=== PATIENT | male | born 1955 | race Caucasian/White ===

== ENCOUNTER 2025-04-02 18:22 | Emergency (ER) | payer BC, MEDICARE, SELFPAY ==
[2025-04-02] VITALS (7 sets, daily range): BP systolic 141–171; BP diastolic 61–94; PULSE 65–74; RESP 16–18; TEMP 36.6–37.9; O2SAT 93–99; BMI 58.1
--- NOTE | 2025-04-02 19:52 | ED.VIS.LOWEX ---
HPI History of Present Illness Chief Complaint: Lower Extremity Injury Informant: patient Narrative Narrative: 69-year-old diabetic male presenting to the emergency room for "another opinion on my foot". Patient has been seeing a purchasing buyer in [place] for the past 5 weeks. He states he had a callus it was deroofed and had packing placed on the bottom of his left foot. He states that for about a week he has felt feverish. He notes swelling of the foot with increased warmth and redness. States that he has been on an unknown antibiotic. He went to [place]'s emergency department over the weekend and was referred back to his purchasing buyer. States he took his last antibiotic this morning. He states that prior to taking that antibiotic he was on doxycycline for a chest infection. He tells me that over the weekend he was told that he was dehydrated and that his kidney function was higher than expected. He is concerned because he has bilateral knee replacements. PFSH [facility] Home Medications Medication Instructions Recorded Last Taken Type albuterol sulfate 90 mcg/actuation 2 puff inhalation Q6H PRN PRN 04/02/25 04/02/25 History aerosol inhaler wheezing allopurinol 100 mg tablet 100 mg PO TID 04/02/25 04/02/25 History ascorbic acid (vitamin C) 500 mg 500 mg PO DAILY 04/02/25 04/02/25 History capsule aspirin 81 mg tablet,delayed 81 mg PO DAILY 04/02/25 04/02/25 History release cephalexin 500 mg capsule 500 mg PO Q6 #40 CAPSULES 04/02/25 Unknown Rx clindamycin HCl 300 mg capsule 300 mg PO Q6H #40 CAPSULES 04/02/25 Unknown Rx (Cleocin HCl) evolocumab 140 mg/mL subcutaneous 140 mg subcut .COMPLEX 04/02/25 03/25/25 History pen injector (Repatha SureObedick) fexofenadine 180 mg tablet 180 mg PO DAILY 04/02/25 04/02/25 History (Faustina Allergy) fluticasone propionate 50 2 spray intranasal DAILY 04/02/25 04/02/25 History mcg/actuation nasal spray,suspension (24 Hour Allergy Relief) glyburide 5 mg tablet 10 mg PO BID 04/02/25 04/02/25 History hydrochlorothiazide 25 mg tablet 25 mg PO DAILY 04/02/25 03/30/25 History hydroxyzine HCl 25 mg tablet 25 mg PO QHS 04/02/25 04/02/25 History losartan 100 mg tablet 100 mg PO DAILY 04/02/25 04/02/25 History meclizine 25 mg tablet (Dramamine 25 mg PO DAILY 04/02/25 04/02/25 History (meclizine)) metformin 1,000 mg tablet 1,000 mg PO BID 04/02/25 04/02/25 History metoprolol tartrate 25 mg tablet 25 mg PO DAILY 04/02/25 04/02/25 History ondansetron 4 mg disintegrating 4 mg PO Q8H PRN PRN nausea 04/02/25 04/01/25 History tablet pioglitazone 30 mg tablet 30 mg PO DAILY 04/02/25 04/02/25 History potassium chloride 10 mEq 10 meq PO DAILY 04/02/25 04/02/25 History tablet,extended release propranolol 60 mg tablet 60 mg PO TID 04/02/25 04/02/25 History sulfamethoxazole 800 1 tab PO BID 04/02/25 04/02/25 History mg-trimethoprim 160 mg tablet testosterone 30 mg/actuation (1.5 1 pump topical DAILY 04/02/25 04/02/25 History mL) transderm solution metered pump vitamin B complex (Vitamins B 1 cap PO DAILY 04/02/25 04/02/25 History Complex capsule) Allergy/AdvReac Type Severity Reaction Status Date / Time Iodinated Contrast Media Allergy Severe Anaphylaxis Verified 04/02/25 18:26 (contrast dye - iodinated) codeine AdvReac Mild anxiety Verified 04/02/25 18:26 Opioids - Morphine Analogues AdvReac Mild anxiety Verified 04/02/25 18:26 Penicillins AdvReac Mild aches Verified 04/02/25 18:26 Social History Smoking Status: Never smoker ROS ROS ED Constitutional Constitutional ED: Reports fever(s) and subjective; Denies chills or weight loss Eyes Eyes: Denies change in vision or diplopia ENT ENT ED: Denies ear pain, rhinorrhea or sore throat Cardiovascular Cardiovascular: Denies chest pain, orthopnea, palpitations or racing heartbeat Respiratory/Chest Respiratory/Chest: Denies cough, dyspnea or orthopnea Gastrointestinal Gastrointestinal: Denies abdominal pain, diarrhea, nausea or vomiting Genitourinary Genitourinary ED: Denies dysuria, hematuria or urinary frequency Musculoskeletal Musculoskeletal: Denies arthralgias or myalgias Integumentary Reports rash and other Details: See HPI left foot wound ; Denies abscess Neurologic Neurologic: Denies headache(s) or weakness Psychiatric Psychiatric: Denies anxiety, depression, suicidal ideation or suicidal thoughts Endocrine Endocrinology: Denies polydipsia, polyphagia or polyuria Allergic/Immunologic Allergic/Immunologic ED: Denies mouth swelling, tongue swelling or urticaria EXAM Physical Exam Const Vital Signs: 04/02/25 18:23 04/02/25 18:24 04/02/25 20:02 Temperature 98 F 98 F 100.2 F H Temperature Source Oral Oral Oral Pulse Rate 71 74 67 Respiratory Rate 16 18 18 Blood Pressure 165/91 H 165/91 H 171/94 H Blood Pressure Mean 115 115 119 Pulse Ox 99 96 95 Oxygen Delivery Method Room Air Room Air Room Air 04/02/25 21:00 04/02/25 22:00 04/02/25 23:00 Temperature 100.2 F H 100.1 F H 100.1 F H Temperature Source Oral Oral Oral Pulse Rate 66 65 66 Respiratory Rate 18 18 16 Blood Pressure 164/82 H 145/70 H 141/61 H Blood Pressure Mean 109 95 87 Pulse Ox 96 93 94 Oxygen Delivery Method Room Air Room Air Room Air 04/02/25 23:17 Temperature 100 F H Temperature Source Pulse Rate 67 Respiratory Rate 18 Blood Pressure 155/62 H Blood Pressure Mean 93 Pulse Ox 98 Oxygen Delivery Method Positive well nourished and obese General Appearance ED: NAD Nutritional Appearance: obese HEENT Reports normocephalic, head/scalp atraumatic and moist mucous membranes Eyes PERRL and EOMs intact bilaterally Neck no lymphadenopathy, supple and no JVD Resp normal respiratory effort and clear to auscultation bilaterally Cardio regular rate, regular rhythm and no murmurs GI normal to inspection, nondistended, normoactive bowel sounds and non-tender Palpation: soft Back/Spine no CVA tenderness and normal ROM Extremity Extremity Narrative: Patient has bilateral venous stasis changes of the skin. The left foot appears more edematous and erythematous than the right. There is a hole on the plantar surface near the little toe MTP joint. This has packing in it. I do not appreciate foul smell or drainage from the site. The knees are without erythema or significant swelling. No significant effusion is noted. General Extremety ED: Yes edema General Extremity: edema bilateral lower extremity Details: moderate Neuro oriented x3 and CN's II-XII intact bilaterally Sensorium / Orientation: alert Motor Exam: strength 5/5 throughout Psych mental status grossly normal Mood & Affect: Negative for depressed or tearful Skin no rashes or lesions noted and no wounds MDM MDM MDM Narrative Medical decision making narrative: Differential diagnosis includes but not limited to sepsis cellulitis diabetic foot ulcer osteomyelitis electrolyte abnormalities acute kidney injury Patient's white count is down to 33.7 neutrophils. Sodium 129 potassium 5.2 CO2 23 anion gap 10 BUN 36 creatinine 1.8 normal lactic acid at 1.3. Sed rate slightly elevated at 22. CRP is elevated at 163. Urinalysis with no overt infection. I independent her potation of the plain films a small foci of gas with no obvious osteomyelitis. The foci of gas is most likely related to his packing.. Blood cultures were not obtained as the patient finished antibiotics of what appears to be Bactrim per his paperwork that we are able to get from his vehicle from security. Temperature hailey to 100.2 and down to 100. I sat down with the patient and we went over the above results. We talked about hospitalization versus outpatient follow-up and using Keflex and clindamycin. Patient states he is going to call his purchasing buyer tomorrow to see if his appointment can be moved up from Wednesday. I think this is a reasonable approach. Patient understands return instructions to this ED or to the hospital of his choosing for repeat examination. Lab Data Labs: Laboratory Results - last 24 hr 04/02/25 04/02/25 18:56 20:06 WBC 9.0 RBC 4.85 Hgb 14.3 Hct 43.8 MCV 90.3 MCH 29.5 MCHC 32.6 RDW Std Deviation 47.7 H RDW Coeff of Sridhar 14.4 Plt Count 270 MPV 10.1 Immature Gran % (Auto) 0.300 Neut % (Auto) 73.7 H Lymph % (Auto) 15.3 L [place] % (Auto) 9.6 Eos % (Auto) 0.7 Baso % (Auto) 0.4 Absolute Neuts (auto) 6.6 Absolute Lymphs (auto) 1.37 Nucleated RBC % 0 ESR 22 H Sodium 129 L Potassium 5.2 H Chloride 96 L Carbon Dioxide 23.0 Anion Gap 10 BUN 36 H Creatinine 1.80 H Estim Creat Clear Calc 70.07 Est GFR (MDRD) Non-Af 41 L BUN/Creatinine Ratio 19.9 Glucose 333 H Lactic Acid 1.3 Calcium 8.9 Total Bilirubin 0.63 AST 32 ALT 23 Alkaline Phosphatase 83 C-React Prot Ext Range 163.00 H Total Protein 7.1 Albumin 3.5 Globulin 3.6 Albumin/Globulin Ratio 1.0 Urine Color Yellow Urine Clarity Clear Urine pH 5.0 Ur Specific [place]y 1.020 Urine Protein 100 H Urine Glucose (UA) 250 H Urine Ketones Negative Urine Occult Blood 50 H Urine Nitrite Negative Urine Bilirubin Negative Urine Urobilinogen 1 H Ur Leukocyte Esterase Negative Urine RBC 5-10 SEEN Urine WBC 0-5 SEEN Ur Squamous Epith Cells 5-10 SEEN Urine Bacteria 2+ Hyaline Casts 0-5 SEEN Fine Granular Casts 0-5 SEEN Coarse Granular Casts 0-5 SEEN Urine Mucus 0 SEEN Radiography Diagnostic Testing: Clinical Impression(s) from Imaging Studies Foot X-Ray 04/02/25 20:15 IMPRESSION: Generalized soft tissue swelling/edema about the forefoot, with small amount of soft tissue gas laterally adjacent to the 5th MTP joint, related to ulceration or gas-forming soft tissue infection. No radiographic evidence for osteomyelitis. If clinical concern persists recommend MRI. Reading Location: [facility] Discharge Plan Triage Chief Complaint: Lower Extremity Injury ED Provider: Pro Wagner Dx/Rx/DC Orders Clinical Impression: Cellulitis in diabetic foot Instructions: Cellulitis Prescriptions: New clindamycin HCl [Cleocin HCl] 300 mg capsule 300 mg PO Q6H Qty: 40 0RF cephalexin 500 mg capsule 500 mg PO Q6 Qty: 40 0RF No Action albuterol sulfate 90 mcg/actuation HFA aerosol inhaler 2 puff inhalation Q6H PRN PRN (Reason: wheezing) Repatha SureClick 140 mg/mL pen injector 140 mg subcut .COMPLEX Rx Instructions: 140 mg subcutaneously Q14D; glyburide 5 mg tablet 10 mg PO BID potassium chloride 10 mEq tablet extended release 10 meq PO DAILY propranolol 60 mg tablet 60 mg PO TID sulfamethoxazole-trimethoprim 800-160 mg tablet 1 tab PO BID metformin 1,000 mg tablet 1,000 mg PO BID hydrochlorothiazide 25 mg tablet 25 mg PO DAILY pioglitazone 30 mg tablet 30 mg PO DAILY ondansetron 4 mg tablet,disintegrating 4 mg PO Q8H PRN PRN (Reason: nausea) losartan 100 mg tablet 100 mg PO DAILY testosterone 30 mg/actuation (1.5 mL) solution in metered pump w/miguel angel 1 pump topical DAILY Patient Comments: [NO ORIGINAL SIG] allopurinol 100 mg tablet 100 mg PO TID ascorbic acid (vitamin C) 500 mg capsule 500 mg PO DAILY aspirin 81 mg tablet,delayed release (DR/EC) 81 mg PO DAILY vitamin B complex [Vitamins B Complex] Capsule 1 cap PO DAILY fexofenadine [Faustina Allergy] 180 mg tablet 180 mg PO DAILY fluticasone propionate [24 Hour Allergy Relief] 50 mcg/actuation spray,suspension 2 spray intranasal DAILY Rx Instructions: administer into each nostril hydroxyzine HCl 25 mg tablet 25 mg PO QHS meclizine [Dramamine (meclizine)] 25 mg tablet 25 mg PO DAILY metoprolol tartrate 25 mg tablet 25 mg PO DAILY Primary Care Provider: Kieran Franklin Referrals: Kieran Franklin MD [Primary Care Provider, Family Practice] Activity Restrictions/Additional Instructions: Please call your purchasing buyer office tomorrow to see if they can move your appointment up for repeat examination. Print Language: Mohawk Disposition Disposition: Home, Self Care Discharge Date/Time: 04/02/25 23:51
--- OUTSIDE RECORDS SUMMARY | 2025-04-02 20:05 | XMS RPT_ITS | CCD ---
Author Organization [facility] Care Team Providers Care Network Operations Manager Name Role Phone DOCTOR, OUT OF TOWN Unavailable Unavailable JUANITO MEJIA Unavailable Unavailable DELBERT FRANKLIN Unavailable Unavailable Reginald Wall Unavailable Unavailable Reginald Wall Unavailable Unavailable Rene Lopez Unavailable Unavailable Physician, PCP Unknown Unavailable Unavailab le Rigoberto, Delbert aPlumbo Primary Care Provider SALINAS NEWMAN Attending Unavail able SALINAS NEWMAN Referring Unavail able STENCEL, DELBERT PALUMBO Primary Care Unavailab le LEESON, SALINAS ALMEIDA Admitting Unavail able COURTNEY SNOWDEN Attending Unavailable LEESALINAS BUENROSTRO Referring Unavail able STENCELDELBERT Primary Care Unavailab le LEEPORTER, SALINAS ALMEIDA Admitting Unavail able MAISHA DELGADO Attending Unavailable LEEPORTER, SALINAS ALMEIDA Referring Unavail able STENCEL, DELBERT PALUMBO Primary Care Unavailab le LEESON, SALINAS ALMEIDA Admitting Unavail able MAISHA DELGADO Attending Unavailable SALINAS NEWMAN Referring Unavail able STENCEL, DELBERT PALUMBO Primary Care Unavailab robin LEESALINAS BUENROSTRO Admitting Unavail able IVANNA GREENBERG Attending Unavailable LEESALINAS BUENROSTRO Referring Unavail able STENCELDELBERT [facility] Unavailab le LEESONSALINAS Admitting Unavail able IVANNA GREENBERG Attending Unavailable SALINAS NEWMAN Referring Unavail able STENCELDELBERT [facility] Unavailab le LEESALINAS BUENROSTRO Admitting Unavail able IVANNA GREENBERG Attending Unavailable LEESALINAS BUENROSTRO Referring Unavail able STENCEL, DELBERT PALUMBO Primary [facility] [place] Unavailab le LEESONSALINAS Admitting Unavail able IVANAN GREENBERG Attending Unavailable SALINAS NEWMAN Referring Unavail able STENCEL, DELBERT PALUMBO [facility] Unavailab le LEESONSALINAS Admitting Unavail able IVANNA GREENBERG Attending Unavailable LEESON, SALINAS ALMEIDA Referring Unavail able STENCEL, DELBERT PALUMBO Primary Care Unavailab le LEESON, SALINAS ALMEIDA Admitting Unavail able GREENBERG, IVANNA Attending Unavailable LEESON, SALINAS ALMEIDA Referring Unavail able STENCEL, DELBERT PALUMBO Primary Care Unavailab le LEESON, SALINAS ALMEIDA Admitting Unavail able DELGADOMAISHA HOGUE Attending Unavailable LEESON, SALINAS ALMEIDA Referring Unavail able STENCEL, DELBERT PALUMBO Primary Care Unavailab le LEESON, SALINAS ALMEIDA Admitting Unavail able GREENBERG, IVANNA Attending Unavailable LEESON, SALINAS ALMEIDA Referring Unavail able STENCEL, DELBERT PALUMBO Primary Care Unavailab le LEESON, SALINAS ALMEIDA Admitting Unavail able DELGADO, MAISHA Attending Unavailable LEESON, SALINAS ALMEIDA Referring Unavail able STENCEL, DELBERT PALUMBO Primary Care Unavailab le LEESON, SALINAS ALMEIDA Admitting Unavail able GREENBERG, IVANNA Attending Unavailable LEESON, SALINAS ALMEIDA Referring Unavail able STENCEL, DELBERT PALUMBO Primary Care Unavailab OSCAR Pearson Attending Unavailable OSCAR PORTILLO Referring Unavailable STENCEL, DELBERT PALUMBO Primary Care Unavailab OSCAR Pearson Attending Unavailable OSCAR PORTILLO Referring Unavailable STENEB, DELBERT PALUMBO Primary Care Unavailab le Delbert Franklin Unavailable Unavailable Muniz II, Karolina Unavailable Unavailable Adalberto Wall Unavailable Unavailable Muniz II, Karolina Unavailable Unavailable Cj Warner Unavailable Unavailable Adalberto Wall Unavailable Unavailable Rigoberto, Delbert Palumbo Primary Care Provider Delbert Franklin Unavailable [phone] Unavailable Unavailable Delbert Franklin Unavailable Lisbet Zuniga Unavailable Unavailabl e Karolina Muniz Unavailable Adalberto Wall Unavailable Delbert Franklin MD Primary Care Provider DELBERT FRANKLIN Primary Care Unavailab DELBERT Mcintosh Attending Unavailable STENDELBERT PARSON Primary Care Unavailab le CONNKARON Attending Unavail able CONN, KARON SERVIN Admitting Unavail able CONN, KARON SERVIN Referring Unavail able STENEB, DELBERT PALUMBO Primary Care Unavailab Ms. ADALBERTO Blood Attending Unav ailable Steneb, Delbert Palumbo Primary Care Unavailab le Basilio, Dr. oRdrick Lisa Attending Unavailable WOOD, Ms. ADALBERTO BRENDA Referring Unav ailable Stencel, Delbert Palumbo Primary Care Unavailab le Stencel, Delbert Palumbo Primary Care Unavailab le SipMarion gastelum Attending Unavailable SipMarion gastelum Referring Unavailable Stencel Delbert GÓMEZ Primary Care Provider [phone] Wood AIR TRAFFIC COORDINATOR-PIEROGI MAKER, Adalberto L Unavailable Rigoberto, Dr. Delbert Palumbo Primary Care Unava ilable Muniz II, Dr. Karolina Childers Attending Unavai lable Muniz II, Dr. Karolina Childers Referring Unavai lable Muniz II, Dr. Karolina Childers Referring Unavai lable Stencel, Dr. Delbert Palumbo Primary Care Unava ilable Muniz II, Dr. Karolina Childers Attending Unavai lable Muniz II, Dr. Karolina Childers Referring Unavai lable Stencel, Dr. Delbert Palumbo Primary Care Unava ilable Muniz II, Dr. Karolina Childers Attending Unavai lable Stencel, Dr. Delbert Palumbo Primary Care Unava ilable Wood, MsJosee Alvarezraine Attending Unav ailable Wood, MsJosee Adablerto Brenda Referring Unav ailable Unavailable Unavailable Unavailable Unavailable Mae AIR TRAFFIC COORDINATOR-PIEROGI MAKER, Adalberto Bonner Primary Care Provider Delbert Franklin MD Primary Care Provider Wood AIR TRAFFIC COORDINATOR-PIEROGI MAKER, Adalberto L Unavailable Wood AIR TRAFFIC COORDINATOR-PIEROGI MAKER, [facility] Primary Care Provider Wood AIR TRAFFIC COORDINATOR-PIEROGI MAKER, Adalberto L Unavailable Wood AIR TRAFFIC COORDINATOR-PIEROGI MAKER, [facility] Primary Care Provider Wood AIR TRAFFIC COORDINATOR-PIEROGI MAKER, Adalberto L Unavailable Rosendo Longo MD Unavailable ROSENDO LONGO Attending Unava ilable WOODADALBERTO Primary Care Unavailable WOODADALBERTO Attending Unavailable WOOD, ADALBERTO L Referring Unavailable WOODADALBERTO Primary Care Unavailable MUNIZ, KAROLINA Anguiano Attending Unavailable WOODADALBERTO Primary Care Unavailable ROSENDO LONGO Attending Unava ilable WOOD, ADALBERTO L Primary Care Unavailable ADALBERTO WALL Attending Unavailable ADALBERTO WALL Referring Unavailable ADALBERTO WALL Primary Care Unavailable Wood AIR TRAFFIC COORDINATOR-PIEROGI MAKER, Adalberto Bonner Unavailable Mae AIR TRAFFIC COORDINATOR-DOUGLAS, Adalberto Bonner Primary Care Provider Emily Kingston MD, Rosendo Adkins Unavailable ADALBERTO WALL Primary Care Unavailable KARAN ALMANZA Attending Unavailable RAKEL DICKEY Attending Unavailable RAKEL DICKEY Referring Unavailable MAE ADALBERTO Ha Primary Care Unavailable RODRICK BASILIO Attending Unavailable RODRICK BASILIO Referring Unavailable ADALBERTO WALL Primary Care Unavailable STENCEL, DELBERT PALUMBO Primary [facility] [place] Unavailab le NELL, TERRANCE HOLGUIN Referring Unavailable NELL, TERRANCE HOLGUIN Admitting Unavailable NELL, TERRANCE HOLGUIN Attending Unavailable STENCEL, DELBERT PALUMBO Primary [facility] [place] Unavailab le NELL, TERRANCE HOLGUIN Admitting Unavailable NELL, TERRANCE VENTURARY Referring Unavailable STENCEL, DELBERT PALUMBO Primary [facility] [place] Unavailab le NELL, TERRANCE HOLGUIN Attending Unavailable STENCEL, DELBERT PALUMBO [facility] Unavailab le ALMANZA, HERNANDEZ SCHROEDER Attending Unavailab le STENCEL, DELBERT PALUMBO [facility] Unavailab le STENCEL, DELBERT PALUMBO Primary [facility] [place] Unavailab le ALMANZA, HERNANDEZ SCHROEDER Attending Unavailab le ALMANZA, HERNANDEZ SCHROEDER Attending Unavailab le STENCEL, DELBERT PALUMBO [facility] Unavailab le ALMANZA, HERNANDEZ SCHROEDER Attending Unavailab le STENCEL, DELBERT PALUMBO [facility] Unavailab le NELL, TERRANCE HOLGUIN Attending Unavailable STENCEL, DELBERT PALUMBO Primary [facility] [place] Unavailab le Allergies Allergy Classification Reported Allergen(s) Allergy Type Date of Onset Reaction(s) Facility Acetaminophen / HYDROcodone (3 sources) Acetaminophen / HYDROcodone; Translations: [Vicodin TABS] Drug Allergy 08-02-19 19 Unknown, GI Upset [facility] Work Phone: Acetaminophen / oxyCODONE (5 sources) Acetaminophen / oxyCODONE; Translations: [acetaminophen-oxyc odone] Drug Allergy 07-21-19 23 Anxiety [facility] Work Phone: acetaminophen / propoxyphene (2 sources) acetaminophen / propoxyphene; Translations: [Darvocet-N 100 TABS] Drug Allergy Nausea [facility] Work Phone: Angiotensin Converting Enzyme (ZULLY) Inhibitors (5 sources) Lisinopril; Translations: [lisinopril] Drug Allergy 08-02-19 19 Dizziness, Other [facility] Work Phone: Aspartame (3 sources) Aspartame; Translations: [Aspartame and Phenylalanine] Drug Allergy 07-21-19 23 Unknown [facility] Codeine / guaiFENesin (2 sources) Codeine / guaiFENesin; Translations: [Robitussin-AC] Drug Allergy [facility] Work Phone: Corticosteroids (3 sources) predniSONE; Translations: [predniSONE] Drug Allergy 07-21-19 23 Unknown [facility] Work Phone: Dextromethorphan (1 source) Dextromethorphan Drug Allergy 07-21-19 23 Unknown [facility] Work Phone: empagliflozin (1 source) empagliflozin Drug Allergy 07-21-19 23 Diarrhea [facility] Work Phone: guaiFENesin (3 sources) guaiFENesin; Translations: [guaifenesin] Drug Allergy 07-21-19 23 Unknown [facility] Work Phone: HMG-CoA Reductase Inhibitors (statins) (3 sources) Simvastatin; Translations: [simvastatin] Drug Allergy 07-21-19 23 Anxiety [facility] Work Phone: Penicillins (antibiotic) (3 sources) Penicillins; Translations: [Penicillins] Drug Allergy 04-10-20 02 Unknown, Anaphylaxis [facility] Work Phone: Quinolones (antibiotic) (1 source) levoFLOXacin Drug Allergy 07-21-19 23 Unknown [facility] Work Phone: Spironolactone (1 source) Spironolactone Drug Allergy 07-21-19 23 Unknown [facility] Work Phone: (20 sources) Acetaminophen / HYDROcodone; Translations: [HYDROCODONE-ACETAM INOPHEN] Drug Allergy 08-02-19 GI Intolerance, Unknown, GI Upset [facility] (20 sources) Aspartame; Translations: [ASPARTAME] Drug Allergy 08-02-19 GI Intolerance, Unknown [facility] (20 sources) Codeine / guaiFENesin; Translations: [CODEINE-GUAIFENESI N] Drug Allergy 08-02-19 Anxiety [facility] (20 sources) Lisinopril; Translations: [LISINOPRIL] Drug Allergy 08-02-19 Dizziness, Other [facility] Comment on above: cough (20 sources) Penicillins; Translations: [PENICILLINS] Propensity to adverse reactions to drug 04-10-20 02 Anaphylaxis, Unknown [facility] (20 sources) Silk adhesive tape; Translations: [SILK TAPE] Propensity to adverse reactions to substance 09-23-19 03 [facility] (20 sources) Simvastatin; Translations: [SIMVASTATIN] Drug Allergy 08-02-19 Anxiety [facility] (20 sources) Other; Translations: [OTHER] Propensity to adverse reactions 04-10-20 02 [facility] (20 sources) Propoxyphene N-Acetaminophen; Translations: [PROPOXYPHENE N-ACETAMINOPHEN] Propensity to adverse reactions to drug 08-02-19 GI Intolerance, Nausea Only [facility] (20 sources) Acetaminophen / oxyCODONE; Translations: [acetaminophen-oxyc odone] [facility] ([facility] sources) Acetaminophen / oxyCODONE; Translations: [Percocet TABS] Drug Allergy 07-21-19 Anxiety [facility] Work Phone: (2 sources) Acetaminophen / Propoxyphene Drug Allergy Nausea [facility] [employer] Work Phone: (20 sources) Codeine / guaiFENesin; Translations: [Robitussin-AC] Drug Allergy [facility] [employer] Work Phone: (20 sources) guaiFENesin; Translations: [guaifenesin] Drug Allergy 07-21-19 [facility] Work Phone: (20 sources) predniSONE; Translations: [predniSONE] Drug Allergy 07-21-19 Unknown [facility] Work Phone: (20 sources) Acetaminophen / Propoxyphene; Translations: [Darvocet-N 100 TABS] Drug Allergy Nausea [facility] Work Phone: (20 sources) Nutrasweet Aspartame POWD; Translations: [Nutrasweet Aspartame POWD] Allergy to drug (finding) -[facility] Work Phone: (1 source) Penicillin Drug Allergy Other [facility] Comment on above: pain in joints (20 sources) empagliflozin; Translations: [Jardiance TABS] Drug Allergy 07-21-19 Diarrhea -[facility] Work Phone: (20 sources) Losartan; Translations: [Losartan Potassium TABS] Drug Allergy 07-21-19 Nausea Only -[facility] Work Phone: (20 sources) Spironolactone; Translations: [Aldactone] Drug Allergy 07-21-19 Unknown -[facility] Work Phone: (20 sources) levoFLOXacin; Translations: [levoFLOXacin TABS] Drug Allergy 07-21-19 23 Unknown [email or web address] Work Phone: (11 sources) Acetaminophen / HYDROcodone; Translations: [Vicodin TABS] Drug Allergy [facility] Work Phone: (20 sources) Dextromethorphan; Translations: [ROBITUSSIN COUGH CALMERS] Drug Allergy 07-21-19 Unknown [facility] Work Phone: (2 sources) Acetaminophen / oxyCODONE; Translations: [OXYCODONE-ACETAMIN OPHEN] Drug Allergy 07-21-19 [facility] 3 Repository (3 sources) empagliflozin; Translations: [EMPAGLIFLOZIN] Drug Allergy 07-21-19 [facility] 3 Repository (3 sources) levoFLOXacin; Translations: [LEVOFLOXACIN] Drug Allergy 07-21-19 [facility] 3 Repository (3 sources) Spironolactone; Translations: [SPIRONOLACTONE] Drug Allergy 07-21-19 23 [facility] 3 Repository (6 sources) Codeine; Translations: [CODEINE] Drug Allergy 07-24-19 25 Anxiety [facility] Medications Current Medications Medication Drug Class(es) Dates Sig (Normalized) Sig (Original) [id number] 200 actuat albuterol 0.09 mg/actuat metered dose inhaler (20 sources) beta2-Adrenergic Agonist Start: 09-11-2024 take 2 puff(s) by inhalation every four hours albuterol 90 mcg/actuation inhaler Inhale 2 puffs every 4 hours if needed. 09/11/2024 Active Start: 06-23-2023 take 2 puff(s) by in halation four times daily as needed albuterol 90 mcg/actuation inhaler Indications: SOB (shortness of breath) on exertion INHALE 2 PUFFS FOUR TIMES DAILY NEEDED SHORTNESS OF BREATH WITH ACTIVITY 18 g 11 06/23/2023 Active Start: 04-09-2018 End: 03-06-2026 albuterol (VENTOLIN HFA) 90 mcg/actuation inhaler 1-2 inhalations every 4-6 hours as needed for wheezing. Dispense spacer as needed. 04/09/2018 Active Start: 04-09-2018 End: 04-09-2019 albuterol (VENTOLIN HFA) 90 mcg/actuation inhaler 1-2 inhalations every 4-6 hours as needed for wheezing. Dispense spacer as needed. 0 04/09/2018 Active Start: 04-09-2018 End: 04-09-2019 albuterol (VENTOLIN HFA) 90 mcg/actuation inhaler 1-2 inhalations every 4-6 hours as needed for wheezing. Dispense spacer as needed. 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 270 tablet 3 04/26/2024 04/26/2025 Active Start: 06-01-2017 End: 2024 take 1 tablet by mouth twice daily allopurinol (ZYLOPRIM) 100 MG tablet TAKE ONE TABLET BY MOUTH TWICE A DAY 06/01/2017 Active aspirin 81 mg delayed release oral tablet (20 sources) Platelet Aggregation Inhibitor, Nonsteroidal Anti-inflammatory Drug Start: 11-02-2014 take 1 tablet by mouth once daily aspirin 81 MG EC tablet Take 1 (one) tablet (81 mg total) by mouth daily . 11/02/2014 Active Aspirin 81 MG TA BS TAKE 1 TABLET DAILY. Quantity: 0 Refills: 0 Ordered: 04-Apr-2019 DO Active Beets preparation (5 sources) RED BEET ORAL Ta ke by mouth . Active benzonatate 100 mg oral capsule (5 sources) Non-narcotic Antitussive Start: 2021 End: 2024 benzonatate (Tessalon Perles) 100 MG capsule Indications: Cough Take one or two capsules every 8 hours as needed for cough. Do not chew. . 60 capsule 1 08/15/2021 06/16/2024 Discontinued calcium ascorbate 500 mg oral tablet (9 sources) Start: 2015 take 1 tablet by mouth once daily ascorbic acid, vitamin C, (ascorbic acid with hailey hips) 500 MG tablet 500 mg = 1 tab(s), Oral, Daily 0 11/11/2015 Active 1 ml evolocumab 140 mg/ml auto-injector (20 sources) PCSK9 Inhibitor Start: 2023 End: 2024 inject 1 mL by subcutaneous injection once Repatha SureClick 140 mg/mL Pen Inject 1 mL (140 mg total) under the skin every 14 (fourteen) days . 08/04/2023 Active ezetimibe 10 mg oral tablet (6 sources) Dietary Cholesterol Absorption Inhibitor Start: 2023 End: 2024 take 1 tablet by mouth once daily ezetimibe (Zetia) 10 mg tablet Indications: Dyslipidemia , Atherosclerosis Take 1 tablet (10 mg) by mouth once daily. 30 tablet 11 07/06/2023 10/25/2023 Discontinued (Side effects) fexofenadine hydrochloride 60 mg oral tablet (6 sources) Histamine-1 Receptor Antagonist take 1 tablet by mouth twice daily fexofenadine (BRAYDEN) 60 MG tablet Take 1 (one) tablet (60 mg total) by mouth 2 (two) times a day . Active fluticasone propionate 0.05 mg/actuat metered dose nasal spray (11 sources) Corticosteroid Start: 2021 take 2 spray(s) nasal route once daily fluticasone propionate (FLONASE) 50 mcg/actuation nasal spray Indications: Nasal congestion Instill 2 (two) sprays into each nostril daily . 16 g 08/15/2021 Active glyBURIDE 5 mg oral tablet (20 sources) Sulfonylurea Start: 2016 End: 2024 take 2 tablets by mouth twice daily at mealtime glyBURIDE (DIABETA) 5 MG tablet Take 2 (two) tablets (10 mg total) by mouth 2 (two) times a day with meals . 03/11/2017 Active Start: 03-11-2017 take 1 tablet by steff th twice daily glyBURIDE (DIABETA) 5 MG tablet 5 mg = 1 tab(s), Oral, BID, # 180 tab(s), Refills(s) 3, Pharmacy: [facility]/pharmacy #[id number] 03/11/2017 Active take 10 mg by mouth twice daily glyBURIDE ; 10 milligram(s) 2 pills orally 2 times a day Quantity: 0 Refills: 0 Ordered: 13-Mar-2019 HeavenlySharyn carlson Generic Substitution Allowed hydroCHLOROthiazide 25 mg oral tablet (20 sources) Thiazide Diuretic Start: 04-05-2019 End: 01-30-2025 take 1 tablet by mouth once daily hydroCHLOROthiazide (HYDRODIURIL) 25 MG tablet Take 1 (one) tablet (25 mg total) by mouth daily . 3 04/05/2019 Active hydrOXYzine hydrochloride 25 mg oral tablet (20 sources) Antihistamine Start: 10-25-2023 End: 10-24-2024 take 1 tablet by mouth once daily hydrOXYzine HCL (Atarax) 25 mg tablet Indications: Anxiety Take 1 tablet (25 mg) by mouth once daily. 30 tablet 11 10/25/2023 Active take 1 tablet by steff th four times daily hydrOXYzine hydrochloride 25 mg oral tab let ; 1 tab(s) orally 4 times a day Quantity: 0 Refills: 0 Ordered: 13-Mar-2019 Sharyn Smith Generic Substitution Allowed levoFLOXacin 750 mg oral tablet (1 source) Quinolone Antimicrobial Start: 08-15-2021 End: 08-20-2021 take 1 tablet by mouth once daily levoFLOXacin (LEVAQUIN) 750 MG tablet Indications: Pneumonia due to infectious organism, unspecified laterality, unspecified part of lung Take 1 (one) tablet (750 mg total) by mouth daily for 5 days . 5 tablet 0 08/15/2021 08/20/2021 Active losartan potassium 100 mg oral tablet (20 sources) Angiotensin 2 Receptor Roya Start: 04-18-2020 End: 01-30-2025 losartan (COZAAR) 100 MG tablet 04/29/2021 Active Start: 04-08-2020 take 1 tablet by steff th once daily Losartan Potassium 25 MG Oral Tablet TAKE 1 TABLET DAILY. Quantity: 90 Refills: 3 Mae CHOUDHURYDOUGLASAdalberto Start : 08-Apr-2020 Active Start: 03-11-2017 End: 04-14-2019 take 1 tablet by mouth once daily losartan (COZAAR) 50 MG tablet 50 mg = 1 tab(s), Oral, Daily, # 90 tab(s), Refills(s) 3, Pharmacy: [facility]/pharmacy #[id number] 03/11/2017 04/14/2019 Discontinued (Discontinued by another clinician) meclizine hydrochloride 25 mg oral tablet (20 sources) Antiemetic Start: 02-26-2022 End: 04-25-2024 take 1 tablet by mouth three times daily as needed meclizine (ANTIVERT) 25 mg tablet Take 1 (one) tablet (25 mg total) by mouth Three times daily as needed . 02/26/2022 Active Start: 08-28-2016 End: 04-14-2019 take 1 tablet by mouth three times daily as needed for dizziness meclizine (ANTIVERT) 25 mg tablet 25 mg = 1 tab(s), Oral, TID, PRN for dizziness, # 90 tab(s), Refills(s) 11, Pharmacy: [facility]/pharmacy #[id number] 08/31/2016 Active metFORMIN hydrochloride 1000 mg oral tablet (20 sources) Biguanide Start: 03-11-2017 End: 01-30-2025 metFORMIN (GLUCOPHAGE) 1000 MG tablet Tablet Oral 03/21/2017 Active metoprolol tartrate 25 mg oral tablet (20 sources) beta-Adrenergic Roya Start: 03-14-2019 take 1 tablet by mouth once daily metoprolol tartrate (LOPRESSOR) 25 MG tablet Take 1 (one) tablet (25 mg total) by mouth daily . 11 03/14/2019 Active Start: 03-14-2019 take 1 tablet by steff th twice daily metoprolol tartrate (LOPRESSOR) 25 MG tablet Take 25 mg by mouth 2 (two) times a day . 11 03/14/2019 Active metoprolol tartr ate 50 mg oral tablet ; orally once a day Quantity: 0 Refills: 0 Ordered: 13-Mar-2019 Sharyn Smith Generic Substitution Allowed Multivitamin preparation (1 source) take 1 tablet by mouth once daily Multiple Vitamins oral tablet ; 1 tab(s) orally once a day Quantity: 0 Refills: 0 Ordered: 13-Mar-2019 Sharyn Smith Generic Substitution Allowed NON FORMULARY (12 sources) take 1 dose by mouth twice daily NON FORMULARY Take 1 each by mouth 2 times a day. Ivana-pro for neuropathy Active pediatric cdbmrmfn-ncic-bkm Chew (20 sources) Start: 07-21-2017 pediatric piutlyyh-rhdc-yqx Chew 1 tab(s), Oral, Daily, 30 tab(s), Refill(s) 0 07/21/2017 Active Start: 07-21-2017 pediatric mult bwcz-lfyg-ixj Chew 1 tab(s), Oral, Daily, 30 tab(s), Refill(s) 0 0 07/21/2017 Active pioglitazone 30 mg oral tablet (20 sources) Peroxisome Proliferator Receptor alpha Agonist, Peroxisome Proliferator Receptor gamma Agonist, Thiazolidinedione Start: 04-24-2021 End: 11-14-2024 take 1 tablet by mouth once daily pioglitazone (Actos) 30 mg tablet Indications: Type 2 diabetes mellitus without complication, without long-term current use of insulin (Multi) Take 1 tablet by mouth once daily 90 tablet 12/19/2024 Active Start: 03-14-2019 take 1 tablet by steff th once daily pioglitazone (ACTOS) 15 MG tablet Take 1 (one) tablet (15 mg total) by mouth daily . 11 03/14/2019 Active potassium chloride 10 meq extended release oral tablet (20 sources) Start: 03-11-2017 End: 02-13-2025 take 1 tablet by mouth once daily potassium chloride 10 MEQ CR tablet Take 1 (one) tablet (10 mEq total) by mouth daily . 03/11/2017 Active take 1 tablet by mouth twice rosa ly potassium chloride 10 mEq oral tablet, extended release ; 1 tab(s) orally 2 times a day Quantity: 0 Refills: 0 Ordered: 13-Mar-2019 Heavenlygiovanaaldo Sharyn Generic Substitution Allowed predniSONE 20 mg oral tablet (1 source) Start: 06-05-2021 End: 06-08-2021 take 2 tablets by mouth once daily predniSONE (DELTASONE) 20 MG tablet Indications: Uvulitis Take 2 (two) tablets (40 mg total) by mouth daily for 3 days . 6 tablet 0 06/05/2021 06/08/2021 Active propranolol hydrochloride 20 mg oral tablet (20 sources) beta-Adrenergi c Roya Start: 08-24-2024 End: 08-24-2025 take 1 tablet by mouth once daily at bedtime propranolol (Inderal) 20 mg tablet Indications: Tremor Take 1 tablet (20 mg) by mouth once daily at bedtime. 90 tablet 3 08/24/2024 08/24/2025 Active Start: 06-28-2024 End: 06-28-2025 take 1 tablet by mouth twice daily propranolol (Inderal) 20 mg tablet Indications: Tremor Take 1 tablet (20 mg) by mouth 2 times a day. 180 tablet 3 06/28/2024 06/28/2025 Active Start: 04-29-2021 propranoloL (I NDERAL) 60 MG tablet 04/29/2021 Active Start: 10-07-2020 End: 06-28-2024 take 1 tablet by mouth once daily propranolol (Inderal) 60 mg tablet Indications: Other specified forms of tremor Take 1 tablet (60 mg) by mouth once daily. 90 tablet 3 01/31/2024 06/28/2024 Discontinued (Dose adjustment) sulfamethoxazole 800 mg / trimethoprim 160 mg oral tablet (2 sources) Dihydrofolate Reductase Inhibitor Antibacterial, Sulfonamide Antimicrobial Start: 03-22-2025 End: 04-01-2025 take 1 tablet by mouth twice daily sulfamethoxazole-trimethoprim (BACTRIM DS,SEPTRA DS) 800-160 mg per tablet Take 1 (one) tablet by mouth 2 (two) times a day for 10 days . 20 tablet 03/22/2025 04/01/2025 Active 60 actuat testosterone 30 mg/actuat topical solution (20 sources) Androgen Start: 03-05-2025 End: 06-03-2025 testosterone (Axiron) 30 mg/actuation (1.5 mL) topical solution Indications: Hypogonadism in male Place 3 Pump on the skin once daily in the morning. 180 mL 03/05/2025 06/03/2025 Active Start: 09-20-2024 End: 12-19-2024 testosterone (Axiron) 30 mg/ actuation (1.5 mL) topical solution Indications: Hypogonadism in male Place 3 Pump on the skin once daily in the morning. 180 mL 1 09/20/2024 12/19/2024 Active Start: 09-18-2024 testosterone ( Axiron) 30 mg/actuation (1.5 mL) topical solution Indications: Hypogonadism in male Place 3 Pump on the skin once daily in the morning. 180 mL 5 09/18/2024 Active Start: 12-30-2023 End: 09-18-2024 testosterone (Axiron) 30 mg/ actuation (1.5 mL) topical solution Indications: Hypogonadism in male APPLY 3 PUMPS ON THE SKIN ONCE DAILY. 180 mL 06/12/2024 09/18/2024 Discontinued (Reorder) Start: 06-21-2023 End: 12-03-2023 testosterone (Axiron) 30 mg/ actuation (1.5 mL) topical solution Indications: Hypogonadism in male Place 3 Pump on the skin once daily. 225 mL 1 11/03/2023 12/03/2023 Active Start: 04-14-2023 End: 05-14-2023 testosterone (Axiron) 30 mg/ actuation (1.5 mL) topical solution Indications: Hypogonadism in male Place 3 Pump on the skin once daily. 2 each 5 04/14/2023 05/14/2023 Active Start: 04-20-2016 testosterone 3 0 mg/actuation (1.5 mL) SlPm Pt states this is a 3 pump not 2. . 04/20/2016 Active Start: 04-20-2016 Testosterone 3 0 MG/ACT Transdermal Solution APPLY 3 PUMP ACTUATION (30MG) TO EACH AXILLA (TOTAL DOSE = 60MG) ONE TIME DAILY. APPLY AT THE SAME TIME EACH DAY TO CLEAN , DRY AREA. Quantity: 3 Refills: 1 Ordered: 15-Aug-2019 Karolina Muniz II, MD Start : 15-Aug-2019 Active testosterone 2% transdermal ointment Quantity: 0 Refills: 0 Ordered: 13-Mar-2019 Yairquetacelena Sharyn Generic Substitution Allowed triamcinolone acetonide 1 mg/ml topical cream (1 source) Corticosteroid Start: 11-23-2022 End: 11-30-2022 triamcinolone (Kenalog) 0.1 % cream Indications: Poison anna Apply topically 2 times a day for 7 days. Apply to affected area 1-2 times daily as needed. Avoid face and groin. 30 g 1 11/23/2022 11/30/2022 Active trospium chloride 20 mg oral tablet (20 sources) Cholinergic Muscarinic Antagonist Start: 08-09-2024 take 1 tablet by mouth twice daily trospium (Sanctura) 20 mg tablet Indications: Nocturia Take 1 tablet by mouth twice daily 60 tablet 08/09/2024 Active Start: 06-07-2024 End: 07-11-2024 take 1 tablet by mouth twice daily trospium (Sanctura) 20 mg tablet Indications: Nocturia Take 1 tablet by mouth twice daily 60 tablet 06/07/2024 07/11/2024 Discontinued Start: 06-10-2020 End: 05-12-2024 take 1 tablet by mouth twice daily trospium (Sanctura) 20 mg tablet Indications: Nocturia Take 1 tablet (20 mg) by mouth 2 times a day. 60 tablet 11 04/14/2023 05/12/2024 Discontinued Vitamin B Complex (6 sources) take 1 tablet by mouth once daily b complex vitamins tablet Take 1 (one) tablet by mouth daily . Active VITAMIN B COMPLEX ORAL (3 sources) take 1 tablet by mouth once daily VITAMIN B COMPLEX ORAL Take 1 tablet by mouth once daily. Active vitamin b12 1 mg/ml injectable solution (4 sources) Vitamin B12 Start: 10-25-2023 cyanocobalamin (Vitamin B-12) injection 1,000 mcg End: 06-16-2024 cyanocobalamin (B-12) 1,000 mcg/mL injection Inject 1 mL (1,000 mcg total) into the shoulder, thigh, or buttocks every 30 (thirty) days . 06/16/2024 Discontinued Completed/Discontinued Medications Medication Drug Class(es) Dates Sig (Normalized) Sig (Original) ascorbic acid 500 mg oral tablet (20 sources) Vitamin C Start: 11-11-2015 End: 06-16-2024 take 1 tablet by mouth once daily ascorbic acid (Vitamin C) 500 mg tablet 500 mg = 1 tab(s), Oral, Daily 11/11/2015 04/05/2024 Discontinued (Med List Cleanup) Vitamin C 100 mg oral tablet Quantity: 0 Refills: 0 Ordered: 13-Mar-2019 Sharyn Smith Generic Substitution Allowed Vitamin C TABS T STEPHEN 1 TABLET DAILY. Refills: 0 DO Active Vitamin C TABS T STEPHEN 1 TABLET DAILY. Refills: 0 Active azithromycin 250 mg oral tablet (14 sources) Macrolide Antimicrobial Start: 09-18-2021 End: 02-26-2022 Azithromycin 250 MG Oral Tablet TAKE 2 TABLETS ON DAY 1 THEN TAKE 1 TABLET A DAY FOR 4 DAYS. Quantity: 1 Refills: 0 Or[facility]: 18-Sep-2021 [place] [facility] Start : 18-Sep-2021 End : 26-Feb-2022 Complete Start: 08-18-2021 Azithromycin 2 50 MG Oral Tablet TAKE 2 TABLETS ON DAY 1 THEN TAKE 1 TABLET A DAY FOR 4 DAYS. Quantity: 1 Refills: 0 Ordered: 18-Aug-2021 [place] [facility] Start : 18-Aug-2021 Active calcium carbonate 1250 mg oral capsule (17 sources) Start: 11-11-2015 End: 04-14-2019 take 1 capsule by mouth once daily calcium carbonate 1250 MG capsule 1,250 mg = 1 cap(s), Oral, Daily 0 11/11/2015 04/14/2019 Discontinued (Patient's Request) calcium chloride 0.0014 meq/ml / potassium chloride 0.004 meq/ml / sodium chloride 0.103 meq/ml / sodium lactate 0.028 meq/ml injectable solution (2 sources) Start: 04-10-2024 End: 04-11-2024 take 50 mL intravenously every hour 50 mL/hr, intravenous, Continuous, Starting on 04/10/24 at 1330, For 1 day, Preprocedure cholecalciferol 1000 unt oral capsule (17 sources) Vitamin D Start: 11-11-2015 End: 04-14-2019 take 1 tablet by mouth once daily cholecalciferol, vitamin D3, (VITAMIN D3) 1,000 unit capsule 1,000 International_Un it = 1 tab(s), Oral, Daily 0 11/11/2015 04/14/2019 Discontinued (Patient's Request) dapagliflozin 5 mg oral tablet (10 sources) Sodium-Glucose Cotransporter 2 Inhibitor Start: 09-25-2021 End: 02-26-2022 take 1 tablet by mouth once daily Farxiga 5 MG Oral Tablet Take 1 tablet daily Quantity: 30 Refills: 3 Ordered: 25-Sep-2021 Adalberto Pandey Start : 25-Sep-2021 End : 26-Feb-2022 Complete doxycycline monohydrate 100 mg oral tablet (2 sources) Tetracycline-class Drug Start: 03-06-2025 End: 03-13-2025 take 1 tablet by mouth twice daily doxycycline monohydrate (ADOXA) 100 MG tablet Take 1 (one) tablet (100 mg total) by mouth 2 (two) times a day . 03/06/2025 03/13/2025 empagliflozin 10 mg oral tablet (5 sources) Sodium-Glucose Cotransporter 2 Inhibitor Start: 01-16-2021 End: 04-24-2021 take 1 tablet by mouth once daily Jardiance 10 MG Oral Tablet TAKE 1 TABLET BY MOUTH ONCE DAILY Quantity: 30 Refills: 6 Ordered: 16-Jan-2021 Adalberto Pandey Start : 16-Jan-2021 End : 24-Apr-2021 Complete 2 ml famotidine 10 mg/ml injection (2 sources) Histamine-2 Receptor Antagonist Start: 04-10-2024 End: 04-10-2024 20 mg, intravenous, Administer over 2 Minutes, Once, On 04/10/24 at 1130, For 1 dose, Preprocedure 30 actuat fluticasone furoate 0.1 mg/actuat / vilanterol 0.025 mg/actuat dry powder inhaler (12 sources) Corticosteroid, beta2-Adrenergic Agonist Start: 09-18-2021 End: 02-26-2022 Breo Ellipta 100-25 MCG/INH AEPB ONE INHALATION DAILY. AFTER INHALATION RINSE MOUTH WITH WATER & SPIT.USE SAME TIME EACH DAY, NO MORE THAN 1 TIME IN 24 HOURS Quantity: 1 Refills: 0 Ordered: 18-Sep-2021 [place] Adalberto MANUEL Start : 18-Sep-2021 End : 26-Feb-2022 Complete furosemide 20 mg oral tablet (4 sources) Loop Diuretic Start: 04-24-2021 take 1 tablet by mouth once daily as needed Furosemide 20 MG Oral Tablet TAKE 1 TABLET Daily PRN ankle swelling Quantity: 30 Refills: 1 Ordered: 24-Apr-2021 Adalberto Pandey Start : 24-Apr-2021 Active Gemtesa 75 MG Oral Tablet (7 sources) Start: 11-13-2022 take 1 tablet by mouth once daily Gemtesa 75 MG Oral Tablet Take 1 tablet daily Quantity: 30 Refills: 11 Ordered: 27-Jan-2023 Karolina Muniz II, MD Start : 13-Nov-2022 Active Start: 11-13-2022 take 1 tablet by steff th once daily Gemtesa 75 MG Oral Tablet Take 1 tablet daily Quantity: 30 Refills: 11 Ordered: 28-Dec-2022 Karolina Muniz II, MD Start : 13-Nov-2022 Active Start: 11-13-2022 take 1 tablet by steff th once daily Gemtesa 75 MG Oral Tablet Take 1 tablet daily Quantity: 30 Refills: 11 Ordered: 16-Dec-2022 Karolina Muniz II, MD Start : 13-Nov-2022 Active Start: 11-13-2022 take 1 tablet by steff th once daily Gemtesa 75 MG Oral Tablet Take 1 tablet daily Quantity: 30 Refills: 0 Ordered: 13-Nov-2022 Karolina Muniz II, MD Start : 13-Nov-2022 Active loratadine 10 mg oral tablet (11 sources) End: 03-24-2025 take 1 tablet by mouth once daily loratadine (CLARITIN) 10 mg tablet Take 1 (one) tablet (10 mg total) by mouth daily . 03/24/2025 Discontinued (Patient's Request) 5 ml midazolam 1 mg/ml injection (2 sources) Benzodiazepine Start: 04-10-2024 End: 04-10-2024 2 mg, intravenous, Once, On 04/10/24 at 1130, For 1 dose, Preprocedure Multi Vitamin Oral Tablet (2 sources) take 1 tablet by mouth once daily Multi Vitamin Oral Tablet TAKE 1 TABLET DAILY. Refills: 0 DO Active take 1 tablet by mouth once raysa y Multi Vitamin Oral Tablet TAKE 1 TABLET DAILY. Refills: 0 Active 2 ml ondansetron 2 mg/ml injection (2 sources) Serotonin-3 Receptor Antagonist Start: 04-10-2024 End: 04-10-2024 4 mg, intravenous, Once, On Wed04/10/24 at 1130, For 1 dose, Preprocedure, When administering via IV Push, administer over 3-5 minutes. Paxlovid (300/100) 20 x 150 MG & 10 x 100MG Oral Tablet Therapy Pack (7 sources) Start: 07-03-2022 Paxlovid (300/100) 20 x 150 MG & 10 x 100MG Oral Tablet Therapy Pack TAKE 3 10 x 100MG Twice daily Quantity: 10 Refills: 0 Ordered: 03-Jul-2022 Delbert Franklin MD Start : 03-Jul-2022 Active instruct patient to hold Cialis while on Paxlovid Paxlovid 20 x 150 MG & 10 x 100MG Oral Tablet Therapy Pack (1 source) Start: 11-10-2021 Paxlovid 20 x 150 MG & 10 x 100MG Oral Tablet Therapy Pack TAKE 3 10 x 100MG Twice daily Quantity: 30 Refills: 0 Ordered: 10-Nov-2021 Adalberto Pandey Start : 10-Nov-2021 Active no sildenafil while taking Paxlovid Paxlovid 20 x 150 MG & 10 x 100MG TBPK (2 sources) Start: 11-10-2021 Paxlovid 20 x 150 MG & 10 x 100MG TBPK TAKE 3 10 x 100MG Twice daily Quantity: 30 Refills: 0 Ordered: 10-Nov-2021 Adalberto Pandey Start : 10-Nov-2021 Active no sildenafil while taking Paxlovid perflutren lipid microspheres (Definity) injection 2 mL of dilution (1 source) Start: 09-27-2023 End: 09-27-2023 2 mL of dilution, intravenous, Once in imaging, Starting on Wed09/27/23 at 1214, For 1 dose, Contrast - for use by imaging provider only. Prior to administration, Definity product must be activated. First, bring vial to room temperature. Then, shake vial for 45 seconds. Do not use if the 45 second activation cycle has not been completed. Following activation, the product will appear as a milky white suspension and may be used immediately. If not used within 5 minutes of activation, re-suspend by inverting and shaking the vial for 10 seconds. Discard unused product. Administration: Dilute 1.3 mL of activated DEFINITY with 8.7 mL of normal saline in a 10 mL syringe. Inject 0.5 mL of diluted DEFINITY when notified the images/film are unclear to enhance view of Left Ventricular borders. Repeat 0.5 mL of DEFINITY until clear images are obtained, not to exceed 10 mLs. Once images are obtained or limit of medication is reached, flush line with 10 mL of Normal Saline. regadenoson (LEXISCAN) 0.4 mg/5 mL injection - ADS Override Pull (1 source) Start: 05-08-2019 End: 05-08-2019 regadenoson (LEXISCAN) 0.4 mg/5 mL injection - ADS Override Pull sertraline 50 mg oral tablet (17 sources) Serotonin Reuptake Inhibitor Start: 07-21-2017 End: 04-14-2019 take 1 tablet by mouth once daily sertraline (ZOLOFT) 50 MG tablet 50 mg = 1 tab(s), Oral, Daily, take half tab a day for 6 days, then 1 a day thereafter, # 30 tab(s), Refills(s) 11, Pharmacy: [facility]/pharmacy #[id number] 07/21/2017 04/14/2019 Discontinued (Patient's Request) sildenafil 100 mg oral tablet (20 sources) Phosphodiesterase 5 Inhibitor Start: 11-03-2023 End: 04-25-2024 sildenafil (Viagra) 100 mg tablet Indications: Male erectile disorder Take 1 tablet (100 mg) by mouth if needed for erectile dysfunction. 30 tablet 6 11/03/2023 04/25/2024 Discontinued (Therapy completed) Start: 04-14-2023 End: 04-25-2024 take 5 tablets by mouth once daily as needed, then take 5 tablets by mouth once daily as needed sildenafil (Revatio) 20 mg tablet Indications: Male erectile disorder Take 5 tablets (100 mg) by mouth once daily. TAKE 5 TABLETS DAILY PRN 30 tablet 11 04/14/2023 04/25/2024 Discontinued (Therapy completed) Start: 12-28-2022 take 1 tablet by steff th once daily as needed Sildenafil Citrate 100 MG Oral Tablet Take 1 tab PO daily PRN for erectile dysfuction Quantity: 30 Refills: 3 Ordered: 27-Jan-2023 Karolina Muniz II, MD Start : 28-Dec-2022 Active take 1 tablet by steff th once daily sildenafil 50 mg oral tablet ; 1 tab(s) orally once a day Quantity: 0 Refills: 0 Ordered: 13-Mar-2019 Sharyn Smith Generic Substitution Allowed technetium (Tc-99m) tetrofos min (Tc-MYOVIEW) injection 8-25 millicurie (1 source) Start: 05-08-2019 End: 05-08-2019 technetium (Tc-99m) tetrofos min (Tc-MYOVIEW) injection 8-25 millicurie Vitamin C TABS (7 sources) Vitamin C TABS T STEPHEN 1 TABLET DAILY. Quantity: 0 Refills: 0 Ordered: 04-Apr-2019 DO Active Problems Active Problems Problem Classification Problem Date Documented Date Episodic/Chronic Acute bronchitis (3 sources) Acute bronchitis; Translations: [Acute bronchitis, unspecified] Onset: 03-06-2025 03-06-2025 Episodic Anxiety disorders (20 sources) Anxiety; Translations: [Anxiety state, unspecified] Onset: 10-25-2023 10-25-2023 Chronic Calculus of urinary tract (20 sources) History of calculus of kidney; Translations: [Personal history of urinary calculi] Episodic Chronic ulcer of skin (8 sources) Non-pressure chronic ulcer of other part of left foot with fat layer exposed; Translations: [Ulcer of other part of foot] Onset: 03-19-2025 03-18-2025 Chronic Coronary atherosclerosis and other heart disease (5 sources) Coronary atherosclerosis; Translations: [Atherosclerotic heart disease of [place] coronary artery without angina pectoris] Onset: 10-13-2024 09-27-2023 Chronic Diabetes mellitus with complications (20 sources) Type 2 diabetes mellitus with hyperglycemia; Translations: [Diabetes mellitus] Onset: 04-27-2017 07-07-2023 Chronic Diabetes mellitus with complications (1 source) Type 2 diabetes mellitus with diabetic autonomic (poly)neuropathy; Translations: [E11.43 - Type 2 diabetes mellitus with diabetic autonomic (poly)neuropathy] Onset: 04-27-2017 Diabetes mellitus without complication (20 sources) Diabetes mellitus; Translations: [Type 2 diabetes mellitus without complication] Onset: 04-14-2019 04-14-2019 Chronic Diseases of mouth; excluding dental (1 source) Uvulitis; Translations: [Cellulitis and abscess of mouth] Episodic Disorders of lipid metabolism (20 sources) Dyslipidemia; Translations: [Other and unspecified hyperlipidemia] Onset: 07-20-2022 11-23-2022 Chronic Essential hypertension (20 sources) Hypertensive disorder; Translations: [Unspecified essential hypertension] Onset: 04-14-2019 04-14-2019 Chronic Gout and other crystal arthropathies (20 sources) Gout; Translations: [Gout, unspecified] Onset: 07-20-2022 07-20-2022 Chronic Hyperplasia of prostate (20 sources) Benign prostatic hyperplasia; Translations: [Hypertrophy (benign) of prostate with urinary obstruction and other lower urinary tract symptoms (LUTS)] Onset: 07-20-2022 07-20-2022 Chronic Immunizations and screening for infectious disease (20 sources) Patient encounter status; Translations: [Other specified vaccination] Episodic Infective arthritis and osteomyelitis (except that caused by tuberculosis or sexually transmitted disease) (7 sources) Osteomyelitis of left foot; Translations: [Other osteomyelitis, ankle and foot] Onset: 03-19-2025 03-24-2025 Chronic Open wounds of extremities (2 sources) Unspecified open wound of unspecified toe(s) without damage to nail, initial encounter; Translations: [Unspecified open wound of unspecified toe(s) without damage to nail, initial encounter] Onset: 03-12-2025 Episodic Osteoarthritis (20 sources) Osteoarthritis; Translations: [Osteoarthrosis, unspecified whether generalized or localized, site unspecified] Onset: 07-20-2022 07-20-2022 Chronic Other circulatory disease (1 source) Elevated blood pressure; Translations: [Elevated blood-pressure reading, without diagnosis of hypertension] Episodic Other connective tissue disease (16 sources) Pain in finger of left hand; Translations: [Pain in finger of left hand] Onset: 2018 2018 Other endocrine disorders (20 sources) Male hypogonadism; Translations: [Other testicular hypofunction] Onset: 07-20-2022 07-20-2022 Chronic Other endocrine disorders (2 sources) Testicular hypofunction; Translations: [Testicular hypofunction] Onset: 07-20-2022 Chronic Other hereditary and degenerative nervous system conditions (20 sources) Coarse tremor; Translations: [Abnormal involuntary movements] Onset: 07-20-2022 07-20-2022 Chronic Other hereditary and degenerative nervous system conditions (12 sources) Essential tremor; Translations: [Essential tremor] Onset: 10-25-2023 10-25-2023 Chronic Other lower respiratory disease (3 sources) Dyspnea; Translations: [Shortness of breath] 03-17-2021 Episodic Comment on above: SOB Other male genital disorders (3 sources) Impotence; Translations: [Male erectile disorder] Chronic Other male genital disorders (20 sources) Male erectile dysfunction, unspecified; Translations: [Male erectile disorder] Onset: 07-20-2022 07-20-2022 Chronic Other nervous system disorders (2 sources) Neuropathy; Translations: [Polyneuropathy, unspecified] 06-28-2024 Chronic Other nervous system disorders (2 sources) Polyneuropathy, unspecified; Translations: [Polyneuropathy, unspecified] Onset: 06-28-2024 Chronic Other nervous system disorders (14 sources) Tremor; Translations: [Abnormal involuntary movements] 08-09-2023 Episodic Other nutritional; endocrine; and metabolic disorders (17 sources) Morbid obesity; Translations: [Morbid (severe) obesity due to excess calories] 04-14-2019 Chronic Other nutritional; endocrine; and metabolic disorders (20 sources) Obesity; Translations: [Obesity, unspecified] Onset: 07-20-2022 07-20-2022 Chronic Other nutritional; endocrine; and metabolic disorders (20 sources) Body mass index 40+ - severely obese; Translations: [Body Mass Index 50.0-59.9, adult] Chronic Other nutritional; endocrine; and metabolic disorders (20 sources) Severe obesity; Translations: [Morbid obesity] Onset: 07-20-2022 06-23-2023 Chronic Other upper respiratory disease (1 source) Nasal congestion; Translations: [Nasal congestion] Episodic Peripheral and visceral atherosclerosis (4 sources) Arteriosclerotic vascular disease; Translations: [Unspecified atherosclerosis] 07-06-2023 Chronic Residual codes; unclassified (20 sources) Obstructive sleep apnea syndrome; Translations: [Obstructive sleep apnea (adult)(pediatric)] Onset: 04-14-2019 04-14-2019 Chronic Residual codes; unclassified (1 source) Pain; Translations: [Pain] Episodic Residual codes; unclassified (2 sources) Pain, unspecified; Translations: [Pain, unspecified] Onset: 2018 Skin and subcutaneous tissue infections (3 sources) Cellulitis of foot excluding toe; Translations: [Cellulitis of left lower limb] Onset: 03-06-2025 03-06-2025 Episodic Unclassified (1 source) Unknown / UNK(Unknown) Onset: 02-11-2018 Unclassified (1 source) LABS (GAVE PT ORDERS) 12-09-2020 Comment on above: LABS (GAVE PT ORDERS ) Unclassified (1 source) 3 [facility] F/U BPH, TREMORS,DM, REV LAB 01-16-2021 Comment on above: 3 [facility] F/U BPH, TREMO RS,DM, REV LAB Unclassified (1 source) Short of breath on exertion 03-17-2021 Unclassified (2 sources) Foot Problem Onset: 03-12-2025 Past or Other Problems Problem Classification Problem Date Documented Da te Episodic/Chronic Abdominal hernia (20 sources) Inguinal hernia; Translations: [Inguinal hernia, without mention of obstruction or gangrene, unilateral or unspecified (not specified as recurrent)] Onset: 07-20-2022 07-20-2022 Episodic Abdominal pain (20 sources) Right lower quadrant pain; Translations: [Abdominal pain, right lower quadrant] Onset: 10-14-2021 Resolved: 10-25-2023 07-20-2022 Episodic Allergic reactions (19 sources) Contact dermatitis due to poison anna; Translations: [Allergic contact dermatitis due to plants, except food] Onset: 11-23-2022 Resolved: 10-25-2023 11-23-2022 Episodic Conditions associated with dizziness or vertigo (20 sources) Dizziness; Translations: [Dizziness and giddiness] Onset: 07-20-2022 Resolved: 07-20-2022 07-20-2022 Episodic Esophageal disorders (1 source) Esophageal disorders Onset: 02-11-2018 Genitourinary symptoms and ill-defined conditions (20 sources) Nocturia; Translations: [Nocturia] Onset: 07-20-2022 07-20-2022 Episodic Nonspecific chest pain (20 sources) Chest pain on exertion; Translations: [Chest pain, unspecified] Onset: 04-14-2019 04-14-2019 Episodic Nutritional deficiencies (20 sources) Cobalamin deficiency; Translations: [Deficiency of other specified B group vitamins] Onset: 11-23-2022 11-23-2022 Episodic Other connective tissue disease (1 source) Pain in right foot; Translations: [M79.671 - Pain in right foot] Onset: 04-27-2017 Episodic Other connective tissue disease (20 sources) Pain in left finger(s); Translations: [Pain in finger of left hand] Onset: 2018 2018 Episodic Other lower respiratory disease (20 sources) Dyspnea on exertion; Translations: [Shortness of breath] Onset: 07-20-2022 03-17-2021 Episodic Other lower respiratory disease (20 sources) Cough; Translations: [Cough] Onset: 07-20-2022 Resolved: 07-20-2022 Episodic Other lower respiratory disease (3 sources) Shortness of breath; Translations: [Shortness of breath] Onset: 09-22-2021 Episodic Other nervous system disorders (20 sources) Numbness of foot ; Translations: [Disturbance of skin sensation] Onset: 07-20-2022 07-20-2022 Episodic Other nervous system disorders (5 sources) Tremor, unspecified; Translations: [Tremor, unspecified] Onset: 06-24-2022 Episodic Pneumonia (except that caused by tuberculosis or sexually transmitted disease) (20 sources) Infective pneumonia; Translations: [Pneumonia, unspecified organism] Onset: 09-22-2021 Resolved: 10-25-2023 Episodic Residual codes; unclassified (17 sources) Family history of cancer of colon; Translations: [Family history of malignant neoplasm of digestive organs] Onset: 10-25-2023 10-25-2023 Episodic Residual codes; unclassified (4 sources) Family history of malignant neoplasm of digestive organs; Translations: [Family history of malignant neoplasm of digestive organs] Onset: 10-25-2023 Episodic Unclassified (4 sources) Patient encounter status; Translations: [Encounter for immunization] Unclassified (18 sources) Onset: 11-23-2022 Resolved: 10-25-2024 11-23-2022 Unclassified (2 sources) Skin ulcer of left foot with fat layer exposed (HCC) 03-24-2025 Viral infection (20 sources) Disease caused by 2019-nCoV; Translations: [Other specified viral infection] Onset: 07-20-2022 Resolved: 07-20-2022 07-20-2022 Episodic NEGATED: Highlighted row has not occurred!Residual codes; unclassified (7 sources) Disease Episodic Results Test Name Value Interpretation Reference Range Facility CULTURE, AEROBIC BACTERIAon 03-22-2025 CULTURE, AEROBIC BACTERIA SEE NOTE Abnormal [facility] Comment on above: Result Comment: CULTURE, AEROBIC BACTERIA Micro Number: [id number] Test Status: Final Specimen Source: Foot, left Specimen Quality: Adequate Result: Light growth of Proteus mirabilis COMMENT: Skin ketan also present. P.mirabilis INT ANGIE AMOX/CLAVULANATE S <=2 AMP/SULBACTAM S <=2 CEFAZOLIN I 4 CEFEPIME S <=0.12 CEFTAZIDIME S <=0.5 CEFTRIAXONE S <=0.25 CIPROFLOXACIN S <=0.06 GENTAMICIN S <=1 LEVOFLOXACIN S <=0.12 MEROPENEM S <=0.25 PIP/TAZOBACTAM S <=4 TRIMETHOPRIM/SULFA S <=20 S = Susceptible I = Intermediate R = Resistant NS = Not susceptible SDD = Susceptible Dose Dependent * = Not Tested NR = Not Reported NN = See Therapy Comments Performed By: #### 4 [id number] #### [facility] [address], [address] [place] [id number] Detail Sergeant: Michael Quijano MD Laboratory - Microbiology an d Antimicrobial susceptibilityon 03-22-2025 Bacteria identified Aer cx Nom (Unsp spec) SEE NOTE Abnormal [facility] Comment on above: CULTURE, AEROBIC BACTERIA Micro Number: [id number] Test Status: Final Specimen Source: Foot, left Specimen Quality: Adequate Result: Light growth of Proteus mirabilis COMMENT: Skin ketan also present. P.mirabilis INT ANGIE AMOX/CLAVULANATE S <=2 AMP/SULBACTAM S <=2 CEFAZOLIN I 4 CEFEPIME S <=0.12 CEFTAZIDIME S <=0.5 CEFTRIAXONE S <=0.25 CIPROFLOXACIN S <=0.06 GENTAMICIN S <=1 LEVOFLOXACIN S <=0.12 MEROPENEM S <=0.25 PIP/TAZOBACTAM S <=4 TRIMETHOPRIM/SULFA S <=20 S = Susceptible I = Intermediate R = Resistant NS = Not susceptible SDD = Susceptible Dose Dependent * = Not Tested NR = Not Reported NN = See Therapy Comments No Panel Informationon 03-22 Interpretation and review of laboratory results Abnormal [facility] No Panel Informationon 03-19 Natasha applied dressing [facility] No Panel InformationOrdered By: Marilyn Mcwilliams on 03-19-2025 [facility] WOUND AEROBIC CULTUREon WOUND AEROBIC CULTURE EXT JOHNNIE - CULTU RE, AEROBIC BACTERIA SEE NOTE CULTURE, AEROBIC BACTERIA Micro Number: [id number] Test Status: Final Specimen Source: Foot, left Specimen Quality: Adequate Result: Light growth of Proteus mirabilis COMMENT: Skin ketan also present. P.mirabilis INT ANGIE AMOX/CLAVULANATE S <=2 AMP/SULBACTAM S <=2 CEFAZOLIN I 4 CEFEPIME S <=0.12 CEFTAZIDIME S <=0.5 CEFTRIAXONE S <=0.25 CIPROFLOXACIN S <=0.06 GENTAMICIN S <=1 LEVOFLOXACIN S <=0.12 MEROPENEM S <=0.25 PIP/TAZOBACTAM S <=4 TRIMETHOPRIM/SULFA S <=20 S = Susceptible I = Intermediate R = Resistant NS = Not susceptible SDD = Susceptible Dose Dependent * = Not Tested NR = Not Reported NN = See Therapy Comments Abnormal [facility] Ambulatory XR FOOT RIGHT 3+ VIEWS (BENIGNO DARD)on 03-19-2025 XR FOOT RIGHT 3+ VIEWS (STANDARD) No acute fractures or dislocations noted. Loss of the calcaneal inclusion angle Degenerative arthritic changes noted across the tarsometatarsal joints and subtalar joint. 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 Dictated by: TERRANCE CAMEJO on Sat Mar 24, 2025 6:02:11 PM EST Transcribed by: TERRANCE CAMEJO on Sat Mar 24, 2025 6:02:11 PM EST Finalized by: TERRANCE CAMEJO on Sat Mar 24, 2025 6:02:11 PM EST Normal [facility] Comment on above: Order Comment: Injur y/Trauma or Illness?:Illness/Other How long have you had these symptoms (acute/chronic)?:Chronic Reason for exam?:pain History of cancer?:u Surgeries, chemotherapy, or radiation?:no Type of Exam?:Initial Additional signs and symptoms?:no XR FOOT LEFT 3+ VIEWS (STAND JANELL)on 03-12-2025 XR FOOT LEFT 3+ VIEWS (STANDARD) No acute fractures dislocations noted. Joint spaces are within normal notes with exception of joint space narrowing to the subtalar joint, ankle joint and talonavicular joint. Plantar calcaneal enthesophyte noted. Dictated by: TERRANCE CAMEJO on [place] Mar 18, 2025 9:30:36 PM EST Transcribed by: TERRANCE CAMEOJ on [place] Mar 18, 2025 9:30:36 PM EST Finalized by: TERRANCE CAMEJO on [place] Mar 18, 2025 9:30:36 PM EST Normal [facility] Comment on above: Order Comment: Injur y/Trauma or Illness?:Illness/Other How long have you had these symptoms (acute/chronic)?:Chronic Reason for exam?:open wound History of cancer?:u Surgeries, chemotherapy, or radiation?:no Type of Exam?:Initial Additional signs and symptoms?:no ECG 12 lead (Clinic Performe d)on 10-13-2024 [facility] Work Phone: EKG shows normal sin us rhythm with RBBB and no signs of acute ischemic changes. [facility] Work Phone: HbA1c (Bld) [Mass fraction]o n 10-13-2024 Interpretation and review of laboratory results Abnormal [facility] POC Hemoglobin A1Con 025 HbA1c (Bld) [Mass fraction] 8.8 % Abnormal 4.0 - 6.0 % [facility] COLONOSCOPYon 04-10-2024 Colonoscopy Table formatting fro m the original result was not included. Impression Localized diverticulosis of moderate severity in the descending colon and sigmoid colon Findings Multiple small and medium localized diverticula of moderate severity with no inflammation containing no content in the descending colon and sigmoid colon; no bleeding was observed Recommendation Follow up with PCP Repeat colonoscopy in 3 years, due: 04/10/2027 Indication Family history of colon cancer Staff Staff Role No Staff Documented Medications See Anesthesia Record. Preprocedure A history and physical has been performed, and patient medication allergies have been reviewed. The patient's tolerance of previous anesthesia has been reviewed. The risks and benefits of the procedure and the sedation options and risks were discussed with the patient and patient's partner. All questions were answered and informed consent obtained. Details of the Procedure The patient underwent monitored anesthesia care, which was administered by an anesthesia professional. The patient's blood pressure, ECG, ETCO2, heart rate, level of consciousness, oxygen and respirations were monitored throughout the procedure. A digital rectal exam was performed. The scope was introduced through the anus and advanced to the cecum. Retroflexion was performed in the rectum. The quality of bowel preparation was evaluated using the [place] Bowel Preparation Scale with scores of: right colon = 2, transverse colon = 2, left colon = 2. The total BBPS score was 6. Bowel prep was adequate. The patient experienced no blood loss. The procedure was not difficult. The patient tolerated the procedure well. There were no apparent adverse events. Events Procedure Events Event Event Time ENDO SCOPE IN TIME 04/10/2024 1:22 PM ENDO CECUM REACHED 04/10/2024 1:29 PM ENDO SCOPE OUT TIME 04/10/2024 1:34 PM Specimens No specimens collected Procedure Location [facility] [place] [address] [place] [id number] Referring Provider Rakel Dickey DO Procedure Provider Rakel Dickey DO [facility] Colonoscopy studyon 04-10-20 24 Table formatting fro m the original result was not included. Impression Localized diverticulosis of moderate severity in the descending colon and sigmoid colon Findings Multiple small and medium localized diverticula of moderate severity with no inflammation containing no content in the descending colon and sigmoid colon; no bleeding was observed Recommendation Follow up with PCP Repeat colonoscopy in 3 years, due: 04/10/2027 Indication Family history of colon cancer Staff Staff Role No Staff Documented Medications See Anesthesia Record. Preprocedure A history and physical has been performed, and patient medication allergies have been reviewed. The patient's tolerance of previous anesthesia has been reviewed. The risks and benefits of the procedure and the sedation options and risks were discussed with the patient and patient's partner. All questions were answered and informed consent obtained. Details of the Procedure The patient underwent monitored anesthesia care, which was administered by an anesthesia professional. The patient's blood pressure, ECG, ETCO2, heart rate, level of consciousness, oxygen and respirations were monitored throughout the procedure. A digital rectal exam was performed. The scope was introduced through the anus and advanced to the cecum. Retroflexion was performed in the rectum. The quality of bowel preparation was evaluated using the [place] Bowel Preparation Scale with scores of: right colon = 2, transverse colon = 2, left colon = 2. The total BBPS score was 6. Bowel prep was adequate. The patient experienced no blood loss. The procedure was not difficult. The patient tolerated the procedure well. There were no apparent adverse events. Events Procedure Events Event Event Time ENDO SCOPE IN TIME 04/10/2024 1:22 PM ENDO CECUM REACHED 04/10/2024 1:29 PM ENDO SCOPE OUT TIME 04/10/2024 1:34 PM Specimens No specimens collected Procedure Location [facility] [place] [address] [place] [phone] Referring Provider Rakel Dickey DO Procedure Provider Rakel Dickey DO [facility] Work Phone: [facility] Work Phone: Radiology Study observation (narrative) [facility] Work Phone: Glucose Test strip manual (B ld) [Mass/Vol]on 04-10-2024 Glucose [Mass/Vol] 187 mg/dL High 74 - 99 mg/dL [facility] Interpretation and review of laboratory results Abnormal [facility] Glucose [Mass/Vol] 187 mg/dL High 74-99 [facility] Comment on above: Performed By: #### 2 [id number] #### HOWELL GILLIAN ([id number]) [facility] ([facility]) [address] [place] [address] CT for calcium scoring WO co ntrast and CTA W contrast IV Heart and coronary arterieson 09-27-2023 1. Coronary artery c alcium score of 199.53*. *Coronary artery calcium scoring may be helpful in predicting the risk for future coronary heart disease events. According to the [place] [employer] Clinical Expert Consensus Task Force, such testing provides important prognostic information in patients with more than one coronary heart disease risk factor. The coronary artery calcium score correlates with the annual risk of a non-fatal myocardial infarction or coronary heart disease . Coronary artery score Annual Risk 0-99 0.4% 100-399 1.3% >400 2.4% These three "breakpoints" correspond to lower, intermediate and high risk states for future coronary events. Such information should be used, along with appropriate clinical judgment, to make decisions regarding the intensity of risk factor management strategies to treat blood lipids and to modify other non-lipid coronary risk factors. Reference: Rhinecliff P et al. Circulation. 2007; 115:402-426 MACRO: None Signed by: Abdulaziz Syed 09/27/2023 2:01 PM Dictation workstation: [id number] Interpreted By: Abdulaziz Mcgrath, STUDY: CT CARDIAC SCORING WO IV CONTRAST; 09/27/2023 12:12 pm INDICATION: Signs/Symptoms:atherosclero sis. COMPARISON: None. ACCESSION NUMBER(S): [id number] ORDERING CLINICIAN: ROSENDO KINGSTON TECHNIQUE: Using prospective ECG gating, CT scan of the coronary arteries was performed without intravenous contrast. Coronary calcium scoring was performed according to the method of Agatston. FINDINGS: The score and distribution of calcium in the coronary arteries is as follows: LM 39.34 LAD 13.53 LCx 146.66 RCA 0 Total 199.53 The visualized mid/lower ascending thoracic aorta measures 3.7 cm in diameter. The heart is normal in size. No pericardial effusion is present. No gross evidence of mediastinal or hilar lymphadenopathy or masses is identified. The visualized segments of the lungs are normally expanded. The visualized subdiaphragmatic structures appear intact. MMODAL Abdulaziz Syed MD - 09/27/2023 Interpreted By: Abdulaziz Syed, STUDY: CT CARDIAC SCORING WO IV CONTRAST; 09/27/2023 12:12 pm INDICATION: Signs/Symptoms:atherosclero sis. COMPARISON: None. ACCESSION NUMBER(S): [id number] ORDERING CLINICIAN: ROSENDO MODI VASHTI TECHNIQUE: Using prospective ECG gating, CT scan of the coronary arteries was performed without intravenous contrast. Coronary calcium scoring was performed according to the method of Agatston. FINDINGS: The score and distribution of calcium in the coronary arteries is as follows: LM 39.34 LAD 13.53 LCx 146.66 RCA 0 Total 199.53 The visualized mid/lower ascending thoracic aorta measures 3.7 cm in diameter. The heart is normal in size. No pericardial effusion is present. No gross evidence of mediastinal or hilar lymphadenopathy or masses is identified. The visualized segments of the lungs are normally expanded. The visualized subdiaphragmatic structures appear intact. IMPRESSION: 1. Coronary artery calcium score of 199.53*. *Coronary artery calcium scoring may be helpful in predicting the risk for future coronary heart disease events. According to the [place] Clinical Expert Consensus Task Force, such testing provides important prognostic information in patients with more than one coronary heart disease risk factor. The coronary artery calcium score correlates with the annual risk of a non-fatal myocardial infarction or coronary heart disease . Coronary artery score Annual Risk 0-99 0.4% 100-399 1.3% >400 2.4% These three "breakpoints" correspond to lower, intermediate and high risk states for future coronary events. Such information should be used, along with appropriate clinical judgment, to make decisions regarding the intensity of risk factor management strategies to treat blood lipids and to modify other non-lipid coronary risk factors. Reference: Rhinecliff P et al. Circulation. 2007; 115:402-426 MACRO: None Signed by: Abdulaziz Syed 09/27/2023 2:01 PM Dictation workstation: [id number] [facility] Work Phone: Radiology Study observation (narrative) [facility] Work Phone: CT for calcium scoring WO co ntrast and CTA W contrast IV Heart and coronary arteriesOrdered By: Abdulaziz Syed on 09-27-2023 [facility] Work Phone: US Heart TransthoracicOrdere d By: Bairon Camp on 09-27-2023 Aortic Valve Area by Continuity of Peak Velocity 1.94 cm2 [facility] Work Phone: Aortic Valve Area by Continuity of VTI 1.89 cm2 [facility] Work Phone: [phone] AV mn grad 7.0 mmHg [facility] Work Phone: [phone] AV pk grad 14.6 mmHg [facility] Work Phone: [phone] AV pk bernadine 1.91 m/s [facility] Work Phone: [phone] LA vol index A/L 18.5 ml/m2 [facility] Work Phone: [phone] LV A4C EF 64.9 [facility] Work Phone: [phone] LV Biplane EF 65 % [facility] Work Phone: [phone] LVIDd 5.08 cm [facility] Work Phone: [phone] LVOT diam 2.00 cm [facility] Work Phone: [phone] MV E/A ratio 0.94 [facility] Work Phone: [phone] RV free wall pk S' 10.10 cm/s [facility] Work Phone: [phone] Tricuspid annular plane systolic excursion 2.2 cm [facility] Work Phone: [phone] [facility] Work Phone: [phone] [place] [address] [phone], TRANSTHORACIC ECHOCARDIOGRAM REPORT Patient Name: MARY Benz KETAN Cruz Physician: [id number] Bairon Camp MD Study Date: 09/27/2023 Ordering Provider: [id number] ROSENDO KINGSTON MRN/PID: [id number] Fellow: Nurse: Katherine Wu RN Date of /Age: 3 1955 / 68 years Biopsychologist: Pro Whyte RDCS Gender: M Additional Staff: Height: 182.88 cm Admit Date: Weight: 186.88 kg Admission Status: Outpatient BSA / BMI: 2.90 m2 / 55.88 Department Location: [facility] Echo Lab kg/m2 Blood Pressure: 223 /118 mmHg Study Type: TRANSTHORACIC ECHO (TTE) COMPLETE Diagnosis/ICD: Atherosclerotic heart disease of [place] coronary artery without angina pectoris-I25.10 CPT Codes: Echo Complete w Full Doppler-02612 Patient History: Pertinent History: Second BP was 204/82. patient does not feel symptomatic. Study Detail: The following Echo studies were performed: 2D, Doppler, M-Mode and color flow. Definity used as a contrast agent for endocardial border definition. Total contrast used for this procedure was 2.00cc mL via IV push. PHYSICIAN INTERPRETATION: Left Ventricle: Left ventricular systolic function is normal, with an estimated ejection fraction of 60%. There are no regional wall motion abnormalities. The left ventricular cavity size is normal. Left ventricular diastolic filling was indeterminate. Left Atrium: The left atrium was not well visualized. Right Ventricle: The right ventricle was not well visualized. Unable to determine right ventricular systolic function. Right Atrium: The right atrium was not well visualized. Aortic Valve: The aortic valve was not well visualized. There is no evidence of aortic valve regurgitation. The peak instantaneous gradient of the aortic valve is 14.6 mmHg. The mean gradient of the aortic valve is 7.0 mmHg. Mitral Valve: The mitral valve is normal in structure. There is no evidence of mitral valve regurgitation. Tricuspid Valve: The tricuspid valve is structurally normal. No evidence of tricuspid regurgitation. Pulmonic Valve: The pulmonic valve is not well visualized. There is no indication of pulmonic valve regurgitation. Pericardium: There is no pericardial effusion noted. Aorta: The aortic root is normal. Systemic Veins: The inferior vena cava appears dilated. CONCLUSIONS: 1. Left ventricular systolic function is normal with a 60% estimated ejection fraction. 2. Poorly visualized anatomical structures due to suboptimal image quality. QUANTITATIVE DATA SUMMARY: 2D MEASUREMENTS: Normal Ranges: Ao Root d: 3.60 cm (2.0-3.7cm) LAs: 3.90 cm (2.7-4.0cm) IVSd: 1.48 cm (0.6-1.1cm) LVPWd: 1.52 cm (0.6-1.1cm) LVIDd: 5.08 cm (3.9-5.9cm) LVIDs: 3.83 cm LV Mass Index: 114.1 g/m2 LV % FS 24.6 % LA VOLUME: Normal Ranges: LA Vol A4C: 57.1 ml (22+/-6mL/m2) LA Vol A2C: 47.3 ml LA Vol BP: 53.7 ml LA Vol Index A4C: 19.7ml/m2 LA Vol Index A2C: 16.3 ml/m2 LA Vol Index BP: 18.5 ml/m2 LA Area A4C: 19.4 cm2 LA Area A2C: 17.1 cm2 LA Major [place] A4C: 5.6 cm LA Major [place] A2C: 5.2 cm LA Volume Index: 18.8 ml/m2 LA Vol A4C: 54.4 ml LA Vol A2C: 45.6 ml LV SYSTOLIC FUNCTION BY 2D PLANIMETRY (MOD): Normal Ranges: EF-A4C View: 64.9 % (>=55%) EF-A2C View: 65.6 % EF-Biplane: 64.7 % LV DIASTOLIC FUNCTION: Normal Ranges: MV Peak E: 0.96 m/s (0.7-1.2 m/s) MV Peak A: 1.03 m/s (0.42-0.7 m/s) E/A Ratio: 0.94 (1.0-2.2) MV lateral e' 0.08 m/s MV medial e' 0.08 m/s MITRAL VALVE: Normal Ranges: MV DT: 254 msec (150-240msec) AORTIC VALVE: Normal Ranges: AoV Vmax: 1.91 m/s (<=1.7m/s) AoV Peak P.6 mmHg (<20mmHg) AoV Mean P.0 mmHg (1.7-11.5mmHg) LVOT Max Bernadine: 1.18 m/s (<=1.1m/s) AoV VTI: 44.80 cm (18-25cm) LVOT VTI: 26.90 cm LVOT Diameter: 2.00 cm (1.8-2.4cm) AoV Area, VTI: 1.89 cm2 (2.5-5.5cm2) AoV Area,Vmax: 1.94 cm2 (2.5-4.5cm2) AoV Dimensionless Index: 0.60 RIGHT VENTRICLE: RV Basal 4.36 cm RV Mid 3.87 cm RV Major 9.2 cm TAPSE: 22.0 mm RV s' 0.10 m/s [id number] (more content not included)... Bairon Cruz MD - 09/27/2023 [place] [address] [phone], TRANSTHORACIC ECHOCARDIOGRAM REPORT Patient Name: MARY LEBLANC Reading Physician: [id number] Bairon Camp MD Study Date: 09/27/2023 Ordering Provider: [id number] ROSENDOCALI URBINAAN MRN/PID: [id number] Fellow: Nurse: Katherine Wu RN Date of /Age: 3 1955 / 68 years Biopsychologist: Pro Whyte RDCS Gender: M Additional Staff: Height: 182.88 cm Admit Date: Weight: 186.88 kg Admission Status: Outpatient BSA / BMI: 2.90 m2 / 55.88 Department Location: [facility] Echo Lab kg/m2 Blood Pressure: 223 /118 mmHg Study Type: TRANSTHORACIC ECHO (TTE) COMPLETE Diagnosis/ICD: Atherosclerotic heart disease of [place] coronary artery without angina pectoris-I25.10 CPT Codes: Echo Complete w Full Doppler-[id number] Patient History: Pertinent History: Second BP was 204/82. patient does not feel symptomatic. Study Detail: The following Echo studies were performed: 2D, Doppler, M-Mode and color flow. Definity used as a contrast agent for endocardial border definition. Total contrast used for this procedure was 2.00cc mL via IV push. PHYSICIAN INTERPRETATION: Left Ventricle: Left ventricular systolic function is normal, with an estimated ejection fraction of 60%. There are no regional wall motion abnormalities. The left ventricular cavity size is normal. Left ventricular diastolic filling was indeterminate. Left Atrium: The left atrium was not well visualized. Right Ventricle: The right ventricle was not well visualized. Unable to determine right ventricular systolic function. Right Atrium: The right atrium was not well visualized. Aortic Valve: The aortic valve was not well visualized. There is no evidence of aortic valve regurgitation. The peak instantaneous gradient of the aortic valve is 14.6 mmHg. The mean gradient of the aortic valve is 7.0 mmHg. Mitral Valve: The mitral valve is normal in structure. There is no evidence of mitral valve regurgitation. Tricuspid Valve: The tricuspid valve is structurally normal. No evidence of tricuspid regurgitation. Pulmonic Valve: The pulmonic valve is not well visualized. There is no indication of pulmonic valve regurgitation. Pericardium: There is no pericardial effusion noted. Aorta: The aortic root is normal. Systemic Veins: The inferior vena cava appears dilated. CONCLUSIONS: 1. Left ventricular systolic function is normal with a 60% estimated ejection fraction. 2. Poorly visualized anatomical structures due to suboptimal image quality. QUANTITATIVE DATA SUMMARY: 2D MEASUREMENTS: Normal Ranges: Ao Root d: 3.60 cm (2.0-3.7cm) LAs: 3.90 cm (2.7-4.0cm) IVSd: 1.48 cm (0.6-1.1cm) LVPWd: 1.52 cm (0.6-1.1cm) LVIDd: 5.08 cm (3.9-5.9cm) LVIDs: 3.83 cm LV Mass Index: 114.1 g/m2 LV % FS 24.6 % LA VOLUME: Normal Ranges: LA Vol A4C: 57.1 ml (22+/-6mL/m2) LA Vol A2C: 47.3 ml LA Vol BP: 53.7 ml LA Vol Index A4C: 19.7ml/m2 LA Vol Index A2C: 16.3 ml/m2 LA Vol Index BP: 18.5 ml/m2 LA Area A4C: 19.4 cm2 LA Area A2C: 17.1 cm2 LA Major [place] A4C: 5.6 cm LA Major [place] A2C: 5.2 cm LA Volume Index: 18.8 ml/m2 LA Vol A4C: 54.4 ml LA Vol A2C: 45.6 ml LV SYSTOLIC FUNCTION BY 2D PLANIMETRY (MOD): Normal Ranges: EF-A4C View: 64.9 % (>=55%) EF-A2C View: 65.6 % EF-Biplane: 64.7 % LV DIASTOLIC FUNCTION: Normal Ranges: MV Peak E: 0.96 m/s (0.7-1.2 m/s) MV Peak A: 1.03 m/s (0.42-0.7 m/s) E/A Ratio: 0.94 (1.0-2.2) MV lateral e' 0.08 m/s MV medial e' 0.08 m/s MITRAL VALVE: Normal Ranges: MV DT: 254 msec (150-240msec) AORTIC VALVE: Normal Ranges: AoV Vmax: 1.91 m/s (<=1.7m/s) AoV Peak P.6 mmHg (<20mmHg) AoV Mean P.0 mmHg (1.7-11.5mmHg) LVOT Max Bernadine: 1.18 m/s (<=1.1m/s) AoV VTI: 44.80 cm (18-25cm) LVOT VTI: 26.90 cm LVOT Diameter: 2.00 cm (1.8-2.4cm) AoV Area, VTI: 1.89 cm2 (2.5-5.5cm2) AoV Area,Vmax: 1.94 cm2 (2.5-4.5cm2) AoV Dimensionless Index: 0.60 RIGHT VENTRICLE: RV Basal 4.36 cm RV Mid 3.87 cm RV Major 9.2 cm TAPSE: 22.0 mm RV s' 0.10 m/s [id number] Bairon Camp MD Electronically signed on 09/27/2023 at 1:03:36 PM Final [facility] Work Phone: ECG 12 lead (Clinic Performe d)on 07-06-2023 *Please refer to the scanned EKG for the final report* [facility] Work Phone: Office Visit (Neuro-Movement )on 12-24-2022 Follow-up visit Patient Discussion/S youngy Assessment and plan: This is a 67-year-old man with a history of enhanced physiological tremor since childhood. It is stable and his response to occupational therapy measures. He is not interested in pharmacotherapy at this time therefore we will not make any further changes in his management. We will follow him up in person at 6 months. No additional interventions at this time 20-minute spent in care of this patient. Chief Complaint A telephone visit (audio only) between the patient (at the originating site) and the provider (at the distant site) was utilized to provide this telehealth service. tremor History of Present Illness This is a 67-year-old man with a history of childhood onset tremor mostly on both upper extremities but there was some asymmetry at the onset. It was fine high-frequency tremor consistent with enhanced physiological tremor when we saw him last time in the clinic. He said at that time that tremor is there it gets better when he uses heavy utensils or heavy equipments but it is present if he does not use one of those Occupational Therapy measures. He says that it is there which does not bother him significantly and he thinks that he could keep up with using physical therapy or occupational therapy measures. He was not interested in any pharmacotherapy at this time. Therefore we sent him home with occupational therapy and follow-up in 6 months virtually. This visit is for the same. He says that his tremor remains the same since last visit if not somewhat better. He says that his anxiety comes and goes which is his baseline and his tremor correlates with anxiety but it does not significantly affect his quality of life that warrants any kind of pharmacotherapy. Does not have any fall or any new neurological issues. Overall he remained stable and happy. Review of Systems per HPI Active Problems Problems Anxiety (300.00) (F41.9) Benign prostatic hyperplasia with lower urinary tract symptoms (600.01) (N40.1) BMI 50.0-59.9, adult (V85.43) (Z68.43) Class 3 severe obesity due to excess calories with serious comorbidity and body mass index (BMI) of 50.0 to 59.9 in adult (278.01,V85.43) (E66.01,Z68.43) Class 3 severe obesity due to excess calories with serious comorbidity and body mass index (BMI) of 50.0 to 59.9 in adult (278.01,V85.43) (E66.01,Z68.43) Coarse tremors (781.0) (G25.2) Cough in adult (786.2) (R05.9) COVID-19 (079.89) (U07.1) Diabetes (250.00) (E11.9) Dizziness (780.4) (R42) Dyslipidemia (272.4) (E78.5) Encounter for immunization (V03.89) (Z23) Exertional chest pain (786.50) (R07.9) Extreme obesity (278.00) (E66.8) Gout (274.9) (M10.9) History of kidney stones (V13.01) (Z87.442) Hypertension (401.9) (I10) Hypogonadism in male (257.2) (E29.1) Inguinal hernia (550.90) (K40.90) Male erectile disorder (607.84) (N52.9) Morbid obesity with BMI of 50.0-59.9, adult (278.01,V85.43) (E66.01,Z68.43) Nocturia (788.43) (R35.1) Numbness of feet (782.0) (R20.0) Obstructive sleep apnea syndrome (327.23) (G47.33) Osteoarthritis (715.90) (M19.90) Pneumonia (486) (J18.9) Right lower quadrant abdominal pain (789.03) (R10.31) SOB (shortness of breath) on exertion (786.05) (R06.02) Tremor (781.0) (R25.1) Urinary frequency (788.41) (R35.0) Surgical History Problems History of Cholecystectomy History of Colonoscopy History of Knee replacement BILATERAL Family History Mother Family history of Cancer of unknown origin Family history of diabetes mellitus (V18.0) (Z83.3) Family history of hypertension (V17.49) (Z82.49) Father Family history of cerebrovascular accident (CVA) (V17.1) (Z82.3) Family history of dementia (V17.2) (Z81.8) Family history of diabetes mellitus (V18.0) (Z83.3) Family history of hypertension (V17.49) (Z82.49) Family history of hypothyroidism (V18.19) (Z83.49) Family history of throat cancer (V16.0) (Z80.0) Family history of No significant medical problems Family history of Primary malignant neoplasm of colon Sister Family history of cerebrovascular accident (CVA) (V17.1) (Z82.3) Family history of dementia (V17.2) (Z81.8) Family history of diabetes mellitus (V18.0) (Z83.3) Family history of hypertension (V17.49) (Z82.49) Family history of hypothyroidism (V18.19) (Z83.49) Family history of throat cancer (V16.0) (Z80.0) Family history of Primary malignant neoplasm of colon Brother Family history of cerebrovascular accident (CVA) (V17.1) (Z82.3) Family history of dementia (V17.2) (Z81.8) Family history of diabetes mellitus (V18.0) (Z83.3) Family history of hypertension (V17.49) (Z82.49) Family history of throat cancer (V16.0) (Z80.0) Family history of Primary malignant neoplasm of colon Social History Problems Never chewed tobacco (V49.89) (Z78.9) Never smoked tobacco (V49.89) (Z78.9) No advance directives (V49.89) (Z78.9) No alcohol use Allergies Medication acetaminophen-oxycodone Allerg (more content not included)... Normal [facility] Office Visit (Urology)on Follow-up visit Diagnoses/Problems Assessed Benign prostatic hyperplasia with lower urinary tract symptoms (600.01) (N40.1) Nocturia (788.43) (R35.1) Hypogonadism in male (257.2) (E29.1) Orders Hypogonadism in male Renew: Testosterone 30 MG/ACT Transdermal Solution; APPLY 3 PUMPS DAILY DIRECTED Rx By: Karolina Muniz II; Dispense: 0 Days ; #:3 X 90 ML Pump Btl; Refill: 3;For: Hypogonadism in male; VIJAY = N; Sent To: [facility] #[id number]; Last Updated By: Aubree Matthews; 12/16/2022 8:16:39 AM Urinary frequency Renew: Gemtesa 75 MG Oral Tablet; Take 1 tablet daily Rx By: Karolina Muniz II; Dispense: 30 Days ; #:30 Tablet; Refill: 11;For: Urinary frequency; VIJAY = N; Verified Transmission to [facility] #[id number]; Last Updated By: Isidra Arthur; 12/16/2022 8:16:51 AM Patient Discussion/Summary All available PSA values reviewed, Options discussed. Questions answered. Diet changes for prostate health discussed and educational information given. Pros/Cons of prostate health supplements discussed. Treatment options for LUTS reviewed Discussed timed voiding. Discussed fluid and caffeine intake Gemtesa Rx refilled pros/cons of Testosterone replacement reviewed. Replacement options discussed. Questions answered. Available levels reviewed. Axiron 3 pumps QD-Rx sent again Treatment options for ED reviewed. Sildenafil Rx given Lifestyle change to help prevent UTIs discussed. Encouraged fluid intake. F/u 05/08 with PSA Chief Complaint 1 month medication check History of Present IllnessPatient is here for 1 month medication check. He was D/C'd from Trospium and started on Gemtesa. He states this was helpful. . chronic Hx of Hypogonadism. Patient is currently using axiron 3 pumps daily.. Most recent Labs were done on 11/06. T level was 1117, Hct was 46.9, Hgb was 15.8, and PSA was 0.2. Prior Labs were done on 10/05. T level was 613, Hct was 45.6, Hgb was 15.3, and PSA was 0.2. . Hx of kidney stones..No recent sx.. . KUB from 11/01 showed no stones. ED is chronic. Sildenafil PRN. Review of Systems Constitutional: No fever, No chills. Eye: GLASSES Ear/Nose/Mouth/Throat: Negative. Respiratory: No shortness of breath, No cough. Cardiovascular: No chest pain, No peripheral edema. Gastrointestinal: No nausea, Genitourinary: Negative except as documented in history of present illness. Hematology/Lymphatics: Patient denies being on blood thinners.. Endocrine: Negative. Immunologic: Not immunocompromised. Musculoskeletal: Negative Integumentary: Negative. Neurologic: Alert and oriented X4. Psychiatric: Negative. Active Problems Problems Anxiety (300.00) (F41.9) Benign prostatic hyperplasia with lower urinary tract symptoms (600.01) (N40.1) BMI 50.0-59.9, adult (V85.43) (Z68.43) Class 3 severe obesity due to excess calories with serious comorbidity and body mass index (BMI) of 50.0 to 59.9 in adult (278.01,V85.43) (E66.01,Z68.43) Class 3 severe obesity due to excess calories with serious comorbidity and body mass index (BMI) of 50.0 to 59.9 in adult (278.01,V85.43) (E66.01,Z68.43) Coarse tremors (781.0) (G25.2) Cough in adult (786.2) (R05.9) COVID-19 (079.89) (U07.1) Diabetes (250.00) (E11.9) Dizziness (780.4) (R42) Dyslipidemia (272.4) (E78.5) Encounter for immunization (V03.89) (Z23) Exertional chest pain (786.50) (R07.9) Extreme obesity (278.00) (E66.8) Gout (274.9) (M10.9) History of kidney stones (V13.01) (Z87.442) Hypertension (401.9) (I10) Hypogonadism in male (257.2) (E29.1) Inguinal hernia (550.90) (K40.90) Male erectile disorder (607.84) (N52.9) Morbid obesity with BMI of 50.0-59.9, adult (278.01,V85.43) (E66.01,Z68.43) Nocturia (788.43) (R35.1) Numbness of feet (782.0) (R20.0) Obstructive sleep apnea syndrome (327.23) (G47.33) Osteoarthritis (715.90) (M19.90) Pneumonia (486) (J18.9) Right lower quadrant abdominal pain (789.03) (R10.31) SOB (shortness of breath) on exertion (786.05) (R06.02) Tremor (781.0) (R25.1) Urinary frequency (788.41) (R35.0) Surgical History Problems History of Cholecystectomy History of Colonoscopy History of Knee replacement BILATERAL Family History Mother Family history of Cancer of unknown origin Family history of diabetes mellitus (V18.0) (Z83.3) Family history of hypertension (V17.49) (Z82.49) Father Family history of cerebrovascular accident (CVA) (V17.1) (Z82.3) Family history of dementia (V17.2) (Z81.8) Family history of diabetes mellitus (V18.0) (Z83.3) Family history of hypertension (V17.49) (Z82.49) Family history of hypothyroidism (V18.19) (Z83.49) Family history of throat cancer (V16.0) (Z80.0) Family history of No significant medical problems Family history of Primary malignant neoplasm of colon Sister Family history of cerebrovascular accident (CVA) (V17.1) (Z82.3) Family history of dementia (V17.2) (Z81.8) Family history of diabetes mellitus (V18.0) (Z83.3) Family history of hypertension (V17.49) (Z82.49 (more content not included)... Normal [employer] Tobacco Screening.on 023 Fall risk assessment a) No falls within the last year NV-Jsqxrpr-X [employer] Phone: Tobacco use status CPHS b) No TY-Oktflnq-I [employer] Phone: Tobacco Screening. Yes MP-Uro logy-A [employer] Phone: Office Visit (Urology)on Follow-up visit Diagnoses/Problems Assessed Benign prostatic hyperplasia with lower urinary tract symptoms (600.01) (N40.1) Hypogonadism in male (257.2) (E29.1) Nocturia (788.43) (R35.1) History of kidney stones (V13.01) (Z87.442) Never smoked tobacco (V49.89) (Z78.9) Patient Discussion/Summary pros/cons of Testosterone replacement reviewed. Replacement options discussed. Questions answered. Available levels reviewed. AndroGel Rx given All available PSA values reviewed, Options discussed. Questions answered. Diet changes for prostate health discussed and educational information given. Pros/Cons of prostate health supplements discussed. Treatment options for LUTS reviewed Discussed timed voiding. Discussed fluid and caffeine intake D/C [facility] Gemtesa samples given Treatment options for ED reviewed. Sildenafil Rx given F/u 1 month Chief Complaint Yearly w/ labs History of Present IllnessPatient has a chronic Hx of Hypogonadism. Patient is currently using axiron 3 pumps daily.. Most recent Labs were done on 11/06. T level was 1117, Hct was 46.9, Hgb was 15.8, and PSA was 0.2. Prior Labs were done on 10/05. T level was 613, Hct was 45.6, Hgb was 15.3, and PSA was 0.2. . Prior Labs were done on 05/06 Testosterone level 611, PSA 0.2, HANDH 15.4 and 46.4 . BPH sx are chronic and mild.. some frequency and urgency...No dysuria and hematuria. nocturia 1x... Caffeine does worsen LUT's.. Pt on Sanctura for LUTS....Patient also has a hx of kidney stones..No recent sx.. . KUB from 11/01 showed no stones. ED is chronic. Sildenafil PRN. Review of Systems Constitutional: No fever, No chills. Eye: Negative. Ear/Nose/Mouth/Throat: Negative. Respiratory: No shortness of breath, No cough. Cardiovascular: No chest pain, No peripheral edema. Gastrointestinal: No nausea, Genitourinary: Negative except as documented in history of present illness. Hematology/Lymphatics: Patient denies being on blood thinners.. Endocrine: Negative. Immunologic: Not immunocompromised. Musculoskeletal: Negative Integumentary: Negative. Neurologic: Alert and oriented X4. Psychiatric: Negative. Active Problems Problems Anxiety (300.00) (F41.9) Benign prostatic hyperplasia with lower urinary tract symptoms (600.01) (N40.1) BMI 50.0-59.9, adult (V85.43) (Z68.43) Class 3 severe obesity due to excess calories with serious comorbidity and body mass index (BMI) of 50.0 to 59.9 in adult (278.01,V85.43) (E66.01,Z68.43) Class 3 severe obesity due to excess calories with serious comorbidity and body mass index (BMI) of 50.0 to 59.9 in adult (278.01,V85.43) (E66.01,Z68.43) Coarse tremors (781.0) (G25.2) Cough in adult (786.2) (R05.9) COVID-19 (079.89) (U07.1) Diabetes (250.00) (E11.9) Dizziness (780.4) (R42) Dyslipidemia (272.4) (E78.5) Encounter for immunization (V03.89) (Z23) Exertional chest pain (786.50) (R07.9) Extreme obesity (278.00) (E66.8) Gout (274.9) (M10.9) History of kidney stones (V13.01) (Z87.442) Hypertension (401.9) (I10) Hypogonadism in male (257.2) (E29.1) Inguinal hernia (550.90) (K40.90) Male erectile disorder (607.84) (N52.9) Morbid obesity with BMI of 50.0-59.9, adult (278.01,V85.43) (E66.01,Z68.43) Nocturia (788.43) (R35.1) Numbness of feet (782.0) (R20.0) Obstructive sleep apnea syndrome (327.23) (G47.33) Osteoarthritis (715.90) (M19.90) Pneumonia (486) (J18.9) Right lower quadrant abdominal pain (789.03) (R10.31) SOB (shortness of breath) on exertion (786.05) (R06.02) Tremor (781.0) (R25.1) Surgical History Problems History of Cholecystectomy History of Colonoscopy History of Knee replacement BILATERAL Family History Mother Family history of Cancer of unknown origin Family history of diabetes mellitus (V18.0) (Z83.3) Family history of hypertension (V17.49) (Z82.49) Father Family history of cerebrovascular accident (CVA) (V17.1) (Z82.3) Family history of dementia (V17.2) (Z81.8) Family history of diabetes mellitus (V18.0) (Z83.3) Family history of hypertension (V17.49) (Z82.49) Family history of hypothyroidism (V18.19) (Z83.49) Family history of throat cancer (V16.0) (Z80.0) Family history of No significant medical problems Family history of Primary malignant neoplasm of colon Sister Family history of cerebrovascular accident (CVA) (V17.1) (Z82.3) Family history of dementia (V17.2) (Z81.8) Family history of diabetes mellitus (V18.0) (Z83.3) Family history of hypertension (V17.49) (Z82.49) Family history of hypothyroidism (V18.19) (Z83.49) Family history of throat cancer (V16.0) (Z80.0) Family history of Primary malignant neoplasm of colon Brother Family history of cerebrovascular accident (CVA) (V17.1) (Z82.3) Family history of dementia (V17.2) (Z81.8) Family history of diabetes mellitus (V18.0) (Z83.3) Family history of hypertension (V17.49) (Z82.49) Family history of throat cancer (V16.0) (Z80.0) Family history of Primary malignant neoplasm (more content not included)... Normal [employer] Tobacco Screening.on 023 Fall risk assessment a) No falls within the last year BC-Hkknctf-B [employer] Work Phone: Tobacco use status CPHS b) No YM-Gdyskld-N [employer] Work Phone: Tobacco Screening. Yes MP-Uro logy-A [employer] Work Phone: Blood Pressure Cuff Sizeon 0 06-24-2022 Blood Pressure Cuff Size [facility] Work Phone: Office Visit (Neuro-Movement )on 06-24-2022 Follow-up visit Patient Discussion/S ummary Assessment and plan. The patient is a 66-year-old man with a history of childhood onset tremor of his both upper extremities more on the right side which has been getting somewhat progressively worse. He is not able to write as clear as he could before but when he uses heavier pen he can. 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 We discussed several possibilities including pharmacotherapy. Given the intensity of tremor which is very fine and high-frequency and the fact that it is completely dampened when he uses heavier objects we discussed and he opted not to go for any medical therapy at this time. We will refer him for occupational therapy which will then evaluate him and give him heavier utensils. It is very obvious and clear that using heavier object and utensils is making his tremor much better anyhow. We will follow-up in about 6 months virtually and over 1 year in person. His concern was that whether he has Parkinson's disease. And I did mention to him that I do not think that he has Parkinson's disease but it is enhanced physiological tremor which started in his childhood. Chief Complaint Tremor History of Present Illness The patient is a 66-year-old man with a history of tremor since childhood very high-frequency tremor since childhood ever since he remembers anything about him. This had been quite stable and he had been able to keep up with his quality of life without any issues but has noticed over last few years it has been getting progressively worse. 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 Initially he was able to do that with a light weight down but now he has to use a heavier weight of gone and he does not have any tremor. He is concerned about whether he has Parkinson's he states that he is in this clinic. Does not have any depression no anxiety that is active his sleep is okay no REM sleep behavioral disorder no bladder or bowel issues. No visual issues. No lack of dexterity other than tremor which is treated when he uses heavier objects. Review of Systems ROS questionnaire completed and reviewed with the patient pertinent positives include: Constitutional: None Gastrointestinal: None Genitourinary: None Autonomic / Other: None Neurological: tremor Psychiatric: None Skin: None Eyes: None Ears/Nose/Throat: None Endocrine: None Cardiovascular: None Respiratory: None Musculoskeletal: None Hematologic/Lymphatic: None Allergic/Immunologic: None Active Problems Problems Anxiety (300.00) (F41.9) Benign prostatic hyperplasia with lower urinary tract symptoms (600.01) (N40.1) BMI 50.0-59.9, adult (V85.43) (Z68.43) Class 3 severe obesity due to excess calories with serious comorbidity and body mass index (BMI) of 50.0 to 59.9 in adult (278.01,V85.43) (E66.01,Z68.43) Class 3 severe obesity due to excess calories with serious comorbidity and body mass index (BMI) of 50.0 to 59.9 in adult (278.01,V85.43) (E66.01,Z68.43) Coarse tremors (781.0) (G25.2) Cough in adult (786.2) (R05.9) COVID-19 (079.89) (U07.1) Diabetes (250.00) (E11.9) Dizziness (780.4) (R42) Dyslipidemia (272.4) (E78.5) Encounter for immunization (V03.89) (Z23) Exertional chest pain (786.50) (R07.9) Extreme obesity (278.00) (E66.8) Gout (274.9) (M10.9) History of kidney stones (V13.01) (Z87.442) Hypertension (401.9) (I10) Hypogonadism in male (257.2) (E29.1) Inguinal hernia (550.90) (K40.90) Male erectile disorder (607.84) (N52.9) Morbid obesity with BMI of 50.0-59.9, adult (278.01,V85.43) (E66.01,Z68.43) Nocturia (788.43) (R35.1) Numbness of feet (782.0) (R20.0) Obstructive sleep apnea syndrome (327.23) (G47.33) Osteoarthritis (715.90) (M19.90) Pneumonia (486) (J18.9) Right lower quadrant abdominal pain (789.03) (R10.31) SOB (shortness of breath) on exertion (786.05) (R06.02) Tremor (781.0) (R25.1) Surgical History Problems History of Cholecystectomy History of Colonoscopy History of Knee replacement BILATERAL Family History Mother Family history of Cancer of unknown origin Family history of diabetes mellitus (V18.0) (Z83.3) Family history of hypertension (V17.49) (Z82.49) Father Family history of cerebrovascular accident (CVA) (V17.1) (Z82.3) Family history of dementia (V17.2) (Z81.8) Family history of diabetes mellitus (V18.0) (Z83.3) Family history of hypertension (V17.49) (Z82.49) Family history of hypothyroidism (V18.19) (Z83.49) Family history of throat cancer (V16.0) (Z80.0) Family history of No significant medical problems Family history of Primary malignant neoplasm of colon Sister Family history of cerebrovascular accident (CVA) (V17.1) (Z82.3) Family history of dementia (V17.2) (Z81.8) Family history of diabetes mellitus (V18.0) (Z83.3) Family history of hypertension (V17.49) (Z82.49) Family history of hypo (more content not included)... [facility] ([facility] T xt/Forms)on 02-26-2022 Follow-up visit Diagnoses/Problems Assessed Morbid obesity with BMI of 50.0-59.9, adult (278.01,V85.43) (E66.01,Z68.43) Coarse tremors (781.0) (G25.2) Diabetes (250.00) (E11.9) Dyslipidemia (272.4) (E78.5) Gout (274.9) (M10.9) Hypertension (401.9) (I10) Tremor (781.0) (R25.1) Orders Coarse tremors TSH - Thyroid Stimulating Hormone, Serum; Status:Active; Requested for:[id number]; Vitamin B12, Serum; Status:Active; Requested for:26Feb2022; Diabetes Start: Farxiga 5 MG Oral Tablet; Take 1 tablet daily Complete Blood Count; Status:Active; Requested for:26Feb2022; Comprehensive Metabolic Panel; Status:Active; Requested for:26Feb2022; Hemoglobin A1C; Status:Active; Requested for:26Feb2022; Tremor Neurology - Movement Disorders Referral Evaluation and Treatment Evaluate AND Treat Status: Hold For - Scheduling Requested for: 26Feb2022 Provider Impressions Provider Impressions Free Text Note Form: RTC 6 months with labs prior to include CBC, CMP, hemoglobin A1c, B12 Refer to neurology for continued tremors Reviewed weight loss, reduction of sodium intake to less than 2.4G daily and 30' physical activity most days of the week. Discussed DASH eating plan with avoidance of foods high in saturated/trans fats, limit sugar-sweetened beverages/foods, increase vegetable/fruit/whole grain consumption. Choose low-fat dairy products, fish, poultry, beans AND nuts. Time Code: 1. Preparation for patient's visit (reviewing chart, current medical record, outside health provider records, previous history, exam, test, procedure, and medications) 2. [id number] encounter obtaining history from patient/family/caregivers; performing evaluation and exam; ordering tests or procedures; referring and communicating with other health care providers; counseling and education of the patient/family/caregivers; independently interpreting results (tests, labs, procedures, imaging) and communicating and explaining results to the patient/family/caregivers 3. Coordination of care; preparing and printing discharge instructions and any educational material for the patient/family/caregivers. Documenting clinical information into the electronic medical record 4. Reviewing OARRS as needed MDM: 1) complexity: more than 1 stable chronic condition addressed or 1 acute illness addressed. 2) Data: tests interpreted and/or ordered, took independent history or records reviewed. 3) Risk: moderate risk due to nature of medical conditions/comorbidity or medications ordered or surgical or procedural referral Chief Complaint 3 MO FU History of Present Illness Mary comes to office for 3 MO DM/HTN visit. Labs reviewed w/ pt today. DM- most recent Aic 7.7%. Unable to tolerate Farxiga due to increased urination. CK's BS: EOD @ random times. Range: 120-130's in AM, 140-170's postprandial. Skips meals @ times AND feels shaky (BS usually around 130's) BPH/chronic hypogonadism: follows w/ urology. most recent PSA 0.[address] Cutler, pulmonology for chronic SOB. CPAP compliant. CRC screening: Colonoscopy in 2019 + diverticulosis. + fxhx CRC CA. Repeat in 5Y Gout- last flare 1.5Y ago. Uric acid level: normal. c/o weakness AND shaking in legs (w/ activity) since COVID 2Y ago. + tremor RH, initially improved w/ Propranolol. + chronic lower back pain. No falls. No N/T to lower extremities. h/o Parkinson's disease father dx @ age 70's. Legs feel weak all the time. No knee buckling/giving away. R lateral neck pain after sleeping in a bad position the night prior in December. Better after chiropractor AND massage therapy. Review of Systems Constitutional: no fever and no chills. Eyes:. wears glasses. Cardiovascular: lower extremity edema, but no chest pain and no palpitations. Respiratory: no cough, no wheezing and no coughing up sputum. Gastrointestinal: no abdominal pain, no constipation, no diarrhea, no nausea and no vomiting. Genitourinary: decreased urine frequency. Neurological: dizziness and limb weakness, but no headache and no numbness or tingling . R lateral neck pain. Psychiatric: sleep disturbances and feelings of anxiety, but no substance use, no feelings of depression and no suicidal thoughts. Active Problems Problems Benign prostatic hyperplasia with lower urinary tract symptoms (600.01) (N40.1) BMI 50.0-59.9, adult (V85.43) (Z68.43) Class 3 severe obesity due to excess calories with serious comorbidity and body mass index (BMI) of 50.0 to 59.9 in adult (278.01,V85.43) (E66.01,Z68.43) Class 3 severe obesity due to excess calories with serious comorbidity and body mass index (BMI) of 50.0 to 59.9 in adult (278.01,V85.43) (E66.01,Z68.43) Coarse tremors (781.0) (G25.2) Cough in adult (786.2) (R05.9) COVID-19 (079.89) (U07.1) Diabetes (250.00) (E11.9) Dyslipidemia (272.4) (E78.5) Encounter for immunization (V03.89) (Z23) Exertional chest pain (786.50) (R07.9) Extreme obesity (278.00) (E66.8) Gout (274.9) (M10.9) History of kidney stones (V13.01) (more content not included)... Normal [employer] Tobacco Screening.on 022 Fall risk assessment a) No falls within the last year [employer] [facility] Work Phone: Tobacco use status [facility] b) No [employer] [facility] Work Phone: Laboratory - Hematology and Cell countson 02-24-2022 HbA1c (Bld) [Mass fraction] 7.70 % 4.8-5.6% [employer] [facility] Work Phone: Office Visit (Urology)on Follow-up visit Diagnoses/Problems Assessed Benign prostatic hyperplasia with lower urinary tract symptoms (600.01) (N40.1) Hypogonadism in male (257.2) (E29.1) Nocturia (788.43) (R35.1) Patient Discussion/Summary pros/cons of Testosterone replacement reviewed. Replacement options discussed. Questions answered. Available levels reviewed. Axiron Rx given All available PSA values reviewed, Options discussed. Questions answered. Diet changes for prostate health discussed and educational information given. Pros/Cons of prostate health supplements discussed. Treatment options for LUTS reviewed Discussed timed voiding. Discussed fluid and caffeine intake Treatment options for ED reviewed. Lifestyle change to help prevent UTIs discussed. Encouraged fluid intake. f/u 6 months with labs Chief Complaint An interactive audio and video telecommunication system which permits real time communications between the patient (at the originating site) and provider (at the distant site) was utilized to provide this telehealth service. Verbal consent was requested and obtained from MARY LEBLANC on this date, 12/31/2021 10:30 AM , for a telehealth visit. 6 mo f/u History of Present IllnessPatient has a chronic Hx of Hypogonadism. Patient is currently using axiron 3 pumps daily.. Most recent Labs were done on 10/05. T level was 613, Hct was 45.6, Hgb was 15.3, and PSA was 0.2. . Prior Labs were done on 05/06 Testosterone level 611, PSA 0.2, HANDH 15.4 and 46.4 . BPH sx are chronic and mild.. some frequency and urgency...No dysuria and hematuria. nocturia 1x... Caffeine does worsen LUT's.. Pt on [place] for LUTS....Patient also has a hx of kidney stones..No recent sx.. . KUB from 11/01 showed no stones. ED is chronic. Sildenafil PRN. Controlled Medication Signed on 07/23/21 Review of Systems Constitutional: No fever, No chills. Eye: Negative. Ear/Nose/Mouth/Throat: Negative. Respiratory: No shortness of breath, No cough. Cardiovascular: No chest pain, No peripheral edema. Gastrointestinal: No nausea, Genitourinary: Negative except as documented in history of present illness. Hematology/Lymphatics: Patient denies being on blood thinners.. Endocrine: Negative. Immunologic: Not immunocompromised. Musculoskeletal: Negative Integumentary: Negative. Neurologic: Alert and oriented X4. Psychiatric: Negative. Active Problems Problems Benign prostatic hyperplasia with lower urinary tract symptoms (600.01) (N40.1) BMI 50.0-59.9, adult (V85.43) (Z68.43) Class 3 severe obesity due to excess calories with serious comorbidity and body mass index (BMI) of 50.0 to 59.9 in adult (278.01,V85.43) (E66.01,Z68.43) Class 3 severe obesity due to excess calories with serious comorbidity and body mass index (BMI) of 50.0 to 59.9 in adult (278.01,V85.43) (E66.01,Z68.43) Coarse tremors (781.0) (G25.2) Cough in adult (786.2) (R05.9) COVID-19 (079.89) (U07.1) Diabetes (250.00) (E11.9) Dyslipidemia (272.4) (E78.5) Encounter for immunization (V03.89) (Z23) Exertional chest pain (786.50) (R07.9) Extreme obesity (278.00) (E66.8) Gout (274.9) (M10.9) History of kidney stones (V13.01) (Z87.442) Hypertension (401.9) (I10) Hypogonadism in male (257.2) (E29.1) Inguinal hernia (550.90) (K40.90) Male erectile disorder (607.84) (N52.9) Nocturia (788.43) (R35.1) Numbness of feet (782.0) (R20.0) Obstructive sleep apnea syndrome (327.23) (G47.33) Osteoarthritis (715.90) (M19.90) Pneumonia (486) (J18.9) Right lower quadrant abdominal pain (789.03) (R10.31) SOB (shortness of breath) on exertion (786.05) (R06.02) Surgical History Problems History of Cholecystectomy History of Colonoscopy History of Knee replacement BILATERAL Family History Mother Family history of Cancer of unknown origin Family history of diabetes mellitus (V18.0) (Z83.3) Family history of hypertension (V17.49) (Z82.49) Father Family history of cerebrovascular accident (CVA) (V17.1) (Z82.3) Family history of dementia (V17.2) (Z81.8) Family history of diabetes mellitus (V18.0) (Z83.3) Family history of hypertension (V17.49) (Z82.49) Family history of hypothyroidism (V18.19) (Z83.49) Family history of throat cancer (V16.0) (Z80.0) Family history of No significant medical problems Family history of Primary malignant neoplasm of colon Sister Family history of cerebrovascular accident (CVA) (V17.1) (Z82.3) Family history of dementia (V17.2) (Z81.8) Family history of diabetes mellitus (V18.0) (Z83.3) Family history of hypertension (V17.49) (Z82.49) Family history of hypothyroidism (V18.19) (Z83.49) Family history of throat cancer (V16.0) (Z80.0) Family history of Primary malignant neoplasm of colon Brother Family history of cerebrovascular accident (CVA) (V17.1) (Z82.3) Family history of dementia (V17.2) (Z81.8) Family history of diabetes mellitus (V18.0) (Z83.3) Family history of hypertension (V17.49) (Z82.49) Family history of th (more content not included)... Normal [employer] CT Abdomen and Pelvis withou t Contraston 10-14-2021 CT Abdomen and Pelvis WO contrast Normal [facility] Work Phone: Tobacco Screening.on Fall risk assessment a) No falls within the last year [facility] Work Phone: Tobacco use status [facility] b) No [facility] Work Phone: Tobacco Screening.on 022 Fall risk assessment a) No falls within the last year [facility] Work Phone: Tobacco use status [facility] b) No [facility] Work Phone: CHEST 2 VIEW PA AND LATon CHEST 2 VIEW PA AND LAT Patient Name: MARY LEBLANC STUDY: TH CHEST 2 VIEW PA AND LAT; 09/22/2021 7:56 am INDICATION: SOB, cough, had pneumonia early in August. CXR thru [place] [employer] R06.02: SOB (shortness of breath) on exertion. COMPARISON: 03/17/2021 ACCESSION NUMBER(S): [id number] ORDERING CLINICIAN: ADALBERTO WALL FINDINGS: CARDIOMEDIASTINAL SILHOUETTE AND VASCULATURE: Cardiac size: Upper limits of normal considering moderate elevation of the right hemidiaphragm as previously. Aortic shadow: Within normal limits considering technique Mediastinal contours: Within normal limits considering technique Pulmonary vasculature: The central vasculature is unremarkable LUNGS: Lungs are clear. ABDOMEN AND OTHER FINDINGS: No remarkable upper abdominal findings. BONES: No acute osseous changes. IMPRESSION: 1. No active cardiopulmonary disease. There has not been significant interval change from the prior exam. Electronically signed by: AARON DAVE MD Normal [facility] Radiologyon 09-22-2021 XR Chest 2 Views Normal [employer] [facility] Work Phone: Laboratory - Chemistry and C hemistry - challengeon 09-20-2021 Cholesterol [Mass/Vol] 172 mg/dL [employer] [facility] Work Phone: Cholesterol in LDL [Mass/Vol] 105 mg/dL [employer] Work Phone: Laboratory - Hematology and Cell countson 09-20-2021 HbA1c (Bld) [Mass fraction] 8.0 % [employer] [facility] Work Phone: No Panel Informationon 09-20 177 1 [employer] [facility] Work Phone: [phone] [employer] [facility] Work Phone: Tobacco Screening.on 022 Adult depression screening assessment No [facility] Work Phone: Fall risk assessment a) No falls within the last year [facility] Work Phone: Tobacco use status [facility] b) No [facility] Work Phone: XR CHEST AP/PA AND LATon XR CHEST AP/PA AND LAT EXAMINATION: XR CHEST AP/PA AND LAT HISTORY: ORDERING SYSTEM PROVIDED HISTORY: cough for 4 weeks with SOB, TECHNOLOGIST PROVIDED HISTORY: Illness/Other Reason for exam: cough Cancer History: u Surgery, RadiationHistory: no Encounter Type: Initial Additional signs and symptoms: sob ORDERING SYSTEM PROVIDED DIAGNOSIS CODES: R05.9 Cough R06.02 Shortness of breath COMPARISON: 07/27/2010. FINDINGS: Coarsening of the interstitial markings. The lungs are clear of airspace consolidation. There is no appreciable pneumothorax or pleural effusion. The pulmonary vascularity is within normal limits for technique. The cardiomediastinal silhouette is within normal limits. IMPRESSION: Diffuse coarsening of the interstitial markings, which could represent interstitial pneumonia or pulmonary congestion. [employer] Workstation ID: [id number] Dictated by: TOMASA COTA on WedAug 15, 2021 5:36:40 PM EDT Transcribed by: FOZIA PLEITEZ on WedAug 15, 2021 5:50:57 PM EDT Finalized by: TOMASA COTA on WedAug 15, 2021 5:51:38 PM EDT Normal [facility] Comment on above: Order Comment: Injur y/Trauma or Illness?:Illness/Other How long have you had these symptoms (acute/chronic)?:Acute Reason for exam?:cough History of cancer?:u Surgeries, chemotherapy, or radiation?:no Type of Exam?:Initial Additional signs and symptoms?:sob XR Chest AP/PA and LATon Diffuse coarsening of the interstitial markings, which could represent interstitial pneumonia or pulmonary congestion. [employer] Workstation ID: [id number] GE RIS EXAMINATION: XR CHEST AP/PA AND LAT HISTORY: ORDERING SYSTEM PROVIDED HISTORY: cough for 4 weeks with SOB, TECHNOLOGIST PROVIDED HISTORY: Illness/Other Reason for exam: cough Cancer History: u Surgery, RadiationHistory: no Encounter Type: Initial Additional signs and symptoms: sob ORDERING SYSTEM PROVIDED DIAGNOSIS CODES: R05.9 Cough R06.02 Shortness of breath COMPARISON: 07/27/2010. FINDINGS: Coarsening of the interstitial markings. The lungs are clear of airspace consolidation. There is no appreciable pneumothorax or pleural effusion. The pulmonary vascularity is within normal limits for technique. The cardiomediastinal silhouette is within normal limits. GE RIS Silas Cotaic Yuhsuan, M D - 08/15/2021 EXAMINATION: XR CHEST AP/PA AND LAT HISTORY: ORDERING SYSTEM PROVIDED HISTORY: cough for 4 weeks with SOB, TECHNOLOGIST PROVIDED HISTORY: Illness/Other Reason for exam: cough Cancer History: u Surgery, RadiationHistory: no Encounter Type: Initial Additional signs and symptoms: sob ORDERING SYSTEM PROVIDED DIAGNOSIS CODES: R05.9 Cough R06.02 Shortness of breath COMPARISON: 07/27/2010. FINDINGS: Coarsening of the interstitial markings. The lungs are clear of airspace consolidation. There is no appreciable pneumothorax or pleural effusion. The pulmonary vascularity is within normal limits for technique. The cardiomediastinal silhouette is within normal limits. IMPRESSION: Diffuse coarsening of the interstitial markings, which could represent interstitial pneumonia or pulmonary congestion. SELVIN/terese Workstation ID: [id number] [facility] Radiology Study observation (narrative) [facility] XR Chest AP/PA and LATOrdere d By: Tomasa Cota on 08-15-2021 [facility] Work Phone: COVID-19, MOLECULARon 2021 SARS-CoV-2 (COVID-19) Ab IA Ql Not detected Normal Not Detected [facility] Comment on above: Result Comment: This test was performed under the FDA's Emergency Use Authorization (EUA). Testing was performed using the TripConnect ID NOW COVID-19 assay on the TapTrack platform. This test has not been approved for use in asymptomatic patients and its performance in this patient population has not been evaluated. Negative results do not rule out the presence of SARS-CoV-2/COVID-19. Fact sheets for the EUA can be found at the following links: For Healthcare Providers: https://www.fda.gov/media/551215/download For Patients: https://www.fda.gov/media/670244/download COVID-19, Molecularon 2021 SARS-CoV-2 (COVID-19) RdRp gene RANDY+probe Ql (Resp) Not detected Not Detected [facility] Comment on above: This test was perfor med under the FDA's Emergency Use Authorization (EUA). Testing was performed using the Salgado ID NOW COVID-19 assay on the ID NOW platform. This test has not been approved for use in asymptomatic patients and its performance in this patient population has not been evaluated. Negative results do not rule out the presence of SARS-CoV-2/COVID-19. Fact sheets for the EUA can be found at the following links: For Healthcare Providers: https://www.fda.gov/media/760032/download For Patients: https://www.fda.gov/media/707533/download SARS-CoV-2 (COVID-19) RdRp g lucila RANDY+probe Ql (Resp)on 06-05-2021 Interpretation and review of laboratory results [facility] Tobacco Screening.on 021 Fall risk assessment a) No falls within the last year [employer] [facility] Work Phone: Tobacco use status [facility] b) No [employer] [facility] Work Phone: Complete Blood Count + Diffe rentialon 03-17-2021 Basophils/100 WBC (Bld) 0.8 % 0.0 - 2.0 ES-Ofmdxxz-J [facility] Work Phone: Erythrocyte distribution width (RBC) [Ratio] 15.5 % above high threshold See Below PG-Eadbquo-T shBilleo Phone: Comment on above: Reference Range: 11. 5 - 14.5 Hematocrit (Bld) [Volume fraction] 47.9 % See Below [facility] Work Phone: Comment on above: Reference Range: 41. 0 - 52.0 Hemoglobin (Bld) [Mass/Vol] 15.4 g/dL See Below [facility]: Comment on above: Reference Range: 13. 5 - 17.5 Lymphocytes/100 WBC (Bld) 26.4 % See Below AJ-Njsnyzv-A [facility] Work Phone: Comment on above: Reference Range: 13. 0 - 44.0 MCHC (RBC) [Mass/Vol] 32.1 g/dL See Below [facility] [[email or web address]] [facility] [facility] Center[facility] Phone: Comment on above: Reference Range: 32. 0 - 36.0 MCV (RBC) [Entitic vol] 91 fL 80 - 100 JD-Otvurba-Y [facility] Work Phone: [phone] Monocytes/100 WBC (Bld) 6.0 % 2.0 - 10.0 IU-Odfuijp-I [facility] Work Phone: [phone] Neutrophils/100 WBC (Bld) 65.4 % See Below NR-Ewtiynd-A [facility] Work Phone: Comment on above: Reference Range: 40. 0 - 80.0 Platelets (Bld) [#/Vol] 266 10*3/uL 150 - 450 KC-Zygytik-H [facility] Work Phone: [phone] RBC (Bld) [#/Vol] 5.28 {x10E12/L} See Below [employer] [facility] Work Phone: Comment on above: Reference Range: 4.5 0 - 5.90 WBC (Bld) [#/Vol] 8.7 10*3/uL 4.4 - 11.3 -Uro logy-A Exec Work Phone: Complete Blood Count + Differential 0.10 {x10E9/L} See Below MN-Aavqtqo-E [facility] Work Phone: Comment on above: Reference Range: 0.0 0 - 0.10 Reference Range: 0.0 0 - 0.70 Complete Blood Count + Differential 0.50 {x10E9/L} See Below CX-Xfxdsld-E [facility] Work Phone: Comment on above: Reference Range: 0.1 0 - 1.00 Complete Blood Count + Differential 2.30 {x10E9/L} See Below FP-Lkwsljm-J [facility] Phone: Comment on above: Reference Range: 1.2 0 - 4.80 Complete Blood Count + Differential 5.70 {x10E9/L} See Below RW-Ilwrsin-J [facility] Phone: Comment on above: Reference Range: 1.2 0 - 7.70 Percent differential counts (%) should be interpreted in the context of the absolute cell counts (cells/L). Complete Blood Count + Differential 1.4 % 0.0 - 6.0 EH-Iahkhpn-Z [facility] Work Phone: [phone] Complete Blood Count + Differential 0.1 {/100_WBC} [facility] Work Phone: [phone] Coronavirus 2019 RNA by PCR, Symptomaticon 03-17-2021 Date and time of symptom onset [id number] [facility] Work Phone: [phone] Coronavirus 2019 RNA by PCR, Symptomatic Not detected Normal See Below IX-Kjkvgwx-E [facility] Work Phone: [phone] Comment on above: SOURCE: Nasal, Nasop haryngealReference Range: Not Detected.This test has received [facility] Emergency Use Authorization (EUA) and has been verified by [facility]. This test is only authorized for the duration of time that circumstances exist to justify the authorization of the emergency use of in vitro diagnostic tests for the detection of SARS-CoV-2 virus and/or diagnosis of COVID-19 infection under section 564(b)(1) of the Act, 21 U.S.C. 360bbb-3(b)(1), unless the authorization is terminated or revoked sooner. [facility] is certified under CLIA-88 as qualified to perform high complexity testing. Testing is performed in the [facility] laboratory located at [address] [place] [address].SARS-CoV-2/Flu/RSV Multiplex Test: Fact sheet for providers: https://www.fda.gov/media/928024/downloadFact sheet for patients: https://www.fda.gov/media/412527/download Laboratory - Chemistry and C hemistry - challengeon 03-17-2021 Albumin BCP dye [Mass/Vol] 3.9 g/dL 3.4 - 5.0 [facility] Work Phone: ALP [Catalytic activity/Vol] 65 U/L 33 - 136 [facility] Work Phone: [phone] ALT With P-5'-P [Catalytic activity/Vol] 17 U/L 10 - 52 AC-Slspiso-M Exec Work Phone: Comment on above: Patients treated wit h Sulfasalazine may generate falsely decreased results for ALT. Anion gap [Moles/Vol] 12 mmol/L 10 - 20 MP- Urology-A Exec Work Phone: AST With P-5'-P [Catalytic activity/Vol] 19 U/L 9 - 39 ZF-Byqexhm-S Exec Work Phone: [phone] Bilirubin [Mass/Vol] 0.9 mg/dL 0.0 - 1.2 MP-U rology-A Exec Work Phone: [phone] Calcium [Mass/Vol] 9.3 mg/dL 8.6 - 10.3 MP-Uro logy-A Exec Work Phone: [phone] Chloride [Moles/Vol] 99 mmol/L 98 - 107 MP-U rology-A [employer] Work Phone: [phone] CO2 [Moles/Vol] 29 mmol/L 21 - 32 MP-Urolog y-A [employer] Work Phone: Creatinine [Mass/Vol] 1.03 mg/dL See Below - Urology-A [facility] Work Phone: Comment on above: Reference Range: 0.5 0 - 1.30 Glucose [Mass/Vol] 126 mg/dL above high threshold 74 - 99 JM-Mlkxrba-F Exec Work Phone: [phone] Potassium [Moles/Vol] 4.3 mmol/L 3.5 - 5.3 MP- Urology-A [facility] Work Phone: Protein [Mass/Vol] 7.0 g/dL 6.4 - 8.2 MP-Uro logy-A Exec Work Phone: [phone] Sodium [Moles/Vol] 136 mmol/L 136 - 145 MP-Uro logy-A Exec Work Phone: [phone] Urea nitrogen [Mass/Vol] 22 mg/dL 6 - 23 KK-Bnogwaw-Y Exec Work Phone: No Panel Informationon 03-17 35 pg/mL 0 - 99 AU-Jhoticl-G Exec Work Phone: Comment on above: . <100 pg/mL - Heart failure kxisntuo259-139 pg/mL - Intermediate probability of acute heart. failure exacerbation. Correlate with clinical. context and patient history. >=300 pg/mL - Heart Failure likely. Correlate with clinical. context and patient history.BNP testing is performed using different testing methodology at [facility] than at other [facility]. Direct result comparisons should only be made within the same method. >60 >60 FM-Thacyjp-S Exec Work Phone: Comment on above: CALCULATIONS OF MARGARITA MATED GFR ARE PERFORMED USING THE MDRD STUDY EQUATION FOR THE IDMS-TRACEABLE CREATININE METHODS. CLIN CHEM 2007;53:766-72 [email or web address]/ [email or web address]?Ret rieveTestByDateTime?Patient RW=[id number]&Date= 1&Time=14%3a15%3a45%3a00&Te stType=ECG&Site=14&OutputTy pe=PDF&Ext=PDF UT-Vnzhsha-M Exec Work Phone: "Please see physicia n note for formal interpretation confirmed by Scribe" ZO-Bkoqybb-V Exec Work Phone: Normal XK-Qbhkbuu-J Exec Work Phone: [phone] KY-Kamhgvq-C Exec Work Phone: [phone] RV-Vcuzlkw-A Exec Work Phone: [phone] VJ-Mvaahar-R Exec Work Phone: [phone] VA-Tanfige-E Exec Work Phone: [phone] MR-Eeewief-W Exec Work Phone: [phone] QV-Zwffyeo-D Exec Work Phone: [phone] DI-Cmjnvxt-V Exec Work Phone: [phone] YU-Ztwoloc-T Exec Work Phone: [phone] YX-Gnfmtvm-J Exec Work Phone: [phone] KQ-Qssxokl-P Exec Work Phone: [phone] KX-Lwevwum-D Exec Work Phone: [phone] HT-Txpdume-Z Exec Work Phone: [phone] LD-Vfenewz-A Exec Work Phone: [phone] RD-Yctharg-X Exec Work Phone: Radiologyon 03-17-2021 XR Chest Single view Normal MP-U rology-A Exec Work Phone: [phone] Troponin I, Serumon 03-17-20 21 Troponin I.cardiac [Mass/Vol] ng/mL See Below NU-Erfspti-X Exec Work Phone: [phone] Comment on above: Reference Range: 0.0 0 - 0.03LESS THAN 0.04 NG/ML: NEGATIVEREPEAT TESTING IN THREE TO SIX HOURSIF CLINICALLY INDICATED.0.04 - 0.5 NG/ML: CONSISTENT WITH POSSIBLECARDIAC DAMAGE AND POSSIBLE INCREASEDCLINICAL RISK.SERIAL MEASUREMENTS MAY HELP ASSESS EXTENT OFMYOCARDIAL DAMAGE.>0.5 NG/ML: CONSISTENT WITH CARDIAC DAMAGE,INCREASED CLINICAL RISK AND MYOCARDIALINFARCTION. SERIAL MEASUREMENTS MAY HELPASSESS EXTENT OF MYOCARDIAL DAMAGE..Note: Troponin I testing is performed using different testing methodology at [facility] than at other [facility]. Direct result comparisons should only be made within the same method. Urinalysison 03-17-2021 Color (U) Straw See Below PP-Obljdlv-P Exec Work Phone: Comment on above: Reference Range: STR AW,YELLOW Glucose Ql (U) Negative NEGATIVE MP-Urology -A Exec Work Phone: Ketones Ql (U) Negative NEGATIVE MP-Urology -A Exec Work Phone: Leukocyte esterase Test strip Ql (U) Negative NEGATIVE XR-Oexgyhu-M Exec Work Phone: [phone] pH (U) 5.0 [pH] 5.0 - 8.0 [employer] Phone: Protein (U) [Mass/Vol] Negative NEGATIVE [facility] Work Phone: RBC (U) [#/Vol] Negative NEGATIVE [employer] Phone: Specific gravity (U) [Rel density] 1.009 1 See Below [employer] Phone: Comment on above: Reference Range: 1.0 05 - 1.035 Urinalysis Negative NEGATIVE [employer] Phone: Urinalysis <2.0 0.0 - 1.9 [employer] Phone: Urinalysis CLEAR CLEAR [employer] Phone: Patient Recorded Blood Press ureon 01-16-2021 Fall risk assessment a) No falls within the last year [employer] [facility] Work Phone: Tobacco use status [facility] b) No [employer] [facility] Work Phone: Tobacco Screening.on 021 Fall risk assessment b) One or more fall s in the last year [employer] Phone: Tobacco use status [facility] b) No [employer] Phone: Otheron 05-08-2019 Nuclear Report Patient: KETAN Benz Med Rec#: [id number] (Age): 1955(63y) Height: Study Date: 05/08/2019 Weight: Room#: BSA: Type: Outpatient Loc: Sex: M Indications: -Chest pain, unspecified 786.50 - Checklists: -Patient verbally identified self -Consent signed and placed in chart -Procedure verified and explained to patient -Medication Reconciliation completed. -Discharge instructions given Nuclear Cardiology Conclusion: Overall intermediate-risk study based on SCAI criteria (1-3% predicted annual cardiac mortality). Normal stress regadenoson myocardial perfusion study. Normal LV size. Global left ventricular systolic function was normal, with an EF of 64%. Stress ECG Conclusion: Non-diagnostic pharmacologic Regadenoson Stress Test , with non-diagnostic ECG. HR Response to stress: normal BP response to stress: normal The patient experienced no chest pain. The test was terminated due to completion of vasodilator infusion. Baseline ECG: Normal sinus rhythm. RBBB. Non-specific ST-T wave changes. Non-specific T wave changes. Pharmacologic Protocol: - Regadenoson 0.4mg IV Bolus was given over 10-20 seconds. - Tolerated Medication Infusion. Stress ECG : ECG was non-diagnostic, secondary to abnormal baseline ECG. Recovery ECG: No significant ST changes. No chest pain. Rare PVC. Normal blood pressure response. Hemodynamics REST STRESS RECOVERY SBP 195 mmHg 203 mmHg 182 mmHg DBP 109 mmHg 100 mmHg 109 mmHg HR 66 bpm 82 bpm 71 bpm %MPHR 51 % Imaging Protocol: This was a gated SPECT myocardial perfusion imaging study. A stress only imaging protocol was followed using Tc-99m tetrofosmin (Myoview) injected intravenously. For the stress portion of the study, 15.9 mCi was administered at 05/08/2019 10:35:00. Stress imaging was performed at 11:45:00. Perfusion Interpretation: Stress nuclear myocardial perfusion imaging was normal. No rest imaging was performed. The stress nuclear myocardial perfusion imaging was normal. No resting imaging was performed. Wall Motion Interpretation: The patient's calculated post stress LVEF was 64%. Gated imaging under post-stress conditions demonstrated normal wall motion. Nuclear Doctor Interpreted Study and Electronically signed at 05/08/2019 16:05:26 by: Mago Melo MD, [facility], Rad In Roman artlab Xper Echopacs - 05/08/2019 4:18 PM EST Nuclear Report Patient: KETAN [facility] Rec#: [id number] (Age): 1955(63y) Height: Study Date: 05/08/2019 Weight: Room#: BSA: Type: Outpatient Loc: Sex: M Indications: -Chest pain, unspecified 786.50 - Checklists: -Patient verbally identified self -Consent signed and placed in chart -Procedure verified and explained to patient -Medication Reconciliation completed. -Discharge instructions given Nuclear Cardiology Conclusion: Overall intermediate-risk study based on SCAI criteria (1-3% predicted annual cardiac mortality). Normal stress regadenoson myocardial perfusion study. Normal LV size. Global left ventricular systolic function was normal, with an EF of 64%. Stress ECG Conclusion: Non-diagnostic pharmacologic Regadenoson Stress Test , with non-diagnostic ECG. HR Response to stress: normal BP response to stress: normal The patient experienced no chest pain. The test was terminated due to completion of vasodilator infusion. Baseline ECG: Normal sinus rhythm. RBBB. Non-specific ST-T wave changes. Non-specific T wave changes. Pharmacologic Protocol: - Regadenoson 0.4mg IV Bolus was given over 10-20 seconds. - Tolerated Medication Infusion. Stress ECG : ECG was non-diagnostic, secondary to abnormal baseline ECG. Recovery ECG: No significant ST changes. No chest pain. Rare PVC. Normal blood pressure response. Hemodynamics REST STRESS RECOVERY SBP 195 mmHg 203 mmHg 182 mmHg DBP 109 mmHg 100 mmHg 109 mmHg HR 66 bpm 82 bpm 71 bpm %MPHR 51 % Imaging Protocol: This was a gated SPECT myocardial perfusion imaging study. A stress only imaging protocol was followed using Tc-99m tetrofosmin (Myoview) injected intravenously. For the stress portion of the study, 15.9 mCi was administered at 05/08/2019 10:35:00. Stress imaging was performed at 11:45:00. Perfusion Interpretation: Stress nuclear myocardial perfusion imaging was normal. No rest imaging was performed. The stress nuclear myocardial perfusion imaging was normal. No resting imaging was performed. Wall Motion Interpretation: The patient's calculated post stress LVEF was 64%. Gated imaging under post-stress conditions demonstrated normal wall motion. Nuclear Doctor Interpreted Study and Electronically signed at 05/08/2019 16:05:26 by: Mago Melo MD, RVPI [facility] ECG 12-LEADon 04-14-2019 Atrial Rate [facility] P [place] [facility] P-R Interval [facility] Q-T Interval [facility] Q-T Interval (corrected) [facility] QRS Duration [facility] QTC Calculation (Bezet) [facility] R [place] [facility] T [place] [facility] Ventricular Rate [facility] Metabolic Panelon 03-14-2019 Glucose [Mass/Vol] 185 mg/dL above high threshold 74 - 99 [facility] Gastroent[facility] logy-Sierra 120 Work Phone: Otheron 03-14-2019 Name MARY LEBLANC Pathologist: YENIFER BLANCOate of Procedure: 03/14/2019Date Received: 03/14/2019Date Reported 03/16/2019Submitting Physician: RAKEL DICKEY, DOLocation: APMISC Other External # [id number] FINAL DIAGNOSISA. RANDOM COLON BIOPSY: --FOCAL ACUTE COLITIS.--SEE NOTE.Note: The differential diagnosis includes infection, drug/medication inducedinjury, artifact of bowel preparation and inflammatory bowel disease amongothers.Interpretation performed at:[facility] [address] [place], [place] [address]Jwxpa: Electronically Signed Out By BARRY MINER MD/Amarilis the signature on this report, the individual or group listed as making theFinal Interpretation/Diagnosis certifies that they have reviewed this case. Clinical History:diarrheaSpecimens Submitted As:A: RANDOM COLON BIOPSY Other Case Numbers [id number] Description:Received in formalin, labeled with the patient's name, hospital number, and"colon, random bx", are multiple fragments of franklin, soft tissue aggregating to2.9 x 0.3 x 0.1 cm. The specimen is submitted in toto in 2 cassettes.JDCjdc/03/15/2019 [facility] [[email or web address]][place] [address] Work Phone: Name MARY LEBLANC Pathologist: SALINAS BELCHER, MDDate of Procedure: 03/14/2019Date Received: 03/14/2019Date Reported 03/16/2019Submitting Physician: MAYUR PALAFOXocation: [facility] Copy To/Referring/Attending:DEO FRANKLIN MD Other External # RAKEL DICKEY, FINAL DIAGNOSIS Electronically Signed Out By SALINAS BELCHER MD/MRG1By the signature on this report, the individual or group listed as making theFinal Interpretation/Diagnosis certifies that they have reviewed this case. Clinical History:Physician Contact Number: [phone] (A): FormalinClinical Diagnosis History DiarrheaA. RANDOM COLON BX: Specimens Submitted As:A: RANDOM COLON BX Gross Description:{Not Entered} [employer] [facility] Work Phone: [email or web address] } [facility] [employer] Work Phone: XR Abdomen 1 Viewon 11-02-19 XR Abdomen 1 View Exam Date/Time: 10/31/2018 10:22 EDT Reason for Exam: Kidney stone Report STUDY: XR Abdomen 1 View; 10/31/2018 10:22 am INDICATION: Kidney stone. COMPARISON: 10/20/2017 ACCESSION NUMBER(S): [id number] ORDERING CLINICIAN: Karolina Muniz FINDINGS: 3 supine AP radiographs of the abdomen were obtained. No definite abnormal calcifications are seen over the kidneys or ureters bilaterally. Small rounded calcifications are seen over the pelvis, most consistent with phleboliths. There is a nonobstructive bowel gas pattern present. Free intraperitoneal air and air-fluid levels cannot be excluded without upright or decubitus images. IMPRESSION: Nonobstructive bowel gas pattern. FINAL REPORT Dictated: 11/01/2018 10:14 am Vamshi Belcher MD Signed (Electronic Signature): 11/01/2018 10:14 am Signed by: Vamshi Belcher MD Technologist: IVANNA [facility] XR HAND LEFT 3+ VIEWS (STAND JANELL)on 2018 XR HAND LEFT 3+ VIEWS (STANDARD) EXAMINATION: XR HAND LEFT 3+ VIEWS (STANDARD) HISTORY: ORDERING SYSTEM PROVIDED HISTORY: Pain, TECHNOLOGIST PROVIDED HISTORY: Reason for exam: pain Injury/Trauma Cancer History: u Surgery, RadiationHistory: no Encounter Type: Initial Mechanism of injury: fall ORDERING SYSTEM PROVIDED DIAGNOSIS CODES: R52 Pain COMPARISON: None. FINDINGS: There is no fracture. 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 There is no other significant arthropathy. There is flexion deformity left baby finger. There is soft tissue swelling but there is no cortical destruction or periosteal reaction. IMPRESSION: No fracture. [employer] Workstation ID: [id number] Dictated by: KIEL HIGGINBOTHAM on WedAug 01, 2018 3:53:11 PM EDT Transcribed by: KARON CASTILLO on WedAug 01, 2018 3:56:29 PM EDT Finalized by: KIEL HIGGINBOTHAM on WedAug 01, 2018 5:53:26 PM EDT [facility] Comment on above: Order Comment: Reaso n for exam?:pain Injury/Trauma or Illness?:Injury/Trauma How long have you had these symptoms (acute/chronic)?:Acute History of cancer?:u Surgeries, chemotherapy, or radiation?:no Type of Exam?:Initial Mechanism of injury?:fall XR Hand Left 3+ Views (Stand janell)on 2018 No fracture. e-Tag/[employer] Workstation ID: [id number] [facility] EXAMINATION: XR HAND LEFT 3+ VIEWS (STANDARD) HISTORY: ORDERING SYSTEM PROVIDED HISTORY: Pain, TECHNOLOGIST PROVIDED HISTORY: Reason for exam: pain Injury/Trauma Cancer History: u Surgery, RadiationHistory: no Encounter Type: Initial Mechanism of injury: fall ORDERING SYSTEM PROVIDED DIAGNOSIS CODES: R52 Pain COMPARISON: None. FINDINGS: There is no fracture. 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 There is no other significant arthropathy. There is flexion deformity left baby finger. There is soft tissue swelling but there is no cortical destruction or periosteal reaction. [facility] Interface, Rad In Fu ji Speechq - 2018 5:55 PM EDT EXAMINATION: XR HAND LEFT 3+ VIEWS (STANDARD) HISTORY: ORDERING SYSTEM PROVIDED HISTORY: Pain, TECHNOLOGIST PROVIDED HISTORY: Reason for exam: pain Injury/Trauma Cancer History: u Surgery, RadiationHistory: no Encounter Type: Initial Mechanism of injury: fall ORDERING SYSTEM PROVIDED DIAGNOSIS CODES: R52 Pain COMPARISON: None. FINDINGS: There is no fracture. 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 There is no other significant arthropathy. There is flexion deformity left baby finger. There is soft tissue swelling but there is no cortical destruction or periosteal reaction. IMPRESSION: No fracture. [employer]JB[employer] Workstation ID: [id number] [facility] Depart Summaryon 02-11-2018 Depart Summary EMERGENCY DEPARTMENT DISCHARGE SUMMARYPATIENT NAME:MARY LEBLANC : 62 Years SEX: Male PHONE:[phone]: 02/11/2018 11:16 AM : 1955 ATTENDING PHYSICIAN:Rene Lopez MD PCP: Physician, PCP Unknown CHIEF COMPLAINT: Fall, left 5th digit pain/deformity Allergies penicillin (Joint pain)Problems Active Vitamin D deficiency Diabetes HTN (hypertension) Gout DISCHARGE DIAGNOSIS: DISCHARGE INSTRUCTIONS: AA-Zippy's work release. ([id number]); Finger or Thumb Dislocation; Finger Sprain ED PHYSICIAN DOCUMENTATION: History of Present Illness I have introduced myself as the PA and informed the patient of the supervising/ collaborating physician who is available upon request. I have discussed the case with the ED physician who participated in the decisions regarding any therapeutic interventions. Physician: Dr. LopezKvljq93-uuko-ahl white male with history of hypertension and diabetes. Patient is left-hand dominant.Patient presents today via private auto from home for evaluation of left fifth digit deformity and pain. Patient states 30 minutes prior to arrival he was walking into a gas station when he tripped over the edge of a carpet that was sticking up, falling forward, striking his head on another person's buttocks and catching his finger on the ground in the process. Patient denies loss of consciousness stating he did not hit his head on the ground. He has no additional pain anywhere aside from the finger which he states is minimally painful. Denies any numbness or tingling into the finger. No pain into surrounding digits, hand, wrist, form, elbow, upper arm or shoulder. No neck or back pain.No fever, chills, nausea or vomiting.Has not taken anything for symptoms prior to arrival today. Medical Decision Making I reviewed the nurse's notes.patient will be given contact information of computer customer support specialist/hand specialist follow-up with for further evaluation/management of symptoms especially if accompanied by difficulty moving the finger patient instructed to return the ER immediately for change or worsening of symptoms especially accompanied by redness, swelling, warmth or drainage, loss of sensation ability to move the finger or any symptoms that appear to be significantly worsening instead of improving.. Left 5th digit X-ray indicatres:FINDINGS: Bone density is normal.There is dorsal dislocation of the base of the middle phalanx of the left 5th finger relative to the head of the proximal phalanx. There is about 5 mm of overriding at the site of dislocation. There are no fractures.IMPRESSION: Dorsal dislocation of the base of the middle phalanx of the left 5th finger relative to the head of the proximal phalanxLeft 5th digit X-ray (post reduction) indicates:FINDINGS: Interval reduction of prior 5th PIP dislocation with no fracture identified.IMPRESSION: Reduction of prior 5th PIP dislocation. No fracture demonstrated.left 5th digit aluminum splint checked by myself with patient neurovascularly intact distally. Procedure LEFT FIFTH DIGIT REDUCTION: distal aspect of left fifth digit hyperextended along the PIP joint and flexed at the PIP joint until reduction felt. Following reduction patient has good range of motion and strength with capillary refill less than 1 second and sensation/motor intact distally. DISPOSITION:Time of Departure From ER 02/11/2018 13:37 Discharge/Transfer From ER Home 01 MEDICATION LISTS: CURRENT MEDICATION LISTallopurinol ascorbic acid (Vitamin C) once a day.aspirin (aspirin 81 mg oral tablet) 1 Tab(s) By Mouth once a day.chlorthalidone (chlorthalidone 25 mg oral tablet) 1 Tab(s) By Mouth once a day.cholecalciferol (Vitamin D3) GlyBURIDE 5 Milligram By Mouth once a day.ibuprofen (ibuprofen 600 mg oral tablet) 1 Tab(s) By Mouth 4 Times/Day as needed as needed for pain for 7 Days. Refills: 0.losartan (losartan 100 mg oral tablet) 1 Tab(s) By Mouth once a day.MetFORMIN 1,000 Milligram By Mouth Twice a day.testosterone (testosterone 1% topical gel) 5 gram Topical every morning. MEDICATIONS GIVEN DURING MEDICAL VISITNone LAB RESULTS: RADIOLOGY:RADIOLOGY RESULT(S) (Please contact Medical Records office for further information): 02/11/2018 11:55 XR Finger LT Fifth Digit EXAMINATION TYPE: XR Finger LT Fifth DigitDATE OF EXAM : 02/11/2018 11:59 AMHISTORY: Dislocation,COMPARISON: NONEFINDINGS: Bone density is normal.There is dorsal dislocation of the base of the middle phalanx of the left 5th finger relative to the head of the proximal phalanx. There is about 5 mm of overriding at the site of dislocation. There are no fractures.IMPRESSION: Dorsal dislocation of the base of the middle phalanx of the left 5th finger relative to the head of the proximal phalanxJose Kaur thanks you for the opportunity to care for your patient. Workstation ID: [id number] 02/11/2018 12:52 XR Finger LT Fifth Digit EXAMINATION TYPE: XR Finger LT Fifth Digit DATE OF EXAM: 02/11/2018 12:58 PMHISTORY: Post reductionCOMPARISON: Radiographs dated 02/11/2018FINDINGS: Interval reduction of prior 5th PIP dislocation with no fracture identified.IMPRESSION: Reduction of prior 5th PIP dislocation. No fracture demonstrated.Jose Kaur thanks you for the opportunity to care for your patient. 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 Please follow up with as needed for further evaluation/managment of symptoms. Provider: Specialty: Address: Date: [facility] [address] [place] [phone] 1 to 2 days Provider: Specialty: Address: Date: Return to Emergency Department Follow-up as needed Comment: Return the ER immediately for change or worsening of symptoms especially accompanied by redness, swelling, warmth or drainage, loss of sensation ability to move the finger or any symptoms that appear to be significantly worsening instead of improving.. Normal [facility] ED [facility] 02-11-2018 ED [place] [address] [facility] Discharge Instructions MARY LEBLANC , Please provide this information to your Primary Care/Specialist Name : KETANMARY Current Date : 02/11/2018 13:37:27DOB : 1955 12:00 PM Primary Care Physician: Physician, PCP Unknown Diagnosis : Follow-Up Instructions:SILVIANO LEBLANCY has been given these follow-up instructions: FOLLOW-UP APPOINTMENTS: Provider: Specialty: Address: Date: Pro Henry MD [facility] [address] [place] [address] [phone] (3) Follow-up as needed Comment: 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 Please follow up with as needed for further evaluation/managment of symptoms. Provider: Specialty: Address: Date: [facility] ([facility]) [address] [place] [phone] 1 to 2 days Provider: Specialty: Address: Date: Return to Emergency Department Follow-up as needed Comment: Return the ER immediately for change or worsening of symptoms especially accompanied by redness, swelling, warmth or drainage, loss of sensation ability to move the finger or any symptoms that appear to be significantly worsening instead of improving.. Laboratory Orders: None Ordered Radiology Orders: Name: Status: XR Finger LT Fifth Digit Completed XR Finger LT Fifth Digit Completed Diagnostic Tests: None Ordered Procedure(s) and Patient Education(s) : AA-Serina's work release. ([id number]); Finger or Thumb Dislocation; Finger Sprain EMERGENCY SERVICES MEDICATION LISTLista de Medicaciones de los Servicios de Emergencia Name MARY LEBLANC MRN [facility]-[id number] PLEASE READ THE FOLLOWING REGARDING YOUR MEDICATIONS Based on the information available during your visit we have given you the medication instructions below. Continue taking medications you took prior to your visit unless you have been told to change. Please share this information with your own doctor. Carry a list of your medications with you in case of an emergency. Update it when medications are stopped, doses are changed, or new medications (including qbwk-ajf-mwaplui products) are added. If you have any questions, check with your doctor. Por la informaci??n disponible ene powell visita, las instrucciones de medicaci??n aparecen debajo. Favor de continuar tomando las medicaciones Ud. mary anne?? antes de powell visita por lo menos que hay cambios. Favor de compartir esta informaci??n con powell medico. Lleva lola lista de medicaciones consigo por shahram de emergenc??a. Actualiza la lista cuando Ud. dahiana de romana las medicaciones, si cambian las dosis, o si hay nuevas medicaciones a??adidas (incluyendo medicaciones vendidas sin prescripci??n). Favor de preguntar a powell medico por cualquier april. THESE ARE THE MEDICATIONS YOU SHOULD BE TAKINGallopurinol ascorbic acid (Vitamin C) once a day.aspirin (aspirin 81 mg oral tablet) 1 Tab(s) By Mouth once a day.chlorthalidone (chlorthalidone 25 mg oral tablet) 1 Tab(s) By Mouth once a day.cholecalciferol (Vitamin D3) GlyBURIDE 5 Milligram By Mouth once a day.ibuprofen (ibuprofen 600 mg oral tablet) 1 Tab(s) By Mouth 4 Times/Day as needed as needed for pain for 7 Days. Refills: 0.losartan (losartan 100 mg oral tablet) 1 Tab(s) By Mouth once a day.MetFORMIN 1,000 Milligram By Mouth Twice a day.testosterone (testosterone 1% topical gel) 5 gram Topical every morning.MEDICATIONS GIVEN DURING MEDICAL VISITNone NON-MEDICATION PRESCRIPTION SCHEDULING PHONE NUMBER: MEDICATION CHANGE DETAILS (Not your Final Home Medication List) During the course of your visit, your home medication list was updated with the most current information. The details of those changes are shown below: NEW MEDICATIONSPrinted Prescriptionsibuprofen (ibuprofen 600 mg oral tablet) 1 Tab(s) By Mouth 4 Times/Day as needed as needed for pain for 7 Days. Refills: 0.Comment UPDA MAISHA MEDICATIONSNoneUNCHANGED MEDICATIONSOther Medicationsallopurinol Comment ascorb ic acid (Vitamin C) once a day.Comment as pirin (aspirin 81 mg oral tablet) 1 Tab(s) By Mouth once a day.Comment ch lorthalidone (chlorthalidone 25 mg oral tablet) 1 Tab(s) By Mouth once a day.Comment ch olecalciferol (Vitamin D3) Comment GlyBUR WAYNE 5 Milligram By Mouth once a day.Comment lo sartan (losartan 100 mg oral tablet) 1 Tab(s) By Mouth once a day.Comment Me tFORMIN 1,000 Milligram By Mouth Twice a day.Comment te stosterone (testosterone 1% topical gel) 5 gram Topical every morning.Comment __STOP TAKING THESE MEDICATIONSNoneDO NOT TAKE UNTIL YOU TALK TO YOUR DOCTORNone [place] [address] Emergency Department Discharge Instructions Name: MARY LEBLANC Current Date: 02/11/2018 13:37:27 : 1955 12:00 PM Primary Physician: Physician, PCP Unknown We would like to thank you for choosing [facility] for your emergency medical needs. We examined and treated you today on an emergency basis only. This was not a substitute for, or an effort to provide, complete medical care. In most cases, you must let your doctor (or the doctor we referred you to) check you again. Tell your doctor about any new or lasting problems. We cannot recognize and treat all injuries or illnesses in one emergency department visit. After you leave, you should follow the directions attached. Instructions for obtaining X-rays:When following up with your doctor, you may need to take copies of your x-rays that were done in the Emergency Department. If you didn't receive these upon your discharge from the emergency department, please call . When the final report becomes available and it is reviewed, the emergency department will attempt to contact you if there are any changes in your instructions. It is important that you leave accurate information with us on how to contact you. IF you cannot be contacted, YOU must contact the follow-up doctor that you were assigned to make sure that the final official x-ray report does not require a change in your treatment. Instructions for obtaining medical records:If you need a copy of your medical records for follow-up, please contact the Health Information Management Department at . Their office hours are 8 AM- 4:30 PM, Wednesday through Wednesday. Please note: Results are not immediately available. Please allow a minimum of 36 hours for documentation and results.If you were prescribed an antibiotic:Antibiotics are life-saving drugs and they need to be used properly. Your team might change your antibiotic because test results show that a different antibiotic would be better to treat your infection. Like all medications, antibiotics have side effects. Some can be serious. This includes the risk of getting an antibiotic-resistant infection later, which may be difficult to treat. Remember to take your antibiotics as prescribed. If you have any questions please talk to your healthcare team.Seatbelts:There is no doubt that seatbelts save lives. Every day, people without seatbelts have more serious injuries. Have everyone buckle up, using age appropriate seatbelts or car seats, to reduce their risk of injury.Smoking:If you do smoke, we encourage you to stop. Smoking affects all aspects of your health and the health of those around you. Call the [place] [employer] at 3-107-BDZT-[place] or the [place] [employer] at 9-907-JAR-5781 for more information.High blood pressure: Your screening blood pressure today was 171 mm Hg / . Hypertension (high blood pressure) is blood pressure over 120/80. People with hypertension should contact their primary care provider within 30 days to follow up. Check your patient portal for additional blood pressure information.Immunizations:I mmunization is a way to protect against deadly infections. Discuss this with your child's children's literature professor, or Public Health Department. Your family practice doctor can determine if you need pneumonia or flu vaccine. The [facility] Department can be reached at .Domestic Violence:If you are a victim of domestic violence (physical, verbal, or emotional), you are not alone. Discuss this with your physician or a friend and call Choices Hotline ( for assistance and support.You are the most important factor in your recovery. Follow the provided instructions carefully. Take your medications as prescribed. Most importantly, see a doctor again as discussed. If you have problems that we have not discussed, call or visit your doctor right away. If you do not have a primary care physician, we have provided one for you to follow up with. When you call for an appointment, please inform them that you were seen in the emergency department and the date of your visit. If you are unable to reach your doctor and are still experiencing problems, return to the emergency department. For assistance finding a primary care physician, call the Physician Referral Line at .Suicide Hotline:Your mental and emotional well-being is important. If you are in a mental health crisis or are having thoughts of suicide, please call the nationwide suicide hotline, anytime day or night, at 1-669-113-DGGU. Pharmacy Information:Below is a list of 24 hour pharmacies that we are aware of. We suggest that you call the specific pharmacy for their hours before traveling to a location. Hours may vary on holidays. [facility] [address] [address] [phone] [address] [phone] [address] [phone] [address] [phone] [address] [phone] [address] [phone] [place] [address] [phone] Take all medications as directed. If you need prescription assistance, contact the following agencies:?? Partnership for Prescription Assistance at or www.pparx.org?? [facility] at or www.Waicaibestrx.org?? www.[employer] Medical[employer].[place] is a site with many valuable coupons Patient Education Materials MARY LEBLANC has been given the following patient education materials: [facility] Facility[facility] [address] [place] [id number]: [phone] Release FormThis notice verifies that your employee MARY LEBLANC was seen in this facility on 02/11/2018 13:37:27.Patient is excused from work on 02/11/18 and 02/12/18. ___ ED Physician/Provider MusculoskeletalFinger DislocationFinger dislocation is the displacement of bones in your finger at the joints. Most commonly, finger dislocation occurs at the proximal interphalangeal joint (the joint closest to your knuckle). Very strong, fibrous tissues (ligaments) and joint capsules connect the three bones of your fingers. CAUSESDislocation is caused by a forceful impact. This impact moves these bones off the joint and often tears your ligaments. SYMPTOMSSymptoms of finger dislocation include:???Deformity of your finger.???Pain, with loss of movement.DIAGNOSISFinger dislocation is diagnosed with a physical exam. Often, X-ray exams are done to see if you have associated injuries, such as bone fractures.TREATMENTFinger dislocations are treated by putting your bones back into position (reduction) either by manually moving the bones back into place or through surgery. Your finger is then kept in a fixed position (immobilized) with the use of a dressing or splint for a brief period.When your ligament has to be surgically repaired, it needs to be kept in a fixed position with a dressing or splint for 1 to 2 weeks. Because joint stiffness is a long-term complication of finger dislocation, hand exercises or physical therapy to increase the range of motion and to regain strength is usually started as soon as the ligament is healed. Exercises and therapy generally last no more than 3 months.HOME CARE INSTRUCTIONSThe following measures can help to reduce pain and speed up the healing process:???Rest your injured joint. Do not move until instructed otherwise by your caregiver. Avoid activities similar to the one that caused your injury.???Apply ice to your injured joint for the first day or 2 after your reduction or as directed by your caregiver. Applying ice helps to reduce inflammation and pain. ???Put ice in a plastic bag.???Place a towel between your skin and the bag.???Leave the ice on for 15-20 minutes at a time, every 2 hours while you are awake.???Elevate your hand above your heart as directed by your caregiver to reduce swelling.???Take cvth-qlk-zburqgl or prescription medicine for pain as your caregiver instructs you. SEEK IMMEDIATE MEDICAL CARE IF:???Your dressing or splint becomes damaged.???Your pain becomes worse rather than better.???You lose feeling in your finger, or it becomes cold and white.MAKE SURE YOU:???Understand these instructions.???Will watch your condition.???Will get help right away if you are not doing well or get worse.This information is not intended to replace advice given to you by your health care provider. Make sure you discuss any questions you have with your health care provider.Document Released: 04/30/2001 Document Revised: 05/24/2015 Document Reviewed: 02/21/2012Charmaine[employer]jarrell Interactive Patient Education ?2016 [employer].Finger SprainA finger sprain is a tear in one of the strong, fibrous tissues that connect the bones (ligaments) in your finger. The severity of the sprain depends on how much of the ligament is torn. The tear can be either partial or complete. CAUSESOften, sprains are a result of a fall or accident. If you extend your hands to catch an object or to protect yourself, the force of the impact causes the fibers of your ligament to stretch too much. This excess tension causes the fibers of your ligament to tear.SYMPTOMSYou may have some loss of motion in your finger. Other symptoms include:???Bruising.???Tend erness.???Swelling.DIAGNOSI SIn order to diagnose finger sprain, your caregiver will physically examine your finger or thumb to determine how torn the ligament is. Your caregiver may also suggest an X-ray exam of your finger to make sure no bones are broken.TREATMENTIf your ligament is only partially torn, treatment usually involves keeping the finger in a fixed position (immobilization) for a short period. To do this, your caregiver will apply a bandage, cast, or splint to keep your finger from moving until it heals. For a partially torn ligament, the healing process usually takes 2 to 3 weeks.If your ligament is completely torn, you may need surgery to reconnect the ligament to the bone. After surgery a cast or splint will be applied and will need to stay on your finger or thumb for 4 to 6 weeks while your ligament heals.HOME CARE INSTRUCTIONS???Keep your injured finger elevated, when possible, to decrease swelling.???To ease pain and swelling, apply ice to your joint twice a day, for 2 to 3 days:???Put ice in a plastic bag.???Place a towel between your skin and the bag.???Leave the ice on for 15 minutes.???Only take pzal-voj-pmletaf or prescription medicine for pain as directed by your caregiver.??? Do not wear rings on your injured finger.??? Do not leave your finger unprotected until pain and stiffness go away (usually 3 to 4 weeks).??? Do not allow your cast or splint to get wet. Cover your cast or splint with a plastic bag when you shower or bathe. Do not swim.???Your caregiver may suggest special exercises for you to do during your recovery to prevent or limit permanent stiffness.SEEK IMMEDIATE MEDICAL CARE IF:???Your cast or splint becomes damaged.???Your pain becomes worse rather than better.MAKE SURE YOU:???Understand these instructions.???Will watch your condition.???Will get help right away if you are not doing well or get worse.This information is not intended to replace advice given to you by your health care provider. Make sure you discuss any questions you have with your health care provider.Document Released: 06/10/2005 Document Revised: 05/24/2015 Document Reviewed: 01/04/2012Dangelo Interactive Patient Education ?2016 [employer]><><><><><><><><><><>< ><><><><><><><><><><><><><> Patient Visit Summary Signature MARY LEBLANC has been given the following list of patient education materials, prescriptions and follow-up instructions: KETAN Alvarez TERRY, have received the above patient education materials/instructions and have verbalized understanding: Date Time Patient Signature Date Time Provider Signature Normal [facility] ED Physician Noteson 018 ED Physician Notes Patient: Jose D LEBLANC Age: 62 years Sex: Male : 1955 Associated Diagnoses: None Author: Tyler Abrams History of Present Illness I have introduced myself as the PA and informed the patient of the supervising/ collaborating physician who is available upon request. I have discussed the case with the ED physician who participated in the decisions regarding any therapeutic interventions. Physician: Dr. [id number] white male with history of hypertension and diabetes. Patient is left-hand dominant.Patient presents today via private auto from home for evaluation of left fifth digit deformity and pain. Patient states 30 minutes prior to arrival he was walking into a gas station when he tripped over the edge of a carpet that was sticking up, falling forward, striking his head on another person's buttocks and catching his finger on the ground in the process. Patient denies loss of consciousness stating he did not hit his head on the ground. He has no additional pain anywhere aside from the finger which he states is minimally painful. Denies any numbness or tingling into the finger. No pain into surrounding digits, hand, wrist, form, elbow, upper arm or shoulder. No neck or back pain.No fever, chills, nausea or vomiting.Has not taken anything for symptoms prior to arrival today. Review of Systems As stated per HPI all additional ROS otherwise negative. Health Status Allergies: Allergic Reactions (Selected)Severity Not DocumentedPenicillin- Joint pain.. Medications: (Selected) . Past Medical/ Family/ Social History Medical history Past Medical History Problem List No active or resolved problems charted Surgical history: No active procedure history items have been selected or recorded.. Family history: No family history items have been selected or recorded.. Physical Examination Vital Signs Vital Signs/Measurements 02/11/2018 11:20 EDT Temperature 98 Degrees F NML Pulse Rate 79 BPM NML Respiratory Rate 16 Br PM NML Pulse Oximetry 97 % NML Systolic BP 171 mm Hg HI Diastolic BP 87 mm Hg NML MAP-CF 115 mm Hg 02/11/2018 11:18 EDT Pain Score 3 Pain Intensity Scale Numeric Rating Scale-Verbal (Adults) Is Pain Level Acceptable? Yes Pain Location Site #1 Finger Pain Location Modifier Site #1 Left Weight 189.1 kg Weight Type Actual Weight Lb 416 lbs Weight Oz 14.31 oz Height 182.88 cm Height Type Pt reported Height Ft 6 ft Height in 0 Inch BSA 2.91 m2 Body Mass Index 56.5 kg/m2 . PHYSICAL EXAM:CONSTITUTIONAL: 62-year-old white male sitting up in chair. Patient alone. He is alert, well-nourished, well appearing, in no apparent distress. EXT: left, fifth digit with deformity noted at the PIP joint. Capillary refill less than 1 second with sensation motor intact limited. No tenderness to palpation over the remainder of the digits, hand, wrist, form, elbow, upper arm or shoulder on the left.TESTING (inc. XR, iv, lab, ECG): Left 5th digit X-ray Medical Decision Making I reviewed the nurse's notes.patient will be given contact information of computer customer support specialist/hand specialist follow-up with for further evaluation/management of symptoms especially if accompanied by difficulty moving the finger patient instructed to return the ER immediately for change or worsening of symptoms especially accompanied by redness, swelling, warmth or drainage, loss of sensation ability to move the finger or any symptoms that appear to be significantly worsening instead of improving.. Left 5th digit X-ray indicatres:FINDINGS: Bone density is normal.There is dorsal dislocation of the base of the middle phalanx of the left 5th finger relative to the head of the proximal phalanx. There is about 5 mm of overriding at the site of dislocation. There are no fractures.IMPRESSION: Dorsal dislocation of the base of the middle phalanx of the left 5th finger relative to the head of the proximal phalanxLeft 5th digit X-ray (post reduction) indicates:FINDINGS: Interval reduction of prior 5th PIP dislocation with no fracture identified.IMPRESSION: Reduction of prior 5th PIP dislocation. No fracture demonstrated.left 5th digit aluminum splint checked by myself with patient neurovascularly intact distally. Procedure LEFT FIFTH DIGIT REDUCTION: distal aspect of left fifth digit hyperextended along the PIP joint and flexed at the PIP joint until reduction felt. Following reduction patient has good range of motion and strength with capillary refill less than 1 second and sensation/motor intact distally. Reexamination/ Reevaluation Impression and Plan DIAGNOSIS:Left fifth digit deformity, reduced Plan Condition: Improved, Stable. Disposition: Discharged: to home. Prescriptions: Med Rec/RX Pharmacy:ibuprofen 600 mg oral tablet (Prescribe): 1 Tab, PO, QID, for 7 Day(s), PRN: as needed for pain, 28 Tab, 0 Refill(s). Patient was given the following educational materials: Finger Sprain, Finger or Thumb Dislocation, [employer] work release. ([id number]). Follow up with: ; [facility]) Within 1 to 2 days; [facility], Orthopaedic Surg Within Follow-up as needed 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 Please follow up with as needed for further evaluation/managment of symptoms.. Basic Information Patient information:: Chief Complaint from Nursing Triage Note : Chief Complaint-Triage 02/11/2018 11:18 EDT Chief Complaint-Triage Fall, left 5th digit pain/deformity . Normal [facility] ED Physician Notes PDF Normal [facility] XR Finger LT Fifth Digiton 0 02-11-2018 XR Finger fifth - left Views EXAMINATION TYPE: XR Finger LT Fifth Digit DATE OF EXAM: 02/11/2018 12:58 PMHISTORY: Post reductionCOMPARISON: Radiographs dated 02/11/2018FINDINGS: Interval reduction of prior 5th PIP dislocation with no fracture identified.IMPRESSION: Reduction of prior 5th PIP dislocation. No fracture demonstrated.[place] thanks you for the opportunity to care for your patient. Workstation ID: [id number] - [id number] FINAL REPORT Dictated By: Johnathan Dominguez MD 02/11/2018 13:07Assigned Physician: Johnathan Dominguez MD PReviewed and Electronically Signed By: Johnathan Dominguez MD 02/11/2018 13:08Transcribed by: RIKY 02/11/2018 13:07Technologist: [facility] Normal [facility] XR Finger fifth - left Views EXAMINATION TYPE: XR Finger LT Fifth DigitDATE OF EXAM : 02/11/2018 11:59 AMHISTORY: Dislocation,COMPARISON: NONEFINDINGS: Bone density is normal.There is dorsal dislocation of the base of the middle phalanx of the left 5th finger relative to the head of the proximal phalanx. There is about 5 mm of overriding at the site of dislocation. There are no fractures.IMPRESSION: Dorsal dislocation of the base of the middle phalanx of the left 5th finger relative to the head of the proximal phalanxJose Kaur thanks you for the opportunity to care for your patient. 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 Gross Description The specimen received in formalin is a fragment measuring 0.8 x 0.6 x 0.5 cm. There is a raised nodule on the skin surface measuring 0.4 x 0.3 x 0.3 cm. Margins are inked black. Serially sectioned. Totally submitted in one cassette. CS;lat (GUILLERMINA/lt) Electronically Signed By Wood Mendoza DO , Pathologist (Case signed 01/03/2018) [facility] Lower Ext/No Jt/w/oon 2016 Lower Ext/No [facility]w/[facility] [address] [place], [place] [address]Gqlwh Ext/No Jt/w/oMR#: [id number] Acct: [id number]: MARY LEBLANC Rep #: [id number]: 1955 M 61 From: Johnathan Brown MDPCP: DELBERT FRANKLIN Status: REG CLIStudy: Lower Ext/No Jt/w/o Date of Exam: 04/23/17Exam# [id number] Ordering Dr: Awa Lemus: MRI RIGHT MIDFOOTREASON FOR EXAM: Male, 61 years old. Charcot foot, painTECHNIQUE: Standardized fat and water weighted pulse sequences wereobtained in all 3 orthogonal planes.COMPARISON: None. FINDINGS:There is fluid about the flexor hallucis longus tendon and Freedom's knot(image 35/42 short axis TII, 11/28 sagittal inversion recovery).There is focal soft tissue fullness at the plantar aspect of the metatarsalheads of the second web space (image 5/42 short axis TI).There is mild edema of the dorsal subcutaneous fat (image 27/42 axial T2).There is muscle atrophy at the forefoot (image 17/42 axial T2).There is a first MTP joint effusion (image 6/28 sagittal inversionrecovery). There are mild degenerative changes at the first MTP joint.There is thickening of the plantar fascia extending approximately 4 cmproximal to the insertion with mild nodularity (image 11/28 sagittalinversion recovery, T1, 42, 38/42 short axis TII). There is a plantarcalcaneal enthesophyte.There is mild spurring at the mid foot (image 13, 14, 18, 12, 13/28sagittal inversion recovery).There is mild bone marrow edema at the plantar lateral aspect of thecalcaneocuboid joint (image 16/28 sagittal inversion recovery).There is mild bone marrow edema at the superior medial aspect of the talarhead (image 10, 11/28 sagittal inversion recovery).There is no fracture.There is no infiltrative marrow process.There is no osteonecrosis.The articular cartilage is essentially intact.Lisfranc's ligament appears normal. The tarsal metatarsal joints are wellaligned and well maintained. ORDER #: [id number] MRI/Lower Ext/No Jt/w/oIMPRESSION:Flexor hallucis longus tenosynovitisSmall Gamez's neuroma, second webspaceMild contusion/stress reaction at the calcaneocuboid joint and talar headChronic plantar fasciitis versus plantar fibromatosisMild spurring of the mid footMild degenerative changes at the first MTP jointNo evidence of neuropathic osteoarthropathyElectronica lly Signed:Johnathan Brown MD at 9:40 ESTTel , Service support , BP: Fredrick Lemus; DELBERT FRANKLIN Physical Therapist Clinic Director:Signed Normal [facility] Vital Signs Date Time Vital Sign Value Performing Clinician Facility 03-26-2025 09:42-0500 Diastolic blood pressure 99 mm[Hg] Terrance Glenbrook DPM Work Phone: [facility] 03-26-2025 09:42-0500 Heart rate 58 /min Terrance Nell DPM Work Phone: [facility] 03-26-2025 09:42-0500 Systolic blood pressure 186 mm[Hg] Terrance Glenbrook DPM Work Phone: [facility] 03-26-2025 09:33-0500 Body temperature 98.4 [degF] Terrance Glenbrook DPM Work Phone: [facility] 03-19-2025 10:11-0500 Diastolic blood pressure 84 mm[Hg] Terrance Glenbrook DPM Work Phone: [facility] 03-19-2025 10:11-0500 Heart rate 66 /min Terrance Nell DPM Work Phone: [facility] 03-19-2025 10:11-0500 Systolic blood pressure 178 mm[Hg] Terrance Nell DPM Work Phone: [facility] 03-19-2025 10:06-0500 Body temperature 98.29 [degF] Terrance Glenbrook DPM Work Phone: [facility] 03-12-2025 16:51-0400 Diastolic blood pressure 83 mm[Hg] Terrance Nell DPM Work Phone: [facility] 03-12-2025 16:51-0400 Heart rate 63 /min Terrance Nell DPM Work Phone: [facility] 03-12-2025 16:51-0400 Systolic blood pressure 191 mm[Hg] Terrance Nell DPM Work Phone: [facility] 03-12-2025 16:11-0400 Body temperature 98.29 [degF] Terrance Glenbrook DPM Work Phone: [facility] 03-06-2025 18:10-0400 Body height 185.4 cm Karan Almanza AIR TRAFFIC COORDINATOR-PIEROGI MAKER Work Phone: [facility] 03-06-2025 18:10-0400 Body mass index (BMI) [Ratio] 54.09 kg/m2 Karan Almanza AIR TRAFFIC COORDINATOR-PIEROGI MAKER Work Phone: [facility] 03-06-2025 18:10-0400 Body temperature 97.3 [degF] Karan Almanza AIR TRAFFIC COORDINATOR-PIEROGI MAKER Work Phone: [facility] 03-06-2025 18:10-0400 Body weight 185.97 kg Karan Almanza AIR TRAFFIC COORDINATOR-PIEROGI MAKER Work Phone: [facility] 03-06-2025 18:10-0400 Diastolic blood pressure 80 mm[Hg] Karan Almanza AIR TRAFFIC COORDINATOR-PIEROGI MAKER Work Phone: [facility] 03-06-2025 18:10-0400 Heart rate 63 /min Karan Almanza AIR TRAFFIC COORDINATOR-PIEROGI MAKER Work Phone: [facility] 03-06-2025 18:10-0400 SaO2% (BldA) [Mass fraction] 97 % Karan Almanza AIR TRAFFIC COORDINATOR-PIEROGI MAKER Work Phone: [facility] 03-06-2025 18:10-0400 Systolic blood pressure 187 mm[Hg] Karan Almanza AIR TRAFFIC COORDINATOR-PIEROGI MAKER Work Phone: [facility] 10-25-2024 08:12-0400 Body height 185.4 cm Adalberto Wall AIR TRAFFIC COORDINATOR-PIEROGI MAKER Work Phone: [facility] 10-25-2024 08:12-0400 Body mass index (BMI) [Ratio] 54.99 kg/m2 Adalberto Wall AIR TRAFFIC COORDINATOR-PIEROGI MAKER Work Phone: [facility] 10-25-2024 08:12-0400 Body weight 189.06 kg Adalberto Wall AIR TRAFFIC COORDINATOR-PIEROGI MAKER Work Phone: [facility] 10-25-2024 08:12-0400 Diastolic blood pressure 80 mm[Hg] Adalberto Wall AIR TRAFFIC COORDINATOR-PIEROGI MAKER Work Phone: [facility] 10-25-2024 08:12-0400 Heart rate 64 /min Adalberto Wall AIR TRAFFIC COORDINATOR-PIEROGI MAKER Work Phone: [facility] 10-25-2024 08:12-0400 SaO2% (BldA) [Mass fraction] 96 % Adalberto Wall AIR TRAFFIC COORDINATOR-PIEROGI MAKER Work Phone: [facility] 10-25-2024 08:12-0400 Systolic blood pressure 128 mm[Hg] Adalberto Wall AIR TRAFFIC COORDINATOR-PIEROGI MAKER Work Phone: [facility] 10-13-2024 09:55-0400 Body height 185.4 cm Rosendo Kingston MD Work Phone: [facility] 10-13-2024 09:55-0400 Body mass index (BMI) [Ratio] 55.04 kg/m2 Rosendo Kingston MD Work Phone: [facility] 10-13-2024 09:55-0400 Body weight 189.24 kg Rosendo Kingston MD Work Phone: [facility] 10-13-2024 09:55-0400 Diastolic blood pressure 88 mm[Hg] Rosendo Kingston MD Work Phone: [facility] 10-13-2024 09:55-0400 Heart rate 56 /min Rosendo Kingston MD Work Phone: [facility] 10-13-2024 09:55-0400 SaO2% (BldA) [Mass fraction] 98 % Rosendo Kingston MD Work Phone: [facility] 10-13-2024 09:55-0400 Systolic blood pressure 150 mm[Hg] Rosendo Kingston MD Work Phone: [facility] 10-13-2024 08:18-0400 Diastolic blood pressure 92 mm[Hg] Hernandez Almanza PIEROGI MAKER Work Phone: [facility] 10-13-2024 08:18-0400 Systolic blood pressure 159 mm[Hg] Hernandez Almanza PIEROGI MAKER Work Phone: [facility] 10-13-2024 08:04-0400 Body mass index (BMI) [Ratio] 55.2 kg/m2 Hernandez Almanza PIEROGI MAKER Work Phone: [facility] 10-13-2024 08:04-0400 Body weight 189.78 kg Hernandezemmanuel Almanza PIEROGI MAKER Work Phone: [facility] 10-13-2024 08:04-0400 Heart rate 75 /min Hernandez Almanza PIEROGI MAKER Work Phone: [facility] 06-28-2024 10:41-0500 Body mass index (BMI) [Ratio] 54.99 kg/m2 Rodrick Basilio MD PhD Work Phone: [facility] 06-28-2024 10:41-0500 Body temperature 97.3 [degF] Rodrick Basilio MD PhD Work Phone: [facility] 06-28-2024 10:41-0500 Body weight 189.06 kg Rodrick Basilio MD PhD Work Phone: [facility] 06-28-2024 10:41-0500 Diastolic blood pressure 84 mm[Hg] Rodrick Basilio MD PhD Work Phone: [facility] 06-28-2024 10:41-0500 Heart rate 60 /min Rodrick Basilio MD PhD Work Phone: [facility] 06-28-2024 10:41-0500 Respiratory rate 16 /min Rodrick Basilio MD PhD Work Phone: [facility] 06-28-2024 10:41-0500 Systolic blood pressure 167 mm[Hg] Rodrick Basilio MD PhD Work Phone: [facility] 06-16-2024 08:10-0500 Diastolic blood pressure 93 mm[Hg] Hernandez Almanza PIEROGI MAKER Work Phone: [facility] [facility] 06-16-2024 08:10-0500 Systolic blood pressure 172 mm[Hg] Hernandez Almanza PIEROGI MAKER Work Phone: [facility] 06-16-2024 07:59-0500 Body mass index (BMI) [Ratio] 54.53 kg/m2 Hernandez Almanza PIEROGI MAKER Work Phone: [facility] 06-16-2024 07:59-0500 Body weight 187.47 kg Hernandez Almanza PIEROGI MAKER Work Phone: [facility] 06-16-2024 07:59-0500 Heart rate 62 /min Hernandez Almanza PIEROGI MAKER Work Phone: [facility] 04-26-2024 08:16-0500 Body height 185.4 cm Adalberto Wood AIR TRAFFIC COORDINATOR-PIEROGI MAKER Work Phone: [facility] 04-26-2024 08:16-0500 Body mass index (BMI) [Ratio] 54.7 kg/m2 Adalberto Wood AIR TRAFFIC COORDINATOR-PIEROGI MAKER Work Phone: [facility] 04-26-2024 08:16-0500 Body weight 188.06 kg Adalberto Wood AIR TRAFFIC COORDINATOR-PIEROGI MAKER Work Phone: [facility] 04-26-2024 08:16-0500 Diastolic blood pressure 90 mm[Hg] Adalberto Wood AIR TRAFFIC COORDINATOR-PIEROGI MAKER Work Phone: [facility] 04-26-2024 08:16-0500 Heart rate 56 /min Adalberto Wood AIR TRAFFIC COORDINATOR-PIEROGI MAKER Work Phone: [facility] 04-26-2024 08:16-0500 SaO2% (BldA) [Mass fraction] 98 % Adalberto Wall AIR TRAFFIC COORDINATOR-PIEROGI MAKER Work Phone: [facility] 04-26-2024 08:16-0500 Systolic blood pressure 140 mm[Hg] Adalberto Wall AIR TRAFFIC COORDINATOR-PIEROGI MAKER Work Phone: [facility] 04-11-2024 10:39-0500 Body height 185.4 cm Rosendo Kingston MD Work Phone: [facility] 04-11-2024 10:39-0500 Body mass index (BMI) [Ratio] 54.94 kg/m2 Rosendo Kingston MD Work Phone: [facility] 04-11-2024 10:39-0500 Body weight 188.88 kg Rosendo Kingston MD Work Phone: [facility] 04-11-2024 10:39-0500 Diastolic blood pressure 88 mm[Hg] Rosendo Kingston MD Work Phone: [facility] 04-11-2024 10:39-0500 Heart rate 62 /min Rosendo Kingston MD Work Phone: [facility] 04-11-2024 10:39-0500 SaO2% (BldA) [Mass fraction] 96 % Rosendo Kingston MD Work Phone: [facility] 04-11-2024 10:39-0500 Systolic blood pressure 164 mm[Hg] Rosendo Kingston MD Work Phone: [facility] 04-10-2024 14:25-0500 Diastolic blood pressure 80 mm[Hg] [address] 04-10-2024 14:25-0500 Heart rate 70 /min [address] 04-10-2024 14:25-0500 Respiratory rate 16 /min [address] 04-10-2024 14:25-0500 SaO2% (BldA) [Mass fraction] 95 % [address] 04-10-2024 14:25-0500 Systolic blood pressure 168 mm[Hg] [address] 04-10-2024 13:40-0500 Body temperature 98.6 [degF] [address] 04-10-2024 11:17-0500 Body height 185.[address] 04-10-2024 11:17-0500 Body mass index (BMI) [Ratio] 54.74 kg/m2 [address] 04-10-2024 11:17-0500 Body weight 188.[address] 12-13-2023 08:22-0400 Diastolic blood pressure 85 mm[Hg] Hernandez Almanza PIEROGI MAKER Work Phone: [facility] 12-13-2023 08:22-0400 Heart rate 59 /min Hernandez Almanza PIEROGI MAKER Work Phone: [facility] 12-13-2023 08:22-0400 Systolic blood pressure 170 mm[Hg] Hernandez Almanza PIEROGI MAKER Work Phone: [facility] 12-13-2023 08:14-0400 Body mass index (BMI) [Ratio] 54.49 kg/m2 Hernandez Almanza PIEROGI MAKER Work Phone: [facility] 12-13-2023 08:14-0400 Body weight 187.34 kg Hernandez Almanza PIEROGI MAKER Work Phone: [facility] 11-03-2023 08:07-0400 Body mass index (BMI) [Ratio] 54.88 kg/m2 Karolina Muniz MD Work Phone: [facility] 11-03-2023 08:07-0400 Body weight 188.7 kg Karolina Muniz MD Work Phone: [facility] 11-03-2023 08:07-0400 Respiratory rate 16 /min Karolina Muniz MD Work Phone: [facility] 10-25-2023 08:47-0400 Body height 185.4 cm Adalberto CHOUDHURYPIEROGI MAKER Work Phone: [facility] 10-25-2023 08:47-0400 Body mass index (BMI) [Ratio] 54.74 kg/m2 Adalberto Wall AIR TRAFFIC COORDINATOR-PIEROGI MAKER Work Phone: [facility] 10-25-2023 08:47-0400 Body weight 188.2 kg Adalberto Wall AIR TRAFFIC COORDINATOR-PIEROGI MAKER Work Phone: [facility] 10-25-2023 08:47-0400 Diastolic blood pressure 78 mm[Hg] Adalberto Wall AIR TRAFFIC COORDINATOR-PIEROGI MAKER Work Phone: [phone] [place] [address] 10-25-2023 08:47-0400 Heart rate 59 /min Adalberto Wall AIR TRAFFIC COORDINATOR-PIEROGI MAKER Work Phone: [facility] 10-25-2023 08:47-0400 SaO2% (BldA) [Mass fraction] 98 % Adalberto Wall AIR TRAFFIC COORDINATOR-PIEROGI MAKER Work Phone: [facility] 10-25-2023 08:47-0400 Systolic blood pressure 140 mm[Hg] Adalberto Wall AIR TRAFFIC COORDINATOR-PIEROGI MAKER Work Phone: [phone] [place] [address] 10-05-2023 09:58-0400 Body height 185.4 cm Rosendo Kingston MD Work Phone: [facility] 10-05-2023 09:58-0400 Body mass index (BMI) [Ratio] 54.34 kg/m2 Rosendo Kingston MD Work Phone: [facility] 10-05-2023 09:58-0400 Body weight 186.84 kg Rosendo Kingston MD Work Phone: [facility] 10-05-2023 09:58-0400 Diastolic blood pressure 72 mm[Hg] Rosendo Kingston MD Work Phone: [facility] 10-05-2023 09:58-0400 Heart rate 54 /min Rosendo Kingston MD Work Phone: [facility] 10-05-2023 09:58-0400 SaO2% (BldA) [Mass fraction] 97 % Rosendo Kingston MD Work Phone: [facility] 10-05-2023 09:58-0400 Systolic blood pressure 140 mm[Hg] Rosendo Kingston MD Work Phone: [facility] 09-27-2023 12:12-0400 Diastolic blood pressure 82 mm[Hg] Elias 1 [facility] 09-27-2023 12:12-0400 Heart rate 63 /min [facility] 1 [facility] 09-27-2023 12:12-0400 Respiratory rate 20 /min Elias 1 [facility] 09-27-2023 12:12-0400 SaO2% (BldA) [Mass fraction] 96 % [facility] 1 [facility] 09-27-2023 12:12-0400 Systolic blood pressure 204 mm[Hg] Elias 1 [facility] 07-30-2023 10:58-0400 Diastolic blood pressure 82 mm[Hg] Hernandez Almanza PIEROGI MAKER Work Phone: [facility] 07-30-2023 10:58-0400 Heart rate 59 /min Hernandez Almanza PIEROGI MAKER Work Phone: [facility] 07-30-2023 10:58-0400 Systolic blood pressure 141 mm[Hg] Hernandez Almanza PIEROGI MAKER Work Phone: [facility] 07-30-2023 10:43-0400 Body mass index (BMI) [Ratio] 53.96 kg/m2 Hernandez Almanza PIEROGI MAKER Work Phone: [facility] 07-30-2023 10:43-0400 Body weight 185.52 kg Hernandez Almanza PIEROGI MAKER Work Phone: [facility] 07-28-2023 12:50-0400 Body height 185.4 cm Rodrick Basilio MD PhD Work Phone: [facility] 07-28-2023 12:50-0400 Body mass index (BMI) [Ratio] 54.37 kg/m2 Rodrick Basilio MD PhD Work Phone: [facility] 07-28-2023 12:50-0400 Body weight 186.88 kg Rodrick Basilio MD PhD Work Phone: [facility] 07-28-2023 12:50-0400 Diastolic blood pressure 78 mm[Hg] Rodrick Basilio MD PhD Work Phone: [facility] 07-28-2023 12:50-0400 Heart rate 57 /min Rodrick Basilio MD PhD Work Phone: [facility] 07-28-2023 12:50-0400 Respiratory rate 20 /min Rodrick Basilio MD PhD Work Phone: [facility] 07-28-2023 12:50-0400 Systolic blood pressure 168 mm[Hg] Rodrick Basilio MD PhD Work Phone: [facility] 07-06-2023 13:39-0500 Body height 185.4 cm Rosendo Kingston MD Work Phone: [facility] 07-06-2023 13:39-0500 Body mass index (BMI) [Ratio] 55.28 kg/m2 Rosendo Kingston MD Work Phone: [facility] 07-06-2023 13:39-0500 Body weight 190.06 kg Rosendo Kingston MD Work Phone: [facility] 07-06-2023 13:39-0500 Diastolic blood pressure 82 mm[Hg] Rosendo Kingston MD Work Phone: [facility] 07-06-2023 13:39-0500 Heart rate 63 /min Rosendo Kingston MD Work Phone: [facility] 07-06-2023 13:39-0500 SaO2% (BldA) [Mass fraction] 96 % Rosendo Kingston MD Work Phone: [facility] 07-06-2023 13:39-0500 Systolic blood pressure 140 mm[Hg] Rosendo Kingston MD Work Phone: [facility] 12-16-2022 08:16-0400 Body mass index (BMI) [Ratio] 56.07 kg/m2 Delbert Da Silva Stencel Work Phone: NW-Ggzymtx-Gbgdhnb Work Phone: 12-16-2022 08:16-0400 Body surface area Derived from formula 2.96 m2 Delbert Da Silva Stencel Work Phone: RE-Iafnnoo-Qafxnut Work Phone: 12-16-2022 08:16-0400 Body weight 192.78 kg Delbert Da Silva Stencel Work Phone: RA-Cjlywbx-Zjenoxg Work Phone: 12-16-2022 08:16-0400 Diastolic blood pressure 83 mm[Hg] Delbert Da Silva Stencel Work Phone: KM-Fturill-Bddofvb Work Phone: 12-16-2022 08:16-0400 Heart rate 57 /min Delbert Da Silva Stencel Work Phone: YP-Xdyzbws-Rtmpfvn Work Phone: 12-16-2022 08:16-0400 Systolic blood pressure 163 mm[Hg] Delbert Da Silva Stencel Work Phone: YL-Pdgbodj-Kpyhoim Work Phone: 11-23-2022 09:14-0400 Body height 185.4 cm Adalberto Wood AIR TRAFFIC COORDINATOR-PIEROGI MAKER Work Phone: [facility] 11-23-2022 09:14-0400 Body mass index (BMI) [Ratio] 54.44 kg/m2 Adalberto Wood AIR TRAFFIC COORDINATOR-PIEROGI MAKER Work Phone: [facility] 11-23-2022 09:14-0400 Body weight 187.15 kg Adalberto Wood AIR TRAFFIC COORDINATOR-PIEROGI MAKER Work Phone: [facility] 11-23-2022 09:14-0400 Diastolic blood pressure 80 mm[Hg] Adalberto Wood AIR TRAFFIC COORDINATOR-PIEROGI MAKER Work Phone: [facility] 11-23-2022 09:14-0400 Heart rate 61 /min Adalberto Wood AIR TRAFFIC COORDINATOR-PIEROGI MAKER Work Phone: [facility] 11-23-2022 09:14-0400 SaO2% (BldA) [Mass fraction] 92 % Adalberto Wall AIR TRAFFIC COORDINATOR-PIEROGI MAKER Work Phone: [facility] 11-23-2022 09:14-0400 Systolic blood pressure 132 mm[Hg] Adalberto Wall APRN-PIEROGI MAKER Work Phone: [facility] 11-13-2022 08:19-0400 Body mass index (BMI) [Ratio] 56.07 kg/m2 Delbert D Stencel Work Phone: DQ-Cgayufv-Rdfigqb Work Phone: 11-13-2022 08:19-0400 Body surface area Derived from formula 2.96 m2 Delbert D Stencel Work Phone: KZ-Vkuwxoc-Qerejsf Work Phone: 11-13-2022 08:19-0400 Body weight 192.78 kg Delbert D Stencel Work Phone: LI-Btbljld-Lpxpmdo Work Phone: 11-13-2022 08:19-0400 Respiratory rate 16 /min Delbert Da Silva Stencel Work Phone: ZG-Lxrmaim-Vbcttny Work Phone: 06-24-2022 12:05-0500 Body height 185.42 cm Delbert D Stencel Work Phone: [facility] Work Phone: 06-24-2022 12:05-0500 Body mass index (BMI) [Ratio] 55.2 kg/m2 Delbert D Stencel Work Phone: [facility] Work Phone: 06-24-2022 12:05-0500 Body surface area Derived from formula 2.94 m2 Delbert D Stencel Work Phone: [facility] Work Phone: 06-24-2022 12:05-0500 Body weight 189.78 kg Delbert D Stencel Work Phone: [facility] Work Phone: 06-24-2022 12:05-0500 Diastolic blood pressure 95 mm[Hg] Delbert Da Silva Stencel Work Phone: [facility] Work Phone: 06-24-2022 12:05-0500 Heart rate 64 /min Delbert Da Silva Stencel Work Phone: [facility] Work Phone: 06-24-2022 12:05-0500 Respiratory rate 16 /min Delbert Da Silva Stencel Work Phone: [facility] Work Phone: 06-24-2022 12:05-0500 SaO2% (BldA) [Mass fraction] 97 % Delbert Da Silva Stencel Work Phone: [facility] Work Phone: 06-24-2022 12:05-0500 Systolic blood pressure 187 mm[Hg] Delbert Da Silva Stencel Work Phone: [facility] Work Phone: 02-26-2022 08:09-0400 Body height 185.42 cm Delbert Baconcel Work Phone: -[employer] [facility] Work Phone: 02-26-2022 08:09-0400 Body mass index (BMI) [Ratio] 54.93 kg/m2 Delbert Da Silva Stencel Work Phone: -[employer] [facility] Work Phone: 02-26-2022 08:09-0400 Body surface area Derived from formula 2.94 m2 Delbert Da Silva Stencel Work Phone: -[employer] [facility] Work Phone: 02-26-2022 08:09-0400 Body weight 188.87 kg Delbert Da Silva Stencel Work Phone: -[employer] [facility] Work Phone: 02-26-2022 08:09-0400 Diastolic blood pressure 86 mm[Hg] Delbert D Stencel Work Phone: [facility] [employer] [facility] Work Phone: 02-26-2022 08:09-0400 Heart rate 63 /min Delbert Da Silva Stencel Work Phone: [facility] Work Phone: 02-26-2022 08:09-0400 SaO2% (BldA) [Mass fraction] 94 % Delbert Da Silva Stencel Work Phone: -[facility] [employer] [facility] Work Phone: 02-26-2022 08:09-0400 Systolic blood pressure 122 mm[Hg] Delbert Da Silva Stencel Work Phone: -[employer] [facility] Work Phone: 09-29-2021 13:34-0400 Body height 185.42 cm Delbert Da Silva Stencel Work Phone: [facility] Work Phone: 09-29-2021 13:34-0400 Body mass index (BMI) [Ratio] 55.41 kg/m2 Delbert Da Silva Stencel Work Phone: [facility] Work Phone: 09-29-2021 13:34-0400 Body surface area Derived from formula 2.95 m2 Delbert Da Silva Stencel Work Phone: [facility] Work Phone: 09-29-2021 13:34-0400 Body weight 190.51 kg Delbert Da Silva Stencel Work Phone: [facility] Work Phone: 09-29-2021 13:34-0400 Diastolic blood pressure 80 mm[Hg] Delbert Da Silva Stencel Work Phone: [facility] Work Phone: 09-29-2021 13:34-0400 Heart rate 70 /min Delbert Da Silva Stencel Work Phone: [facility] Work Phone: 09-29-2021 13:34-0400 Systolic blood pressure 128 mm[Hg] Delbert Franklin Work Phone: [facility] Work Phone: 09-25-2021 08:08-0400 Body height 185.42 cm Delbert Franklin Work Phone: [facility] Work Phone: 09-25-2021 08:08-0400 Body mass index (BMI) [Ratio] 55.15 kg/m2 Delbert Franklin Work Phone: [facility] Work Phone: 09-25-2021 08:08-0400 Body surface area Derived from formula 2.94 m2 Delbert Franklin Work Phone: [facility] Work Phone: 09-25-2021 08:08-0400 Body weight 189.6 kg Delbert Franklin Work Phone: [facility] Work Phone: 09-25-2021 08:08-0400 Diastolic blood pressure 72 mm[Hg] Delbert Franklin Work Phone: [facility] Work Phone: 09-25-2021 08:08-0400 Heart rate 62 /min Delbert Franklin Work Phone: [facility] Work Phone: 09-25-2021 08:08-0400 SaO2% (BldA) [Mass fraction] 95 % Delbert Franklin Work Phone: [facility] Work Phone: 09-25-2021 08:08-0400 Systolic blood pressure 124 mm[Hg] Delbert Baconcel Work Phone: [facility] Work Phone: 09-18-2021 11:30-0400 Body height 185.42 cm Delbert Franklin Work Phone: [facility] Work Phone: 09-18-2021 11:30-0400 Body mass index (BMI) [Ratio] 55.49 kg/m2 Delbert Baconcel Work Phone: [facility] Work Phone: 09-18-2021 11:30-0400 Body surface area Derived from formula 2.95 m2 Delbert Franklin Work Phone: [facility] Work Phone: 09-18-2021 11:30-0400 Body weight 190.77 kg Delbert Franklin Work Phone: [facility] Work Phone: 09-18-2021 11:30-0400 Diastolic blood pressure 70 mm[Hg] Delbert Franklin Work Phone: [facility] Work Phone: 09-18-2021 11:30-0400 Heart rate 53 /min Delbert Franklin Work Phone: [facility] [employer] [facility] Work Phone: 09-18-2021 11:30-0400 SaO2% (BldA) [Mass fraction] 95 % Delbert Franklin Work Phone: [facility] Work Phone: 09-18-2021 11:30-0400 Systolic blood pressure 128 mm[Hg] Delbert Da Silva Stencel Work Phone: [facility] Work Phone: 08-15-2021 17:29-0400 Diastolic blood pressure 83 mm[Hg] Karon Fonseca CNP Work Phone: [facility] Comment on above: bp recheck / kse 08-15-2021 17:29-0400 Systolic blood pressure 150 mm[Hg] Karon Fonseca CNP Work Phone: [facility] Comment on above: bp recheck / kse 08-15-2021 17:02-0400 Body height 185.4 cm Karon Fonseca CNP Work Phone: [facility] 08-15-2021 17:02-0400 Body mass index (BMI) [Ratio] 54.22 kg/m2 Karon Fonseca CNP Work Phone: [facility] 08-15-2021 17:02-0400 Body temperature 97.5 [degF] Karon Fonseca CNP Work Phone: [facility] 08-15-2021 17:02-0400 Body weight 186.43 kg Karon Fonseca CNP Work Phone: [facility] 08-15-2021 17:02-0400 Heart rate 81 /min Karon Fonseca CNP Work Phone: [facility] 08-15-2021 17:02-0400 Respiratory rate 18 /min Karon Fonseca CNP Work Phone: [facility] 08-15-2021 17:02-0400 SaO2% (BldA) [Mass fraction] 97 % Karon Fonseca CNP Work Phone: [facility] 06-05-2021 13:44-0500 Diastolic blood pressure 100 mm[Hg] Delbert Borjas DO Work Phone: [facility] Comment on above: recheck CLG 06-05-2021 13:44-0500 Systolic blood pressure 181 mm[Hg] Delbert Borjas DO Work Phone: [facility] Comment on above: recheck CLG 06-05-2021 13:03-0500 Body height 185.4 cm Delbert Borjas DO Work Phone: [facility] 06-05-2021 13:03-0500 Body mass index (BMI) [Ratio] 52.77 kg/m2 Delbert Borjas DO Work Phone: [facility] 06-05-2021 13:03-0500 Body temperature 98.01 [degF] Delbert Borjas DO Work Phone: [facility] 06-05-2021 13:03-0500 Body weight 181.44 kg Delbert Borjas DO Work Phone: [facility] 06-05-2021 13:03-0500 Heart rate 73 /min Delbert Borjas DO Work Phone: [facility] 06-05-2021 13:03-0500 Respiratory rate 16 /min Delbert Borjas DO Work Phone: [facility] 06-05-2021 13:03-0500 SaO2% (BldA) [Mass fraction] 97 % Delbert Borjas DO Work Phone: [facility] 04-24-2021 08:13-0500 Body height 185.42 cm Delbert Franklin Work Phone: [facility] Work Phone: 04-24-2021 08:13-0500 Body mass index (BMI) [Ratio] 54.03 kg/m2 Delbert Franklin Work Phone: [facility] Work Phone: 04-24-2021 08:13-0500 Body surface area Derived from formula 2.92 m2 Delbert Franklin Work Phone: [facility] Work Phone: 04-24-2021 08:13-0500 Body temperature 96.8 [degF] Delbert Franklin Work Phone: [facility] Work Phone: 04-24-2021 08:13-0500 Body weight 185.75 kg Delbert Franklin Work Phone: [facility] Work Phone: 04-24-2021 08:13-0500 Diastolic blood pressure 74 mm[Hg] Delbert Da Silva Rigoberto Work Phone: [facility] Work Phone: 04-24-2021 08:13-0500 Heart rate 60 /min Delbert Da Silva Stencel Work Phone: [facility] Work Phone: 04-24-2021 08:13-0500 SaO2% (BldA) [Mass fraction] 95 % Delbert D Stencel Work Phone: [facility] Work Phone: 04-24-2021 08:13-0500 Systolic blood pressure 142 mm[Hg] Delbert D Stencel Work Phone: [facility] Work Phone: 03-17-2021 18:00-0400 Diastolic blood pressure 90 mm[Hg] Delbert Stencel Other Phone: [facility] 03-17-2021 18:00-0400 Heart rate 60 /min Delbert Stencel Other Phone: [facility] 03-17-2021 18:00-0400 Respiratory rate 18 /min Delbert Stencel Other Phone: [facility] 03-17-2021 18:00-0400 SaO2% (BldA) [Mass fraction] 96 % Delbert Stencel Other Phone: [facility] 03-17-2021 18:00-0400 Systolic blood pressure 180 mm[Hg] Delbert Stencel Other Phone: [facility] 03-17-2021 16:13-0400 Body height 182.8 cm Delbert Stencel Other Phone: [facility] 03-17-2021 16:13-0400 Body temperature 98.06 [degF] Delbert Stencel Other Phone: [facility] 03-17-2021 16:13-0400 Body weight 181.8 kg Delbert Stencel Other Phone: [facility] 01-16-2021 11:06-0400 Body height 185.42 cm Delbert Franklin Work Phone: [facility] Work Phone: 01-16-2021 11:06-0400 Body mass index (BMI) [Ratio] 53.84 kg/m2 Delbert Franklin Work Phone: [facility] Work Phone: 01-16-2021 11:06-0400 Body surface area Derived from formula 2.91 m2 Delbert Franklin Work Phone: [facility] Work Phone: 01-16-2021 11:06-0400 Body temperature 97.1 [degF] Delbert Franklin Work Phone: [facility] Work Phone: 01-16-2021 11:06-0400 Body weight 185.1 kg Delbert Franklin Work Phone: [facility] Work Phone: 01-16-2021 11:06-0400 Diastolic blood pressure 80 mm[Hg] Delbert Franklin Work Phone: [facility] Work Phone: 01-16-2021 11:06-0400 Heart rate 58 /min Delbert Franklin Work Phone: [facility] Work Phone: 01-16-2021 11:06-0400 SaO2% (BldA) [Mass fraction] 98 % Delbert Franklin Work Phone: [facility] Work Phone: 01-16-2021 11:06-0400 Systolic blood pressure 128 mm[Hg] Delbert Baconcel Work Phone: [facility] Work Phone: 12-09-2020 08:16-0400 Body height 185.42 cm Delbert Da Silva Stencel Work Phone: YE-Llssrjf-Tmgkldm Work Phone: 12-09-2020 08:16-0400 Body mass index (BMI) [Ratio] 53.43 kg/m2 Delbert D Stencel Work Phone: SH-Wulclbm-Mzknsju Work Phone: 12-09-2020 08:16-0400 Body surface area Derived from formula 2.9 m2 Delbert Da Silva Stencel Work Phone: JQ-Uqkkxbw-Sbcbaxn Work Phone: 12-09-2020 08:16-0400 Body weight 183.71 kg Delbert D Stencel Work Phone: UR-Frdjzaj-Equcpzn Work Phone: 12-09-2020 08:16-0400 Diastolic blood pressure 81 mm[Hg] Delbert Da Silva Stencel Work Phone: VC-Lwgerdk-Hjhwhfs Work Phone: 12-09-2020 08:16-0400 Heart rate 58 /min Delbert Da Silva Stencel Work Phone: YX-Avqmxit-Zlhsdgd Work Phone: 12-09-2020 08:16-0400 Systolic blood pressure 163 mm[Hg] Delbert D Stencel Work Phone: BO-Gfvsrkc-Tnztvyn Work Phone: 05-08-2019 10:08-0500 BMI (Body Mass Index) 54.9 kg/m2 Oscar Portillo [facility] 05-08-2019 10:08-0500 Body weight 188.7 kg Oscar Portillo [facility] 05-08-2019 10:08-0500 BP Diastolic 109 mm[Hg] Oscar Portillo [facility] 05-08-2019 10:08-0500 BP Systolic 195 mm[Hg] Oscar Portillo [facility] 05-08-2019 10:08-0500 Height 185.4 [facility] 10:08-0500 Pulse (Heart Rate) 66 /min Oscar Portillo [facility] 04-14-2019 08:08-0500 BMI (Body Mass Index) 54.87 kg/m2 Oscar Portillo [facility] 04-14-2019 08:08-0500 Body weight 188.65 kg Oscar Portillo [facility] 04-14-2019 08:08-0500 BP Diastolic 78 mm[Hg] Oscar Portillo [facility] 04-14-2019 08:08-0500 BP Systolic 135 mm[Hg] Oscar Portillo [facility] 04-14-2019 08:08-0500 Height 185.4 cm Oscar Portillo [facility] 04-14-2019 08:08-0500 Pulse (Heart Rate) 63 /min Oscar Portillo [facility] 04-14-2019 08:08-0500 Pulse Oximetry 95 % Oscar Portillo [facility] 04-06-2019 10:14-0500 BMI (Body Mass Index) 54.03 kg/m2 [facility] [employer] Work Phone: 04-06-2019 10:14-0500 Body weight 185.75 kg [facility] [employer] Work Phone: 04-06-2019 10:14-0500 BP Diastolic 82 mm[Hg] [facility] [employer] Work Phone: Comment on above: Location: [facility]; 04-06-2019 10:14-0500 BP Systolic 144 mm[Hg] [facility] [employer] Work Phone: Comment on above: Location: [facility]; 04-06-2019 10:14-0500 BSA (Body Surface Area) 2.92 m2 [facility] [employer] Work Phone: 04-06-2019 10:14-0500 Height 185.42 cm [facility] [employer] Work Phone: 04-06-2019 10:14-0500 Pulse (Heart Rate) 62 /min [facility] [employer] Work Phone: 04-06-2019 10:14-0500 Pulse Oximetry 96 % [facility] [employer] Work Phone: 2018 08:22-0400 BMI (Body Mass Index) 54.25 kg/m2 Salinas Newman [facility] 2018 08:0400 Height 182.9 cm Salinas Newman [facility] 2018 08:0400 Weight 181.44 kg Salinas Newman [facility] Encounters Encounter Date Encounter Type Care Provider Facility Start: 03-26-2025 End: 03-26-2025 Patient encounter procedure Terrance Wangr DPM Work Phone: [facility] Comment on above: Skin ulcer of left f oot with fat layer exposed (HCC) (Primary Dx); Other osteomyelitis of left foot (HCC); Diabetic peripheral neuropathy (HCC) Start: 03-26-2025 End: 03-26-2025 ambulatory TERRANCE CHELSIE NELL [facility] Ambulatory Start: 03-22-2025 End: 03-22-2025 Orders Only Terrancedemar Wangr DPM Work Phone: [facility] Start: 03-19-2025 End: 03-23-2025 ambulatory DELBERT PALUMBO RIGOBERTO [facility] Ambulatory Start: 03-19-2025 End: 03-19-2025 Office outpatient visit 25 minutes Terrance Sabemmanuel Wangr DPM Work Phone: [facility] Comment on above: Other osteomyelitis of left foot (HCC) (Primary Dx); Skin ulcer of left foot with fat layer exposed (HCC) Start: 03-12-2025 End: 03-16-2025 ambulatory TERRANCE AUDREYRY NELL [facility] Ambulatory Start: 03-12-2025 End: 03-12-2025 Office outpatient new 30 minutes Terrance Sabry Nell DPM Work Phone: [facility] Comment on above: Skin ulcer of left f oot with fat layer exposed (HCC) (Primary Dx); Diabetic peripheral neuropathy (HCC) Start: 03-06-2025 End: 03-06-2025 Office outpatient visit 15 minutes Karan Almanza APRN-PIEROGI MAKER Work Phone: [facility] Comment on above: Acute bronchitis, un specified organism (Primary Dx); Cellulitis of foot without toes, left Start: 03-06-2025 End: 03-06-2025 ambulatory [facility] Start: 10-25-2024 End: 10-25-2024 ambulatory [facility] Ambulatory Start: 10-25-2024 End: 10-25-2024 Office outpatient visit 25 minutes [facility] AIR TRAFFIC COORDINATOR-PIEROGI MAKER Work Phone: [facility] Comment on above: Dyslipidemia (Primar y Dx); Type 2 diabetes mellitus without complication, without long-term current use of insulin; Primary hypertension; Chronic gout without tophus, unspecified cause, unspecified site; Type 2 diabetes mellitus with other specified complication, unspecified whether parts 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 (Multi); Type 2 diabetes mellitus with hyperglycemia, without long-term current use of insulin Start: 10-23-2024 ambulatory [place] JOSEELMO [facility] Ambulatory Start: 10-13-2024 End: 10-13-2024 ambulatory ROSENDOCALI MODI [facility] Ambulatory Start: 10-13-2024 End: 10-13-2024 Office outpatient visit 25 minutes Rosendo Kingston MD Work Phone: [facility] Office Building Comment on above: Atherosclerosis of n ative coronary artery of [place] heart without angina pectoris Type 2 diabetes lela itus without complication, without long-term current use of insulin (HCC) (Primary Dx) Start: 10-13-2024 End: 10-13-2024 ambulatory HERNANDEZEMMANUEL SCHROEDER [facility] Ambulatory Start: 09-18-2024 End: 09-18-2024 Office outpatient visit 25 minutes Karolina Muniz MD Work Phone: [facility] Comment on above: Benign prostatic hyp erplasia with lower urinary tract symptoms, symptom details unspecified; Hypogonadism in male; Nocturia; Male erectile disorder Start: 09-18-2024 End: 09-18-2024 ambulatory KAROLINA MUNIZ [facility] Ambulatory Start: 06-28-2024 End: 06-28-2024 ambulatory RODRICK BASILIO [facility] Start: 06-28-2024 End: 06-28-2024 Office outpatient visit 40 minutes Rodrick Basilio MD PhD Work Phone: [facility] Office Building Comment on above: Tremor (Primary Dx); Neuropathy Start: 06-16-2024 End: 06-16-2024 Office outpatient visit 25 minutes Hernandez Almanza PIEROGI MAKER Work Phone: [facility] [place] Comment on above: Type 2 diabetes lela itus without complication, without long- term current use of insulin (HCC) (Primary Dx); Hypertension, unspecified type Start: 06-16-2024 End: 06-16-2024 [facility] Start: 06-16-2024 ambulatory HERNANDEZ ALMANZA [facility] Ambulatory Start: 04-26-2024 End: 04-26-2024 Office outpatient visit 25 minutes [facility] AIR TRAFFIC COORDINATOR-PIEROGI MAKER Work Phone: [facility] Comment on above: Type 2 diabetes lela itus without complication, without long- term current use of insulin (Multi) (Primary Dx); Primary hypertension; Chronic gout without tophus, unspecified cause, unspecified site; Dyslipidemia; Benign prostatic hyperplasia with lower urinary tract symptoms, symptom details unspecified; Family history of colon cancer Start: 04-26-2024 End: 04-26-2024 ambulatory [facility] Ambulatory Start: 04-11-2024 End: 04-11-2024 Office outpatient visit 25 minutes Rosendo Kingston MD Work Phone: [facility] Office Building Comment on above: Atherosclerosis (Romina mago Dx); Dyslipidemia; Type 2 diabetes mellitus with other specified complication, unspecified whether parts 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 (Multi) Start: 04-11-2024 End: 04-11-2024 ambulatory ROSENDO MODI [facility] Ambulatory Start: 04-10-2024 End: 04-10-2024 Subsequent hospital visit by physician Rakel Dickey DO Work Phone: [facility] [place] Comment on above: Family history of co shawn cancer Start: 04-10-2024 End: 04-10-2024 ambulatory RAKEL DICKEY [facility] Start: 12-13-2023 End: 12-13-2023 Office outpatient visit 25 minutes Hernandez Almanza PIEROGI MAKER Work Phone: [facility] [place] Comment on above: Inadequately control led diabetes mellitus (HCC) (Primary Dx); Type 2 diabetes mellitus without complication, without long-term current use of insulin (HCC); Hypertension, unspecified type Start: 11-03-2023 End: 11-03-2023 Office outpatient visit 25 minutes Karolina Muniz MD Work Phone: [facility] Comment on above: Benign prostatic hyp erplasia with lower urinary tract symptoms, symptom details unspecified; Hypogonadism in male; Nocturia; Male erectile disorder Start: 10-25-2023 End: 10-25-2023 Office outpatient visit 25 minutes Adalberto Wall APRN-PIEROGI MAKER Work Phone: [facility] Comment on above: Primary hypertension (Primary Dx); B12 deficiency; Type 2 diabetes mellitus without complication, without long-term current use of insulin (Multi); Chronic gout without tophus, unspecified cause, unspecified site; Essential tremor; Anxiety; Family history of colon cancer Start: 10-05-2023 End: 10-05-2023 Office outpatient visit 25 minutes Rosendo Kingston MD Work Phone: [facility] Comment on above: Atherosclerosis (Romina mago Dx) Start: 09-27-2023 End: 09-27-2023 Subsequent hospital visit by physician Elias [address] Comment on above: Dyslipidemia Atherosclerosis; Atherosclerotic heart disease of [place] coronary artery without angina pectoris Start: 07-30-2023 End: 07-30-2023 Office outpatient new 45 minutes Hernandez Almanza PIEROGI MAKER Work Phone: [facility] [place] Comment on above: Inadequately control led diabetes mellitus (HCC) Start: 07-28-2023 End: 07-28-2023 Office outpatient visit 25 minutes Rodrick Basilio MD PhD Work Phone: [facility] Office Building Comment on above: Tremor (Primary Dx) Start: 07-07-2023 Transcribe Orders Adalberto Wall PIEROGI MAKER Work Phone: [facility] Comment on above: Inadequately control led diabetes mellitus (HCC) (Primary Dx) Start: 07-06-2023 End: 07-06-2023 Office outpatient new 45 minutes Rosendo Kingston MD Work Phone: [facility] Office Building Comment on above: Atherosclerosis (Romina mago Dx); Dyslipidemia Start: 04-19-2023 End: 04-19-2023 Office outpatient visit 15 minutes Karolina Muniz MD Work Phone: [facility] Comment on above: Benign prostatic hyp erplasia with lower urinary tract symptoms, symptom details unspecified; Hypogonadism in male; Nocturia; Male erectile disorder Start: 01-27-2023 AUDIT Delbert parson Work Phone: DP-[facility]Vypkdyl Work Phone: Start: 12-28-2022 AUDIT Delbert parson Work Phone: QF-Ijvmpqj-Bhxpxgf Work Phone: Start: 12-16-[address] Delbert Wahl Facility:[id number] Start: 12-16-2022 Office outpatient vi sit 25 minutes Delbert Franlkin Work Phone: CB-Rwjmicr-Nrgwjop Work Phone: Start: 11-23-2022 End: 11-23-2022 Office outpatient visit 25 minutes Adalberto CHOUDHURYPIEROGI MAKER Work Phone: [facility] Comment on above: Primary hypertension (Primary Dx); Type 2 diabetes mellitus without complication, without long-term current use of insulin ([facility]/HCC); Dyslipidemia; B12 deficiency; Poison anna; Vitamin B12 deficiency Start: 11-13-2022 Office outpatient vi sit 25 minutes Delbert Franklin Work Phone: KP-Fepskvb-Pqvyewd Work Phone: Start: 11-13-[address] Karolina Muniz II Facility:[id number] Start: 06-24-[address] Rodrick Basilio Facility:[id number] Start: 05-13-2022 AUDIT Delbert Da Silva Sten eb Work Phone: -[facility] Work Phone: Start: 04-27-2022 AUDIT Delbert Avinash Sten eb Work Phone: -[facility] Work Phone: Start: 02-26-2022 Office outpatient vi sit 25 minutes Delbert Da Silva Stencel Work Phone: -[facility] Work Phone: Start: 02-26-[address] Delbert Mota Steneb Facility:[id number] Start: 02-13-2022 AUDIT Delbert Da Silva Sten eb Work Phone: -[facility] Work Phone: Start: 12-31-2021 Office outpatient vi sit 15 minutes Delbert Da Silva Stencel Work Phone: KZ-Nxgfweq-Zwnrahc Work Phone: Start: 12-31-[address] Karolina [address] rd Muniz II Facility:[id number] Start: 11-10-2021 AUDIT Delbert Da Silva Sten eb Work Phone: -[facility] Work Phone: Start: 10-22-2021 AUDIT Delbert Da Silva Sten be Work Phone: -[facility] Work Phone: Start: 10-14-2021 Telephone encounter Delbert Baconcel Work Phone: [facility] Work Phone: Start: 10-14-2021 ambulatory Delbert Franklin F acility:[id number] Start: 09-29-2021 Office outpatient vi sit 15 minutes Delbert Da Silva Stencel Work Phone: [facility] Work Phone: Start: 09-25-2021 EPV, Provider: Adalberto Wall, Status: Pen, Time: 8:00 AM Delbert Baconcel Work Phone: [facility] Work Phone: Start: 09-25-2021 Office outpatient vi sit 25 minutes Delbert Baconcel Work Phone: [facility] Work Phone: Start: 09-23-2021 Chart Update Delbert Bacon eb Work Phone: [facility] Work Phone: Start: 09-22-2021 ambulatory Ms. ADALBERTO BURNHAM [facility]:[id number] Start: 09-18-2021 Office outpatient vi sit 25 minutes Delbert Baconcel Work Phone: [facility] Work Phone: Start: 09-08-2021 AUDIT Delbert Bacon eb Work Phone: [facility] Work Phone: Start: 08-18-2021 AUDIT Delbert Bacon eb Work Phone: [facility] Work Phone: Start: 08-15-2021 End: 08-19-2021 [facility] Start: 08-15-2021 End: 08-15-2021 Office outpatient visit 25 minutes Karon Fonseca [facility] Work Phone: [facility] Comment on above: Pneumonia due to inf ectious organism, unspecified laterality, unspecified part of lung (Primary Dx); Cough; Shortness of breath; Elevated blood pressure reading; Nasal congestion Start: 07-01-2021 Office outpatient vi sit 25 minutes Delbert Avinash Arleencel Work Phone: JZ-Aynysoj-Sdbnoyv Work Phone: Start: 06-05-2021 End: 06-05-2021 ambulatory DELBERT PALUMBO ARLEENEB [facility] Start: 06-05-2021 End: 06-05-2021 Office outpatient visit 15 minutes Delbert Borjas DO Work Phone: [facility] Comment on above: Uvulitis (Primary Dx ); Suspected COVID-19 virus infection; Exposure to SARS-associated coronavirus Start: 04-24-2021 AUDIT Delbert D Sten eb Work Phone: [facility] Work Phone: Start: 03-19-2021 AUDIT Delbert D Sten eb Work Phone: YJ-Gtscxzi-Cuuprga Work Phone: Start: 03-17-2021 End: 03-17-2021 Emergency department patient visit Lisbet Zuniga [facility] Emergency 11 Start: 01-22-2021 AUDIT Delbert D Sten eb Work Phone: TM-Ldhkzpr-Srvguua Work Phone: Start: 01-16-2021 Office outpatient vi sit 25 minutes Delbert D Stencel Work Phone: [facility] Work Phone: Start: 01-14-2021 Rx Renewal Delbert D Sten eb Work Phone: PF-Riognij-Kdrpxiw Work Phone: Start: 12-09-2020 Office outpatient vi sit 15 minutes Delbert D Stencel Work Phone: UG-Zithtaj-Rnnfvjx Work Phone: Start: 07-18-2020 End: 07-18-2020 Orders Only Tara Branham Richazachery Work Phone: [facility] Start: 06-10-2020 Office outpatient vi sit 25 minutes Delbert D Stencel Work Phone: ZC-Dtgldmd-Qhsskti Work Phone: Start: 04-08-2020 Patient encounter procedure Karolina Muniz II [facility] Work Phone: Start: 10-05-2019 Patient encounter procedure Karolina Muniz II [facility] Work Phone: Start: 08-15-2019 Patient encounter procedure Karolina Muniz II [facility] Work Phone: Start: 05-08-2019 End: 05-09-2019 Patient encounter procedure OSCAR PORTILLO [facility] Start: 05-08-2019 End: 05-08-2019 Subsequent hospital visit by physician Oscar Portillo Work Phone: [facility] Comment on above: Exertional chest keven n Arrived Start: 04-14-2019 End: 04-14-2019 Office outpatient new 45 minutes Oscar Portillo Work Phone: [facility] Comment on above: Exertional chest keven n; MANJIT (obstructive sleep apnea); Type 2 diabetes mellitus without complication, without long-term current use of insulin (HCC); Hypertension, unspecified type; Morbid obesity (HCC) Start: 04-06-2019 Patient encounter procedure Karolina Muniz II -[facility] Work Phone: Start: 10-07-2018 End: 10-11-2018 Patient encounter procedure [facility] Start: 10-07-2018 End: 10-07-2018 Patient encounter procedure Salinas Newman Work Phone: [facility] Comment on above: Pain in finger of le ft hand Start: 10-03-2018 End: 10-07-2018 Patient encounter procedure [facility] Start: 10-03-2018 End: 10-03-2018 Patient encounter procedure Salinas Newman Work Phone: [facility] Comment on above: Pain in finger of le ft hand Start: 09-30-2018 End: 10-04-2018 Patient encounter procedure SALINAS [facility] Start: 09-30-2018 End: 09-30-2018 Patient encounter procedure Salinas Newman Work Phone: [facility] Comment on above: Pain in finger of le ft hand Start: 09-27-2018 End: 10-01-2018 Patient encounter procedure [facility] Start: 09-27-2018 End: 09-27-2018 Patient encounter procedure Salinas Newman Work Phone: [facility] Comment on above: Pain in finger of le ft hand Start: 09-26-2018 End: 09-26-2018 Office outpatient visit 10 minutes Salinas Almeida Vamshiporter Work Phone: [facility] [place] Comment on above: Pain in finger of le ft hand (Primary Dx) Start: 09-23-2018 End: 09-27-2018 Patient encounter procedure SALINAS ALMEIDA [facility] Start: 09-23-2018 End: 09-23-2018 Patient encounter procedure Salinas Newman Work Phone: [facility] Comment on above: Pain in finger of le ft hand Start: 09-21-2018 End: 09-25-2018 [facility] Start: 09-21-2018 End: 09-21-2018 Patient encounter procedure Salinas Newman Work Phone: [facility] Comment on above: Pain in finger of le ft hand Start: 09-15-2018 End: 09-19-2018 Patient encounter procedure SALINAS [facility] Start: 09-15-2018 End: 09-15-2018 Patient encounter procedure Salinas Almeida Vamshiporter Work Phone: [facility] Comment on above: Pain in finger of le ft hand Start: 09-14-2018 End: 09-18-2018 Patient encounter procedure SALINAS ALMEIDA [facility] Start: 09-14-2018 End: 09-14-2018 Patient encounter procedure Salinas Newman Work Phone: [facility] Comment on above: Pain in finger of le ft hand Start: 09-09-2018 End: 09-13-2018 [facility] Start: 09-09-2018 End: 09-09-2018 Patient encounter procedure Salinas Newman Work Phone: [facility] Comment on above: Pain in finger of le ft hand Start: 09-05-2018 End: 09-09-2018 Patient encounter procedure SALINAS [facility] Start: 09-05-2018 End: 09-05-2018 Patient encounter procedure Salinas Newman Work Phone: [facility] Comment on above: Pain in finger of le ft hand Start: 09-01-2018 End: 09-05-2018 Patient encounter procedure SALINAS NEWMAN [facility] Start: 09-01-2018 End: 09-01-2018 Patient encounter procedure Salinas Newman Work Phone: [facility] Comment on above: Pain in finger of le ft hand Start: 08-30-2018 End: 09-03-2018 Patient encounter procedure SALINAS NEWMAN [facility] Start: 08-30-2018 End: 08-30-2018 Patient encounter procedure Salinas Newman Work Phone: [facility] Comment on above: Pain in finger of le ft hand Start: 08-26-2018 End: 08-30-2018 Patient encounter procedure [facility] Start: 08-26-2018 End: 08-26-2018 Patient encounter procedure Salinas Newman Work Phone: [facility] Comment on above: Pain in finger of le ft hand Start: 2018 End: 08-02-2018 Patient encounter procedure SALINAS NEWMAN [facility] Start: 2018 End: 2018 Patient encounter procedure Salinas Newman Work Phone: [facility] Comment on above: Pain Start: 2018 End: 2018 Office outpatient new 20 minutes Salinas Newman Work Phone: [facility] [place] Comment on above: Pain in finger of le ft hand (Primary Dx) Start: 02-11-2018 End: 02-11-2018 Emergency department patient visit Rene Lopez Facility:[facility] Start: 12-30-2017 Patient encounter Reginald Roth ility:[place] Start: 04-23-2017 Ambulatory [place] DOCTOR Raya glass:[facility] Procedures Date Procedure Procedure Detail Performing Clinician Start: 03-19-2025 Cul bact xcpt urine blood/stool aerobic isol Terrance Chelsie Camejo DPM Work Phone: Start: 03-19-2025 NURSING COMMUNICATION D marino Chelsie Camejo DPM Work Phone: Start: 10-13-2024 Ecg routine ecg w/le ast 12 lds w/i&r Rosendo Kingston MD Work Phone: Start: 10-13-2024 Hemoglobin glycosylated a1c Hernandez Almanza [facility] Work Phone: Start: 04-11-2024 Follow-up visit Follow-up ROSENDO KINGSTON Start: 04-10-2024 Colonoscopy flx dx w /collj spec when pfrmd Rakel Dickey DO Work Phone: Start: 04-10-2024 Glucose quantitative blood xcpt reagent strip Fredi Jackson DO Work Phone: Start: 04-10-2024 Colonoscopy Elias 04 Start: 09-28-2023 Microalbumin [Mass/v olume] in Urine by Test strip Hernandez Almanza [facility] Work Phone: Start: 09-27-2023 Echo tthrc r-t 2d w/wom-mode compl spec&colr d Rosendo Kingston MD Work Phone: Start: 09-27-2023 Ct heart no contrast quant eval coronry calcium Rosendo Kingston MD Work Phone: Start: 07-06-2023 Ecg routine ecg w/le ast 12 lds w/i&r Rosendo Kingston MD Work Phone: Start: 08-15-2021 Radiologic exam ches t 2 views Karon Fonseca [facility] Work Phone: Start: 06-05-2021 Sars-cov-2 detection by dna/rna Delbert Borjas DO Work Phone: Start: 03-17-2021 End: 03-17-2021 EKG impression Lisbet Zuniga Start: 04-08-2020 Albumin, Urine Spot Grover n Muniz II Start: 04-08-2020 Basic metabolic 1998 panel - Serum or Plasma Karolina Muniz II Start: 04-08-2020 Hemoglobin glycosylated a1c Karolina Muniz II Start: 05-08-2019 Myocardial spect sin gle study at rest or stress Oscar Portillo Work Phone: Start: 04-14-2019 12 lead ECG Oscar vicente Work Phone: Start: 04-06-2019 Assay of thyroid stimulating hormone tsh Adalberto Wall Start: 04-06-2019 Comprehensive metabo lic 2000 panel Adalberto Wall Start: 04-06-2019 Hemoglobin glycosylated a1c Adalberto Wall Start: 03-14-2019 End: 03-14-2019 Colonoscopy Delbert Franklin Start: 03-14-2019 Colonoscopy Delbert Franklin Work Phone: Start: 2018 Radex hand minimum 3 views Salinas Newman Work Phone: Arthroplasty of knee Eladia Wall Comment on above: BILATERAL; Cholecystectomy Adalberto da silva Colonoscopy Karolina Muniz II Plan of Treatment Date Care Activity Detail Author Start: 04-10-2034 Screening for malign ant neoplasm of colon [facility] Start: 03-14-2029 Screening for malign ant neoplasm of colon [facility] Start: 04-10-2027 Screening for malign ant neoplasm of colon [facility] Start: 03-09-2027 Pneumococcal Vaccine : 50+ Years (3 of 3 - PCV20 or PCV21) Pneumococcal Vaccine: 50+ Years (3 of 3 - PCV20 or PCV21) [facility] Start: 04-25-2026 Prostate specific antigen measurement PSA Level [facility] Start: 02-22-2026 Glaucoma screening Diabetes: R etinopathy Screening [facility] Start: 12-18-2025 Glaucoma screening Diabetic Eye Exam [facility] Start: 11-23-2025 Glaucoma screening Diabetes: R etinopathy Screening [facility] Start: 10-13-2025 Diabetic foot examination Diabetic Foot Exam [facility] Start: 06-27-2025 End: 06-27-2025 Patient encounter procedure 06/27/2025 10:30 AM EST Office Visit [facility] Building [address] [place] [address] Rodrick Basilio MD PhD [address] [place] [address] [facility] Start: 06-16-2025 Diabetic foot examination Diabetic Foot Exam [facility] Start: 05-31-2025 Prostate specific antigen measurement PSA Prostate Cancer Screening [facility] Start: 04-30-2025 End: 04-30-2025 Patient encounter procedure 04/30/2025 8:00 AM EST Office Visit [place] [address] [address] [facility] [address] [place] [address] Adalberto Wall APRN-PIEROGI MAKER [address] [address] [facility] Start: 04-21-2025 eGFR Diabetes eGFR Diabetes [facility] Start: 04-21-2025 Urine screening for protein Urine (micro)albumin/creatini ne ratio - Diabetes [facility] Start: 04-17-2025 End: 04-17-2025 Patient encounter procedure 04/17/2025 10:45 AM EST Office Visit [facility] Medical [facility] [address] [place] [phone] Rosendo Longo MD [address], [facility] 2 [place] [address] [facility] Start: 04-16-2025 End: 04-16-2025 Patient encounter procedure 04/16/2025 8:15 AM EST Office Visit [facility] [place] [address] [place] [phone] Hernandez Almanza, PIEROGI MAKER [address] [place] [address] [facility] [place] Start: 04-06-2025 End: 04-06-2025 Patient encounter procedure 04/06/2025 8:30 AM EST Office Visit [facility] [address] [place] [address] Abdoulaye Wu Jr., DPM [address] [address] [facility] Start: 03-26-2025 End: 03-26-2025 Patient encounter procedure 03/26/2025 9:30 AM EST Office Visit [facility] [address] [place] [address] Terrance Camejo, DPM [address] [place] [address] [facility] Start: 03-19-2025 End: 03-19-2025 Patient encounter procedure 03/19/2025 9:45 AM EST Office Visit [facility] [address] [place] [address] Terrance Camejo, DPM [address] [place] [address] [facility] Start: 03-17-2025 End: 09-18-2025 Hemoglobin and Hematocrit panel - Blood Hemoglobin and Hematocrit, Blood Lab Routine Hypogonadism in male Expected: 03/17/2025 (Approximate), Expires: 09/18/2025 [facility] Work Phone: Comment on above: Expected: 03/17/2025 (Approximate), Expires: 09/18/2025 Start: 03-17-2025 End: 09-18-2025 Prostate specific Ag [Mass/volume] in Serum or Plasma Prostate Specific Antigen Lab Routine Nocturia Expected: 03/17/2025 (Approximate), Expires: 09/18/2025 [facility] Service Area Work Phone: Comment on above: Expected: 03/17/2025 (Approximate), Expires: 09/18/2025 Start: 03-17-2025 End: 09-18-2025 Testosterone [Mass/volume] in Serum or Plasma Testosterone Lab Routine Hypogonadism in male Expected: 03/17/2025 (Approximate), Expires: 09/18/2025 [facility] Work Phone: Comment on above: Expected: 03/17/2025 (Approximate), Expires: 09/18/2025 Start: 02-02-2025 Glaucoma screening Diabetes: R etinopathy Screening [facility] Start: 01-20-2025 Hemoglobin A1c measurement A1C [facility] Start: 01-15-2025 COVID-19 Vaccine ( season) COVID-19 Vaccine ( season) [facility] Start: 01-15-2025 COVID-19 Vaccine ( season) COVID-19 Vaccine ( season) [facility] Start: 01-15-2025 Influenza vaccination [facility] Start: 01-13-2025 Hemoglobin A1c measurement A1C [facility] Start: 01-07-2025 Pneumococcal vaccination Pneumococcal Vaccine (3 of 3 - PCV20 or PCV21) [facility] Start: 01-07-2025 Pneumococcal Vaccine : 50+ Years (3 of 3 - PCV20 or PCV21) Pneumococcal Vaccine: 50+ Years (3 of 3 - PCV20 or PCV21) [facility] Start: 01-07-2025 Pneumococcal Vaccine : Age 50+ (3 of 3 - PCV20 or PCV21) Pneumococcal Vaccine: Age 50+ (3 of 3 - PCV20 or PCV21) [facility] Start: 01-07-2025 Pneumococcal Vaccine : Ped or At-Risk (2 of 2 - PPSV23) Pneumococcal Vaccine: Ped or At-Risk (2 of 2 - PPSV23) [facility] Start: 12-15-2024 Influenza vaccination Influenza Vacc ine (#1) [facility] Start: 12-12-2024 Diabetic foot examination Diabetic Foot Exam [facility] Start: 10-25-2024 End: 10-25-2024 Patient encounter procedure 10/25/2024 8:00 AM EDT Office Visit [facility] [address] [address] Adalberto Wall, AIR TRAFFIC COORDINATOR-PIEROGI MAKER [address] [address] [facility] Start: 10-24-2024 eGFR Diabetes eGFR Diabetes [facility] Start: 10-13-2024 End: 10-13-2024 Patient encounter procedure [facility] Building Start: 10-06-2024 Glaucoma screening Diabetes: R etinopathy Screening [facility] Start: 09-27-2024 Urine screening for protein Urine Microalbumin [facility] Start: 09-14-2024 End: 06-17-2025 Complete blood count with white cell differential, manual CBC and Differential Lab Routine Type 2 diabetes mellitus without complication, without long-term current use of insulin ([facility]) Expected: 09/14/2024, Expires: 06/17/2025 [facility] Comment on above: Expected: 09/14/2024 , Expires: 06/17/2025 Start: 09-14-2024 End: 06-17-2025 Comprehensive metabolic 2000 panel - Serum or Plasma Comprehensive Metabolic Panel Lab Routine Type 2 diabetes mellitus without complication, without long-term current use of insulin ([facility]) Expected: 09/14/2024, Expires: 06/17/2025 [facility] Work Phone: Comment on above: Expected: 09/14/2024 , Expires: 06/17/2025 Start: 09-14-2024 End: 06-17-2025 Hemoglobin A1c/Hemoglobin.total in Blood Hemoglobin A1c Lab Routine Type 2 diabetes mellitus without complication, without long-term current use of insulin ([facility]) Expected: 09/14/2024, Expires: 06/17/2025 [facility] Comment on above: Expected: 09/14/2024 , Expires: 06/17/2025 Start: 09-14-2024 End: 06-17-2025 Lipid 1996 panel - Serum or Plasma Lipid Panel Lab Routine Type 2 diabetes mellitus without complication, without long-term current use of insulin (HCC) Expected: 09/14/2024, Expires: 06/17/2025 [facility] Comment on above: Expected: 09/14/2024 , Expires: 06/17/2025 Start: 09-14-2024 End: 06-16-2025 Microalbumin measurement, urine, quantitative Microalbumin/Creatinine Ratio, UR Random Lab Routine Type 2 diabetes mellitus without complication, without long-term current use of insulin (HCC) Expected: 09/14/2024, Expires: 06/16/2025 [facility] Comment on above: Expected: 09/14/2024 , Expires: 06/16/2025 Start: 09-14-2024 End: 06-17-2025 Thyrotropin [Units/volume] in Serum or Plasma TSH Lab Routine Type 2 diabetes mellitus without complication, without long-term current use of insulin (HCC) Expected: 09/14/2024, Expires: 06/17/2025 [facility] Comment on above: Expected: 09/14/2024 , Expires: 06/17/2025 Start: 09-14-2024 End: 06-17-2025 Thyroxine (T4) free [Mass/volume] in Serum or Plasma T4, Free Lab Routine Type 2 diabetes mellitus without complication, without long-term current use of insulin (HCC) Expected: 09/14/2024, Expires: 06/17/2025 [facility] Comment on above: Expected: 09/14/2024 , Expires: 06/17/2025 Start: 07-29-2024 Diabetic foot examination Diabetic Foot Exam [facility] Start: 07-26-2024 End: 07-26-2024 Patient encounter procedure 07/26/2024 10:15 AM EDT Office Visit [facility] Office Building [address] [place] [address] 1st [place] [address] Rodrick Basilio MD PhD [address] [address] [facility] Medical Office Building Start: 06-28-2024 End: 06-28-2025 Cobalamin (Vitamin B12) [Mass/volume] in Serum or Plasma Vitamin B12 Lab Routine Neuropathy Expected: 06/28/2024 (Approximate), Expires: 06/28/2025 [facility] Work Phone: Comment on above: Expected: 06/28/2024 (Approximate), Expires: 06/28/2025 Start: 06-28-2024 End: 06-28-2025 Erythrocyte sedimentation rate Sedimentation rate, automated Lab Routine Neuropathy Expected: 06/28/2024 (Approximate), Expires: 06/28/2025 [facility] Work Phone: Comment on above: Expected: 06/28/2024 (Approximate), Expires: 06/28/2025 Start: 06-28-2024 End: 06-28-2025 Folate [Mass/volume] in Serum or Plasma Folate Lab Routine Neuropathy Expected: 06/28/2024 (Approximate), Expires: 06/28/2025 [facility] Service Area Work Phone: Comment on above: Expected: 06/28/2024 (Approximate), Expires: 06/28/2025 Start: 06-28-2024 End: 06-28-2025 HIV 1+2 Ab+HIV1 p24 Ag [Presence] in Serum or Plasma by Immunoassay HIV-1 and HIV-2 antibodies Lab Routine Neuropathy Expected: 06/28/2024 (Approximate), Expires: 06/28/2025 [facility] Work Phone: Comment on above: Expected: 06/28/2024 (Approximate), Expires: 06/28/2025 Start: 06-28-2024 End: 06-28-2025 Protein electrophoresis panel - Serum or Plasma Serum Protein Electrophoresis Lab Routine Neuropathy Expected: 06/28/2024 (Approximate), Expires: 06/28/2025 [facility] Work Phone: Comment on above: Expected: 06/28/2024 (Approximate), Expires: 06/28/2025 Start: 06-28-2024 End: 06-28-2025 Urine Protein Electrophoresis Urine Protein Electrophoresis Lab Routine Neuropathy Expected: 06/28/2024 (Approximate), Expires: 06/28/2025 [facility] Work Phone: Comment on above: Expected: 06/28/2024 (Approximate), Expires: 06/28/2025 Start: 06-16-2024 End: 06-16-2024 Patient encounter procedure 06/16/2024 8:15 AM EST Office Visit [facility] [address] [address] Hernandez Almanza, PIEROGI MAKER [address] [place] [address] [facility] [place] Start: 05-17-2024 End: 12-13-2024 Complete blood count with white cell differential, manual CBC and Differential Lab Routine Inadequately controlled diabetes mellitus (HCC) Expected: 05/17/2024, Expires: 12/13/2024 [facility] Work Phone: Comment on above: Expected: 05/17/2024 , Expires: 12/13/2024 Start: 05-17-2024 End: 12-13-2024 Comprehensive metabolic 2000 panel - Serum or Plasma Comprehensive Metabolic Panel Lab Routine Inadequately controlled diabetes mellitus (HCC) Expected: 05/17/2024, Expires: 12/13/2024 [facility] Comment on above: Expected: 05/17/2024 , Expires: 12/13/2024 Start: 05-17-2024 End: 12-13-2024 Hemoglobin A1c/Hemoglobin.total in Blood Hemoglobin A1c Lab Routine Inadequately controlled diabetes mellitus (HCC) Expected: 05/17/2024, Expires: 12/13/2024 [facility] Comment on above: Expected: 05/17/2024 , Expires: 12/13/2024 Start: 05-17-2024 End: 12-13-2024 Lipid 1996 panel - Serum or Plasma Lipid Panel Lab Routine Inadequately controlled diabetes mellitus (HCC) Expected: 05/17/2024, Expires: 12/13/2024 [facility] Comment on above: Expected: 05/17/2024 , Expires: 12/13/2024 Start: 05-17-2024 End: 12-13-2024 Thyrotropin [Units/volume] in Serum or Plasma TSH Lab Routine Inadequately controlled diabetes mellitus (HCC) Expected: 05/17/2024, Expires: 12/13/2024 [facility] Comment on above: Expected: 05/17/2024 , Expires: 12/13/2024 Start: 05-17-2024 End: 12-13-2024 Thyroxine (T4) free [Mass/volume] in Serum or Plasma T4, Free Lab Routine Inadequately controlled diabetes mellitus (HCC) Expected: 05/17/2024, Expires: 12/13/2024 [facility] Comment on above: Expected: 05/17/2024 , Expires: 12/13/2024 Start: 05-03-2024 End: 04-26-2025 CBC W Auto Differential panel - Blood CBC and Auto Differential Lab Routine Primary hypertension Expected: 05/03/2024 (Approximate), Expires: 04/26/2025 [facility] Work Phone: Comment on above: Expected: 05/03/2024 (Approximate), Expires: 04/26/2025 Start: 04-26-2024 End: 04-26-2025 Comprehensive metabolic 2000 panel - Serum or Plasma Comprehensive Metabolic Panel Lab Routine Primary hypertension Expected: 04/26/2024 (Approximate), Expires: 04/26/2025 [facility] Work Phone: Comment on above: Expected: 04/26/2024 (Approximate), Expires: 04/26/2025 Start: 04-26-2024 End: 04-26-2025 Urate [Mass/volume] in Serum or Plasma Uric Acid Lab Routine Chronic gout without tophus, unspecified cause, unspecified site Expected: 04/26/2024 (Approximate), Expires: 04/26/2025 [facility] Service Area Work Phone: Comment on above: Expected: 04/26/2024 (Approximate), Expires: 04/26/2025 Start: 04-26-2024 End: 04-26-2024 Patient encounter procedure [facility] Start: 04-16-2024 End: 11-02-2024 Hemoglobin and Hematocrit panel - Blood Hemoglobin and Hematocrit, Blood Lab Routine Hypogonadism in male Expected: 04/16/2024 (Approximate), Expires: 11/02/2024 [facility] Work Phone: Comment on above: Expected: 04/16/2024 (Approximate), Expires: 11/02/2024 Start: 04-16-2024 End: 11-02-2024 Prostate specific Ag [Mass/volume] in Serum or Plasma Prostate Specific Antigen Lab Routine Nocturia Expected: 04/16/2024 (Approximate), Expires: 11/02/2024 [facility] Service Area Work Phone: Comment on above: Expected: 04/16/2024 (Approximate), Expires: 11/02/2024 Start: 04-16-2024 End: 11-02-2024 Testosterone,Free and Total Testosterone,Free and Total Lab Routine Hypogonadism in male Expected: 04/16/2024 (Approximate), Expires: 11/02/2024 [facility] Work Phone: Comment on above: Expected: 04/16/2024 (Approximate), Expires: 11/02/2024 Start: 04-11-2024 End: 04-11-2024 Patient encounter procedure 04/11/2024 10:30 AM EST Office Visit [facility] Medical Office Building [address] [place] [phone] Rosendo Longo MD [address], [address] [place] [address] [facility] Building Start: 03-30-2024 Urine screening for protein [facility] Start: 01-16-2024 COVID-19 Vaccine ( season) COVID-19 Vaccine ( season) [facility] Start: 01-16-2024 COVID-19 Vaccine ( season) COVID-19 Vaccine ( season) [facility] Start: 01-16-2024 Influenza vaccination [facility] Start: 01-10-2024 End: 01-10-2024 Patient encounter procedure 01/10/2024 7:30 AM EDT Appointment [facility] [place] [address] [place] [address] Rakel Dickey, DO [address] [facility] [place] [address] [facility] [place] Start: 01-05-2024 Hemoglobin A1c measurement [facility] Start: 12-29-2023 Hemoglobin A1c measurement A1C [facility] Start: 12-13-2023 End: 12-13-2023 Patient encounter procedure 12/13/2023 8:15 AM EDT Office Visit [facility] [place] [address] [place] [address] Hernandez Almanza, PIEROGI MAKER [address] [facility] [place] [address] [facility] [place] Start: 11-15-2023 End: 07-30-2024 Complete blood count with white cell differential, manual CBC and Differential Lab Routine Inadequately controlled diabetes mellitus (HCC) Expected: 11/15/2023, Expires: 07/30/2024 [facility] Work Phone: Comment on above: Expected: 11/15/2023 , Expires: 07/30/2024 Start: 11-15-2023 End: 07-30-2024 Comprehensive metabolic 2000 panel - Serum or Plasma Comprehensive Metabolic Panel Lab Routine Inadequately controlled diabetes mellitus (HCC) Expected: 11/15/2023, Expires: 07/30/2024 [facility] Comment on above: Expected: 11/15/2023 , Expires: 07/30/2024 Start: 11-15-2023 End: 07-30-2024 Hemoglobin A1c/Hemoglobin.total in Blood Hemoglobin A1c Lab Routine Inadequately controlled diabetes mellitus (HCC) Expected: 11/15/2023, Expires: 07/30/2024 [facility] Comment on above: Expected: 11/15/2023 , Expires: 07/30/2024 Start: 11-15-2023 End: 07-30-2024 Lipid 1996 panel - Serum or Plasma Lipid Panel Lab Routine Inadequately controlled diabetes mellitus (HCC) Expected: 11/15/2023, Expires: 07/30/2024 [facility] Comment on above: Expected: 11/15/2023 , Expires: 07/30/2024 Start: 11-15-2023 End: 07-29-2024 Microalbumin measurement, urine, quantitative Microalbumin/Creatinine Ratio, UR Random Lab Routine Inadequately controlled diabetes mellitus (HCC) Expected: 11/15/2023, Expires: 07/29/2024 [facility] Comment on above: Expected: 11/15/2023 , Expires: 07/29/2024 Start: 11-15-2023 End: 07-30-2024 Thyrotropin [Units/volume] in Serum or Plasma TSH Lab Routine Inadequately controlled diabetes mellitus (HCC) Expected: 11/15/2023, Expires: 07/30/2024 [facility] Comment on above: Expected: 11/15/2023 , Expires: 07/30/2024 Start: 11-15-2023 End: 07-30-2024 Thyroxine (T4) free [Mass/volume] in Serum or Plasma T4, Free Lab Routine Inadequately controlled diabetes mellitus (HCC) Expected: 11/15/2023, Expires: 07/30/2024 [facility] Comment on above: Expected: 11/15/2023 , Expires: 07/30/2024 Start: 11-08-2023 COVID-19 Vaccine () COVID-19 Vaccine () [facility] Start: 11-03-2023 End: 11-03-2023 Patient encounter procedure 11/03/2023 8:00 AM EDT Office Visit [facility] [address] [phone] Karolina Muniz MD [address] [place] [address] [facility] Start: 10-25-2023 End: 10-24-2024 Colonoscopy study Colonoscopy Screening; High Risk Patient Endoscopy Routine Family history of colon cancer Expected: 10/25/2023, Expires: 10/24/2024 [facility] Work Phone: Comment on above: Expected: 10/25/2023 , Expires: 10/24/2024 Start: 10-25-2023 End: 10-24-2024 Lead [Mass/volume] in Blood Lead, Venous Lab Routine Essential tremor Expected: 10/25/2023 (Approximate), Expires: 10/24/2024 [facility] Service Area Work Phone: Comment on above: Expected: 10/25/2023 (Approximate), Expires: 10/24/2024 Start: 10-21-2023 End: 10-21-2023 Patient encounter procedure 10/21/2023 8:00 AM EDT Office Visit [facility] [address] [place] [address] Adalberto Wall, AIR TRAFFIC COORDINATOR-PIEROGI MAKER [address] [facility] [place] [address] [facility] Start: 10-20-2023 End: 10-20-2023 Patient encounter procedure 10/20/2023 8:00 AM EDT Office Visit [facility] [address] [phone] Karolina Muniz MD [address] [place] [address] [facility] Start: 10-19-2023 End: 04-19-2024 Hemoglobin and Hematocrit panel - Blood Hemoglobin and Hematocrit, Blood Lab Routine Hypogonadism in male Expected: 10/19/2023 (Approximate), Expires: 04/19/2024 [facility] Work Phone: Comment on above: Expected: 10/19/2023 (Approximate), Expires: 04/19/2024 Start: 10-19-2023 End: 04-19-2024 Prostate specific Ag [Mass/volume] in Serum or Plasma Prostate Specific Antigen Lab Routine Nocturia Expected: 10/19/2023 (Approximate), Expires: 04/19/2024 [facility] Service Area Work Phone: Comment on above: Expected: 10/19/2023 (Approximate), Expires: 04/19/2024 Start: 10-19-2023 End: 04-19-2024 Testosterone [Mass/volume] in Serum or Plasma Testosterone Lab Routine Hypogonadism in male Expected: 10/19/2023 (Approximate), Expires: 04/19/2024 [facility] Work Phone: Comment on above: Expected: 10/19/2023 (Approximate), Expires: 04/19/2024 Start: 10-05-2023 End: 10-05-2023 Patient encounter procedure 10/05/2023 10:00 AM EDT Office Visit [facility] Medical Office Building [address] [place] [phone] Rosendo Longo MD [address], [address] [place] [address] [facility] Building Start: 09-30-2023 End: 09-30-2023 Patient encounter procedure 09/30/2023 8:20 AM EDT Office Visit [facility] [address] [place] [address] Adalberto Wall, AIR TRAFFIC COORDINATOR-PIEROGI MAKER [address] [place] [phone] [facility] Start: 09-27-2023 End: 09-27-2023 Patient encounter procedure 09/27/2023 11:30 AM EDT Appointment [facility] [address] [place] [phone] [facility] Start: 09-27-2023 End: 09-27-2023 Patient encounter procedure [facility] Start: 09-23-2023 End: 09-23-2023 Patient encounter procedure 09/23/2023 8:00 AM EDT Office Visit [facility] [address] [place] [address] Adalberto Wall, AIR TRAFFIC COORDINATOR-PIEROGI MAKER [address] [place] [address] [facility] Start: 08-24-2023 End: 08-24-2023 Clinical Support 08/24/2023 9:00 AM EDT Clinical Support [facility] [address] [place] [address] [facility] Start: 07-30-2023 End: 07-30-2023 Patient encounter procedure 07/30/2023 11:00 AM EDT Office Visit [facility] [place] [address] [place] [address] Hernandez Almanza, PIEROGI MAKER [address] [facility] [place] [address] [facility] [place] Start: 07-28-2023 End: 07-28-2023 Patient encounter procedure 07/28/2023 1:00 PM EDT Office Visit [facility] Medical Office Building [address] [facility] 1st [place] [address] Rodrick Basilio MD PhD [address] [address] [facility] Office Building Start: 07-20-2023 End: 07-20-2023 Clinical Support 07/20/2023 9:00 AM EST Clinical Support [facility] [address] [place] [address] [facility] Start: 07-06-2023 End: 07-06-2024 Comprehensive metabolic 2000 panel - Serum or Plasma Comprehensive Metabolic Panel Lab Routine Dyslipidemia Expected: 07/06/2023 (Approximate), Expires: 07/06/2024 [facility] Work Phone: Comment on above: Expected: 07/06/2023 (Approximate), Expires: 07/06/2024 Start: 07-06-2023 End: 07-06-2024 CT for calcium scoring WO contrast and CTA W contrast IV Heart and coronary arteries CT cardiac scoring wo IV contrast Imaging Routine Dyslipidemia Expected: 07/06/2023, Expires: 07/06/2024 [facility] Work Phone: Comment on above: Expected: 07/06/2023 , Expires: 07/06/2024 Start: 07-06-2023 End: 07-06-2024 Lipid 1996 panel - Serum or Plasma Lipid Panel Lab Routine Dyslipidemia Expected: 07/06/2023 (Approximate), Expires: 07/06/2024 [facility] Work Phone: Comment on above: Expected: 07/06/2023 (Approximate), Expires: 07/06/2024 Start: 07-06-2023 End: 07-06-2025 Heart Transthoracic Transthoracic Echo Complete Echocardiography Routine Atherosclerosis Expected: 07/06/2023 (Approximate), Expires: 07/06/2025 [facility] Service Area Work Phone: Comment on above: Expected: 07/06/2023 (Approximate), Expires: 07/06/2025 Start: 06-30-2023 FUV, Provider: Rodrick Basilio, Status: Pen, Time: 10:30 AM FUV, Provider: Rodrick Basilio, Status: Pen, Time: 10:30 AM [facility] Work Phone: Start: 06-30-2023 End: 06-30-2023 Patient encounter procedure 06/30/2023 10:30 AM EST Office Visit [facility] Medical Office Building [address] [place] [address] [address] [place] [address] Rodrick Basilio MD PhD [address] [address] [facility] Office Building Start: 05-31-2023 End: 05-31-2023 Patient encounter procedure 05/31/2023 8:20 AM EST Office Visit [facility] [address] [facility] [phone] Adalberto Wall APRN-PIEROGI MAKER [address] [place] [address] [facility] Start: 05-26-2023 End: 11-24-2023 Cobalamin (Vitamin B12) [Mass/volume] in Serum or Plasma Vitamin B12 Lab Routine Vitamin B12 deficiency Expected: 05/26/2023 (Approximate), Expires: 11/24/2023 [facility] Work Phone: Comment on above: Expected: 05/26/2023 (Approximate), Expires: 11/24/2023 Start: 05-19-2023 End: 05-19-2023 Clinical Support 05/19/2023 9:00 AM EST Clinical Support [facility] [address] [place] [address] [facility] Start: 04-14-2023 FUV, Provider: Karolina Muniz II, Status: Pen, Time: 8:00 AM FUV, Provider: Karolina Muniz II, Status: Pen, Time: 8:00 AM IM[facility]Mjiogyj[facility]Tyoefqq Work Phone: Start: 02-10-2023 Hemoglobin A1c measurement [facility] Start: 01-15-2023 COVID-19 Vaccine ( season) COVID-19 Vaccine ( season) [facility] Start: 01-15-2023 Influenza vaccination [facility] Start: 12-24-2022 VIRFUBESS, Provider : Rodrick Basilio, Status: Pen, Time: 3:30 PM [facility] Provider: Rodrick Basilio, Status: Pen, Time: 3:30 PM [facility] Work Phone: Start: 12-16-2022 FUV, Provider: Karolina Muniz II, Status: Pen, Time: 8:00 AM FUV, Provider: Karolina Muniz II, Status: Pen, Time: 8:00 AM [facility] Work Phone: Start: 11-30-2022 End: 11-30-2022 Clinical Support 11/30/2022 9:45 AM EDT Clinical Support [facility] [address] [place] [address] [facility] Start: 11-23-2022 End: 11-24-2023 CBC panel - Blood by Automated count CBC Lab Routine Type 2 diabetes mellitus without complication, without long-term current use of insulin (CMS/HCC) Expected: 11/23/2022 (Approximate), Expires: 11/24/2023 [facility] Work Phone: Comment on above: Expected: 11/23/2022 (Approximate), Expires: 11/24/2023 Start: 11-23-2022 End: 11-24-2023 Comprehensive metabolic 2000 panel - Serum or Plasma Comprehensive Metabolic Panel Lab Routine Type 2 diabetes mellitus without complication, without long-term current use of insulin (CMS/HCC) Expected: 11/23/2022 (Approximate), Expires: 11/24/2023 [facility] Service Area Work Phone: Comment on above: Expected: 11/23/2022 (Approximate), Expires: 11/24/2023 Start: 11-23-2022 End: 11-24-2023 Hemoglobin A1c/Hemoglobin.total in Blood Hemoglobin A1C Lab Routine Type 2 diabetes mellitus without complication, without long-term current use of insulin (CMS/HCC) Expected: 11/23/2022 (Approximate), Expires: 11/24/2023 [facility] Work Phone: Comment on above: Expected: 11/23/2022 (Approximate), Expires: 11/24/2023 Start: 11-23-2022 End: 11-24-2023 Lipid 1996 panel - Serum or Plasma Lipid Panel Lab Routine Type 2 diabetes mellitus without complication, without long-term current use of insulin (CMS/HCC) Expected: 11/23/2022 (Approximate), Expires: 11/24/2023 [facility] Work Phone: Comment on above: Expected: 11/23/2022 (Approximate), Expires: 11/24/2023 Start: 11-23-2022 End: 11-24-2023 Microalbumin/Creatinine [Mass Ratio] in Urine Albumin , Urine Random Lab Routine Type 2 diabetes mellitus without complication, without long-term current use of insulin (CMS/HCC) Expected: 11/23/2022 (Approximate), Expires: 11/24/2023 [facility] Work Phone: Comment on above: Expected: 11/23/2022 (Approximate), Expires: 11/24/2023 Start: 08-27-2022 EPV, Provider: Adalberto Wall, Status: Pen, Time: 8:00 AM EPV, Provider: Adalberto Wall, Status: Pen, Time: 8:00 AM [facility] Work Phone: Start: 2022 Fall risk assessment Falls Risk Asse ssment [facility] Start: 2022 Pneumococcal Vaccine : 65+ Years (3 - PPSV23 if available, else PCV20) Pneumococcal Vaccine: 65+ Years (3 - PPSV23 if available, else PCV20) [facility] Start: 2022 Pneumococcal Vaccine : 65+ Years (3 - PPSV23 or PCV20) Pneumococcal Vaccine: 65+ Years (3 - PPSV23 or PCV20) [facility] Start: 2022 Pneumococcal Vaccine : 65+ Years (3 of 3 - PPSV23 or PCV20) Pneumococcal Vaccine: 65+ Years (3 of 3 - PPSV23 or PCV20) [facility] Start: 2022 Pneumococcal Vaccine : Age 65+ (3 of 3 - PPSV23 or PCV20) Pneumococcal Vaccine: Age 65+ (3 of 3 - PPSV23 or PCV20) [facility] Start: 2022 Pneumococcal Vaccine : Ped or At-Risk (2 of 2 - PPSV23) Pneumococcal Vaccine: Ped or At-Risk (2 of 2 - PPSV23) [facility] Start: 06-24-2022 NPV, Provider: Rodrick Basilio, Status: Pen, Time: 3:00 PM NPV, Provider: Rodrick Basilio, Status: Pen, Time: 3:00 PM [facility] Work Phone: Start: 04-23-2022 COVID-19 Vaccine (5 - Booster for Pfizer series) COVID-19 Vaccine (5 - Booster for Pfizer series) [facility] Start: 04-23-2022 COVID-19 Vaccine (5 - Pfizer series) COVID-19 Vaccine (5 - Pfizer series) [facility] Start: 02-26-2022 EPV, Provider: Adalberto Wall, Status: Pen, Time: 8:00 AM EPV, Provider: Adalberto Wall, Status: Pen, Time: 8:00 AM [facility] Work Phone: Start: 01-22-2022 EPV, Provider: Adalberto Wall, Status: Pen, Time: 8:00 AM EPV, Provider: Adalberto Wall, Status: Pen, Time: 8:00 AM [facility]re[facility]Xiw[facility]ocm Work Phone: Start: 01-01-2022 EPV, Provider: Adalberto Wall, Status: Pen, Time: 8:00 AM EPV, Provider: Adalberto Wall, Status: Pen, Time: 8:00 AM -[employer] [facility] Work Phone: Start: 09-29-2021 NPV, Provider: Marion Seals, Status: Pen, Time: 1:15 PM NPV, Provider: Marion Seals, Status: Pen, Time: 1:15 PM -[employer] [facility] Work Phone: Start: 09-25-2021 EPV, Provider: Adalberto Wall, Status: Pen, Time: 8:00 AM EPV, Provider: Adalberto Wall, Status: Pen, Time: 8:00 AM -[employer] [facility] Work Phone: Start: 07-24-2021 EPV, Provider: Adalberto Wall, Status: Pen, Time: 8:00 AM EPV, Provider: Adalberto Wall, Status: Pen, Time: 8:00 AM [facility] Work Phone: Start: 06-16-2021 FUV, Provider: Karolina Muniz II, Status: Pen, Time: 8:00 AM FUV, Provider: Karolina Muniz II, Status: Pen, Time: 8:00 AM XD-Zdqntys-Sexstui Work Phone: Start: 06-16-2021 Patient encounter procedure [facility] Start: 04-24-2021 EPV, Provider: Adalberto Wall, Status: Pen, Time: 8:00 AM EPV, Provider: Adalberto Wall, Status: Pen, Time: 8:00 AM TI-Spqkhnm-Btabnhc Work Phone: Start: 04-07-2021 EPV, Provider: Adalbetro Wall, Status: Pen, Time: 9:20 AM EPV, Provider: Adalberto Wall, Status: Pen, Time: 9:20 AM WZ-Iisrdpj-Tprynmn Work Phone: Start: 04-07-2021 Patient encounter procedure [facility] [place] Start: 03-20-2021 EPV, Provider: Adalberto Wall, Status: Pen, Time: 8:00 AM EPV, Provider: Adalberto Wall, Status: Pen, Time: 8:00 AM [facility] Work Phone: Start: 01-16-2021 EPV, Provider: Adalberto Wall, Status: Pen, Time: 10:40 AM EPV, Provider: Adalberto Wall, Status: Pen, Time: 10:40 AM JB-Nyuciqu-Szyjonz Work Phone: Start: 10-06-2020 Hemoglobin A1c measurement A1C [facility] Start: 01-16-2020 Influenza vaccinatio n given Sequential Influenza Vaccine (#1) [facility] Start: 10-12-2019 Comprehensive metabo lic 2000 panel Comprehensive Metabolic Panel [facility] [employer] Phone: Start: 10-12-2019 HbA1c (Bld) [Mass fraction] Hemoglobin A1C [facility] [employer] Work Phone: Start: 10-12-2019 TSH Qn TSH - Thyroid Stimulating Hormone, Serum [facility] [employer] Work Phone: Start: 04-28-2019 End: 04-28-2019 Appointment 04/28/2019 Appointment Cardiology Oscar Portillo MD [address] [place] [address] [phone] [facility] Start: 04-28-2019 End: 04-28-2019 Appointment 04/28/2019 Appointment Cardiology Oscar Portillo MD [address] [address] [phone] [facility] Start: 01-15-2019 Influenza vaccinatio n given [facility] Start: 10-31-2018 End: 10-31-2018 Office Visit 10/31/2018 Office Visit Sports Salinas Sun MD [address] [facility] [address] [place] [address] [phone] [facility] [place] Start: 10-07-2018 End: 10-07-2018 Treatment 10/07/2018 Treatment Rehabilitation Salinas Newman MD [address] [facility] [address] [place] [address] [phone] Ivanna Greenberg COTA/Ha [facility] Start: 10-03-2018 End: 10-03-2018 Treatment 10/03/2018 Treatment Salinas Little MD [address] [facility] [address] [place] [address] [phone] Maisha Delgado, OTR/L, CHT [facility] Start: 09-30-2018 End: 09-30-2018 Treatment 09/30/2018 Treatment Salinas Little MD [address] [facility] [address] [place] [address] [phone] Ivanna Greenberg COTA/Ha [facility] Start: 09-27-2018 End: 09-27-2018 Treatment 09/27/2018 Treatment Salinas Little MD [address] [facility] [address] [place] [address] [phone] Maisha Delgado, OTR/L, T [facility] Start: 09-26-2018 End: 09-26-2018 Office Visit 09/26/2018 Office Visit Sports Salinas Sun MD [address] [facility] [address] [place] [address] [phone] [facility] [place] Start: 09-23-2018 End: 09-23-2018 Treatment 09/23/2018 Treatment Rehabilitation Salinas Newman MD [address] [facility] [address] [place] [address] [phone] Ivanna Greenberg COTA/Ha [facility] Start: 09-21-2018 End: 09-21-2018 Treatment 09/21/2018 Treatment Salinas Little MD [address] [facility] [address] [place] [address] [phone] Ivanna Greenberg SOLIZ/Ha [facility] Start: 09-15-2018 End: 09-15-2018 Treatment 09/15/2018 Treatment Salinas Little MD [address] [facility] [address] [place] [address] [phone] Ivanna Greenberg COTA/Ha [facility] Start: 09-14-2018 End: 09-14-2018 Treatment 09/14/2018 Treatment Salinas Little MD [address] [facility] [address] [place] [address] [phone] Ivanna Greenberg SOLIZ/Ha [facility] Start: 09-12-2018 End: 09-12-2018 Office Visit [facility] [place] Start: 09-09-2018 End: 09-09-2018 Treatment [facility] Start: 09-05-2018 End: 09-05-2018 Treatment 09/05/2018 Treatment Salinas Little MD [address] [facility] [address] [place] [address] [phone] Ivanna Greenberg COTA/Ha [facility] Start: 09-05-2018 End: 09-05-2018 Treatment 09/05/2018 Treatment Salinas Little MD [address] [facility] [address] [place] [address] [phone] [facility] Start: 09-02-2018 End: 09-02-2018 Treatment 09/02/2018 Treatment Salinas Little MD [address] [facility] [address] [place] [address] [phone] [facility] Start: 09-01-2018 End: 09-01-2018 Treatment 09/01/2018 Treatment Rehabilitation Salinas Newman MD [address] [place] [address] [phone] Maisha Delgado, OTR/L, CHT [facility] Start: 08-30-2018 End: 08-30-2018 Treatment [facility] Start: 01-15-2018 Influenza vaccinatio n given SEQUENTIAL INFLUENZA VACCINE (#1) [facility] Start: 2017 Respiratory Syncytia l Virus Immunization: Risk, 60-74 Risk, or 75+ (1 - Risk 60-74 years 1-dose series) Respiratory Syncytial Virus Immunization: Risk, 60-74 Risk, or 75+ (1 - Risk 60-74 years 1-dose series) [facility] Start: 2017 RSV High Risk: (Elde rly (60+) or Population) (1 - Risk 60-74 years 1-dose series) RSV High Risk: (Elderly (60+) or Population) (1 - Risk 60-74 years 1-dose series) [facility] Start: 2017 RSV patient s and/or patients aged 60+ years (1 - 1-dose 60+ series) RSV patients and/or patients aged 60+ years (1 - 1-dose 60+ series) [facility] Start: 08-02-2007 Administration of herpes zoster vaccine ZOSTER VACCINES (1 of 2) [facility] Start: 08-02-2007 RSV Vaccines (1 - Ri sk 50-74 years 1-dose series) RSV Vaccines (1 - Risk 50-74 years 1-dose series) [facility] Start: 08-02-2007 Screening for malign ant neoplasm of colon [facility] Start: 08-02-1979 DTaP/Tdap/Td Vaccine s (1 - Tdap) DTaP/Tdap/Td Vaccines (1 - Tdap) [facility] Start: 1976 Urine screening for protein Diabetes: Urine Protein Screening [facility] Start: 1976 Vaccination for diphtheria, pertussis, and tetanus Tetanus/Diphtheria/Pert ussis (1 - Tdap) [facility] Start: 08-02-1975 Hepatitis C antibody , confirmatory test Hepatitis C Screening [facility] Start: 08-02-1975 Hepatitis C screening Hepatitis C Sc reening [facility] Start: 1973 COVID-19 Vaccine (1 of 2) COVID-19 Vaccine (1 of 2) [facility] Start: 1972 HIV screening HIV Screening [facility] Start: 1969 Adolescent depressio n screening assessment Depression Screening (PHQ9) [facility] Start: 1969 Depression screening using PHQ-9 (Patient Health Questionnaire 9) score [facility] Start: 08-02-1967 Albumin DL <= 20 mg/ L (U) [Mass/Vol] URINE MICROALBUMIN [facility] Start: 08-02-1967 Diabetic foot examination [facility] Start: 08-02-1967 Glaucoma screening [facility] Start: 08-02-1967 Microalbumin measurement, urine, quantitative Urine Microalbumin [facility] Start: 08-02-1967 Ophthalmic examinati on and evaluation [facility] Start: 08-02-1967 Urine screening for protein Urine Microalbumin [facility] Start: 1960 History and physical examination, annual for health maintenance Wellness Visit [facility] Start: 1957 Annual wellness visit Medicare Initial Physical (IPPE) [facility] Start: 1957 Depression screening using PHQ-9 (Patient Health Questionnaire 9) score DEPRESSION SCREENING (PHQ9) [facility] Start: 1957 HbA1c (Bld) [Mass fraction] A1C [facility] Start: 1957 Hemoglobin A1c measurement Diabetes: Hemoglobin A1C [facility] Start: 1957 Hepatitis C antibody , confirmatory test HEPATITIS C SCREENING [facility] Start: 1957 Lipid panel Lipid Panel [facility] Start: 1957 Prostate specific antigen measurement PSA Level [facility] Start: 1957 Screening for malign ant neoplasm of colon [facility] Start: 1957 Tetanus vaccination [facility] Start: 1957 Urine screening for protein Diabetes: Urine Protein Screening [facility] Start: 1957 Yearly Adult Physical Yearly Adult P hysical [facility] End: 10-14-2025 Comprehensive metabolic 2000 panel - Serum or Plasma Comprehensive Metabolic Panel Lab Routine Type 2 diabetes mellitus without complication, without long-term current use of insulin (HCC) 1 Occurrences starting 10/13/2024 until 10/14/2025 [facility] Work Phone: Comment on above: 1 Occurrences starti ng 10/13/2024 until 10/14/2025 End: 04-10-2024 Continuous Pulse oximetry, In Phase 1 Continuous Pulse oximetry, In Phase 1 Respiratory Care Routine Continuous until discontinued starting 04/10/2024 [facility] Work Phone: Comment on above: Continuous until dis continued starting 04/10/2024 End: 04-10-2024 Glucose [Mass/volume] in Serum or Plasma POCT Glucose Point of Care Testing - Docked Device Routine Once (Lab) for 1 Occurrences starting 04/10/2024 until 04/10/2024 [facility] Service Area Work Phone: Comment on above: Once (Lab) for 1 Occ urrences starting 04/10/2024 until 04/10/2024 History of cholecystectomy History of cholecystectomy [facility] History of colonoscopy H/O colonoscopy [facility] History of colonoscopy S/P colonoscopy [facility] History of total kne e arthroplasty History of total knee replacement [facility] End: 03-19-2026 MR Foot - left WO contrast MR Foot Left Without Contrast Imaging Routine Skin ulcer of left foot with fat layer exposed (HCC) Other osteomyelitis of left foot (HCC) 1 Occurrences starting 03/19/2025 until 03/19/2026 [facility] Work Phone: Comment on above: 1 Occurrences starti ng 03/19/2025 until 03/19/2026 End: 04-14-2020 Radionuclide myocardial perfusion study NM Myocardial Perfusion Multiple SPECT Imaging Routine Exertional chest pain 1 Occurrences starting 04/14/2019 until 04/14/2020 [facility] Comment on above: 1 Occurrences starti ng 04/14/2019 until 04/14/2020 End: 10-14-2025 Thyrotropin [Units/volume] in Serum or Plasma TSH Lab Routine Type 2 diabetes mellitus without complication, without long-term current use of insulin (HCC) 1 Occurrences starting 10/13/2024 until 10/14/2025 [facility] Comment on above: 1 Occurrences starti ng 10/13/2024 until 10/14/2025 End: 10-14-2025 Thyroxine (T4) free [Mass/volume] in Serum or Plasma T4, Free Lab Routine Type 2 diabetes mellitus without complication, without long-term current use of insulin (HCC) 1 Occurrences starting 10/13/2024 until 10/14/2025 [facility] Comment on above: 1 Occurrences starti ng 10/13/2024 until 10/14/2025 NEGATED: Highlighted row has been ruled out! Planned Goals not documented [facility] Work Phone: Immunizations Immunization Date Immunization Notes Care Provider Fa sotero 09-13-2023 COVID-19, mRNA, LNP- S, PF, 30 mcg/0.3 mL dose Adalberto Wood [employer] TRA[employer] COORDIN[employer] Work Phone: [facility] Work Phone: 09-13-2023 influenza, seasonal, injectable Adalberto Wood [employer] TRAFFIC COORDINATOR[employer] Work Phone: [facility] 09-13-2023 influenza virus vacc ine, unspecified formulation Hernandez Almanza [employer]OG[employer]KER Work Phone: [facility] 02-26-2022 Pfizer COVID-19 Vac Bivalent 30 MCG/0.3ML Intramuscular Suspension Delbert Avinash Stencel Work Phone: [facility] Work Phone: 05-04-2021 Pfizer-BioNTech COVI D-19 Vacc 30 MCG/0.3ML Intramuscular Suspension Delbert Avinash Stencel Work Phone: [email or web address] Work Phone: 02-28-2021 influenza, seasonal, injectable Delbert D Stencel Work Phone: [facility] [[email or web address] Work Phone: Comment on above: Series: 02-28-2021 influenza virus vacc ine, unspecified formulation Adalberto Wood AIR TRAFFIC COORDINATOR[employer] Work Phone: [facility] Work Phone: 09-17-2020 Pfizer-BioNTech COVI D-19 Vacc 30 MCG/0.3ML Intramuscular Suspension Delbert Avinash Arleencel Work Phone: [facility] Comment on above: Series: 08-30-2020 Pfizer-BioNTech COVI D-19 Vacc 30 MCG/0.3ML Intramuscular Suspension Delbert Avinash Stencel Work Phone: [facility] Work Phone: 07-20-2020 Pfizer-BioNTech COVI D-19 Vacc 30 MCG/0.3ML Intramuscular Suspension Delbert Avinash Stencel Work Phone: [facility]ig[facility]sm[facility]pc[facility] Work Phone: Comment on above: Series: 02-01-2020 influenza, seasonal, injectable Karolina Muniz II [facility] Work Phone: Comment on above: Series: 02-01-2020 influenza, seasonal, injectable Karolina Dinerok II [facility] Work Phone: 01-08-2020 influenza, injectabl e, quadrivalent, contains preservative Delbert Avinash Stencel Work Phone: OS-Zrceohg-Hzufuol Work Phone: Comment on above: Series: 01-08-2020 pneumococcal conjuga te vaccine, 13 valent Delbert Avinash Arleencel Work Phone: DB-Hbkptkx-Gsuuoem Work Phone: Comment on above: Series: 04-06-2019 pneumococcal conjuga te vaccine, 13 valent; Translations: [Prevnar 13 Intramuscular Suspension] [facility] Work Phone: Comment on above: Series: 08-08-2018 zoster vaccine recombinant Delbert D Stencel Work Phone: [facility] Comment on above: Series: 04-20-2018 zoster vaccine recombinant Delbert D Stencel Work Phone: IE[facility]Biuffqr[facility]Jxjpeph Work Phone: Comment on above: Series: 01-12-2014 zoster vaccine, live Karolina Dinerok II [facility] Work Phone: Comment on above: Series: 10-27-2013 measles, mumps and rubella virus vaccine Delbert D Stencel Work Phone: [facility] Work Phone: Comment on above: Series: 09-12-2013 measles, mumps and rubella virus vaccine Karon Fonseca CNP Work Phone: [facility] 09-07-2013 measles, mumps and rubella virus vaccine Karolina Muniz II [facility] Work Phone: Comment on above: Series: 07-23-2009 pneumococcal polysaccharide vaccine, 23 valent Delbert D Stencel Work Phone: TB-Cekgfjl-Vbyfnqv Work Phone: Comment on above: Series: 04-04-2009 novel influenza-H1N1 -09, preservative-free, injectable Delbert D Stencel Work Phone: [facility] Work Phone: 02-01-2009 influenza virus vacc ine, whole virus Delbert D Stencel Work Phone: [facility] [[email or web address] Work Phone: 10-01-1992 hepatitis B vaccine, unspecified formulation Delbert D Stencel Work Phone: [facility] 05-01-1992 hepatitis B vaccine, unspecified formulation Delbert D Stencel Work Phone: [facility] Work Phone: 03-28-1992 hepatitis B vaccine, unspecified formulation Delbert D Stencel Work Phone: [facility] Payers Date Payer Category Payer Blue Cross [employer] Member Subscriber Plan / Payer (Effective 2021-Present) Name: Mary Leblanc Relation to Subscriber: Spouse Name: NICOLASA LEBLANC Date of : 1975 (Home) Address: [address] [place], [place] [address] Payer ID: [id number] (NAIC) Type: Not on file Address: [address] [place] [id number] 2013 Blue Cross Blue Shield ANTHEM BL UE/PREF/HMO/PPO Member Subscriber Plan / Payer (Effective 2013-Present) Name: Mary Leblanc Demar Relation to Subscriber: Spouse Name: NICOLASA LEBLANC Date of : 1975 (Home) Address: [address] [place] [address] Payer ID: [id number] (NAIC) Type: Not on file Address: [address] [place] [id number] 2013 Unknown ANTHEM ANTHEM BLUE/PREF/HMO/PPO xxxxxxxxxxxx 2013-Present [id number] 2013 Unknown ANTHEM ANTHEM BLUE/PREF/HMO/PPO [id number] 2013-Present [id number] 2013 Unknown 2013 Unknown [id number] 1957 Unknown [id number] 2.16.840.1.255663.3.579.2. 903 1957 Unknown [id number] 2.16.840.1.839588.3.579.2. 903 1957 Unknown [id number] 2.16.840.1.733718.3.579.2. 1957 Unknown [id number] 2.16.840.1.139947.3.579.2. 1957 Unknown [id number] 2.16.840.1.523552.3.579.2. 1957 Unknown [id number] 2.16.840.1.410988.3.579.2 1957 Unknown [id number] 2.16.840.1.683232.3.579.2. 1957 Unknown [id number] 2..840.1.893609.3.579.2 1957 Unknown [id number] 2.840.1.370903.3.579.2 1957 Unknown [id number] 2..840.1.257541.3.579.2 1957 Unknown [id number] 2..840.1.250838.3.579.2 1957 Unknown [id number] 2.840.1.530462.3.579.2 1957 Unknown [id number] 2.840.1.829422.3.579.2 1957 Unknown [id number] 2.16.840.1.539531.3.579.2. 1957 Unknown [id number] 2.16.840.1.151077.3.579.2 1957 Unknown [id number] 2.16.840.1.111164.3.579.2 1955 Unknown [id number] 2.16.840.1.387363.3.579.2 1955 Unknown [id number] 2.16.840.1.700229.3.579.2. 903 1955 Unknown [id number] 2.16.840.1.078987.3.579.2. 903 1955 Unknown [id number] 2.16.840.1.875405.3.579.2. 9 1955 Unknown [id number] 2.16.840.1.837531.3.579.2. 1069 1957 Unknown [id number] 2.16.840.1.799318.3.579.2. 1069 1955 Unknown [id number] 2.16.840.1.515976.3.579.2. 356 1957 Unknown [id number] 2.16.840.1.474102.3.579.2. 356 1957 Unknown [id number] 2..840.1.471578.3.579.2. 356 1957 Unknown [id number] 2.16.840.1.148859.3.579.2. 356 1957 Unknown [id number] 2.16.840.1.877332.3.579.2. 4 1955 Unknown [id number] 2.16.840.1.494020.3.579.2. 1243 1955 Unknown [id number] 2.16.840.1.883613.3.579.2. 1243 1957 Unknown [id number] 2.16.840.1.998069.3.579.2. 1243 1957 Unknown [id number] 2.16.840.1.975826.3.579.2. 4 1955 Unknown [id number] 2.16.840.1.095457.3.579.2. 124 1957 Unknown [id number] 2.16.840.1.434750.3.579.2. 1243 1957 Unknown [id number] 2.16.840.1.832696.3.579.2. 1243 1957 Unknown [id number] 2.16.840.1.514424.3.579.2. 903 1957 Unknown [id number] 2.16.840.1.666624.3.579.2. 903 1957 Unknown [id number] 2.16.840.1.746062.3.579.2. 903 1957 Unknown [id number] 2.16.840.1.328615.3.579.2. 903 1957 Unknown [id number] 2.16.840.1.724951.3.579.2. 903 1957 Unknown [id number] 2.16.840.1.558630.3.579.2. 903 1957 Unknown [id number] 2.16.840.1.901795.3.579.2. 903 1957 Unknown [id number] 2.16.840.1.289792.3.579.2. 903 1957 Unknown [id number] 2.16.840.1.999502.3.579.2. 903 1957 Unknown [id number] 2.16840.1.298262.3.579.2. 90 Unknown [id number] Social History Date Type Detail Facility Start: 2018 End: 08-26-2018 Tobacco smoking status WIIS Unknown if ever smoked [facility] Start: 1955 Sex Assigned At Not on file [facility] Start: 05-08-2019 End: 06-05-2021 Tobacco smoking status NHIS Never smoker [facility] Start: 05-08-2019 End: 03-26-2025 Alcohol intake Ex-drinker (finding) [facility] Start: 05-08-2019 End: 06-05-2021 Tobacco use and exposure Never used [facility] Start: 11-23-2022 End: 03-26-2025 Never chewed tobacco Never chewed tobacco [facility] Work Phone: Start: 08-05-2021 End: 10-25-2024 Exposure to SARS-CoV-2 (event) Not sure [facility] Start: 11-23-2022 End: 04-14-2023 Alcohol intake Defer [facility] Work Phone: Start: 11-23-2022 End: 03-26-2025 Tobacco use panel [facility] Work Phone: Start: 2018 Gender identity Identifies as male gender (finding) [facility] Start: 2018 Sexual orientation Heterosexual (fin ding) [facility] Start: 04-10-2022 Sex Male [facility] Start: 04-10-2022 Sex Male (finding) [facility] NEGATED: Highlighted row - - [facility] Work Phone: NEGATED: Highlighted rowStart: [place] History of tobacco use Passive smoker [facility] Work Phone: Medical Equipment Procedure Code Equipment Code Equipment Origin al Text Equipment Identifier Dates [id number] Start: 06-23-2023 USE DIRECTED TO TEST GLUCOSE 1-2 TIMES DAILY [id number] Start: 06-23-2023 USE DIRECTED TO TEST GLUCOSE 1-2 TIMES DAILY [id number] Start: 06-23-2023 OneTouch Delica Plus Lancet 30 gauge Misc [id number] Start: 06-23-2023 Functional Status Date Assessment Result Facility 03-06-2025 Functional status 187/80 [facility] 03-06-2025 Vital signs 63 03/06/2025 6: 10 PM EDT Tamie Mai MA [facility] Work Phone: 03-06-2025 [facility] Work Phone: 10-25-2024 Patient Health Questionnaire 2 item (PHQ-2) [Reported] [facility] Work Phone: 10-25-2024 Functional status 128/80 025 8:12 AM EDT Marilyn Grimes, DONNY 128/80 [facility] Work Phone: 10-25-2024 Vital signs 64 10/25/2024 8: 12 AM EDT Marilyn Grimes, DONNY [facility] Work Phone: 04-26-2024 Patient Health Questionnaire 2 item (PHQ-2) [Reported] [facility] Work Phone: 04-10-2024 [facility] 04-10-2024 [place] - suicide severity rating scale screener - recent [C-SSRS] [facility] Work Phone: 04-10-2024 [facility] 04-10-2024 Functional status [facility] Work Phone: NEGATED: Highlighted row Functional performance Functional status health issues are not documented Disease [facility] [address] Work Phone: Mental Status Date Assessment Result Facility 04-10-2024 Cognitive function finding Negative 04/10/2024 2:29 PM EST Airam Mcallister RN Negative [facility] Work Phone: NEGATED: Highlighted row Cognitive function [Interpretation] Cognitive status health issues are not documented Disease [facility] [address] Work Phone: Clinical Notes 12-04-2020 to 03-26-2025 Terrance Camejo DPM - 03/26/2025 10:34 AM ESTAddendum Note - Terrance Camejo DPM - 03/24/2025 6:02 PM ESTAddendum Note - Terrance Camejo DPM - 03/24/2025 6:02 PM ESTPatient Instructions Note Date & Type Note Facility 03-26-2025 Note Avinash Kaye PM Patient Name: Mary Leblanc. . Date of : 1955, 69 y.o.. Gender: male. Subjective: Patient is a pleasant 69-year-old male who presents to clinic for follow-up evaluation of his left foot open wound site. Patient states that he has been.packing the wound and then applying a Band-Aid. No gauze or Zully bandage was applied because he thought it was too much and he wanted to be able to wear regular shoes. States that he is not comfortable with his surgical shoe. States that he was not scheduled for the MRI yet. States that he is taking his antibiotics. Denies fevers, chills, nausea, vomiting, chest pain, shortness of breath, or any other constitutional symptoms. Past Medical History: Diagnosis Date Bunion 1 year ago Bunionett DDD (degenerative disc disease), thoracic Diabetes mellitus (HCC) Diabetes mellitus, type 2 (HCC) Gout Hyperlipidemia Hypertension Neuropathy in diabetes (HCC) Testosterone deficiency Past Surgical History: Procedure Laterality Date CT COLONOSCOPY 05/29/[address] COLONOSCOPY 04/10/2024 CT COLONOSCOPY 04/10/2024 GALLBLADDER TOTAL KNEE ARTHROPLASTY Bilateral 2007,2008 Social History [1] Physical Examination: BP (!) 186/99 (BP Location: Left arm, Patient Position: Sitting, BP Cuff Size: Adult) Comment (BP Location): forearm - provider informed Pulse (!) 58 Temp 98.4 degrees F (36.9 degrees C) (Oral) General Appearance: Alert, cooperative, no distress, appears stated age. Podiatric Exam Vascular: DP and PT pulses are palpable 2/4. Capillary refill time is less than 3 secs to distal digits. Skin temperature is warm to warm from proximal tibial tuberosity to distal digit. Neurological: Gross sensation is intact. Protective sensation is diminished using the Sutton Rachel monofilament. Dermatologic: No open wound noted to the left foot with no surrounding erythema, edema or any acute signs infection. Serous drainage noted from the wound site. Wound probes down to bone. No cellulitis or lymphangitis. Interdigital spaces are clean dry and intact. Musculoskeletal: Patient is able to wiggle digits ankle joint range of motion is intact. Muscle strength is 5/5 to dorsiflexors, plantar flexors, inverters and everters. Compartments soft and compressible. No calf pain Diagnoses: 1. Skin ulcer of left foot with fat layer exposed (HCC) 2. Other osteomyelitis of left foot (HCC) 3. Diabetic peripheral neuropathy (HCC) Imaging: Left foot 3 views weightbearing radiographs were ordered on 03/12/2025 and I interpreted them as follows: No acute fractures dislocations noted. Joint spaces are within normal notes with exception of joint space narrowing to the subtalar joint, ankle joint and talonavicular joint. Plantar calcaneal enthesophyte noted. Right foot 3 views weightbearing radiographs were ordered on 03/19/2025 and I personally interpreted them as follows: No acute fractures or dislocations noted. Loss of the calcaneal inclusion angle Degenerative arthritic changes noted across the tarsometatarsal joints and subtalar joint. 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 Discussed all clinical findings. Patient has open wound to the left foot that is concerning for bone infection given depth of the wound. Moreover, there is serous drainage and nonviable soft tissue and therefore it require excisional debridement to remove nonviable tissue and biofilm. This was performed using a #15 blade down to and including subcutaneous tissue and fascia. Postdebridement of wound measured 1.5 x 1.5 x 0.4 cm. Following, applied new gauze packing to the wound site due to depth, 4 x 4, Kerlix and Zully bandage. Patient was instructed to wear his surgical shoe that was provided to him in the last clinic visit. Patient is to have his dressing changed daily. Discussed with patient that central scheduling for MRI have been called 3 times. Instructed patient to ensure that he answers his phone promptly to get scheduled for his MRI. Moreover, discussed with patient importance of gauze, Zully compression for edema control and surgical shoes for offloading. A new surgical screw was dispensed to the patient today. Follow-up in 1 week for reevaluation This note was partially created using voice recognition software and is inherently subject to errors including those of syntax and sound-alike substitutions which may escape proofreading. In such instances, original meaning may be extrapolated by contextual derivation. Terrance Camejo DPM, MS Podiatric Physician & Surgeon [1] Social History Socioeconomic History Marital status: Tobacco Use Smoking status: Never Smokeless tobacco: Never Vaping Use Vaping status: Never Used Substance and Sexual Activity Alcohol use: Not Currently Drug use: Never AU (more content not included)... [facility] 03-26-2025 History of Present illness Narrative Images from the original note were not included. Terrance Camejo DPM Patient Name: Mary Leblanc. . Date of : 1955, 69 y.o.. Gender: male. Subjective: Patient is a pleasant 69-year-old male who presents to clinic for follow-up evaluation of his left foot open wound site. Patient states that he has been.packing the wound and then applying a Band-Aid. No gauze or Zully bandage was applied because he thought it was too much and he wanted to be able to wear regular shoes. States that he is not comfortable with his surgical shoe. States that he was not scheduled for the MRI yet. States that he is taking his antibiotics. Denies fevers, chills, nausea, vomiting, chest pain, shortness of breath, or any other constitutional symptoms. Past Medical History: Diagnosis Date Bunion 1 year ago Bunionett DDD (degenerative disc disease), thoracic Diabetes mellitus (HCC) Diabetes mellitus, type 2 (HCC) Gout Hyperlipidemia Hypertension Neuropathy in diabetes (HCC) Testosterone deficiency Past Surgical History: Procedure Laterality Date CT COLONOSCOPY 05/29/[address] COLONOSCOPY 04/10/2024 CT COLONOSCOPY 04/10/2024 GALLBLADDER TOTAL KNEE ARTHROPLASTY Bilateral 2007,2008 Social History [1] Physical Examination: BP (!) 186/99 (BP Location: Left arm, Patient Position: Sitting, BP Cuff Size: Adult) Comment (BP Location): forearm - provider informed Pulse (!) 58 Temp 98.4 F (36.9 C) (Oral) General Appearance: Alert, cooperative, no distress, appears stated age. Podiatric Exam Vascular: DP and PT pulses are palpable 2/4. Capillary refill time is less than 3 secs to distal digits. Skin temperature is warm to warm from proximal tibial tuberosity to distal digit. Neurological: Gross sensation is intact. Protective sensation is diminished using the Sutton Rachel monofilament. Dermatologic: No open wound noted to the left foot with no surrounding erythema, edema or any acute signs infection. Serous drainage noted from the wound site. Wound probes down to bone. No cellulitis or lymphangitis. Interdigital spaces are clean dry and intact. Musculoskeletal: Patient is able to wiggle digits ankle joint range of motion is intact. Muscle strength is 5/5 to dorsiflexors, plantar flexors, inverters and everters. Compartments soft and compressible. No calf pain Diagnoses: 1. Skin ulcer of left foot with fat layer exposed ([facility]) 2. Other osteomyelitis of left foot ([facility]) 3. Diabetic peripheral neuropathy ([facility]) Imaging: Left foot 3 views weightbearing radiographs were ordered on 03/12/2025 and I interpreted them as follows: No acute fractures dislocations noted. Joint spaces are within normal notes with exception of joint space narrowing to the subtalar joint, ankle joint and talonavicular joint. Plantar calcaneal enthesophyte noted. Right foot 3 views weightbearing radiographs were ordered on 03/19/2025 and I personally interpreted them as follows: No acute fractures or dislocations noted. Loss of the calcaneal inclusion angle Degenerative arthritic changes noted across the tarsometatarsal joints and subtalar joint. 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 Discussed all clinical findings. Patient has open wound to the left foot that is concerning for bone infection given depth of the wound. Moreover, there is serous drainage and nonviable soft tissue and therefore it require excisional debridement to remove nonviable tissue and biofilm. This was performed using a #15 blade down to and including subcutaneous tissue and fascia. Postdebridement of wound measured 1.5 x 1.5 x 0.4 cm. Following, applied new gauze packing to the wound site due to depth, 4 x 4, Kerlix and Zully bandage. Patient was instructed to wear his surgical shoe that was provided to him in the last clinic visit. Patient is to have his dressing changed daily. Discussed with patient that central scheduling for MRI have been called 3 times. Instructed patient to ensure that he answers his phone promptly to get scheduled for his MRI. Moreover, discussed with patient importance of gauze, Zully compression for edema control and surgical shoes for offloading. A new surgical screw was dispensed to the patient today. Follow-up in 1 week for reevaluation This note was partially created using voice recognition software and is inherently subject to errors including those of syntax and "sound-alike" substitutions which may escape proofreading. In such instances, original meaning may be extrapolated by contextual derivation. Terrance Camejo DPM, MS Podiatric Physician & Surgeon [1] Social History Socioeconomic History Marital status: Tobacco Use Smoking status: Never Smokeless tobacco: Never Vaping Use Vaping status: Never Used Substance and Sexual Activity Alcohol use: Not Currently Drug use: Never documented in this encounter [facility] 03-24-2025 Note Addended by: TERRANCE CAMEJO on: 03/24/2025 06:02 PM Modules accepted: Level of Service [facility] 03-24-2025 Note Addended by: TERRANCE CAMEJO on: 03/24/2025 06:02 PM Modules accepted: Level of Service [facility] 03-24-2025 Miscellaneous Notes Addended by: TERRANCE CAMEJO on: 03/24/2025 06:02 PM Modules accepted: Level of Service documented in this encounter [facility] 03-24-2025 Note Terrance Camejo, D PM Patient Name: Mary Leblanc. . Date of : 1955, 69 y.o.. Gender: male. Subjective: Patient is a pleasant 69-year-old male who presents to clinic for follow-up evaluation of his left foot open wound site. Patient states that he has been on his feet a lot over the weekend. States that he has completed his oral antibiotic course. Reports increasing drainage at the wound site. No other pedal complaints at this time. Denies fevers, chills, nausea, vomiting, chest pain, shortness of breath, or any other constitutional symptoms. Past Medical History: Diagnosis Date Bunion 1 year ago Bunionett DDD (degenerative disc disease), thoracic Diabetes mellitus (HCC) Diabetes mellitus, type 2 (HCC) Gout Hyperlipidemia Hypertension Neuropathy in diabetes (HCC) Testosterone deficiency Past Surgical History: Procedure Laterality Date CT COLONOSCOPY 05/29/[address] COLONOSCOPY 04/10/2024 CT COLONOSCOPY 04/10/2024 GALLBLADDER TOTAL KNEE ARTHROPLASTY Bilateral 2007,2008 Social History [1] Physical Examination: BP (!) 178/84 (BP Location: Right arm, Patient Position: Sitting, BP Cuff Size: Adult) Pulse 66 Temp 98.3 degrees F (36.8 degrees C) (Oral) General Appearance: Alert, cooperative, no distress, appears stated age. Podiatric Exam Vascular: DP and PT pulses are palpable 2/4. Capillary refill time is less than 3 secs to distal digits. Skin temperature is warm to warm from proximal tibial tuberosity to distal digit. Neurological: Gross sensation is intact. Protective sensation is diminished using the Sutton Rachel monofilament. Dermatologic: No open wound noted to the left foot with no surrounding erythema, edema or any acute signs infection. Serous drainage noted from the wound site. Wound probes down to bone. No cellulitis or lymphangitis. Interdigital spaces are clean dry and intact. Musculoskeletal: Patient is able to wiggle digits ankle joint range of motion is intact. Muscle strength is 5/5 to dorsiflexors, plantar flexors, inverters and everters. Compartments soft and compressible. No calf pain Diagnoses: 1. Other osteomyelitis of left foot (HCC) MR Foot Left Without Contrast 2. Skin ulcer of left foot with fat layer exposed (HCC) MR Foot Left Without Contrast Wound Aerobic Culture Imaging: Left foot 3 views weightbearing radiographs were ordered on 03/12/2025 and I interpreted them as follows: No acute fractures dislocations noted. Joint spaces are within normal notes with exception of joint space narrowing to the subtalar joint, ankle joint and talonavicular joint. Plantar calcaneal enthesophyte noted. Right foot 3 views weightbearing radiographs were ordered on 03/19/2025 and I personally interpreted them as follows: No acute fractures or dislocations noted. Loss of the calcaneal inclusion angle Degenerative arthritic changes noted across the tarsometatarsal joints and subtalar joint. 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 Discussed all clinical findings. Patient has open wound to the left foot that is concerning for bone infection given depth of the wound. Moreover, there is serous drainage and nonviable soft tissue and therefore it require excisional debridement to remove nonviable tissue and biofilm. This was performed using a #15 blade down to and including subcutaneous tissue. Following, a wound swab culture was obtained and sent to microbiology for culture sensitivity. Postdebridement of wound measured 1.8 x 1.9 x 0.2 cm. Following, applied new gauze packing to the wound site due to depth, 4 x 4, Kerlix and Zully bandage. Patient was instructed to wear his surgical shoe that was provided to him in the last clinic visit. Patient is to have his dressing changed daily. Moreover, an MRI was ordered for evaluation given patient's risk for osteomyelitis and worsening infection. All questions were answered to patient satisfaction. Patient understands to call with any questions or concerns. Follow-up in 1 week for reevaluation This note was partially created using voice recognition software and is inherently subject to errors including those of syntax and sound-alike substitutions which may escape proofreading. In such instances, original meaning may be extrapolated by contextual derivation. Terrance Camejo DPM, MS Podiatric Physician & Surgeon [1] Social History Socioeconomic History Marital status: Tobacco Use Smoking status: Never Smokeless tobacco: Never Vaping Use Vaping status: Never Used Substance and Sexual Activity Alcohol use: Not Currently Drug use: Never AUTHENTICATED BY TERRANCE CAMEJO, ON 03/24/2025 18:01:52 [facility] 03-24-2025 History of Present illness Narrative Images from the original note were not included. Terrance Camejo DPM Patient Name: Mary Leblanc. . Date of : 1955, 69 y.o.. Gender: male. Subjective: Patient is a pleasant 69-year-old male who presents to clinic for follow-up evaluation of his left foot open wound site. Patient states that he has been on his feet a lot over the weekend. States that he has completed his oral antibiotic course. Reports increasing drainage at the wound site. No other pedal complaints at this time. Denies fevers, chills, nausea, vomiting, chest pain, shortness of breath, or any other constitutional symptoms. Past Medical History: Diagnosis Date Bunion 1 year ago Eloytt DDD (degenerative disc disease), thoracic Diabetes mellitus (HCC) Diabetes mellitus, type 2 (HCC) Gout Hyperlipidemia Hypertension Neuropathy in diabetes (HCC) Testosterone deficiency Past Surgical History: Procedure Laterality Date CT COLONOSCOPY 05/29/[address] COLONOSCOPY 04/10/2024 CT COLONOSCOPY 04/10/2024 GALLBLADDER TOTAL KNEE ARTHROPLASTY Bilateral 2007,2008 Social History [1] Physical Examination: BP (!) 178/84 (BP Location: Right arm, Patient Position: Sitting, BP Cuff Size: Adult) Pulse 66 Temp 98.3 F (36.8 C) (Oral) General Appearance: Alert, cooperative, no distress, appears stated age. Podiatric Exam Vascular: DP and PT pulses are palpable 2/4. Capillary refill time is less than 3 secs to distal digits. Skin temperature is warm to warm from proximal tibial tuberosity to distal digit. Neurological: Gross sensation is intact. Protective sensation is diminished using the Sutton Rachel monofilament. Dermatologic: No open wound noted to the left foot with no surrounding erythema, edema or any acute signs infection. Serous drainage noted from the wound site. Wound probes down to bone. No cellulitis or lymphangitis. Interdigital spaces are clean dry and intact. Musculoskeletal: Patient is able to wiggle digits ankle joint range of motion is intact. Muscle strength is 5/5 to dorsiflexors, plantar flexors, inverters and everters. Compartments soft and compressible. No calf pain Diagnoses: 1. Other osteomyelitis of left foot (HCC) MR Foot Left Without Contrast 2. Skin ulcer of left foot with fat layer exposed ([facility]) MR Foot Left Without Contrast Wound Aerobic Culture Imaging: Left foot 3 views weightbearing radiographs were ordered on 03/12/2025 and I interpreted them as follows: No acute fractures dislocations noted. Joint spaces are within normal notes with exception of joint space narrowing to the subtalar joint, ankle joint and talonavicular joint. Plantar calcaneal enthesophyte noted. Right foot 3 views weightbearing radiographs were ordered on 03/19/2025 and I personally interpreted them as follows: No acute fractures or dislocations noted. Loss of the calcaneal inclusion angle Degenerative arthritic changes noted across the tarsometatarsal joints and subtalar joint. 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 Discussed all clinical findings. Patient has open wound to the left foot that is concerning for bone infection given depth of the wound. Moreover, there is serous drainage and nonviable soft tissue and therefore it require excisional debridement to remove nonviable tissue and biofilm. This was performed using a #15 blade down to and including subcutaneous tissue. Following, a wound swab culture was obtained and sent to microbiology for culture sensitivity. Postdebridement of wound measured 1.8 x 1.9 x 0.2 cm. Following, applied new gauze packing to the wound site due to depth, 4 x 4, Kerlix and Zully bandage. Patient was instructed to wear his surgical shoe that was provided to him in the last clinic visit. Patient is to have his dressing changed daily. Moreover, an MRI was ordered for evaluation given patient's risk for osteomyelitis and worsening infection. All questions were answered to patient satisfaction. Patient understands to call with any questions or concerns. Follow-up in 1 week for reevaluation This note was partially created using voice recognition software and is inherently subject to errors including those of syntax and "sound-alike" substitutions which may escape proofreading. In such instances, original meaning may be extrapolated by contextual derivation. Terrance Camejo DPM, MS Podiatric Physician & Surgeon [1] Social History Socioeconomic History Marital status: Tobacco Use Smoking status: Never Smokeless tobacco: Never Vaping Use Vaping status: Never Used Substance and Sexual Activity Alcohol use: Not Currently Drug use: Never documented in this encounter [facility] 03-18-2025 Note NEW Patient Visit Terrance Camejo DPM Patient Name: Mary Leblanc. . Date of : 1955, 69 y.o.. Gender: male. Subjective: Patient is a pleasant 69-year-old male who presents to clinic concerned about a left foot ulcer that has been ongoing for 2 weeks. Patient stated he was having pain in the left foot and his discovered that he had a wound on the bottom of his left foot. Patient was seen by his PCP for bronchitis and had the foot looked at and was placed on doxycycline. No other pedal complaints at this time. Denies fevers, chills, nausea, vomiting, chest pain, shortness of breath, or any other constitutional symptoms. Past Medical History: Diagnosis Date DDD (degenerative disc disease), thoracic Diabetes mellitus (HCC) Diabetes mellitus, type 2 (HCC) Gout Hyperlipidemia Hypertension Testosterone deficiency Past Surgical History: Procedure Laterality Date CT COLONOSCOPY 05/29/[address] COLONOSCOPY 04/10/2024 CT COLONOSCOPY 04/10/2024 GALLBLADDER TOTAL KNEE ARTHROPLASTY Bilateral 2007,2008 Social History [1] Physical Examination: BP (!) 191/83 (BP Location: Right arm, Patient Position: Sitting, BP Cuff Size: Adult) Pulse 63 Temp 98.3 degrees F (36.8 degrees C) (Oral) General Appearance: Alert, cooperative, no distress, appears stated age. Podiatric Exam Vascular: DP and PT pulses are palpable 2/4. Capillary refill time is less than 3 secs to distal digits. Skin temperature is warm to warm from proximal tibial tuberosity to distal digit. Neurological: Gross sensation is intact. Protective sensation is diminished using the Sutton Rachel monofilament. Dermatologic: No open wound noted to the left foot with no surrounding erythema, edema or any acute signs infection. Interdigital spaces are clean dry and intact. Musculoskeletal: Patient is able to wiggle digits ankle joint range of motion is intact. Muscle strength is 5/5 to dorsiflexors, plantar flexors, inverters and everters. Compartments soft and compressible. No calf pain Diagnoses: 1. Skin ulcer of left foot with fat layer exposed (HCC) 2. Diabetic peripheral neuropathy ([facility]) Imaging: Left foot 3 views weightbearing radiographs were ordered on 03/12/2025 and I interpreted them as follows: No acute fractures dislocations noted. Joint spaces are within normal notes with exception of joint space narrowing to the subtalar joint, ankle joint and talonavicular joint. Plantar calcaneal enthesophyte noted. Assessment/Plan: Patient was seen and evaluated. Discussed all clinical findings. Patient had an open wound to the left foot that require excisional debridement to remove nonviable tissue and biofilm. This was performed using a #15 blade down to and including subcutaneous tissue. Upon debridement, the wound measured 1.5 x 1.5 x 0.2 cm. Following, applied Librado, 4 x 4, Kerlix and Zully bandage. A surgical shoe was provided to the patient. Patient is to have his dressing changed once every other day. All questions were answered to patient satisfaction. Patient understands to call with any questions or concerns. Follow-up in 1 week for reevaluation This note was partially created using voice recognition software and is inherently subject to errors including those of syntax and sound-alike substitutions which may escape proofreading. In such instances, original meaning may be extrapolated by contextual derivation. Terrance Camejo DPM, MS Podiatric Physician & Surgeon [1] Social History Socioeconomic History Marital status: Tobacco Use Smoking status: Never Smokeless tobacco: Never Vaping Use Vaping status: Never Used Substance and Sexual Activity Alcohol use: Not Currently Drug use: Never AUTHENTICATED BY TERRANCE CAMEJO, ON 03/18/2025 21:03:59 [facility] 03-18-2025 History of Present illness Narrative Images from the original note were not included. NEW Patient Visit Terrance Camejo DPM Patient Name: Mary Leblanc. . Date of : 1955, 69 y.o.. Gender: male. Subjective: Patient is a pleasant 69-year-old male who presents to clinic concerned about a left foot ulcer that has been ongoing for 2 weeks. Patient stated he was having pain in the left foot and his discovered that he had a wound on the bottom of his left foot. Patient was seen by his PCP for bronchitis and had the foot looked at and was placed on doxycycline. No other pedal complaints at this time. Denies fevers, chills, nausea, vomiting, chest pain, shortness of breath, or any other constitutional symptoms. Past Medical History: Diagnosis Date DDD (degenerative disc disease), thoracic Diabetes mellitus (HCC) Diabetes mellitus, type 2 (HCC) Gout Hyperlipidemia Hypertension Testosterone deficiency Past Surgical History: Procedure Laterality Date CT COLONOSCOPY 05/29/[address] COLONOSCOPY 04/10/2024 CT COLONOSCOPY 04/10/2024 GALLBLADDER TOTAL KNEE ARTHROPLASTY Bilateral 2007,2008 Social History [1] Physical Examination: BP (!) 191/83 (BP Location: Right arm, Patient Position: Sitting, BP Cuff Size: Adult) Pulse 63 Temp 98.3 F (36.8 C) (Oral) General Appearance: Alert, cooperative, no distress, appears stated age. Podiatric Exam Vascular: DP and PT pulses are palpable 2/4. Capillary refill time is less than 3 secs to distal digits. Skin temperature is warm to warm from proximal tibial tuberosity to distal digit. Neurological: Gross sensation is intact. Protective sensation is diminished using the Sutton Rachel monofilament. Dermatologic: No open wound noted to the left foot with no surrounding erythema, edema or any acute signs infection. Interdigital spaces are clean dry and intact. Musculoskeletal: Patient is able to wiggle digits ankle joint range of motion is intact. Muscle strength is 5/5 to dorsiflexors, plantar flexors, inverters and everters. Compartments soft and compressible. No calf pain Diagnoses: 1. Skin ulcer of left foot with fat layer exposed (HCC) 2. Diabetic peripheral neuropathy (HCC) Imaging: Left foot 3 views weightbearing radiographs were ordered on 03/12/2025 and I interpreted them as follows: No acute fractures dislocations noted. Joint spaces are within normal notes with exception of joint space narrowing to the subtalar joint, ankle joint and talonavicular joint. Plantar calcaneal enthesophyte noted. Assessment/Plan: Patient was seen and evaluated. Discussed all clinical findings. Patient had an open wound to the left foot that require excisional debridement to remove nonviable tissue and biofilm. This was performed using a #15 blade down to and including subcutaneous tissue. Upon debridement, the wound measured 1.5 x 1.5 x 0.2 cm. Following, applied Librado, 4 x 4, Kerlix and Zully bandage. A surgical shoe was provided to the patient. Patient is to have his dressing changed once every other day. All questions were answered to patient satisfaction. Patient understands to call with any questions or concerns. Follow-up in 1 week for reevaluation This note was partially created using voice recognition software and is inherently subject to errors including those of syntax and "sound-alike" substitutions which may escape proofreading. In such instances, original meaning may be extrapolated by contextual derivation. Terrance Camejo DPM, MS Podiatric Physician & Surgeon [1] Social History Socioeconomic History Marital status: Tobacco Use Smoking status: Never Smokeless tobacco: Never Vaping Use Vaping status: Never Used Substance and Sexual Activity Alcohol use: Not Currently Drug use: Never documented in this encounter [facility] 03-12-2025 Instructions Marilyn Mcwilliams TECHNOLOGIST - 03/12/2025 4:48 PM EDT INSTRUCTIONS FOR LIBRADO APPLICATION: Wash hands. Cut Librado to the size of the wound using clean scissors and tweezers. Moisten piece of Librado with Simple Saline/ Wound Wash spray. Using clean tweezers, apply the Librado directly to the wound. Cover the area with a dry dressing (gauze and a soft wrap material). Use tape to seal the wrap. Keep clean and dry. When changing the Librado, you can moisten with the Simple Saline/ Wound Wash spray and a clean pair of tweezers, so it is easier to remove. Librado needs changed every ____other day until next office visit. documented in this encounter [facility] 03-06-2025 History of Present illness Narrative Subjective HPI 69 y.o. male presents for evaluation of cough and chest congestion that began 1 week ago. States he has a history of bronchitis. Denies fever, chest pains, shortness of breath, nausea, vomiting, sore throat, rash, body aches, fatigue or any other associated similar complaint. Patient also notes wound to bottom of left foot that he noticed few weeks ago. States it has become painful. Feels he stepped on something but does not feel a foreign body still in his foot. States he is diabetic. Denies any associated fever, streaking with this complaint. ROS See HPI Objective Vitals: 03/06/25 1810 BP: (!) 187/80 Pulse: 63 Temp: 36.3 C (97.3 F) SpO2: 97% RX Allergies[1] Medication Documentation Review Audit Reviewed by KALEB Talbot (Nurse Practitioner) on 10/25/24 at 0832 Medication Order Taking? Sig Documenting Provider Last Dose Status albuterol 90 mcg/actuation inhaler [id number] Yes Inhale 2 puffs every 4 hours if needed. Historical Provider, Active allopurinol (Zyloprim) 100 mg tablet [id number] Yes Take 1 tablet (100 mg) by mouth 3 times a day. KALEB Talbot Active aspirin 81 mg EC tablet [id number] Yes Take 1 tablet (81 mg) by mouth once daily. Historical Provider, Active blood sugar diagnostic (Blood Glucose Test) strip [id number] Yes USE DIRECTED TO TEST GLUCOSE 1-2 TIMES DAILY KALEB Talbot Active evolocumab (Repatha SureClick) 140 mg/mL injection [id number] Yes Inject 1 mL (140 mg) under the skin every 14 (fourteen) days. Rosendo Kingston MD Active glyBURIDE (Diabeta) 5 mg tablet [id number] Yes Take 2 tablets (10 mg) by mouth 2 times a day. KALEB Talbot Active hydroCHLOROthiazide (HYDRODiuril) 25 mg tablet Yes Take 1 tablet (25 mg) by mouth once daily. KALEB Talbot Active hydrOXYzine HCL (Atarax) 25 mg tablet [id number] Take 1 tablet (25 mg) by mouth once daily. KALEB Talbot 10/24/24 2359 lancets 30 gauge [facility] [id number] Yes USE DIRECTED TO TEST GLUCOSE 1-2 TIMES DAILY KALEB Talbot Active losartan (Cozaar) 100 mg tablet Yes Take 1 tablet (100 mg) by mouth once daily. KALEB Talbot Active metFORMIN (Glucophage) 1,000 mg tablet Yes Take 1 tablet (1,000 mg) by mouth 2 times a day. KALEB Talbot Active NON FORMULARY Yes Take 1 each by mouth 2 times a day. Ivana-pro for neuropathy Historical ProviderMD Active pioglitazone (Actos) 30 mg tablet [id number] Yes Take 1 tablet (30 mg) by mouth once daily. KALEB Talbot Active potassium chloride CR (Klor-Con) 10 mEq ER tablet [id number] Yes Take 1 tablet (10 mEq) by mouth once daily. Do not crush, chew, or split. MACEY TalbotPIEROGI MAKER Active propranolol (Inderal) 20 mg tablet [id number] Yes Take 1 tablet (20 mg) by mouth once daily at bedtime. Adalberto Wall KALEB Active propranolol (Inderal) 60 mg tablet [id number] Yes Take 1 tablet (60 mg) by mouth 3 times a day. Patient taking differently: Take 1 tablet (60 mg) by mouth once daily. KALEB Talbot Active testosterone (Axiron) 30 mg/actuation (1.5 mL) topical solution [id number] Yes Place 3 Pump on the skin once daily in the morning. Karolina Muniz MD Active trospium (Sanctura) 20 mg tablet [id number] Yes Take 1 tablet by mouth twice daily Karolina Muniz MD Active VITAMIN B COMPLEX ORAL [id number] Yes Take 1 tablet by mouth once daily. Historical Provider, Active Medical History[2] Surgical History[3] Physical Exam Vitals and nursing note reviewed. Constitutional: Appearance: Normal appearance. He is obese. HENT: Head: Normocephalic and atraumatic. Right Ear: Tympanic membrane, ear canal and external ear normal. Left Ear: Tympanic membrane, ear canal and external ear normal. Nose: Congestion present. Mouth/Throat: Mouth: Mucous membranes are moist. Pharynx: Oropharynx is clear. Eyes: Extraocular Movements: Extraocular movements intact. Conjunctiva/sclera: Conjunctivae normal. Pupils: Pupils are equal, round, and reactive to light. Cardiovascular: Rate and Rhythm: Normal rate. Pulses: Normal pulses. Pulmonary: Effort: Pulmonary effort is normal. No respiratory distress. Breath sounds: Wheezing present. No rhonchi or rales. Lymphadenopathy: Cervical: No cervical adenopathy. Skin: General: Skin is warm. Findings: Wound (left foot puncture wound over 5th DIP joint with surrounding erythema, edema and drainage, no streaking) present. Neurological: General: No focal deficit present. Mental Status: He is alert and oriented to person, place, and time. Psychiatric: Mood and Affect: Mood normal. Behavior: Behavior normal. Assessment Assessment/Plan/MDM Mary was seen today for cough. Diagnoses and all orders for this visit: Acute bronchitis, unspecified organism (Primary) - doxycycline (Adoxa) 100 mg tablet; Take 1 tablet (100 mg) by mouth 2 times a day for 7 days. Take with a full glass of water and do not lie down for at least 30 minutes after - albuterol 90 mcg/actuation inhaler; Inhale 2 puffs every 6 hours if needed for wheezing. Cellulitis of foot without toes, left - doxycycline (Adoxa) 100 mg tablet; Take 1 tablet (100 mg) by mouth 2 times a day for 7 days. Take with a full glass of water and do not lie down for at least 30 minutes after Encouraged patient to continue to monitor wound on foot. Encouraged pt to use otc cold remedies PRN, push PO fluids and rest. At time of discharge patient was clinically well-appearing and appropriate for outpatient management. He was educated regarding diagnosis, supportive care, OTC and any Rx medications. He was given the opportunity to ask questions prior to discharge. He verbalized understanding of my discussion of the plans for treatment, expected course, indications to return to or seek further evaluation in ED, and the need for timely follow up as directed. Karan Almanza CNP [facility] [1] Allergies Allergen Reactions Penicillins Unknown and Anaphylaxis pain in joints Aspartame Unknown Empagliflozin Diarrhea Guaifenesin Unknown Hydrocodone-Acetaminophen Unknown and GI Upset Levofloxacin Unknown Lisinopril Dizziness and Other cough Other reaction(s): C/O - cough Prednisone Unknown Propoxyphene N-Acetaminophen Nausea Only Robitussin Cough Calmers Unknown Spironolactone Unknown Oxycodone-Acetaminophen Anxiety Simvastatin Anxiety [2] Past Medical History: Diagnosis Date Arrhythmia BPH (benign prostatic hyperplasia) Cough in adult 07/20/2022 Dizziness 07/20/2022 Gout Hyperlipidemia Hypertension Pneumonia 07/20/2022 Sleep apnea [3] Past Surgical History: Procedure Laterality Date COLONOSCOPY 04/10/2024 3 year OTHER SURGICAL HISTORY 04/04/2019 Knee replacement OTHER SURGICAL HISTORY 04/04/2019 Cholecystectomy OTHER SURGICAL HISTORY 01/16/2021 Colonoscopy documented in this encounter [facility] Work Phone: 10-25-2024 Evaluation + Plan note Associated Problem(s): Type 2 diabetes mellitus with hyperglycemia, without long-term current use of insulin Follows w/ [facility] (last office note from plan coordinator reviewed today) He has been trying to cut back on simple CHO foods Aic 9.0%, wt unchged. Not interested in starting insulin or GLP therapy to help manage his Diabetes Scheduled to see retina specialists next week; some blurriness in left eye. Saw eye doctor in the last year Orders: Follow Up In Primary Care - Established [facility] Work Phone: 10-25-2024 Evaluation + Plan note Associated Problem(s): Dyslipidemia Repatha injection every 2 weeks; follows w/ cardiology Zetia caused fatigue Intolerant to statins (cough) Coronary CA Score CT: 200 Close recent lipid panel shows total cholesterol 102, triglycerides 169, HDL 42, LDL 32. Alkaline phosphatase 96, AST 16, ALT 14. Orders: Follow Up In Primary Care - Established; Future [facility] Work Phone: 10-25-2024 Evaluation + Plan note Associated Problem(s): Hypertension Home BP readings: 138/80 + exertional SOB, some fatigue in evenings Most recent blood tests show creatinine 1.18, BUN 29, GFR 68, potassium 4.8, sodium 138. Orders: Follow Up In Primary Care - Established; Future [facility] Work Phone: 10-25-2024 Evaluation + Plan note Associated Problem(s): Gout Most recent uric acid level 6.8 Continue allopurinol No recent gout flare [facility] Work Phone: 10-25-2024 History of Present illness Narrative Subjective Patient ID: Mary Leblanc is a 69 y.o. male who presents for Follow-up (6 mo fu ). Mary comes to office for a 6 MO OV Fell 2 weeks ago walking outside on the curb. Next day R shoulder starting to bother him, and pain has gradually got better until last evening. Always has had limited [id number] in the R shoulder. OTC: none. Pain located along the top of shoulder. No paresthesias to R arm. Going to chiropractor today & massage therapist Respectfully declines Tetanus vaccine today Review of Systems Constitutional: Positive for fatigue. Negative for unexpected weight change. Eyes: Negative for visual disturbance. Respiratory: Positive for shortness of breath. Cardiovascular: Positive for leg swelling. Negative for chest pain and palpitations. Gastrointestinal: Negative for abdominal pain, constipation and diarrhea. Musculoskeletal: Positive for arthralgias and myalgias. R shoulder Skin: Negative for rash. Neurological: Positive for tremors and numbness. Negative for dizziness and headaches. Both feet Psychiatric/Behavioral: Negative for dysphoric mood. The patient is not nervous/anxious. Objective BP 128/80 Pulse 64 Ht 1.854 m (6' 1") Wt (!) 189 kg (416 lb 12.8 oz) SpO2 96% BMI 54.99 kg/m Physical Exam Vitals reviewed. Constitutional: General: He is not in acute distress. Appearance: He is obese. He is not ill-appearing. Neck: Thyroid: No thyroid tenderness. Cardiovascular: Rate and Rhythm: Normal rate and regular rhythm. Heart sounds: Normal heart sounds. No murmur heard. Pulmonary: Effort: Pulmonary effort is normal. Breath sounds: Normal breath sounds. Musculoskeletal: Right lower le+ Edema present. Left lower le+ Edema present. Lymphadenopathy: Cervical: No cervical adenopathy. Skin: General: Skin is warm and dry. Capillary Refill: Capillary refill takes less than 2 seconds. Neurological: Mental Status: He is alert. Assessment/Plan Assessment & Plan Type 2 diabetes mellitus without complication, without long-term current use of insulin Follows w/ [facility] (last office note from plan coordinator reviewed today) He has been trying to cut back on simple CHO foods Aic 9.0%, wt unchged. Not interested in starting insulin or GLP therapy to help manage his Diabetes Scheduled to see retina specialists next week; some blurriness in left eye. Saw eye doctor in the last year Orders: Follow Up In Primary Care - Established Dyslipidemia Repatha injection every 2 weeks; follows w/ cardiology Zetia caused fatigue Intolerant to statins (cough) Coronary CA Score CT: 200 Close recent lipid panel shows total cholesterol 102, triglycerides 169, HDL 42, LDL 32. Alkaline phosphatase 96, AST 16, ALT 14. Orders: Follow Up In Primary Care - Established; Future Primary hypertension Home BP readings: 138/80 + exertional SOB, some fatigue in evenings Most recent blood tests show creatinine 1.18, BUN 29, GFR 68, potassium 4.8, sodium 138. Orders: Follow Up In Primary Care - Established; Future Chronic gout without tophus, unspecified cause, unspecified site Most recent uric acid level 6.8 Continue allopurinol No recent gout flare Patient was identified as a fall risk. Risk prevention instructions provided. documented in this encounter [facility] Work Phone: 10-25-2024 Instructions KALEB Talbot - 10/25/2024 8:00 AM EDT Office visit in 6 MO Respectfully declines Tetanus vaccine today Ways to Help Prevent Falls at Home Quick Tips ? Ask for help if you need it. Most people want to help! ? Get up slowly after sitting or laying down ? Wear a medical alert device or keep cell phone in your pocket ? Use night lights, especially areas near a bathroom ? Keep the items you use often within reach on a small stool or end table ? Use an assistive device such as walker or cane, as directed by provider/physical therapy ? Use a non-slip mat and grab bars in your bathroom. Look for home health sections for best options Other Areas to Focus On ? Exercise and nutrition: Regular exercise or taking a falls prevention class are great ways improve strength and balance. Don t forget to stay hydrated and bring a snack! ? Medicine side effects: Some medicines can make you sleepy or dizzy, which could cause a fall. Ask your healthcare provider about the side effects your medicines could cause. Be sure to let them know if you take any vitamins or supplements as well. ? Tripping hazards: Remove items you could trip on, such as loose mats, rugs, cords, and clutter. Wear closed toe shoes with rubber soles. ? Health and wellness: Get regular checkups with your healthcare provider, plus routine vision and hearing screenings. Talk with your healthcare provider about: o Your medicines and the possible side effects - bring them in a bag if that is easier! o Problems with balance or feeling dizzy o Ways to promote bone health, such as Vitamin D and calcium supplements o Questions or concerns about falling *Ask your healthcare team if you have questions [facility], 2021 documented in this encounter [facility] Work Phone: 10-25-2024 Miscellaneous Notes Associated Problem(s): Type 2 diabetes mellitus with hyperglycemia, without long-term current use of insulin Follows / [facility] (last office note from plan coordinator reviewed today) He has been trying to cut back on simple CHO foods Aic 9.0%, wt unchged. Not interested in starting insulin or GLP therapy to help manage his Diabetes Scheduled to see retina specialists next week; some blurriness in left eye. Saw eye doctor in the last year Orders: Follow Up In Primary Care - Established Associated Problem(s): Dyslipidemia Repatha injection every 2 weeks; follows w/ cardiology Zetia caused fatigue Intolerant to statins (cough) Coronary CA Score CT: 200 Close recent lipid panel shows total cholesterol 102, triglycerides 169, HDL 42, LDL 32. Alkaline phosphatase 96, AST 16, ALT 14. Orders: Follow Up In Primary Care - Established; Future Associated Problem(s): Hypertension Home BP readings: 138/80 + exertional SOB, some fatigue in evenings Most recent blood tests show creatinine 1.18, BUN 29, GFR 68, potassium 4.8, sodium 138. Orders: Follow Up In Primary Care - Established; Future Associated Problem(s): Gout Most recent uric acid level 6.8 Continue allopurinol No recent gout flare documented in this encounter [facility] Work Phone: 10-13-2024 History of Present illness Narrative Chief Complaint Patient presents with Follow-up 6 Mon F/U. EKG done in the office. HPI: I was requested by Dr. Wall to evaluate this patient in consultation for cardiac assessment. Mr. Mary Leblanc is a 69 y.o. year old non-smoker obese diabetic male patient with past medical history significant for hypertension, diabetes, hyperlipidemia (intolerance to Statins), morbid obesity, MANJIT on CPAP, osteoarthritis, coming for assessment of hyperlipidemia. Patient is currently asymptomatic. He denies chest pain, shortness of breath, palpitations, leg edema, lightheadedness, headaches, fever, chills, orthopnea, paroxysmal nocturnal dyspnea or syncope. He endorses that he has high bad cholesterol and low good cholesterol, but he is intolerant to statins (cough). He is willing to take Repatha. 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 Stress test (2019) negative for ischemia Prior US carotids showing mild atherosclerotic disease Previously, he felt tired with Ezetimibe and stopped it after 3 days. He has been taking Repatha. Following up lipid panel with PCP team. Patient returns today stating that is asymptomatic from the cardiovascular standpoint and feeling fine. Has been compliant to the medication. Denies chest pain, shortness of breath, palpitations, leg edema, lightheadedness, headaches, fever, chills, orthopnea, paroxysmal nocturnal dyspnea or syncope. Past Medical History Medical History[1] Past Surgical History Surgical History[2] Past Family History Family History[3] Allergy History Allergies[4] Past Social History Social History[5] Tobacco Use History[6] Review of Systems: A total of 12 systems have been reviewed and are negative except for the aforementioned findings described in HPI. Objective Data: Last Recorded Vitals: Vitals: 10/13/24 0955 BP: 150/88 BP Location: Left arm Patient Position: Sitting Pulse: 56 SpO2: 98% Weight: (!) 189 kg (417 lb 3.2 oz) Height: 1.854 m (6' 1") Last Labs: CBC - No results in last year. _ _ _ _ CMP - No results in last year. _ _ _ --- _ _ _ _ _ PTT - No results in last year. _ _ _ BNP Date/Time Value Ref Range Status 03/17/2021 02:53 PM 35 0 - 99 pg/mL Final Comment: . <100 pg/mL - Heart failure unlikely 100-299 pg/mL - Intermediate probability of acute heart . failure exacerbation. Correlate with clinical . context and patient history. >=300 pg/mL - Heart Failure likely. Correlate with clinical . context and patient history. BNP testing is performed using different testing methodology at [facility] than at other [facility]. Direct result comparisons should only be made within the same method. HGBA1C Date/Time Value Ref Range Status 04/25/2024 12:00 AM 8.8 % Final 09/28/2023 12:00 AM 7.9 % Final Comment: [facility] 11/10/2022 12:00 AM 7.8 % Final Comment: [facility] Patient Medications: Encounter Medications[7] Physical Exam: General: alert, oriented and in no acute distress. Morbid obesity HEENT: NC/AT; EOMI; PERRLA, external ear is normal Neck: supple; trachea midline; no masses; no JVD Chest: clear breath sounds bilaterally; no wheezing Cardio: regular rhythm, S1S2 normal, no murmurs Abdomen: Hard to address due to obesity Extremities: Chronic edema LE Neuro: Grossly intact Psychiatric: Normal mood and affect Past Cardiology Results (Last 3 Years): EKG: ECG 12 lead (Clinic Performed) 10/13/2024 ECG 12 lead (Clinic Performed) 07/06/2023 Echo: Echo Results: No results found for this or any previous visit from the past 365 days. Cath: No results found for this or any previous visit from the past 1095 days. CV NCDR CATHPCI V5 COLLECTION FORM Stress Test: No results found for this or any previous visit from the past 1095 days. Cardiac Imaging: No results found for this or any previous visit from the past 1095 days. Assessment/Plan Mr. Mary Leblanc is a 69 y.o. year old non-smoker obese diabetic male patient with past medical history significant for hypertension, diabetes, hyperlipidemia (intolerance to Statins), morbid obesity, MANJIT on CPAP, osteoarthritis, coming for assessment of hyperlipidemia. Patient is currently asymptomatic. He denies chest pain, shortness of breath, palpitations, leg edema, lightheadedness, headaches, fever, chills, orthopnea, paroxysmal nocturnal dyspnea or syncope. He endorses that he has high bad cholesterol and low good cholesterol, but he is intolerant to statins (cough). He is willing to take Repatha. Assessment # Hyperlipidemia - CT calcium scoring is 200. - Most recent labs Benita tot 199, LDL 118, HDL 35, Tri 264 - Patient intolerant to statins (cough) and many other medications. - Counseled on healthy diet and regular exercise. - Keep ASA 81mg daily, Losartan 100mg daily, hydrochlorothiazide 25mg daily - Patient is feeling fine. He felt tired with Ezetimibe and stopped it after 3 days. He also has not started taking Repatha due to lack of instructions on how to administer the shots. - Has stopped Ezetimibe 10mg daily - Keep Repatha 140mg q2w - our pharmacist will teach him how to use it. - Should get new lipid panel in 2 weeks - PCP assessment. - Follow up in 6 months. 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 - Stress test (2019) negative for ischemia - The echocardiogram showed normal LVEF 60% with no wall motion abnormalities. - Prior US carotids showing mild atherosclerotic disease - Will have a new USG carotids - CT calcium scoring is 200. # Hypertension - Controlled blood pressure. - Keep current medications with Losartan 100mg daily, Propranolol 60mg daily. - Patient counseled to keep a healthy lifestyle including regular exercise and low-sodium diet. - Recommended home blood pressure monitoring. - Goal of BP < 130/80mmHg. # Diabetes - Controlled by PCP. - Counseled on healthy diet and regular exercises. - Discussed need for weight loss and the benefits. - Keep current medications with Metformin, Pioglitazone. We have discussed the most common side effects of the prescribed medications, indications, drug interactions, risks, complications, and alternatives of medications/therapeutics were explained and discussed. The patient has been requested to monitor closely for any untoward side effects or complications of medications. The patient has been strongly advised to be compliant with the recommendations, all the questions and concerns have been addressed. The patient has been also instructed to call, to return sooner or to go to the emergency department if symptoms persist or get worsen. The patient voiced understanding and denies any further questions at this time. This note was transcribed using the [employer] Dictation system. There may be grammatical, punctuation, or verbiage errors that occur with voice recognition programs. Counseling greater than 50% of visit regarding all cardiac issues. Thank you, Dr. Wall, for allowing me to participate in the care of this patient. Please do not hesitate to contact me with any further questions or concerns. Rosendo Kingston MD Cardiology [1] Past Medical History: Diagnosis Date Arrhythmia BPH (benign prostatic hyperplasia) Cough in adult 07/20/2022 Dizziness 07/20/2022 Gout Hyperlipidemia Hypertension Pneumonia 07/20/2022 Sleep apnea [2] Past Surgical History: Procedure Laterality Date COLONOSCOPY 04/10/2024 3 year OTHER SURGICAL HISTORY 04/04/2019 Knee replacement OTHER SURGICAL HISTORY 04/04/2019 Cholecystectomy OTHER SURGICAL HISTORY 01/16/2021 Colonoscopy [3] Family History Problem Relation Name Age of Onset Cancer Mother Diabetes type II Mother Hypertension Mother Other (cva) Father Dementia Father Diabetes type II Father Hypertension Father Hypothyroidism Father Throat cancer Father Colon cancer Father Other (cva) Sister Dementia Sister Diabetes type II Sister Hypertension Sister Hypothyroidism Sister Throat cancer Sister Colon cancer Sister Other (cva) Brother Dementia Brother Diabetes type II Brother Hypertension Brother Throat cancer Brother Colon cancer Brother [4] Allergies Allergen Reactions Penicillins Unknown and Anaphylaxis pain in joints Aspartame Unknown Empagliflozin Diarrhea Guaifenesin Unknown Hydrocodone-Acetaminophen Unknown and GI Upset Levofloxacin Unknown Lisinopril Dizziness and Other cough Other reaction(s): C/O - cough Prednisone Unknown Propoxyphene N-Acetaminophen Nausea Only Robitussin Cough Calmers Unknown Spironolactone Unknown Oxycodone-Acetaminophen Anxiety Simvastatin Anxiety [5] Social History Socioeconomic History Marital status: Spouse name: Alexandra Tobacco Use Smoking status: Never Passive exposure: Never Smokeless tobacco: Never Vaping Use Vaping status: Never Used Substance and Sexual Activity Alcohol use: Not Currently Drug use: Never Sexual activity: Defer [6] Social History Tobacco Use Smoking Status Never Passive exposure: Never Smokeless Tobacco Never [7] Outpatient Encounter Medications as of 10/13/2024 Medication Sig Dispense Refill albuterol 90 mcg/actuation inhaler Inhale 2 puffs every 4 hours if needed. allopurinol (Zyloprim) 100 mg tablet Take 1 tablet (100 mg) by mouth 3 times a day. 270 tablet 3 aspirin 81 mg EC tablet Take 1 tablet (81 mg) by mouth once daily. blood sugar diagnostic (Blood Glucose Test) strip USE DIRECTED TO TEST GLUCOSE 1-2 TIMES DAILY 70 each 11 evolocumab (Repatha SureClick) 140 mg/mL injection Inject 1 mL (140 mg) under the skin every 14 (fourteen) days. 2 mL 11 glyBURIDE (Diabeta) 5 mg tablet Take 2 tablets (10 mg) by mouth 2 times a day. 360 tablet 3 hydroCHLOROthiazide (HYDRODiuril) 25 mg tablet Take 1 tablet (25 mg) by mouth once daily. 90 tablet 3 hydrOXYzine HCL (Atarax) 25 mg tablet Take 1 tablet (25 mg) by mouth once daily. 30 tablet 11 lancets 30 gauge misc USE DIRECTED TO TEST GLUCOSE 1-2 TIMES DAILY 100 each 3 losartan (Cozaar) 100 mg tablet Take 1 tablet (100 mg) by mouth once daily. 90 tablet 3 metFORMIN (Glucophage) 1,000 mg tablet Take 1 tablet (1,000 mg) by mouth 2 times a day. 180 tablet 3 NON FORMULARY Take 1 each by mouth 2 times a day. Ivana-pro for neuropathy pioglitazone (Actos) 30 mg tablet Take 1 tablet (30 mg) by mouth once daily. 90 tablet 3 potassium chloride CR (Klor-Con) 10 mEq ER tablet Take 1 tablet (10 mEq) by mouth once daily. Do not crush, chew, or split. 30 tablet 11 propranolol (Inderal) 60 mg tablet Take 1 tablet (60 mg) by mouth 3 times a day. (Patient taking differently: Take 1 tablet (60 mg) by mouth once daily.) 270 tablet 3 testosterone (Axiron) 30 mg/actuation (1.5 mL) topical solution Place 3 Pump on the skin once daily in the morning. 180 mL 1 trospium (Sanctura) 20 mg tablet Take 1 tablet by mouth twice daily 60 tablet 0 propranolol (Inderal) 20 mg tablet Take 1 tablet (20 mg) by mouth once daily at bedtime. (Patient not taking: Reported on 10/13/2024) 90 tablet 3 VITAMIN B COMPLEX ORAL Take 1 tablet by mouth once daily. No facility-administered encounter medications on file as of 10/13/2024. documented in this encounter [facility] Work Phone: 10-13-2024 Note Patient ID: Mary Leblanc is a 69 y.o. male 1955 Subjective: Mary Leblanc presents for follow-up of Type 2 diabetes Patient has had diabetes for 25 years. Diagnosed in 1999 Patient has never taken Insulin. Currently on pioglitazone, glyburide and metformin. Took Jardiance, developed frequency of urination with overactive bladder. Reports no new issues. Weight stable. last A1c has remained the same at 8.8%. 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 Outpatient Medications Marked as Taking for the 10/13/24 encounter (Office Visit) with Hernandez Almanza CNP: albuterol (VENTOLIN HFA) 90 mcg/actuation inhaler, 1-2 inhalations every 4-6 hours as needed for wheezing. Dispense spacer as needed. allopurinol (ZYLOPRIM) 100 MG tablet, TAKE ONE TABLET BY MOUTH TWICE A DAY (Patient taking differently: Take 1 (one) tablet (100 mg total) by mouth 2 (two) times a day .) aspirin 81 MG EC tablet, Take 1 (one) tablet (81 mg total) by mouth daily . b complex vitamins tablet, Take 1 (one) tablet by mouth daily . blood sugar diagnostic (glucose blood) strips, USE DIRECTED TO TEST GLUCOSE 1-2 TIMES DAILY fexofenadine (BRAYDEN) 60 MG tablet, Take 1 (one) tablet (60 mg total) by mouth 2 (two) times a day . glyBURIDE (DIABETA) 5 MG tablet, Take 2 (two) tablets (10 mg total) by mouth 2 (two) times a day with meals . hydroCHLOROthiazide (HYDRODIURIL) 25 MG tablet, Take 1 (one) tablet (25 mg total) by mouth daily . hydrOXYzine (ATARAX) 25 MG tablet, Take 1 (one) tablet (25 mg total) by mouth daily . losartan (COZAAR) 100 MG tablet, meclizine (ANTIVERT) 25 mg tablet, Take 1 (one) tablet (25 mg total) by mouth Three times daily as needed . metFORMIN (GLUCOPHAGE) 1000 MG tablet, 1,000 mg = 1 tab(s), Oral, BID, # 180 tab(s), Refills(s) 3, Pharmacy: [facility]/pharmacy #[id number] metFORMIN (GLUCOPHAGE) 1000 MG tablet, Tablet Oral metoprolol tartrate (LOPRESSOR) 25 MG tablet, Take 1 (one) tablet (25 mg total) by mouth daily . OneTouch Delica Plus Lancet 30 gauge Misc, pioglitazone (ACTOS) 15 MG tablet, Take 1 (one) tablet (15 mg total) by mouth daily . potassium chloride 10 MEQ CR tablet, Take 1 (one) tablet (10 mEq total) by mouth daily . propranoloL (INDERAL) 60 MG tablet, Repatha SureClick 140 mg/mL Pen, Inject 1 mL (140 mg total) under the skin every 14 (fourteen) days . sildenafil, antihypertens, (REVATIO) 20 mg tablet, Take 5 (five) tablets (100 mg total) by mouth daily . testosterone 30 mg/actuation (1.5 mL) SlPm, Pt states this is a 3 pump not 2. . Review of Systems: Review of Systems Constitutional: Negative for fatigue and unexpected weight change. HENT: Negative for trouble swallowing. Eyes: Negative for visual disturbance. Respiratory: Positive for shortness of breath (with exertion, feels secondary to a hiatal hernia.). Negative for cough. Cardiovascular: Positive for leg swelling (feet). Negative for chest pain. Gastrointestinal: Negative for abdominal pain, constipation, diarrhea, nausea and vomiting. Endocrine: Negative for polydipsia, polyphagia and polyuria. Genitourinary: Negative for frequency and urgency. Skin: Negative for wound. Neurological: Positive for weakness and numbness (in legs and feet.). Negative for headaches. Psychiatric/Behavioral: Negative for agitation and sleep disturbance. The patient is not nervous/anxious. The following portions of the patient's history were reviewed and updated as appropriate: allergies, current medications, past family history, past medical history, past social history, past surgical history and problem list. Objective: BP (!) 159/92 Pulse 75 Wt (!) 189.8 kg (418 lb 6.4 oz) BMI 55.20 kg/m Wt Readings from Last 3 Encounters: 10/13/24 (!) 189.8 kg (418 lb 6.4 oz) 06/16/24 (!) 187.5 kg (413 lb 4.8 oz) 12/13/23 (!) 187.3 kg (413 lb) Physical Exam: Physical Exam General: alert, appears stated age and cooperative Eyes: conjunctivae/corneas clear. PERRL, EOM's intact. Neck: no adenopathy, supple, symmetrical, trachea midline. Thyroid: No thyromegaly appreciated Lung: clear to auscultation bilaterally Heart: regular rate and rhythm, S1, S2 normal, no murmur, click, rub or gallop Extremities: extremities normal, atraumatic, no cyanosis or edema Feet: Dry skin, Patient Refused. Monofilament exam not assessed, bilateral lower extremities. Neuro: normal without focal findings, mental status, speech normal, alert and oriented x3 and VIKKI Laboratory Review: BP (!) 159/92 Pulse 75 Wt (!) 189.8 kg (418 lb 6.4 oz) BMI 55.20 kg/m Date: 10/13/24 *labs reviewed 10/13/24 Hgb A1c: 8.8% 04/25/24 Hgb A1c: 8.8% Creat: 1.14; eGFR: 71 AST: 20; ALT: 17 K: 4.6 CBC: WBC:7.2; Hgb: 15.0; Hct: 46.7; Plt: 186 Tchol: 110; Tri ; HDL: 35 ; LDL: 46 Total Testosterone: 417 PSA: 0.2 09/28/23 Hgb A1c: 7.9% Creat: 1.22; eGFR: 65 AST: 16; ALT: 17 K: 4.8 CBC: WBC:7. (more content not included)... [facility] 10-13-2024 History of Present illness Narrative Images from the original note were not included. Patient ID: Mary Leblanc is a 69 y.o. male 1955 Subjective: Mary Leblanc presents for follow-up of Type 2 diabetes Patient has had diabetes for 25 years. Diagnosed in 1999 Patient has never taken Insulin. Currently on pioglitazone, glyburide and metformin. Took Jardiance, developed frequency of urination with overactive bladder. Reports no new issues. Weight stable. last A1c has remained the same at 8.8%. 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 Outpatient Medications Marked as Taking for the 10/13/24 encounter (Office Visit) with Hernandez Almanza CNP: albuterol (VENTOLIN HFA) 90 mcg/actuation inhaler, 1-2 inhalations every 4-6 hours as needed for wheezing. Dispense spacer as needed. allopurinol (ZYLOPRIM) 100 MG tablet, TAKE ONE TABLET BY MOUTH TWICE A DAY (Patient taking differently: Take 1 (one) tablet (100 mg total) by mouth 2 (two) times a day .) aspirin 81 MG EC tablet, Take 1 (one) tablet (81 mg total) by mouth daily . b complex vitamins tablet, Take 1 (one) tablet by mouth daily . blood sugar diagnostic (glucose blood) strips, USE DIRECTED TO TEST GLUCOSE 1-2 TIMES DAILY fexofenadine (BRAYDEN) 60 MG tablet, Take 1 (one) tablet (60 mg total) by mouth 2 (two) times a day . glyBURIDE (DIABETA) 5 MG tablet, Take 2 (two) tablets (10 mg total) by mouth 2 (two) times a day with meals . hydroCHLOROthiazide (HYDRODIURIL) 25 MG tablet, Take 1 (one) tablet (25 mg total) by mouth daily . hydrOXYzine (ATARAX) 25 MG tablet, Take 1 (one) tablet (25 mg total) by mouth daily . losartan (COZAAR) 100 MG tablet, meclizine (ANTIVERT) 25 mg tablet, Take 1 (one) tablet (25 mg total) by mouth Three times daily as needed . metFORMIN (GLUCOPHAGE) 1000 MG tablet, 1,000 mg = 1 tab(s), Oral, BID, # 180 tab(s), Refills(s) 3, Pharmacy: [facility]/pharmacy #[id number] metFORMIN (GLUCOPHAGE) 1000 MG tablet, Tablet Oral metoprolol tartrate (LOPRESSOR) 25 MG tablet, Take 1 (one) tablet (25 mg total) by mouth daily . OneTouch Delica Plus Lancet 30 gauge Misc, pioglitazone (ACTOS) 15 MG tablet, Take 1 (one) tablet (15 mg total) by mouth daily . potassium chloride 10 MEQ CR tablet, Take 1 (one) tablet (10 mEq total) by mouth daily . propranoloL (INDERAL) 60 MG tablet, Repatha SureClick 140 mg/mL Pen, Inject 1 mL (140 mg total) under the skin every 14 (fourteen) days . sildenafil, antihypertens, (REVATIO) 20 mg tablet, Take 5 (five) tablets (100 mg total) by mouth daily . testosterone 30 mg/actuation (1.5 mL) SlPm, Pt states this is a 3 pump not 2. . Review of Systems: Review of Systems Constitutional: Negative for fatigue and unexpected weight change. HENT: Negative for trouble swallowing. Eyes: Negative for visual disturbance. Respiratory: Positive for shortness of breath (with exertion, feels secondary to a hiatal hernia.). Negative for cough. Cardiovascular: Positive for leg swelling (feet). Negative for chest pain. Gastrointestinal: Negative for abdominal pain, constipation, diarrhea, nausea and vomiting. Endocrine: Negative for polydipsia, polyphagia and polyuria. Genitourinary: Negative for frequency and urgency. Skin: Negative for wound. Neurological: Positive for weakness and numbness (in legs and feet.). Negative for headaches. Psychiatric/Behavioral: Negative for agitation and sleep disturbance. The patient is not nervous/anxious. The following portions of the patient's history were reviewed and updated as appropriate: allergies, current medications, past family history, past medical history, past social history, past surgical history and problem list. Objective: BP (!) 159/92 Pulse 75 Wt (!) 189.8 kg (418 lb 6.4 oz) BMI 55.20 kg/m Wt Readings from Last 3 Encounters: 10/13/24 (!) 189.8 kg (418 lb 6.4 oz) 06/16/24 (!) 187.5 kg (413 lb 4.8 oz) 12/13/23 (!) 187.3 kg (413 lb) Physical Exam: Physical Exam General: alert, appears stated age and cooperative Eyes: conjunctivae/corneas clear. PERRL, EOM's intact. Neck: no adenopathy, supple, symmetrical, trachea midline. Thyroid: No thyromegaly appreciated Lung: clear to auscultation bilaterally Heart: regular rate and rhythm, S1, S2 normal, no murmur, click, rub or gallop Extremities: extremities normal, atraumatic, no cyanosis or edema Feet: Dry skin, Patient Refused. Monofilament exam not assessed, bilateral lower extremities. Neuro: normal without focal findings, mental status, speech normal, alert and oriented x3 and VIKKI Laboratory Review: BP (!) 159/92 Pulse 75 Wt (!) 189.8 kg (418 lb 6.4 oz) BMI 55.20 kg/m Date: 10/13/24 *labs reviewed 10/13/24 Hgb A1c: 8.8% 04/25/24 Hgb A1c: 8.8% Creat: 1.14; eGFR: 71 AST: 20; ALT: 17 K: 4.6 CBC: WBC:7.2; Hgb: 15.0; Hct: 46.7; Plt: 186 Tchol: 110; Tri ; HDL: 35 ; LDL: 46 Total Testosterone: 417 PSA: 0.2 09/28/23 Hgb A1c: 7.9% Creat: 1.22; eGFR: 65 AST: 16; ALT: 17 K: 4.8 CBC: WBC:7.50; Hgb: 14.7; Hct: 46.1; Plt: 252 Tchol: 190; Tri ; HDL: 35 ; LDL: 118 TSH: 2.320 ; FreeT4: 1.19 Microalbumin/creatinine Ratio: 581 06/21/23 Hgb A1c: 8.6% Creat: 1.19; eGFR: 68 AST: 17; ALT: 14 K: 5.2 CBC: WBC: 6.8; Hgb: 15.4; Hct: 46.6; Plt: 180. Tchol: 199; Tri ; HDL: 35 ; LDL: 118 Assessment/Plan: Dx: 1. Type 2 diabetes mellitus without complication, without long-term current use of insulin (HCC) POC Hemoglobin A1C Type 2 diabetes, under fair control Currently taking: Metformin 1000 mg twice daily Glyburide 10 mg twice daily Actos 30 mg once daily Current Hemoglobin A1C= Lab Results Component Value Date HGBA1C 8.8 (A) 10/13/2024 HGBA1C 8.8 (H) 04/25/2024 HGBA1C 8.8 04/25/2024 Weight trend: is stable Current diet: avoiding concentrated sugars Current exercise: none Current monitoring regimen: home blood tests - daily Home blood sugar records: Fasting B Any episodes of hypoglycemia? no NOTES: PLAN: See below Retinopathy: Negative Exam within last 12 months: yes September 2024. Will be seeing retina specialist October 2024. 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 Nephropathy: Negative Creat: 1.14; eGFR: 68 04/25/24. Lab Results Component Value Date CREATININE 1.14 04/25/2024 CREATININE 1.14 04/25/2024 EXTEGFR 71 04/25/2024 EXTEGFR 71 04/25/2024 Microlbumin/creat ratio: No results found for: "EXTMICROALBC" Possible Kidney Stones in the past. Is patient on ZULLY inhibitor or angiotensin II receptor roya? yes Losartan Peripheral Neuropathy: Positive Reports bilateral numbness and tingling in feet, Reports improvement with medications OTC supplement (VitaPro). 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 Autonomic Neuropathy: Negative Hypoglycemia unawareness. Senses low BG at <120 mg/dl. Other: Hyperlipidemia: Positive Currently taking: Unable to tolerate statins. LFT's WNL. Statins led to Leg pain. Muscle pain. On Repatha, reports a runny nose when taking. Lab Results Component Value Date AST 20 04/25/2024 AST 20 04/25/2024 ALT 17 04/25/2024 ALT 17 04/25/2024 Lab Results Component Value Date EXTCHOL 110 04/25/2024 EXTCHOL 110 04/25/2024 EXTTRIG 177 (H) 04/25/2024 EXTTRIG 177 04/25/2024 EXTHDL 35 (L) 04/25/2024 EXTHDL 35 04/25/2024 EXTLDLCALC 46 04/25/2024 EXTLDLCALC 46 04/25/2024 Hypertension: Positive. Currently taking: hydrochlorothiazide (HCTZ) and losartan (Cozaar) BP: (!) 159/92 Cardiac: Negative Experiencing chest pain No . Experiencing shortness of breath No History of No history of CAD Vascular: Negative History of None Feet: Last foot exam: 10/13/24 Follows with Podiatry: Yes Recreation Aide: History of foot ulceration: No History of amputation: No Thyroid: Lab Results Component Value Date TSH 2.320 09/28/2023 Negative Other: No history of MTC or pancreatitis. On testosterone therapy through Dr. Muniz. Plan: 1. Rx changes: Continue current regimen Metformin 1000 mg twice daily Glyburide 10 mg twice daily Actos 15 mg once daily Continue dietary modifications, discussed strategies to limit carbs. Discussed options including insulin vs. ozempic/mounjaro since there has been no improvement in A1c. Reports he's had two nieces take the class of medications and had negative side effects, he would not like to start. 2. Education: Reviewed ABCs of diabetes management (respective goals in parentheses): A1C (7.0-8.0), blood pressure (<130/80), and cholesterol (LDL <100). 3. Compliance at present is estimated to be fair. Efforts to improve compliance (if necessary) will be directed at increased exercise. Also, will be directed at dietary modifications: Limit starches, carbohydrates and concentrated sugar sources 4. Follow up: 6 months 5. Record blood sugar readings as instructed. Call if BG consistently <70 or >250. [phone] Patient has been checking blood glucoses 1 times daily for the past 90 days. Patient needs to continue checking blood glucoses 1 times daily. Blood glucose readings are used to adjust medication or insulin doses for meals, monitor dietary compliance, and adjust for high or low blood glucoses by patient on a daily basis. Blood glucose readings are reviewed at office visits for adjustment in medication regimen and assistance with dietary management, and other self-management issues including exercise, etc. Prognosis: Good. Duration of need for diabetes testing equipment: Permanent #100 strips/month prescribed. 6. Bring blood sugar meter to follow up appointment. Orders Placed This Encounter Procedures Comprehensive Metabolic Panel T4, Free TSH POC Hemoglobin A1C Electronically Signed by: Hernandez Almanza CNP documented in this encounter [facility] 09-18-2024 History of Present illness Narrative Subjective Patient ID: Mary Leblanc is a 69 y.o. male. Virtual or Telephone Consent An interactive audio and video telecommunication system which permits real time communications between the patient (at the originating site) and provider (at the distant site) was utilized to provide this telehealth service. Verbal consent was requested and obtained from Mary Leblanc on this date, 09/18/24 for a telehealth visit and the patient's location was confirmed at the time of the visit. HPI Patient has chronic Hx of Hypogonadism. Patient is currently using axiron 3 pumps daily.. Most recent Labs were done on 10/08. T level was 249. He feels better but has some fatigue especially at night. H/H WNL, and PSA was 0.2. Prior Labs were done on 10/07. T level was 629, H/H WNL, and PSA was 0.2. Prior Labs were done on 05/08. T Level was 588, Hematocrit was 48.0, Hgb was 15.6, and PSA was 0.4. Prior Labs were done on 11/06. T level was 1117, Hct was 46.9, Hgb was 15.8, and PSA was 0.2. Chronic LUT'S sx are mild and stable. Denies urgency and frequency. Denies dysuria. Denies hematuria. Nocturia x1. He is taking Trospium. Has failed Gemtesa due to cost. Hx of kidney stones..No recent sx.. . KUB from 11/01 showed no stones. ED is chronic. Sildenafil PRN gives too many side effects. . Review of Systems Constitutional: Negative for chills and fever. HENT: Negative. Eyes: Negative. Respiratory: Negative for cough and shortness of breath. Cardiovascular: Negative for chest pain and leg swelling. Gastrointestinal: Negative for nausea. Endocrine: Negative. Genitourinary: Negative for difficulty urinating. Negative except for documented in HPI Allergic/Immunologic: Negative. Neurological: Alert & oriented X 3 Hematological: Denies blood thinners Psychiatric/Behavioral: Negative. Objective Physical Exam No PE done given the virtual nature of visit. Assessment/Plan Diagnoses and all orders for this visit: Benign prostatic hyperplasia with lower urinary tract symptoms, symptom details unspecified Hypogonadism in male Nocturia Male erectile disorder All available PSA values reviewed, Options discussed. Questions answered. Diet changes for prostate health discussed and educational information given. Pros/Cons of prostate health supplements discussed. Treatment options for LUTS reviewed Discussed timed voiding. Discussed fluid and caffeine intake Treatment options for ED reviewed-Discontinue Sildenafil Lifestyle change to help prevent UTIs discussed. Encouraged fluid intake. UA reviewed pros/cons of Testosterone replacement reviewed. Replacement options discussed. Questions answered. Available levels reviewed. Axiron Rx given Past CT reviewed F/U 6 months with labs documented in this encounter [facility] Work Phone: 06-28-2024 History of Present illness Narrative Steffanie Leblanc is a right handed 68 y.o. year old male who presents with Tremors. 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 Here for 1 year fu. Feels the tremors have worsened a little. Used to be only on the right but also noticing in the left thumb. This is concerning to him because he is L handed. Concerned it will affect his hobby shooting. Also difficulty eating soup. No tremor at rest. Reports the weakness in his legs have gotten worse. Have also had worsening of numbness and tingling. Goes up to the knees. He needs to hold onto things sometimes for support. Feels leg as fatigue/pain after walking short distances. He needs to take breaks when walking to let his legs rest and then he is good to go again. Gets leg massages and it helps with symptoms. Reports he had US of leg as and what sounds like ankle index and states it was negative. This was done during events in the community. 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 Prior HX: This is a 67-year-old man with a history of childhood onset tremor mostly on both upper extremities but there was some asymmetry at the onset. It was fine high-frequency tremor consistent with enhanced physiological tremor when we saw him last time in the clinic. He said at that time that tremor is there it gets better when he uses heavy utensils or heavy equipments but it is present if he does not use one of those Occupational Therapy measures. He says that it is there which does not bother him significantly and he thinks that he could keep up with using physical therapy or occupational therapy measures. He was not interested in any pharmacotherapy at this time. Therefore we sent him home with occupational therapy and follow-up in 6 months virtually. This visit is for the same. He says that his tremor remains the same since last visit if not somewhat better. He says that his anxiety comes and goes which is his baseline and his tremor correlates with anxiety but it does not significantly affect his quality of life that warrants any kind of pharmacotherapy. Does not have any fall or any new neurological issues. Overall he remained stable and happy. Review of Systems per HPI Active Problems Problems Anxiety (300.00) (F41.9) Benign prostatic hyperplasia with lower urinary tract symptoms (600.01) (N40.1) BMI 50.0-59.9, adult (V85.43) (Z68.43) Class 3 severe obesity due to excess calories with serious comorbidity and body mass index (BMI) of 50.0 to 59.9 in adult (278.01,V85.43) (E66.01,Z68.43) Class 3 severe obesity due to excess calories with serious comorbidity and body mass index (BMI) of 50.0 to 59.9 in adult (278.01,V85.43) (E66.01,Z68.43) Coarse tremors (781.0) (G25.2) Cough in adult (786.2) (R05.9) COVID-19 (079.89) (U07.1) Diabetes (250.00) (E11.9) Dizziness (780.4) (R42) Dyslipidemia (272.4) (E78.5) Encounter for immunization (V03.89) (Z23) Exertional chest pain (786.50) (R07.9) Extreme obesity (278.00) (E66.8) Gout (274.9) (M10.9) History of kidney stones (V13.01) (Z87.442) Hypertension (401.9) (I10) Hypogonadism in male (257.2) (E29.1) Inguinal hernia (550.90) (K40.90) Male erectile disorder (607.84) (N52.9) Morbid obesity with BMI of 50.0-59.9, adult (278.01,V85.43) (E66.01,Z68.43) Nocturia (788.43) (R35.1) Numbness of feet (782.0) (R20.0) Obstructive sleep apnea syndrome (327.23) (G47.33) Osteoarthritis (715.90) (M19.90) Pneumonia (486) (J18.9) Right lower quadrant abdominal pain (789.03) (R10.31) SOB (shortness of breath) on exertion (786.05) (R06.02) Tremor (781.0) (R25.1) Urinary frequency (788.41) (R35.0) Surgical History Problems History of Cholecystectomy History of Colonoscopy History of Knee replacement BILATERAL Family History Mother Family history of Cancer of unknown origin Family history of diabetes mellitus (V18.0) (Z83.3) Family history of hypertension (V17.49) (Z82.49) Father Family history of cerebrovascular accident (CVA) (V17.1) (Z82.3) Family history of dementia (V17.2) (Z81.8) Family history of diabetes mellitus (V18.0) (Z83.3) Family history of hypertension (V17.49) (Z82.49) Family history of hypothyroidism (V18.19) (Z83.49) Family history of throat cancer (V16.0) (Z80.0) Family history of No significant medical problems Family history of Primary malignant neoplasm of colon Sister Family history of cerebrovascular accident (CVA) (V17.1) (Z82.3) Family history of dementia (V17.2) (Z81.8) Family history of diabetes mellitus (V18.0) (Z83.3) Family history of hypertension (V17.49) (Z82.49) Family history of hypothyroidism (V18.19) (Z83.49) Family history of throat cancer (V16.0) (Z80.0) Family history of Primary malignant neoplasm of colon Brother Family history of cerebrovascular accident (CVA) (V17.1) (Z82.3) Family history of dementia (V17.2) (Z81.8) Family history of diabetes mellitus (V18.0) (Z83.3) Family history of hypertension (V17.49) (Z82.49) Family history of throat cancer (V16.0) (Z80.0) Family history of Primary malignant neoplasm of colon Social History Problems Never chewed tobacco (V49.89) (Z78.9) Never smoked tobacco (V49.89) (Z78.9) No advance directives (V49.89) (Z78.9) No alcohol use Allergies Medication acetaminophen-oxycodone Allergy; Anxiety; Updated By: María Magana; 06/07/2019 11:39:22 AM Darvocet-N 100 TABS Allergy; Nausea; Updated By: María Magana; 06/07/2019 11:39:22 AM Jardiance TABS Diarrhea; Recorded By: Karina Moody; 04/24/2021 9:39:04 AM lisinopril Allergy; Updated By: María Magana; 06/07/2019 11:39:22 AM Lisinopril TABS Dizziness; Recorded By: Karina Moody; 04/24/2021 9:39:04 AM Losartan Potassium TABS Nausea; Recorded By: Karina Moody; 04/24/2021 9:39:04 AM Penicillins Allergy; Updated By: María Magana; 06/07/2019 11:39:22 AM Percocet TABS Allergy; Anxiety; Updated By: María Magana; 06/07/2019 11:39:22 AM simvastatin Allergy; Anxiety; Updated By: María Magana; 06/07/2019 11:39:22 AM Aldactone Recorded By: Karina Moody; 04/24/2021 9:39:04 AM NIGHTMARES Aspartame and Phenylalanine Allergy; Updated By: María Magana; 06/07/2019 11:39:22 AM Additional reactions - Flu-like symptoms; C/O - vomiting guaifenesin Allergy; Updated By: María Magana; 06/07/2019 11:39:22 AM Additional reactions - Mood Alteration levoFLOXacin TABS Recorded By: Karina Moody; 08/18/2021 1:15:10 PM lisinopril Allergy; Updated By: María Magana; 06/07/2019 11:39:22 AM Additional reactions - C/O - cough Nutrasweet Aspartame POWD Recorded By: María Magana; 06/07/2019 11:39:22 AM predniSONE Allergy; Updated By: María Magana; 06/07/2019 11:39:22 AM Additional reactions - Dizziness - light-headed Robitussin-AC Allergy; Updated By: María Magana; 06/07/2019 11:39:22 AM Additional reactions - Anxiety attack 10-JUN-2015 17:45:25<$> Vicodin TABS Allergy; Updated By: María Magana; 06/07/2019 11:39:22 AM Additional reactions - Nausea present Review of Systems Neurological: Positive for tremors. All other system have been reviewed and are negative for complaint. Objective Neurological Exam Physical Exam EOMI Postural and action tremor +2 in the Rt side 1 in Lt side No rest tremor No bradykinesia No rigidity Weakness of b/l hip flexion but intact strength distally Slight limp with walking (gout of R foot). Symmetrical arm swing Decreased vibration sensation at the soto R>L, no vibration sensation in b/l ankles. B/l discoloration of skin Assessment/Plan This is a 68 y.o. LH man with a history of enhanced physiological tremor since childhood. Was stable on propranolol 20 mg daily for a long time but recently progressed to involve L hand which interferes with shooting and eating. Also hx and exam findings consistent with peripheral neuropathy and complaining of worsened weakness and numbness/tingling with claudication (some weakness of b/l hip flexion). Neuropathy likely multifactorial. There is possible PAD, diabetic neuropathy, possible compression neuropathy. Plan documented in this encounter [facility] Work Phone: 06-16-2024 Note Patient ID: Mary Leblanc is a 68 y.o. male 1955 Subjective: Mary Leblanc presents for follow-up of Type 2 diabetes Patient has had diabetes for 24 years. Diagnosed in 1999 Patient has never taken Insulin. Currently on pioglitazone, glyburide and metformin. Took Jardiance, developed frequency of urination with overactive bladder. Reports no new issues. Weight stable. last A1c has increase to 8.8%. 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 Outpatient Medications Marked as Taking for the 06/16/24 encounter (Office Visit) with Hernandez Almanza CNP: albuterol (VENTOLIN HFA) 90 mcg/actuation inhaler, 1-2 inhalations every 4-6 hours as needed for wheezing. Dispense spacer as needed. allopurinol (ZYLOPRIM) 100 MG tablet, TAKE ONE TABLET BY MOUTH TWICE A DAY aspirin 81 MG EC tablet, Take 1 (one) tablet (81 mg total) by mouth daily . blood sugar diagnostic (glucose blood) strips, USE DIRECTED TO TEST GLUCOSE 1-2 TIMES DAILY fluticasone propionate (FLONASE) 50 mcg/actuation nasal spray, Instill 2 (two) sprays into each nostril daily . glyBURIDE (DIABETA) 5 MG tablet, Take 2 (two) tablets (10 mg total) by mouth 2 (two) times a day with meals . hydroCHLOROthiazide (HYDRODIURIL) 25 MG tablet, Take 1 (one) tablet (25 mg total) by mouth daily . hydrOXYzine (ATARAX) 25 MG tablet, Take 1 (one) tablet (25 mg total) by mouth daily . loratadine (CLARITIN) 10 mg tablet, Take 1 (one) tablet (10 mg total) by mouth daily . losartan (COZAAR) 100 MG tablet, meclizine (ANTIVERT) 25 mg tablet, Take 1 (one) tablet (25 mg total) by mouth Three times daily as needed . metFORMIN (GLUCOPHAGE) 1000 MG tablet, 1,000 mg = 1 tab(s), Oral, BID, # 180 tab(s), Refills(s) 3, Pharmacy: [facility]/pharmacy #[id number] metFORMIN (GLUCOPHAGE) 1000 MG tablet, Tablet Oral metoprolol tartrate (LOPRESSOR) 25 MG tablet, Take 1 (one) tablet (25 mg total) by mouth daily . OneTouch Delica Plus Lancet 30 gauge Misc, pediatric douzxnbb-oqwt-aza Chew, 1 tab(s), Oral, Daily, 30 tab(s), Refill(s) 0 pioglitazone (ACTOS) 15 MG tablet, Take 1 (one) tablet (15 mg total) by mouth daily . potassium chloride 10 MEQ CR tablet, Take 1 (one) tablet (10 mEq total) by mouth daily . propranoloL (INDERAL) 60 MG tablet, sildenafil, antihypertens, (REVATIO) 20 mg tablet, Take 5 (five) tablets (100 mg total) by mouth daily . testosterone 30 mg/actuation (1.5 mL) SlPm, Pt states this is a 3 pump not 2. . Review of Systems: Review of Systems Constitutional: Negative for fatigue and unexpected weight change. HENT: Negative for trouble swallowing. Eyes: Negative for visual disturbance. Respiratory: Positive for shortness of breath (with exertion, feels secondary to a hiatal hernia.). Negative for cough. Cardiovascular: Positive for leg swelling (feet). Negative for chest pain. Gastrointestinal: Negative for abdominal pain, constipation, diarrhea, nausea and vomiting. Endocrine: Negative for polydipsia, polyphagia and polyuria. Genitourinary: Negative for frequency and urgency. Skin: Negative for wound. Neurological: Positive for weakness and numbness (in legs and feet.). Negative for headaches. Psychiatric/Behavioral: Negative for agitation and sleep disturbance. The patient is not nervous/anxious. The following portions of the patient's history were reviewed and updated as appropriate: allergies, current medications, past family history, past medical history, past social history, past surgical history and problem list. Objective: BP (!) 172/93 Pulse 62 Wt (!) 187.5 kg (413 lb 4.8 oz) BMI 54.53 kg/m Wt Readings from Last 3 Encounters: 06/16/24 (!) 187.5 kg (413 lb 4.8 oz) 12/13/23 (!) 187.3 kg (413 lb) 07/30/23 (!) 185.5 kg (409 lb) Physical Exam: Physical Exam General: alert, appears stated age and cooperative Eyes: conjunctivae/corneas clear. PERRL, EOM's intact. Neck: no adenopathy, supple, symmetrical, trachea midline. Thyroid: No thyromegaly appreciated Lung: clear to auscultation bilaterally Heart: regular rate and rhythm, S1, S2 normal, no murmur, click, rub or gallop Extremities: extremities normal, atraumatic, no cyanosis or edema Feet: Dry skin, Patient Refused. Monofilament exam not assessed, bilateral lower extremities. Neuro: normal without focal findings, mental status, speech normal, alert and oriented x3 and VIKKI Laboratory Review: BP (!) 172/93 Pulse 62 Wt (!) 187.5 kg (413 lb 4.8 oz) BMI 54.53 kg/m Date: 04/25/24 *labs reviewed 06/16/24 Hgb A1c: 8.8% Creat: 1.14; eGFR: 71 AST: 20; ALT: 17 K: 4.6 CBC: WBC:7.2; Hgb: 15.0; Hct: 46.7; Plt: 186 Tchol: 110; Tri ; HDL: 35 ; LDL: 46 09/28/23 Hgb A1c: 7.9% Creat: 1.22; eGFR: 65 AST: 16; ALT: 17 K: 4.8 CBC: WBC:7.50; Hgb: 14.7; Hct: 46.1; Plt: 252 Tchol: 190; Tri ; HDL: 35 ; LDL: 118 TSH: 2.320 ; FreeT4: 1.19 Microalbumin/creatinine Ratio: 581 06/21/23 Hgb A1c: 8. (more content not included)... [facility] 06-16-2024 History of Present illness Narrative Images from the original note were not included. Patient ID: Mary Leblanc is a 68 y.o. male 1955 Subjective: Mary Leblanc presents for follow-up of Type 2 diabetes Patient has had diabetes for 24 years. Diagnosed in 1999 Patient has never taken Insulin. Currently on pioglitazone, glyburide and metformin. Took Jardiance, developed frequency of urination with overactive bladder. Reports no new issues. Weight stable. last A1c has increase to 8.8%. 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 Outpatient Medications Marked as Taking for the 06/16/24 encounter (Office Visit) with Hernandez Almanza CNP: albuterol (VENTOLIN HFA) 90 mcg/actuation inhaler, 1-2 inhalations every 4-6 hours as needed for wheezing. Dispense spacer as needed. allopurinol (ZYLOPRIM) 100 MG tablet, TAKE ONE TABLET BY MOUTH TWICE A DAY aspirin 81 MG EC tablet, Take 1 (one) tablet (81 mg total) by mouth daily . blood sugar diagnostic (glucose blood) strips, USE DIRECTED TO TEST GLUCOSE 1-2 TIMES DAILY fluticasone propionate (FLONASE) 50 mcg/actuation nasal spray, Instill 2 (two) sprays into each nostril daily . glyBURIDE (DIABETA) 5 MG tablet, Take 2 (two) tablets (10 mg total) by mouth 2 (two) times a day with meals . hydroCHLOROthiazide (HYDRODIURIL) 25 MG tablet, Take 1 (one) tablet (25 mg total) by mouth daily . hydrOXYzine (ATARAX) 25 MG tablet, Take 1 (one) tablet (25 mg total) by mouth daily . loratadine (CLARITIN) 10 mg tablet, Take 1 (one) tablet (10 mg total) by mouth daily . losartan (COZAAR) 100 MG tablet, meclizine (ANTIVERT) 25 mg tablet, Take 1 (one) tablet (25 mg total) by mouth Three times daily as needed . metFORMIN (GLUCOPHAGE) 1000 MG tablet, 1,000 mg = 1 tab(s), Oral, BID, # 180 tab(s), Refills(s) 3, Pharmacy: [facility]/pharmacy #[id number] metFORMIN (GLUCOPHAGE) 1000 MG tablet, Tablet Oral metoprolol tartrate (LOPRESSOR) 25 MG tablet, Take 1 (one) tablet (25 mg total) by mouth daily . OneTouch Delica Plus Lancet 30 gauge Misc, pediatric vlrayffp-ikcf-oyc Chew, 1 tab(s), Oral, Daily, 30 tab(s), Refill(s) 0 pioglitazone (ACTOS) 15 MG tablet, Take 1 (one) tablet (15 mg total) by mouth daily . potassium chloride 10 MEQ CR tablet, Take 1 (one) tablet (10 mEq total) by mouth daily . propranoloL (INDERAL) 60 MG tablet, sildenafil, antihypertens, (REVATIO) 20 mg tablet, Take 5 (five) tablets (100 mg total) by mouth daily . testosterone 30 mg/actuation (1.5 mL) SlPm, Pt states this is a 3 pump not 2. . Review of Systems: Review of Systems Constitutional: Negative for fatigue and unexpected weight change. HENT: Negative for trouble swallowing. Eyes: Negative for visual disturbance. Respiratory: Positive for shortness of breath (with exertion, feels secondary to a hiatal hernia.). Negative for cough. Cardiovascular: Positive for leg swelling (feet). Negative for chest pain. Gastrointestinal: Negative for abdominal pain, constipation, diarrhea, nausea and vomiting. Endocrine: Negative for polydipsia, polyphagia and polyuria. Genitourinary: Negative for frequency and urgency. Skin: Negative for wound. Neurological: Positive for weakness and numbness (in legs and feet.). Negative for headaches. Psychiatric/Behavioral: Negative for agitation and sleep disturbance. The patient is not nervous/anxious. The following portions of the patient's history were reviewed and updated as appropriate: allergies, current medications, past family history, past medical history, past social history, past surgical history and problem list. Objective: BP (!) 172/93 Pulse 62 Wt (!) 187.5 kg (413 lb 4.8 oz) BMI 54.53 kg/m Wt Readings from Last 3 Encounters: 06/16/24 (!) 187.5 kg (413 lb 4.8 oz) 12/13/23 (!) 187.3 kg (413 lb) 07/30/23 (!) 185.5 kg (409 lb) Physical Exam: Physical Exam General: alert, appears stated age and cooperative Eyes: conjunctivae/corneas clear. PERRL, EOM's intact. Neck: no adenopathy, supple, symmetrical, trachea midline. Thyroid: No thyromegaly appreciated Lung: clear to auscultation bilaterally Heart: regular rate and rhythm, S1, S2 normal, no murmur, click, rub or gallop Extremities: extremities normal, atraumatic, no cyanosis or edema Feet: Dry skin, Patient Refused. Monofilament exam not assessed, bilateral lower extremities. Neuro: normal without focal findings, mental status, speech normal, alert and oriented x3 and VIKKI Laboratory Review: BP (!) 172/93 Pulse 62 Wt (!) 187.5 kg (413 lb 4.8 oz) BMI 54.53 kg/m Date: 04/25/24 *labs reviewed 06/16/24 Hgb A1c: 8.8% Creat: 1.14; eGFR: 71 AST: 20; ALT: 17 K: 4.6 CBC: WBC:7.2; Hgb: 15.0; Hct: 46.7; Plt: 186 Tchol: 110; Tri ; HDL: 35 ; LDL: 46 09/28/23 Hgb A1c: 7.9% Creat: 1.22; eGFR: 65 AST: 16; ALT: 17 K: 4.8 CBC: WBC:7.50; Hgb: 14.7; Hct: 46.1; Plt: 252 Tchol: 190; Tri ; HDL: 35 ; LDL: 118 TSH: 2.320 ; FreeT4: 1.19 Microalbumin/creatinine Ratio: 581 06/21/23 Hgb A1c: 8.6% Creat: 1.19; eGFR: 68 AST: 17; ALT: 14 K: 5.2 CBC: WBC: 6.8; Hgb: 15.4; Hct: 46.6; Plt: 180. Tchol: 199; Tri ; HDL: 35 ; LDL: 118 Assessment/Plan: Dx: No diagnosis found. Type 2 diabetes, under fair control Currently taking: Metformin 1000 mg twice daily Glyburide 10 mg twice daily Actos 30 mg once daily Current Hemoglobin A1C= Lab Results Component Value Date HGBA1C 7.9 09/28/2023 Weight trend: is stable Current diet: avoiding concentrated sugars Current exercise: none Current monitoring regimen: home blood tests - daily Home blood sugar records: Fasting B Any episodes of hypoglycemia? no NOTES: PLAN: See below Retinopathy: Negative Exam within last 12 months: yes Early May 2024. 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 Lab Results Component Value Date CREATININE 1.22 09/28/2023 EXTEGFR 65 09/28/2023 Microlbumin/creat ratio: No results found for: "EXTMICROALBC" Possible Kidney Stones in the past. Is patient on ZULLY inhibitor or angiotensin II receptor roya? yes Losartan Peripheral Neuropathy: Positive Reports bilateral numbness and tingling in feet, Reports improvement with medications OTC supplement (VitaPro) . 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 Autonomic Neuropathy: Negative Hypoglycemia unawareness. Senses low BG at <120 mg/dl. Other: Hyperlipidemia: Positive Currently taking: Unable to tolerate statins. LFT's WNL. Statins led to Leg pain. Muscle pain. On Repatha, reports a runny nose when taking. Lab Results Component Value Date AST 16 09/28/2023 ALT 17 09/28/2023 Lab Results Component Value Date EXTCHOL 190 09/28/2023 EXTTRIG 209 09/28/2023 EXTHDL 35 09/28/2023 EXTLDLCALC 118 09/28/2023 Hypertension: Positive. Currently taking: hydrochlorothiazide (HCTZ) and losartan (Cozaar) BP: (!) 172/93 Cardiac: Negative Experiencing chest pain No . Experiencing shortness of breath No History of No history of CAD Vascular: Negative History of None Feet: Last foot exam: 06/16/24 Follows with Podiatry: Yes Recreation Aide: History of foot ulceration: No History of amputation: No Thyroid: Lab Results Component Value Date TSH 2.320 09/28/2023 Negative Other: No history of MTC or pancreatitis. On testosterone therapy through Dr. Muniz. Plan: 1. Rx changes: Continue current regimen Metformin 1000 mg twice daily Glyburide 10 mg twice daily Actos 30 mg once daily Continue dietary modifications. Discussed ozempic/mounjaro since there has been no improvement in A1c. Reports he's had two nieces take the class of medications and had negative side effects, he would not like to start. 2. Education: Reviewed ABCs of diabetes management (respective goals in parentheses): A1C (7.0-8.0), blood pressure (<130/80), and cholesterol (LDL <100). 3. Compliance at present is estimated to be fair. Efforts to improve compliance (if necessary) will be directed at increased exercise. Also, will be directed at dietary modifications: Limit starches, carbohydrates and concentrated sugar sources 4. Follow up: 6 months 5. Record blood sugar readings as instructed. Call if BG consistently <70 or >250. [phone] Patient has been checking blood glucoses 1 times daily for the past 90 days. Patient needs to continue checking blood glucoses 1 times daily. Blood glucose readings are used to adjust medication or insulin doses for meals, monitor dietary compliance, and adjust for high or low blood glucoses by patient on a daily basis. Blood glucose readings are reviewed at office visits for adjustment in medication regimen and assistance with dietary management, and other self-management issues including exercise, etc. Prognosis: Good. Duration of need for diabetes testing equipment: Permanent #100 strips/month prescribed. 6. Bring blood sugar meter to follow up appointment. Orders Placed This Encounter Procedures Comprehensive Metabolic Panel CBC and Differential Hemoglobin A1c Lipid Panel Microalbumin/Creatinine Ratio, UR Random TSH T4, Free Electronically Signed by: Hernandez Almanza CNP documented in this encounter [facility] 04-26-2024 Evaluation + Plan note Associated Problem(s): Diabetes (Multi) Follows with endocrinology Most recent Aic 8.8%, BUN 30, creatinine 1.14, GFR 71. 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 Creatinine 1.14, GFR 71, sodium 140, potassium 4.6, chloride 103, calcium 9.8. Orders: Follow Up In Primary Care - Established CBC and Auto Differential; Future Comprehensive Metabolic Panel; Future [facility] Work Phone: 04-26-2024 Evaluation + Plan note Associated Problem(s): Gout Uric acid level: 8.8 Recent flare in R foot due to eating turkey & pop at [facility] Increase allopurinol to 100 mg 3 times daily Recheck uric acid level in 6 months 6 MO Orders: Follow Up In Primary Care - Established Uric Acid; Future allopurinol (Zyloprim) 100 mg tablet; Take 1 tablet (100 mg) by mouth 3 times a day. [facility] Work Phone: 04-26-2024 Evaluation + Plan note Associated Problem(s): Dyslipidemia Statin intolerant; has tried several statins in the past and they cause cough Zetia caused fatigue Follows with cardiology Taking Repatha every 2 weeks, Coronary calcium score 200 Total cholesterol 110, triglycerides 177, HDL 35, LDL improved to 46 [facility] Work Phone: 04-26-2024 Evaluation + Plan note Associated Problem(s): Benign prostatic hyperplasia with lower urinary tract symptoms Follows with urology [facility] Work Phone: 04-26-2024 Evaluation + Plan note Associated Problem(s): Family history of colon cancer Colonoscopy 04/05/2024 showed diverticulosis, no biopsies. Repeat in 3 years [facility] Work Phone: 04-26-2024 History of Present illness Narrative Subjective Patient ID: Mary Leblanc is a 68 y.o. male who presents for 6 MO LABS. Mary comes to the office for 6-month office visit Labs reviewed with patient today; [facility]: WBC 7.2, H&H 15.0-46.7, platelets 186. Last B12 injection most recent level 845-we can stop vitamin B-12 injections at this time. In January he received his influenza vaccine. Developed neuropathy from COVID booster Review of Systems Constitutional: Negative for fatigue. Respiratory: Positive for cough. Negative for wheezing. Cardiovascular: Positive for leg swelling. Negative for chest pain. Gastrointestinal: Negative for abdominal pain, blood in stool, constipation and diarrhea. Musculoskeletal: Positive for arthralgias. Neurological: Positive for numbness. Negative for dizziness and headaches. Both feet Objective BP 140/90 Pulse 56 Ht 1.854 m (6' 1") Wt (!) 188 kg (414 lb 9.6 oz) SpO2 98% BMI 54.70 kg/m Physical Exam Vitals and nursing note reviewed. Constitutional: Appearance: Normal appearance. HENT: Head: Normocephalic. Neck: Thyroid: No thyromegaly or thyroid tenderness. Cardiovascular: Rate and Rhythm: Normal rate and regular rhythm. Heart sounds: Normal heart sounds. No murmur heard. Pulmonary: Effort: Pulmonary effort is normal. Breath sounds: Normal breath sounds. Musculoskeletal: Cervical back: Normal range of motion. Right lower le+ Edema present. Left lower le+ Edema present. Skin: General: Skin is warm and dry. Neurological: General: No focal deficit present. Mental Status: He is alert and oriented to person, place, and time. Psychiatric: Mood and Affect: Mood normal. Thought Content: Thought content normal. Assessment/Plan Assessment & Plan Type 2 diabetes mellitus without complication, without long-term current use of insulin (Multi) Follows with endocrinology Most recent Aic 8.8%, BUN 30, creatinine 1.14, GFR 71. 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 Creatinine 1.14, GFR 71, sodium 140, potassium 4.6, chloride 103, calcium 9.8. Orders: Follow Up In Primary Care - Established CBC and Auto Differential; Future Comprehensive Metabolic Panel; Future Chronic gout without tophus, unspecified cause, unspecified site Uric acid level: 8.8 Recent flare in R foot due to eating turkey & pop at [facility] Increase allopurinol to 100 mg 3 times daily Recheck uric acid level in 6 months 6 MO Orders: Follow Up In Primary Care - Established Uric Acid; Future allopurinol (Zyloprim) 100 mg tablet; Take 1 tablet (100 mg) by mouth 3 times a day. Dyslipidemia Statin intolerant; has tried several statins in the past and they cause cough Zetia caused fatigue Follows with cardiology Taking Repatha every 2 weeks, Coronary calcium score 200 Total cholesterol 110, triglycerides 177, HDL 35, LDL improved to 46 Benign prostatic hyperplasia with lower urinary tract symptoms, symptom details unspecified Follows with urology Family history of colon cancer Colonoscopy 04/05/2024 showed diverticulosis, no biopsies. Repeat in 3 years documented in this encounter [facility] Work Phone: 04-26-2024 Instructions KALEB Talbot - 04/26/2024 8:00 AM EST Increase allopurinol to 100 mg 3 times a day Office visit in 6 months with blood work prior documented in this encounter [facility] Work Phone: 04-26-2024 Miscellaneous Notes Associated Problem(s): Diabetes (Multi) Follows with endocrinology Most recent Aic 8.8%, BUN 30, creatinine 1.14, GFR 71. 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 Creatinine 1.14, GFR 71, sodium 140, potassium 4.6, chloride 103, calcium 9.8. Orders: Follow Up In Primary Care - Established CBC and Auto Differential; Future Comprehensive Metabolic Panel; Future Associated Problem(s): Gout Uric acid level: 8.8 Recent flare in R foot due to eating turkey & pop at [facility] Increase allopurinol to 100 mg 3 times daily Recheck uric acid level in 6 months 6 MO Orders: Follow Up In Primary Care - Established Uric Acid; Future allopurinol (Zyloprim) 100 mg tablet; Take 1 tablet (100 mg) by mouth 3 times a day. Associated Problem(s): Dyslipidemia Statin intolerant; has tried several statins in the past and they cause cough Zetia caused fatigue Follows with cardiology Taking Repatha every 2 weeks, Coronary calcium score 200 Total cholesterol 110, triglycerides 177, HDL 35, LDL improved to 46 Associated Problem(s): Benign prostatic hyperplasia with lower urinary tract symptoms Follows with urology Associated Problem(s): Family history of colon cancer Colonoscopy 04/05/2024 showed diverticulosis, no biopsies. Repeat in 3 years documented in this encounter [facility] Work Phone: 04-11-2024 History of Present illness Narrative Chief Complaint Patient presents with Follow-up 6 month HPI: I was requested by Dr. Wall to evaluate this patient in consultation for cardiac assessment. Mr. Mary Leblanc is a 68 y.o. year old non-smoker obese diabetic male patient with past medical history significant for hypertension, diabetes, hyperlipidemia (intolerance to Statins), morbid obesity, MANJIT on CPAP, osteoarthritis, coming for assessment of hyperlipidemia. Patient is currently asymptomatic. He denies chest pain, shortness of breath, palpitations, leg edema, lightheadedness, headaches, fever, chills, orthopnea, paroxysmal nocturnal dyspnea or syncope. He endorses that he has high bad cholesterol and low good cholesterol, but he is intolerant to statins (cough). He is willing to take Repatha. 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 Stress test (2018) negative for ischemia Prior US carotids showing mild atherosclerotic disease Patient is feeling fine. He felt tired with Ezetimibe and stopped it after 3 days. He has been taking Repatha. Will follow up lipid panel with PCP team. Past Medical History Past Medical History: Diagnosis Date Arrhythmia BPH (benign prostatic hyperplasia) Cough in adult 07/20/2022 Dizziness 07/20/2022 Gout Hyperlipidemia Hypertension Pneumonia 07/20/2022 Sleep apnea Past Surgical History Past Surgical History: Procedure Laterality Date OTHER SURGICAL HISTORY 04/04/2019 Knee replacement OTHER SURGICAL HISTORY 04/04/2019 Cholecystectomy OTHER SURGICAL HISTORY 01/16/2021 Colonoscopy Past Family History Family History Problem Relation Name Age of Onset Cancer Mother Diabetes type II Mother Hypertension Mother Other (cva) Father Dementia Father Diabetes type II Father Hypertension Father Hypothyroidism Father Throat cancer Father Colon cancer Father Other (cva) Sister Dementia Sister Diabetes type II Sister Hypertension Sister Hypothyroidism Sister Throat cancer Sister Colon cancer Sister Other (cva) Brother Dementia Brother Diabetes type II Brother Hypertension Brother Throat cancer Brother Colon cancer Brother Allergy History Allergies Allergen Reactions Penicillins Unknown and Anaphylaxis pain in joints Aspartame Unknown Empagliflozin Diarrhea Guaifenesin Unknown Hydrocodone-Acetaminophen Unknown and GI Upset Levofloxacin Unknown Lisinopril Dizziness and Other cough Other reaction(s): C/O - cough Prednisone Unknown Propoxyphene N-Acetaminophen Nausea Only Robitussin Cough Calmers Unknown Spironolactone Unknown Oxycodone-Acetaminophen Anxiety Simvastatin Anxiety Past Social History Social History Socioeconomic History Marital status: Tobacco Use Smoking status: Never Smokeless tobacco: Never Substance and Sexual Activity Alcohol use: Not Currently Drug use: Never Sexual activity: Defer Social History Tobacco Use Smoking Status Never Smokeless Tobacco Never Objective Data: Last Recorded Vitals: Vitals: 04/11/24 1039 BP: 164/88 Pulse: 62 SpO2: 96% Weight: (!) 189 kg (416 lb 6.4 oz) Height: 1.854 m (6' 1") Last Labs: CBC - No results in last year. _ _ _ _ CMP - No results in last year. _ _ _ --- _ _ _ _ _ PTT - No results in last year. _ _ _ BNP Date/Time Value Ref Range Status 03/17/2021 02:53 PM 35 0 - 99 pg/mL Final Comment: . <100 pg/mL - Heart failure unlikely 100-299 pg/mL - Intermediate probability of acute heart . failure exacerbation. Correlate with clinical . context and patient history. >=300 pg/mL - Heart Failure likely. Correlate with clinical . context and patient history. BNP testing is performed using different testing methodology at [facility] than at other [facility]. Direct result comparisons should only be made within the same method. HGBA1C Date/Time Value Ref Range Status 11/10/2022 12:00 AM 7.8 % Final Comment: [facility] Patient Medications: Outpatient Encounter Medications as of 04/11/2024 Medication Sig Dispense Refill allopurinol (Zyloprim) 100 mg tablet Take 1 tablet (100 mg) by mouth 2 times a day. 180 tablet 3 aspirin 81 mg EC tablet Take 1 tablet (81 mg) by mouth once daily. blood sugar diagnostic (Blood Glucose Test) strip USE DIRECTED TO TEST GLUCOSE 1-2 TIMES DAILY 70 each 11 glyBURIDE (Diabeta) 5 mg tablet Take 2 tablets (10 mg) by mouth 2 times a day. 360 tablet 3 hydroCHLOROthiazide (HYDRODiuril) 25 mg tablet Take 1 tablet (25 mg) by mouth once daily. 90 tablet 3 hydrOXYzine HCL (Atarax) 25 mg tablet Take 1 tablet (25 mg) by mouth once daily. 30 tablet 11 lancets 30 gauge misc USE DIRECTED TO TEST GLUCOSE 1-2 TIMES DAILY 100 each 3 losartan (Cozaar) 100 mg tablet Take 1 tablet (100 mg) by mouth once daily. 90 tablet 3 metFORMIN (Glucophage) 1,000 mg tablet Take 1 tablet (1,000 mg) by mouth 2 times a day. 180 tablet 3 NON FORMULARY Take 1 each by mouth 2 times a day. Ivana-pro for neuropathy pioglitazone (Actos) 30 mg tablet Take 1 tablet (30 mg) by mouth once daily. 90 tablet 3 potassium chloride CR (Klor-Con) 10 mEq ER tablet Take 1 tablet (10 mEq) by mouth once daily. Do not crush, chew, or split. 30 tablet 11 propranolol (Inderal) 60 mg tablet Take 1 tablet (60 mg) by mouth once daily. 90 tablet 3 testosterone (Axiron) 30 mg/actuation (1.5 mL) topical solution Place 3 Pump on the skin once daily. 225 mL 1 trospium (Sanctura) 20 mg tablet Take 1 tablet (20 mg) by mouth 2 times a day. 60 tablet 11 evolocumab (Repatha SureClick) 140 mg/mL injection Inject 1 mL (140 mg) under the skin every 14 (fourteen) days. Do not start before August 04, 2023. (Patient not taking: Reported on 10/05/2023) 2 mL 1 meclizine (Antivert) 25 mg tablet Take 1 tablet (25 mg) by mouth 3 times a day as needed. (Patient not taking: Reported on 04/11/2024) sildenafil (Revatio) 20 mg tablet Take 5 tablets (100 mg) by mouth once daily. TAKE 5 TABLETS DAILY PRN (Patient not taking: Reported on 04/11/2024) 30 tablet 11 sildenafil (Viagra) 100 mg tablet Take 1 tablet (100 mg) by mouth if needed for erectile dysfunction. (Patient not taking: Reported on 04/11/2024) 30 tablet 6 [DISCONTINUED] ascorbic acid (Vitamin C) 500 mg tablet 500 mg = 1 tab(s), Oral, Daily [DISCONTINUED] glyBURIDE (Diabeta) 5 mg tablet Take 2 tablets by mouth twice daily 360 tablet 0 [DISCONTINUED] trospium (Sanctura) 20 mg tablet Take 1 tablet (20 mg) by mouth 2 times a day. (Patient not taking: Reported on 04/11/2024) Facility-Administered Encounter Medications as of 04/11/2024 Medication Dose Route Frequency Provider Last Rate Last Admin [COMPLETED] famotidine PF (Pepcid) injection 20 mg 20 mg intravenous Once Fredi Jackson, DO 20 mg at 04/10/24 1154 [COMPLETED] midazolam (Versed) injection 2 mg 2 mg intravenous Once Fredi Jackson, DO 2 mg at 04/10/24 1234 [COMPLETED] ondansetron (Zofran) injection 4 mg 4 mg intravenous Once Fredi Jackson, DO 4 mg at 04/10/24 1154 [DISCONTINUED] fentaNYL PF (Sublimaze) injection intravenous PRN Fredi Jackson, DO 50 mcg at 04/10/24 1318 [DISCONTINUED] ketamine (Ketalar) injection intravenous PRN Fredi Jackson, DO 20 mg at 04/10/24 1317 [DISCONTINUED] lactated Ringer's infusion 50 mL/hr intravenous Continuous Fredi Jackson, DO 50 mL/hr at 04/10/24 1154 50 mL/hr at 04/10/24 1154 [DISCONTINUED] lidocaine PF (Xylocaine) 10 mg/mL (1 %) injection epidural PRN Fredi Jackson, DO 30 mg at 04/10/24 1315 [DISCONTINUED] midazolam (Versed) injection intravenous PRN Fredi Jackson, DO 1 mg at 04/10/24 1318 [DISCONTINUED] ondansetron (Zofran) injection 4 mg 4 mg intravenous Once PRN Fredi Jackson, DO [DISCONTINUED] oxygen (O2) therapy inhalation Continuous PRN - O2/gases Fredi Jackson, DO [DISCONTINUED] promethazine (Phenergan) 6.25 mg in sodium chloride 0.9% 50 mL IV 6.25 mg intravenous Once PRN Fredi Jackson, DO [DISCONTINUED] propofol (Diprivan) injection intravenous Continuous PRN Fredi Jackson, DO Stopped at 04/10/24 1333 Physical Exam: General: alert, oriented and in no acute distress. Morbid obesity HEENT: NC/AT; EOMI; PERRLA, external ear is normal Neck: supple; trachea midline; no masses; no JVD Chest: clear breath sounds bilaterally; no wheezing Cardio: regular rhythm, S1S2 normal, no murmurs Abdomen: Hard to address due to obesity Extremities: Chronic edema LE Neuro: Grossly intact Psychiatric: Normal mood and affect Past Cardiology Results (Last 3 Years): EKG: ECG 12 lead (Clinic Performed) 07/06/2023 Echo: Echo Results: Transthoracic Echo (TTE) Complete 09/27/2023 [place] [id number], TRANSTHORACIC ECHOCARDIOGRAM REPORT Patient Name: MARY LEBLANC Reading Physician: [id number] Bairon Camp MD Study Date: 09/27/2023 Ordering Provider: [id number] ROSENDO KINGSTON MRN/PID: [id number] Fellow: Nurse: Katherine Wu RN Date of /Age: 3 1955 / 68 years Biopsychologist: Pro Whyte RDCS Gender: M Additional Staff: Height: 182.88 cm Admit Date: Weight: 186.88 kg Admission Status: Outpatient BSA / BMI: 2.90 m2 / 55.88 Department Location: [facility] Echo Lab kg/m2 Blood Pressure: 223 /118 mmHg Study Type: TRANSTHORACIC ECHO (TTE) COMPLETE Diagnosis/ICD: Atherosclerotic heart disease of [place] coronary artery without angina pectoris-I25.10 CPT Codes: Echo Complete w Full [id number] Patient History: Pertinent History: Second BP was 204/82. patient does not feel symptomatic. Study Detail: The following Echo studies were performed: 2D, Doppler, M-Mode and color flow. Definity used as a contrast agent for endocardial border definition. Total contrast used for this procedure was 2.00cc mL via IV push. PHYSICIAN INTERPRETATION: Left Ventricle: Left ventricular systolic function is normal, with an estimated ejection fraction of 60%. There are no regional wall motion abnormalities. The left ventricular cavity size is normal. Left ventricular diastolic filling was indeterminate. Left Atrium: The left atrium was not well visualized. Right Ventricle: The right ventricle was not well visualized. Unable to determine right ventricular systolic function. Right Atrium: The right atrium was not well visualized. Aortic Valve: The aortic valve was not well visualized. There is no evidence of aortic valve regurgitation. The peak instantaneous gradient of the aortic valve is 14.6 mmHg. The mean gradient of the aortic valve is 7.0 mmHg. Mitral Valve: The mitral valve is normal in structure. There is no evidence of mitral valve regurgitation. Tricuspid Valve: The tricuspid valve is structurally normal. No evidence of tricuspid regurgitation. Pulmonic Valve: The pulmonic valve is not well visualized. There is no indication of pulmonic valve regurgitation. Pericardium: There is no pericardial effusion noted. Aorta: The aortic root is normal. Systemic Veins: The inferior vena cava appears dilated. CONCLUSIONS: 1. Left ventricular systolic function is normal with a 60% estimated ejection fraction. 2. Poorly visualized anatomical structures due to suboptimal image quality. QUANTITATIVE DATA SUMMARY: 2D MEASUREMENTS: Normal Ranges: Ao Root d: 3.60 cm (2.0-3.7cm) LAs: 3.90 cm (2.7-4.0cm) IVSd: 1.48 cm (0.6-1.1cm) LVPWd: 1.52 cm (0.6-1.1cm) LVIDd: 5.08 cm (3.9-5.9cm) LVIDs: 3.83 cm LV Mass Index: 114.1 g/m2 LV % FS 24.6 % LA VOLUME: Normal Ranges: LA Vol A4C: 57.1 ml (22+/-6mL/m2) LA Vol A2C: 47.3 ml LA Vol BP: 53.7 ml LA Vol Index A4C: 19.7ml/m2 LA Vol Index A2C: 16.3 ml/m2 LA Vol Index BP: 18.5 ml/m2 LA Area A4C: 19.4 cm2 LA Area A2C: 17.1 cm2 LA Major [place] A4C: 5.6 cm LA Major [place] A2C: 5.2 cm LA Volume Index: 18.8 ml/m2 LA Vol A4C: 54.4 ml LA Vol A2C: 45.6 ml LV SYSTOLIC FUNCTION BY 2D PLANIMETRY (MOD): Normal Ranges: EF-A4C View: 64.9 % (>=55%) EF-A2C View: 65.6 % EF-Biplane: 64.7 % LV DIASTOLIC FUNCTION: Normal Ranges: MV Peak E: 0.96 m/s (0.7-1.2 m/s) MV Peak A: 1.03 m/s (0.42-0.7 m/s) E/A Ratio: 0.94 (1.0-2.2) MV lateral e' 0.08 m/s MV medial e' 0.08 m/s MITRAL VALVE: Normal Ranges: MV DT: 254 msec (150-240msec) AORTIC VALVE: Normal Ranges: AoV Vmax: 1.91 m/s (<=1.7m/s) AoV Peak P.6 mmHg (<20mmHg) AoV Mean P.0 mmHg (1.7-11.5mmHg) LVOT [place]: 1.18 m/s (<=1.1m/s) AoV VTI: 44.80 cm (18-25cm) LVOT VTI: 26.90 cm LVOT Diameter: 2.00 cm (1.8-2.4cm) AoV Area, VTI: 1.89 cm2 (2.5-5.5cm2) AoV Area,Vmax: 1.94 cm2 (2.5-4.5cm2) AoV Dimensionless Index: 0.60 RIGHT VENTRICLE: RV Basal 4.36 cm RV Mid 3.87 cm RV Major 9.2 cm TAPSE: 22.0 mm RV s' 0.10 m/s [id number] Bairon Camp MD Electronically signed on 09/27/2023 at 1:03:36 PM Final Cath: No results found for this or any previous visit from the past 1095 days. CV NCDR CATHPCI V5 COLLECTION FORM Stress Test: No results found for this or any previous visit from the past 1095 days. Cardiac Imaging: No results found for this or any previous visit from the past 1095 days. Assessment/Plan Mr. Mary Leblanc is a 68 y.o. year old non-smoker obese diabetic male patient with past medical history significant for hypertension, diabetes, hyperlipidemia (intolerance to Statins), morbid obesity, MANJIT on CPAP, osteoarthritis, coming for assessment of hyperlipidemia. Patient is currently asymptomatic. He denies chest pain, shortness of breath, palpitations, leg edema, lightheadedness, headaches, fever, chills, orthopnea, paroxysmal nocturnal dyspnea or syncope. He endorses that he has high bad cholesterol and low good cholesterol, but he is intolerant to statins (cough). He is willing to take Repatha. Assessment # Hyperlipidemia - CT calcium scoring is 200. - Benita tot 199, LDL 118, HDL 35, Tri 264 - Patient intolerant to statins (cough) and many other medications. - Counseled on healthy diet and regular exercise. - Keep ASA 81mg daily, Losartan 100mg daily, hydrochlorothiazide 25mg daily - Patient is feeling fine. He felt tired with Ezetimibe and stopped it after 3 days. He also has not started taking Repatha due to lack of instructions on how to administer the shots. - Has stopped Ezetimibe 10mg daily - Keep Repatha 140mg q2w - our pharmacist will teach him how to use it. - Should get new lipid panel in 3 months - PCP assessment. - Follow up in 6 months. 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 - Stress test (2019) negative for ischemia - The echocardiogram showed normal LVEF 60% with no wall motion abnormalities. - Prior US carotids showing mild atherosclerotic disease - Will have a new USG carotids - CT calcium scoring is 200. # Hypertension - Controlled blood pressure. - Keep current medications with Losartan 100mg daily, Propranolol 60mg daily. - Patient counseled to keep a healthy lifestyle including regular exercise and low-sodium diet. - Recommended home blood pressure monitoring. - Goal of BP < 130/80mmHg. # Diabetes - Controlled by PCP. - Counseled on healthy diet and regular exercises. - Discussed need for weight loss and the benefits. - Keep current medications with Metformin, Pioglitazone. We have discussed the most common side effects of the prescribed medications, indications, drug interactions, risks, complications, and alternatives of medications/therapeutics were explained and discussed. The patient has been requested to monitor closely for any untoward side effects or complications of medications. The patient has been strongly advised to be compliant with the recommendations, all the questions and concerns have been addressed. The patient has been also instructed to call, to return sooner or to go to the emergency department if symptoms persist or get worsen. The patient voiced understanding and denies any further questions at this time. This note was transcribed using the [employer] Dictation system. There may be grammatical, punctuation, or verbiage errors that occur with voice recognition programs. Counseling greater than 50% of visit regarding all cardiac issues. Thank you, Dr. Wall, for allowing me to participate in the care of this patient. Please do not hesitate to contact me with any further questions or concerns. Rosendo Kingston MD Cardiology documented in this encounter [facility] Work Phone: 04-10-2024 Hospital Discharge instructions Airam Mcallister RN - 04/10/2024 1:47 PM EST Patient Instructions after a Colonoscopy The anesthetics, sedatives or narcotics which were given to you today will be acting in your body for the next 24 hours, so you might feel a little sleepy or groggy. This feeling should slowly wear off. Carefully read and follow the instructions. You received sedation today: - Do not drive or operate any machinery or power tools of any kind. - No alcoholic beverages today, not even beer or wine. - Do not make any important decisions or sign any legal documents. - No over the counter medications that contain alcohol or that may cause drowsiness. - Do not make any important decisions or sign any legal documents. - Make sure you have someone with you for first 24 hours. While it is common to experience mild to moderate abdominal distention, gas, or belching after your procedure, if any of these symptoms occur following discharge from the GI Lab or within one week of having your procedure, call the [facility] to be advised whether a visit to your nearest Urgent Care or Emergency Department is indicated. Take this paper with you if you go. - If you develop an allergic reaction to the medications that were given during your procedure such as difficulty breathing, rash, hives, severe nausea, vomiting or lightheadedness. - If you experience chest pain, shortness of breath, severe abdominal pain, fevers and chills. -If you develop signs and symptoms of bleeding such as blood in your spit, if your stools turn black, tarry, or bloody - If you have not urinated within 8 hours following your procedure. - If your IV site becomes painful, red, inflamed, or looks infected. If you received a biopsy/polypectomy/sphincterotomy the following instructions apply below: __ Do not use Aspirin containing products, non-steroidal medications or anti-coagulants for one week following your procedure. (Examples of these types of medications are: Advil, Arthrotec, Aleve, Coumadin, Ecotrin, Heparin, Ibuprofen, Indocin, Motrin, Naprosyn, Nuprin, Plavix, Vioxx, and Voltarin, or their generic forms. This list is not all-inclusive. Check with your physician or pharmacist before resuming medications.) __ Eat a soft diet today. Avoid foods that are poorly digested for the next 24 hours. These foods would include: nuts, beans, lettuce, red meats, and fried foods. Start with liquids and advance your diet as tolerated, gradually work up to eating solids. __ Do not have a Barium Study or Enema for one week. Your physician recommends the additional following instructions: -You have a contact number available for emergencies. The signs and symptoms of potential delayed complications were discussed with you. You may return to normal activities tomorrow. -Resume your previous diet. -Continue your present medications. -We are waiting for your pathology results. -Your physician has recommended a repeat colonoscopy (date to be determined after pending pathology results are reviewed) for surveillance based on pathology results. -The findings and recommendations have been discussed with you. -The findings and recommendations were discussed with your family. - Please see Medication Reconciliation Form for new medication/medications prescribed. If you experience any problems or have any questions following discharge from the GI Lab, please call: Nurse Signature Date Patient/Responsible Republican Signature Date documented in this encounter [facility] Work Phone: 04-10-2024 Hospital Discharge instructions Airam Mcallister RN - 04/10/2024 1:47 PM EST Patient Instructions after a Colonoscopy The anesthetics, sedatives or narcotics which were given to you today will be acting in your body for the next 24 hours, so you might feel a little sleepy or groggy. This feeling should slowly wear off. Carefully read and follow the instructions. You received sedation today: - Do not drive or operate any machinery or power tools of any kind. - No alcoholic beverages today, not even beer or wine. - Do not make any important decisions or sign any legal documents. - No over the counter medications that contain alcohol or that may cause drowsiness. - Do not make any important decisions or sign any legal documents. - Make sure you have someone with you for first 24 hours. While it is common to experience mild to moderate abdominal distention, gas, or belching after your procedure, if any of these symptoms occur following discharge from the GI Lab or within one week of having your procedure, call the [facility] to be advised whether a visit to your nearest Urgent Care or Emergency Department is indicated. Take this paper with you if you go. - If you develop an allergic reaction to the medications that were given during your procedure such as difficulty breathing, rash, hives, severe nausea, vomiting or lightheadedness. - If you experience chest pain, shortness of breath, severe abdominal pain, fevers and chills. -If you develop signs and symptoms of bleeding such as blood in your spit, if your stools turn black, tarry, or bloody - If you have not urinated within 8 hours following your procedure. - If your IV site becomes painful, red, inflamed, or looks infected. If you received a biopsy/polypectomy/sphincterotomy the following instructions apply below: __ Do not use Aspirin containing products, non-steroidal medications or anti-coagulants for one week following your procedure. (Examples of these types of medications are: Advil, Arthrotec, Aleve, Coumadin, Ecotrin, Heparin, Ibuprofen, Indocin, Motrin, Naprosyn, Nuprin, Plavix, Vioxx, and Voltarin, or their generic forms. This list is not all-inclusive. Check with your physician or pharmacist before resuming medications.) __ Eat a soft diet today. Avoid foods that are poorly digested for the next 24 hours. These foods would include: nuts, beans, lettuce, red meats, and fried foods. Start with liquids and advance your diet as tolerated, gradually work up to eating solids. __ Do not have a Barium Study or Enema for one week. Your physician recommends the additional following instructions: -You have a contact number available for emergencies. The signs and symptoms of potential delayed complications were discussed with you. You may return to normal activities tomorrow. -Resume your previous diet. -Continue your present medications. -We are waiting for your pathology results. -Your physician has recommended a repeat colonoscopy (date to be determined after pending pathology results are reviewed) for surveillance based on pathology results. -The findings and recommendations have been discussed with you. -The findings and recommendations were discussed with your family. - Please see Medication Reconciliation Form for new medication/medications prescribed. If you experience any problems or have any questions following discharge from the GI Lab, please call: Nurse Signature Date Patient/Responsible Republican Signature Date documented in this encounter [facility] Work Phone: 04-10-2024 History and physical note History Of Present Illness Mary Leblanc is a 68 y.o. male presenting with family history of colon cancer presents for high risk screening. Past Medical History Past Medical History: Diagnosis Date Arrhythmia BPH (benign prostatic hyperplasia) Cough in adult 07/20/2022 Dizziness 07/20/2022 Gout Hyperlipidemia Hypertension Pneumonia 07/20/2022 Sleep apnea Surgical History Past Surgical History: Procedure Laterality Date OTHER SURGICAL HISTORY 04/04/2019 Knee replacement OTHER SURGICAL HISTORY 04/04/2019 Cholecystectomy OTHER SURGICAL HISTORY 01/16/2021 Colonoscopy Social History He reports that he has never smoked. He has never used smokeless tobacco. He reports that he does not currently use alcohol. He reports that he does not use drugs. Family History Family History Problem Relation Name Age of Onset Cancer Mother Diabetes type II Mother Hypertension Mother Other (cva) Father Dementia Father Diabetes type II Father Hypertension Father Hypothyroidism Father Throat cancer Father Colon cancer Father Other (cva) Sister Dementia Sister Diabetes type II Sister Hypertension Sister Hypothyroidism Sister Throat cancer Sister Colon cancer Sister Other (cva) Brother Dementia Brother Diabetes type II Brother Hypertension Brother Throat cancer Brother Colon cancer Brother Allergies Allergies Allergen Reactions Penicillins Unknown and Anaphylaxis pain in joints Aspartame Unknown Empagliflozin Diarrhea Guaifenesin Unknown Hydrocodone-Acetaminophen Unknown and GI Upset Levofloxacin Unknown Lisinopril Dizziness and Other cough Other reaction(s): C/O - cough Prednisone Unknown Propoxyphene N-Acetaminophen Nausea Only Robitussin Cough Calmers Unknown Spironolactone Unknown Oxycodone-Acetaminophen Anxiety Simvastatin Anxiety Review of Systems Pre-sedation Evaluation: ASA Classification - ASA 3 - Patient with moderate systemic disease with functional limitations Mallampati Score - III (soft and hard palate and base of uvula visible) Physical Exam Vitals and nursing note reviewed. Constitutional: Appearance: Normal appearance. HENT: Head: Normocephalic. Mouth/Throat: Mouth: Mucous membranes are moist. Pharynx: Oropharynx is clear. Eyes: Pupils: Pupils are equal, round, and reactive to light. Cardiovascular: Rate and Rhythm: Normal rate and regular rhythm. Heart sounds: Normal heart sounds. Pulmonary: Effort: Pulmonary effort is normal. Breath sounds: Normal breath sounds. Abdominal: General: Abdomen is flat. Bowel sounds are normal. Palpations: Abdomen is soft. Musculoskeletal: General: Normal range of motion. Cervical back: Normal range of motion and neck supple. Skin: General: Skin is warm and dry. Neurological: General: No focal deficit present. Mental Status: He is alert and oriented to person, place, and time. Psychiatric: Mood and Affect: Mood normal. Behavior: Behavior normal. Last Recorded Vitals Height 1.854 m (6' 1"), weight (!) 188 kg (414 lb 14.5 oz). 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 180 tablet 3 aspirin 81 mg EC tablet Take 1 tablet (81 mg) by mouth once daily. blood sugar diagnostic (Blood Glucose Test) strip USE DIRECTED TO TEST GLUCOSE 1-2 TIMES DAILY 70 each 11 evolocumab (Repatha SureClick) 140 mg/mL injection Inject 1 mL (140 mg) under the skin every 14 (fourteen) days. Do not start before August 04, 2023. (Patient not taking: Reported on 10/05/2023) 2 mL 1 glyBURIDE (Diabeta) 5 mg tablet Take 2 tablets (10 mg) by mouth 2 times a day. 360 tablet 3 hydroCHLOROthiazide (HYDRODiuril) 25 mg tablet Take 1 tablet (25 mg) by mouth once daily. 90 tablet 3 hydrOXYzine HCL (Atarax) 25 mg tablet Take 1 tablet (25 mg) by mouth once daily. 30 tablet 11 lancets [facility] USE DIRECTED TO TEST GLUCOSE 1-2 TIMES DAILY 100 each 3 losartan (Cozaar) 100 mg tablet Take 1 tablet (100 mg) by mouth once daily. 90 tablet 3 meclizine (Antivert) 25 mg tablet Take 1 tablet (25 mg) by mouth 3 times a day as needed. metFORMIN (Glucophage) 1,000 mg tablet Take 1 tablet (1,000 mg) by mouth 2 times a day. 180 tablet 3 NON FORMULARY Take 1 each by mouth 2 times a day. Ivana-pro for neuropathy pioglitazone (Actos) 30 mg tablet Take 1 tablet (30 mg) by mouth once daily. 90 tablet 3 potassium chloride CR (Klor-Con) 10 mEq ER tablet Take 1 tablet (10 mEq) by mouth once daily. Do not crush, chew, or split. 30 tablet 11 propranolol (Inderal) 60 mg tablet Take 1 tablet (60 mg) by mouth once daily. 90 tablet 3 sildenafil (Revatio) 20 mg tablet Take 5 tablets (100 mg) by mouth once daily. TAKE 5 TABLETS DAILY PRN 30 tablet 11 sildenafil (Viagra) 100 mg tablet Take 1 tablet (100 mg) by mouth if needed for erectile dysfunction. 30 tablet 6 testosterone (Axiron) 30 mg/actuation (1.5 mL) topical solution Place 3 Pump on the skin once daily. 225 mL 1 trospium (Sanctura) 20 mg tablet Take 1 tablet (20 mg) by mouth 2 times a day. 60 tablet 11 Current Facility-Administered Medications Medication Dose Route Frequency Provider Last Rate Last Admin famotidine PF (Pepcid) injection 20 mg 20 mg intravenous Once Fredi Jackson, midazolam (Versed) injection 2 mg 2 mg intravenous Once Fredi Jackson, ondansetron (Zofran) injection 4 mg 4 mg intravenous Once DO Rakel Samaniego DO [facility] Work Phone: 04-10-2024 History and physical note History Of Present Illness Mary Leblanc is a 68 y.o. male presenting with family history of colon cancer presents for high risk screening. Past Medical History Past Medical History: Diagnosis Date Arrhythmia BPH (benign prostatic hyperplasia) Cough in adult 07/20/2022 Dizziness 07/20/2022 Gout Hyperlipidemia Hypertension Pneumonia 07/20/2022 Sleep apnea Surgical History Past Surgical History: Procedure Laterality Date OTHER SURGICAL HISTORY 04/04/2019 Knee replacement OTHER SURGICAL HISTORY 04/04/2019 Cholecystectomy OTHER SURGICAL HISTORY 01/16/2021 Colonoscopy Social History He reports that he has never smoked. He has never used smokeless tobacco. He reports that he does not currently use alcohol. He reports that he does not use drugs. Family History Family History Problem Relation Name Age of Onset Cancer Mother Diabetes type II Mother Hypertension Mother Other (cva) Father Dementia Father Diabetes type II Father Hypertension Father Hypothyroidism Father Throat cancer Father Colon cancer Father Other (cva) Sister Dementia Sister Diabetes type II Sister Hypertension Sister Hypothyroidism Sister Throat cancer Sister Colon cancer Sister Other (cva) Brother Dementia Brother Diabetes type II Brother Hypertension Brother Throat cancer Brother Colon cancer Brother Allergies Allergies Allergen Reactions Penicillins Unknown and Anaphylaxis pain in joints Aspartame Unknown Empagliflozin Diarrhea Guaifenesin Unknown Hydrocodone-Acetaminophen Unknown and GI Upset Levofloxacin Unknown Lisinopril Dizziness and Other cough Other reaction(s): C/O - cough Prednisone Unknown Propoxyphene N-Acetaminophen Nausea Only Robitussin Cough Calmers Unknown Spironolactone Unknown Oxycodone-Acetaminophen Anxiety Simvastatin Anxiety Review of Systems Pre-sedation Evaluation: ASA Classification - ASA 3 - Patient with moderate systemic disease with functional limitations Mallampati Score - III (soft and hard palate and base of uvula visible) Physical Exam Vitals and nursing note reviewed. Constitutional: Appearance: Normal appearance. HENT: Head: Normocephalic. Mouth/Throat: Mouth: Mucous membranes are moist. Pharynx: Oropharynx is clear. Eyes: Pupils: Pupils are equal, round, and reactive to light. Cardiovascular: Rate and Rhythm: Normal rate and regular rhythm. Heart sounds: Normal heart sounds. Pulmonary: Effort: Pulmonary effort is normal. Breath sounds: Normal breath sounds. Abdominal: General: Abdomen is flat. Bowel sounds are normal. Palpations: Abdomen is soft. Musculoskeletal: General: Normal range of motion. Cervical back: Normal range of motion and neck supple. Skin: General: Skin is warm and dry. Neurological: General: No focal deficit present. Mental Status: He is alert and oriented to person, place, and time. Psychiatric: Mood and Affect: Mood normal. Behavior: Behavior normal. Last Recorded Vitals Height 1.854 m (6' 1"), weight (!) 188 kg (414 lb 14.5 oz). 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 180 tablet 3 aspirin 81 mg EC tablet Take 1 tablet (81 mg) by mouth once daily. blood sugar diagnostic (Blood Glucose Test) strip USE DIRECTED TO TEST GLUCOSE 1-2 TIMES DAILY 70 each 11 evolocumab (Repatha SureClick) 140 mg/mL injection Inject 1 mL (140 mg) under the skin every 14 (fourteen) days. Do not start before August 04, 2023. (Patient not taking: Reported on 10/05/2023) 2 mL 1 glyBURIDE (Diabeta) 5 mg tablet Take 2 tablets (10 mg) by mouth 2 times a day. 360 tablet 3 hydroCHLOROthiazide (HYDRODiuril) 25 mg tablet Take 1 tablet (25 mg) by mouth once daily. 90 tablet 3 hydrOXYzine HCL (Atarax) 25 mg tablet Take 1 tablet (25 mg) by mouth once daily. 30 tablet 11 lancets 30 gauge misc USE DIRECTED TO TEST GLUCOSE 1-2 TIMES DAILY 100 each 3 losartan (Cozaar) 100 mg tablet Take 1 tablet (100 mg) by mouth once daily. 90 tablet 3 meclizine (Antivert) 25 mg tablet Take 1 tablet (25 mg) by mouth 3 times a day as needed. metFORMIN (Glucophage) 1,000 mg tablet Take 1 tablet (1,000 mg) by mouth 2 times a day. 180 tablet 3 NON FORMULARY Take 1 each by mouth 2 times a day. Ivana-pro for neuropathy pioglitazone (Actos) 30 mg tablet Take 1 tablet (30 mg) by mouth once daily. 90 tablet 3 potassium chloride CR (Klor-Con) 10 mEq ER tablet Take 1 tablet (10 mEq) by mouth once daily. Do not crush, chew, or split. 30 tablet 11 propranolol (Inderal) 60 mg tablet Take 1 tablet (60 mg) by mouth once daily. 90 tablet 3 sildenafil (Revatio) 20 mg tablet Take 5 tablets (100 mg) by mouth once daily. TAKE 5 TABLETS DAILY PRN 30 tablet 11 sildenafil (Viagra) 100 mg tablet Take 1 tablet (100 mg) by mouth if needed for erectile dysfunction. 30 tablet 6 testosterone (Axiron) 30 mg/actuation (1.5 mL) topical solution Place 3 Pump on the skin once daily. 225 mL 1 trospium (Sanctura) 20 mg tablet Take 1 tablet (20 mg) by mouth 2 times a day. 60 tablet 11 Current Facility-Administered Medications Medication Dose Route Frequency Provider Last Rate Last Admin famotidine PF (Pepcid) injection 20 mg 20 mg intravenous Once Fredi Jackson DO midazolam (Versed) injection 2 mg 2 mg intravenous Once Fredi Jackson, ondansetron (Zofran) injection 4 mg 4 mg intravenous Once DO Rakel Samaniego DO documented in this encounter [facility] Work Phone: 04-10-2024 History and physical note History Of Present Illness Mary Leblanc is a 68 y.o. male presenting with family history of colon cancer presents for high risk screening. Past Medical History Past Medical History: Diagnosis Date Arrhythmia BPH (benign prostatic hyperplasia) Cough in adult 07/20/2022 Dizziness 07/20/2022 Gout Hyperlipidemia Hypertension Pneumonia 07/20/2022 Sleep apnea Surgical History Past Surgical History: Procedure Laterality Date OTHER SURGICAL HISTORY 04/04/2019 Knee replacement OTHER SURGICAL HISTORY 04/04/2019 Cholecystectomy OTHER SURGICAL HISTORY 01/16/2021 Colonoscopy Social History He reports that he has never smoked. He has never used smokeless tobacco. He reports that he does not currently use alcohol. He reports that he does not use drugs. Family History Family History Problem Relation Name Age of Onset Cancer Mother Diabetes type II Mother Hypertension Mother Other (cva) Father Dementia Father Diabetes type II Father Hypertension Father Hypothyroidism Father Throat cancer Father Colon cancer Father Other (cva) Sister Dementia Sister Diabetes type II Sister Hypertension Sister Hypothyroidism Sister Throat cancer Sister Colon cancer Sister Other (cva) Brother Dementia Brother Diabetes type II Brother Hypertension Brother Throat cancer Brother Colon cancer Brother Allergies Allergies Allergen Reactions Penicillins Unknown and Anaphylaxis pain in joints Aspartame Unknown Empagliflozin Diarrhea Guaifenesin Unknown Hydrocodone-Acetaminophen Unknown and GI Upset Levofloxacin Unknown Lisinopril Dizziness and Other cough Other reaction(s): C/O - cough Prednisone Unknown Propoxyphene N-Acetaminophen Nausea Only Robitussin Cough Calmers Unknown Spironolactone Unknown Oxycodone-Acetaminophen Anxiety Simvastatin Anxiety Review of Systems Pre-sedation Evaluation: ASA Classification - ASA 3 - Patient with moderate systemic disease with functional limitations Mallampati Score - III (soft and hard palate and base of uvula visible) Physical Exam Vitals and nursing note reviewed. Constitutional: Appearance: Normal appearance. HENT: Head: Normocephalic. Mouth/Throat: Mouth: Mucous membranes are moist. Pharynx: Oropharynx is clear. Eyes: Pupils: Pupils are equal, round, and reactive to light. Cardiovascular: Rate and Rhythm: Normal rate and regular rhythm. Heart sounds: Normal heart sounds. Pulmonary: Effort: Pulmonary effort is normal. Breath sounds: Normal breath sounds. Abdominal: General: Abdomen is flat. Bowel sounds are normal. Palpations: Abdomen is soft. Musculoskeletal: General: Normal range of motion. Cervical back: Normal range of motion and neck supple. Skin: General: Skin is warm and dry. Neurological: General: No focal deficit present. Mental Status: He is alert and oriented to person, place, and time. Psychiatric: Mood and Affect: Mood normal. Behavior: Behavior normal. Last Recorded Vitals Height 1.854 m (6' 1"), weight (!) 188 kg (414 lb 14.5 oz). 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 180 tablet 3 aspirin 81 mg EC tablet Take 1 tablet (81 mg) by mouth once daily. blood sugar diagnostic (Blood Glucose Test) strip USE DIRECTED TO TEST GLUCOSE 1-2 TIMES DAILY 70 each 11 evolocumab (Repatha SureClick) 140 mg/mL injection Inject 1 mL (140 mg) under the skin every 14 (fourteen) days. Do not start before August 04, 2023. (Patient not taking: Reported on 10/05/2023) 2 mL 1 glyBURIDE (Diabeta) 5 mg tablet Take 2 tablets (10 mg) by mouth 2 times a day. 360 tablet 3 hydroCHLOROthiazide (HYDRODiuril) 25 mg tablet Take 1 tablet (25 mg) by mouth once daily. 90 tablet 3 hydrOXYzine HCL (Atarax) 25 mg tablet Take 1 tablet (25 mg) by mouth once daily. 30 tablet 11 lancets 30 gauge misc USE DIRECTED TO TEST GLUCOSE 1-2 TIMES DAILY 100 each 3 losartan (Cozaar) 100 mg tablet Take 1 tablet (100 mg) by mouth once daily. 90 tablet 3 meclizine (Antivert) 25 mg tablet Take 1 tablet (25 mg) by mouth 3 times a day as needed. metFORMIN (Glucophage) 1,000 mg tablet Take 1 tablet (1,000 mg) by mouth 2 times a day. 180 tablet 3 NON FORMULARY Take 1 each by mouth 2 times a day. Ivana-pro for neuropathy pioglitazone (Actos) 30 mg tablet Take 1 tablet (30 mg) by mouth once daily. 90 tablet 3 potassium chloride CR (Klor-Con) 10 mEq ER tablet Take 1 tablet (10 mEq) by mouth once daily. Do not crush, chew, or split. 30 tablet 11 propranolol (Inderal) 60 mg tablet Take 1 tablet (60 mg) by mouth once daily. 90 tablet 3 sildenafil (Revatio) 20 mg tablet Take 5 tablets (100 mg) by mouth once daily. TAKE 5 TABLETS DAILY PRN 30 tablet 11 sildenafil (Viagra) 100 mg tablet Take 1 tablet (100 mg) by mouth if needed for erectile dysfunction. 30 tablet 6 testosterone (Axiron) 30 mg/actuation (1.5 mL) topical solution Place 3 Pump on the skin once daily. 225 mL 1 trospium (Sanctura) 20 mg tablet Take 1 tablet (20 mg) by mouth 2 times a day. 60 tablet 11 Current Facility-Administered Medications Medication Dose Route Frequency Provider Last Rate Last Admin famotidine PF (Pepcid) injection 20 mg 20 mg intravenous Once Fredi Jackson DO midazolam (Versed) injection 2 mg 2 mg intravenous Once Fredi Jackson DO ondansetron (Zofran) injection 4 mg 4 mg intravenous Once DO Rakel Samaniego DO documented in this encounter [facility] Work Phone: 12-13-2023 History of Present illness Narrative Images from the original note were not included. Patient ID: Mary Leblanc is a 68 y.o. male 1955 Subjective: Mary Leblanc presents for follow-up of Type 2 diabetes Patient has had diabetes for 24 years. Diagnosed in 1999 Patient has never taken Insulin. Currently on pioglitazone, glyburide and metformin. Took Jardiance, developed frequency of urination with overactive bladder. Reports over April-June was eating poorly, gained 20 lbs. Has lost 25 lbs in the last 3 weeks. Reports last A1c has improved to 7.9%, previously 6-7%. Outpatient Medications Marked as Taking for the 12/13/23 encounter (Office Visit) with Hernandez Almanza CNP: albuterol (VENTOLIN HFA) 90 mcg/actuation inhaler, 1-2 inhalations every 4-6 hours as needed for wheezing. Dispense spacer as needed. allopurinol (ZYLOPRIM) 100 MG tablet, TAKE ONE TABLET BY MOUTH TWICE A DAY aspirin 81 MG EC tablet, Take 1 (one) tablet (81 mg total) by mouth daily . blood sugar diagnostic (glucose blood) strips, USE DIRECTED TO TEST GLUCOSE 1-2 TIMES DAILY cyanocobalamin (B-12) 1,000 mcg/mL injection, Inject 1 mL (1,000 mcg total) into the shoulder, thigh, or buttocks every 30 (thirty) days . fluticasone propionate (FLONASE) 50 mcg/actuation nasal spray, Instill 2 (two) sprays into each nostril daily . glyBURIDE (DIABETA) 5 MG tablet, Take 2 (two) tablets (10 mg total) by mouth 2 (two) times a day with meals . hydroCHLOROthiazide (HYDRODIURIL) 25 MG tablet, Take 1 (one) tablet (25 mg total) by mouth daily . hydrOXYzine (ATARAX) 25 MG tablet, Take 1 (one) tablet (25 mg total) by mouth daily . loratadine (CLARITIN) 10 mg tablet, Take 1 (one) tablet (10 mg total) by mouth daily . losartan (COZAAR) 100 MG tablet, meclizine (ANTIVERT) 25 mg tablet, Take 1 (one) tablet (25 mg total) by mouth Three times daily as needed . metFORMIN (GLUCOPHAGE) 1000 MG tablet, Tablet Oral metoprolol tartrate (LOPRESSOR) 25 MG tablet, Take 1 (one) tablet (25 mg total) by mouth daily . OneTouch Delica Plus Lancet 30 gauge Misc, pioglitazone (ACTOS) 15 MG tablet, Take 1 (one) tablet (15 mg total) by mouth daily . potassium chloride 10 MEQ CR tablet, Take 1 (one) tablet (10 mEq total) by mouth daily . propranoloL (INDERAL) 60 MG tablet, Repatha SureClick 140 mg/mL Pen, Inject 1 mL (140 mg total) under the skin every 14 (fourteen) days . sildenafil, antihypertens, (REVATIO) 20 mg tablet, Take 5 (five) tablets (100 mg total) by mouth daily . testosterone 30 mg/actuation (1.5 mL) SlPm, Pt states this is a 3 pump not 2. . Review of Systems: Review of Systems Constitutional: Negative for fatigue and unexpected weight change. HENT: Negative for trouble swallowing. Eyes: Negative for visual disturbance. Respiratory: Positive for shortness of breath (with exertion, feels secondary to a hiatial hernia.). Negative for cough. Cardiovascular: Positive for leg swelling (feet). Negative for chest pain. Gastrointestinal: Negative for abdominal pain, constipation, diarrhea, nausea and vomiting. Endocrine: Negative for polydipsia, polyphagia and polyuria. Genitourinary: Negative for frequency and urgency. Skin: Negative for wound. Neurological: Positive for weakness and numbness (in legs and feet.). Negative for headaches. Psychiatric/Behavioral: Negative for agitation and sleep disturbance. The patient is not nervous/anxious. The following portions of the patient's history were reviewed and updated as appropriate: allergies, current medications, past family history, past medical history, past social history, past surgical history and problem list. Objective: BP (!) 174/105 Pulse 61 Wt (!) 187.3 kg (413 lb) BMI 54.49 kg/m Wt Readings from Last 3 Encounters: 12/13/23 (!) 187.3 kg (413 lb) 07/30/23 (!) 185.5 kg (409 lb) 08/15/21 (!) 186.4 kg (411 lb) Physical Exam: Physical Exam General: alert, appears stated age and cooperative Eyes: conjunctivae/corneas clear. PERRL, EOM's intact. Neck: no adenopathy, supple, symmetrical, trachea midline. Thyroid: No thyromegaly appreciated Lung: clear to auscultation bilaterally Heart: regular rate and rhythm, S1, S2 normal, no murmur, click, rub or gallop Extremities: extremities normal, atraumatic, no cyanosis or edema Feet: Dry skin, Patient Refused. Monofilament exam not assessed, bilateral lower extremities. Neuro: normal without focal findings, mental status, speech normal, alert and oriented x3 and VIKKI Laboratory Review: BP (!) 174/105 Pulse 61 Wt (!) 187.3 kg (413 lb) BMI 54.49 kg/m Lab Results Component Value Date HGBA1C 7.9 09/28/2023 Creatinine (mg/dL) Date Value 09/28/2023 1.22 No results found for: "CHOL", "TRIG", "HDL", "LDLCALC", "LDL" Lab Results Component Value Date TSH 2.320 09/28/2023 Lab Results Component Value Date WBC 7.50 09/28/2023 HGB 14.7 09/28/2023 HCT 46.1 09/28/2023 PLT 252 09/28/2023 Date: 09/28/23 *labs reviewed 12/13/23 Hgb A1c: 7.9% Creat: 1.22; eGFR: 65 AST: 16; ALT: 17 K: 4.8 CBC: WBC:7.50; Hgb: 14.7; Hct: 46.1; Plt: 252 Tchol: 190; Tri ; HDL: 35 ; LDL: 118 TSH: 2.320 ; FreeT4: 1.19 Microalbumin/creatinine Ratio: 581 06/21/23 Hgb A1c: 8.6% Creat: 1.19; eGFR: 68 AST: 17; ALT: 14 K: 5.2 CBC: WBC: 6.8; Hgb: 15.4; Hct: 46.6; Plt: 180. Tchol: 199; Tri ; HDL: 35 ; LDL: 118 Assessment/Plan: Dx: 1. Inadequately controlled diabetes mellitus (HCC) 2. Type 2 diabetes mellitus without complication, without long-term current use of insulin (HCC) 3. Hypertension, unspecified type Type 2 diabetes, under fair control Currently taking: Metformin 1000 mg twice daily Glyburide 10 mg twice daily Actos 30 mg once daily Current Hemoglobin A1C= Lab Results Component Value Date HGBA1C 7.9 09/28/2023 Weight trend: has increased 4 lbs. Current diet: avoiding concentrated sugars Current exercise: none Current monitoring regimen: home blood tests - daily Home blood sugar records: Fasting B Any episodes of hypoglycemia? 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 Is patient on ZULLY inhibitor or angiotensin II receptor roya? yes Losartan Peripheral Neuropathy: Positive Reports bilateral numbness and tingling in feet, Reports improvement with medications OTC supplement (VitaPro) . 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 Autonomic Neuropathy: Negative Hypoglycemia unawareness. Senses low BG at <120 mg/dl. Other: Hyperlipidemia: Positive Currently taking: Unable to tolerate statins. LFT's WNL. Statins led to Leg pain. Muscle pain. Will possibly be starting Repatha. Lab Results Component Value Date AST 16 09/28/2023 ALT 17 09/28/2023 Lab Results Component Value Date EXTCHOL 190 09/28/2023 EXTTRIG 209 09/28/2023 EXTHDL 35 09/28/2023 EXTLDLCALC 118 09/28/2023 Hypertension: Positive. Currently taking: hydrochlorothiazide (HCTZ) and losartan (Cozaar) BP: (!) 174/105 Cardiac: Negative Experiencing chest pain No . Experiencing shortness of breath No History of No history of CAD Vascular: Negative History of None Feet: Last foot exam: 12/13/23 Follows with Podiatry: Yes Recreation Aide: History of foot ulceration: No History of amputation: No Thyroid: Lab Results Component Value Date TSH 2.320 09/28/2023 Negative Other: No history of MTC or pancreatitis. Plan: 1. Rx changes: Continue current regimen Metformin 1000 mg twice daily Glyburide 10 mg twice daily Actos 30 mg once daily Continue dietary modifications. Consider ozempic/mounjaro if weight loss stagnates or no improvement in A1c. 2. Education: Reviewed ABCs of diabetes management (respective goals in parentheses): A1C (7.0-8.0), blood pressure (<130/80), and cholesterol (LDL <100). 3. Compliance at present is estimated to be fair. Efforts to improve compliance (if necessary) will be directed at increased exercise. Also, will be directed at dietary modifications: Limit starches, carbohydrates and concentrated sugar sources 4. Follow up: 6 months 5. Record blood sugar readings as instructed. Call if BG consistently <70 or >250. [phone] Patient has been checking blood glucoses 1 times daily for the past 90 days. Patient needs to continue checking blood glucoses 1 times daily. Blood glucose readings are used to adjust medication or insulin doses for meals, monitor dietary compliance, and adjust for high or low blood glucoses by patient on a daily basis. Blood glucose readings are reviewed at office visits for adjustment in medication regimen and assistance with dietary management, and other self-management issues including exercise, etc. Prognosis: Good. Duration of need for diabetes testing equipment: Permanent #100 strips/month prescribed. 6. Bring blood sugar meter to follow up appointment. Orders Placed This Encounter Procedures CBC and Differential Hemoglobin A1c Comprehensive Metabolic Panel Lipid Panel TSH T4, Free Electronically Signed by: Hernandez Almanza CNP documented in this encounter [facility] 11-03-2023 History of Present illness Narrative Subjective Patient ID: Mary Leblanc is a 68 y.o. male. HPI Patient has chronic Hx of Hypogonadism. Patient is currently using axiron 3 pumps daily.. Most recent Labs were done on 10/07. T level was 629, H/H WNL, and PSA was 0.2. Prior Labs were done on 05/08. T Level was 588, Hematocrit was 48.0, Hgb was 15.6, and PSA was 0.4. Prior Labs were done on 11/06. T level was 1117, Hct was 46.9, Hgb was 15.8, and PSA was 0.2. Chronic LUT'S sx are mild and stable. Denies urgency and frequency. Denies dysuria. Denies hematuria. Nocturia x1. He is taking Trospium. Has failed Gemtesa due to cost. Hx of kidney stones..No recent sx.. . KUB from 11/01 showed no stones. ED is chronic. Sildenafil PRN. Review of Systems Constitutional: Negative for chills and fever. HENT: Negative. Eyes: Negative. Respiratory: Negative for cough and shortness of breath. Cardiovascular: Negative for chest pain and leg swelling. Gastrointestinal: Negative for nausea. Endocrine: Negative. Genitourinary: Negative for difficulty urinating. Negative except for documented in HPI Allergic/Immunologic: Negative. Neurological: Alert & oriented X 3 Hematological: Denies blood thinners Psychiatric/Behavioral: Negative. Objective Physical Exam Vitals and nursing note reviewed. Constitutional: General: He is not in acute distress. Appearance: Normal appearance. Pulmonary: Effort: Pulmonary effort is normal. Abdominal: Tenderness: There is no abdominal tenderness. Genitourinary: Comments: Kidneys non palpable bilaterally Bladder non palpable or tender Scrotum no mass, No hydrocele Epididymis- No spermatocele. Non Tender. Testicles: No mass Urethra: No discharge Penis within normal limits... No lesions. Buried Prostate - symmetric, no nodules. BENIGN Seminal Vesicals: No mass. Sphincter tone: normal Neurological: Mental Status: He is alert. Assessment/Plan Diagnoses and all orders for this visit: Benign prostatic hyperplasia with lower urinary tract symptoms, symptom details unspecified Hypogonadism in male - testosterone (Axiron) 30 mg/actuation (1.5 mL) topical solution; Place 3 Pump on the skin once daily. - Hemoglobin and Hematocrit, Blood; Future - Testosterone,Free and Total; Future Nocturia - Prostate Specific Antigen; Future Male erectile disorder pros/cons of Testosterone replacement reviewed. Replacement options discussed. Questions answered. Available levels reviewed. Axiron Rx sent All available PSA values reviewed, Options discussed. Questions answered. Diet changes for prostate health discussed and educational information given. Pros/Cons of prostate health supplements discussed. Treatment options for LUTS reviewed Discussed timed voiding. Discussed fluid and caffeine intake Treatment options for ED reviewed. Sildenafil Rx refilled Lifestyle change to help prevent UTIs discussed. Encouraged fluid intake. F/U 6 months with labs documented in this encounter [facility] Work Phone: 10-25-2023 Evaluation + Plan note Associated Problem(s): B12 deficiency Continue B12 injections and we will check a B12 level with next blood draw [facility] Work Phone: 10-25-2023 Miscellaneous Notes Associated Problem(s): B12 deficiency Continue B12 injections and we will check a B12 level with next blood draw Associated Problem(s): Diabetes (Multi) A1c 7.9% Follows with endocrinology No weight loss since last office visit Discussed dietary and lifestyle modifications for weight loss Associated Problem(s): Hypertension Blood pressure mildly elevated in office; continue to monitor. No chest pain dizziness or headache Associated Problem(s): Dyslipidemia Encouraged to start Repatha injections Follows with a central office trouble shooter Previous statin induced myopathy and Zetia caused fatigue documented in this encounter [facility] Work Phone: 10-25-2023 Evaluation + Plan note Associated Problem(s): Diabetes (Multi) A1c 7.9% Follows with endocrinology No weight loss since last office visit Discussed dietary and lifestyle modifications for weight loss [facility] Work Phone: 10-25-2023 Evaluation + Plan note Associated Problem(s): Hypertension Blood pressure mildly elevated in office; continue to monitor. No chest pain dizziness or headache [facility] Work Phone: 10-25-2023 Evaluation + Plan note Associated Problem(s): Dyslipidemia Encouraged to start Repatha injections Follows with a central office trouble shooter Previous statin induced myopathy and Zetia caused fatigue [facility] Work Phone: 10-25-2023 History of Present illness Narrative INJECTED 1 ML B12 IM, LT DELTOID. NO COMPLICATIONS LOT [id number] EXP. 02/2025 VLW Subjective Patient ID: Mary Leblanc is a 68 y.o. male who presents for Follow-up (3 mo fu , B12 injection ). Mary comes to the office for diabetes/hypertension OV (last OV in November 2022). No wt loss since last OV. Hypertension-community blood pressures: 150/80's; No MALDONADO's. Chronic SOB. + bilateral cataract extraction over the spring, wears glasses. DM: Most recent hemoglobin A1c 7.9%, blood sugar checks: every day: averages 130's Last eye exam: <1Y ago. 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 Started on a diet 3D ago. Discussed role of dietary & lifestyle recommendations. Indicates he eats poorly as "all we have around the house is junk food". He endorses eating out frequently. Jardiance in past caused diarrhea. Explored referral to nutrition therapy and he indicates he has seen "multiple" dietians in the past. Reluctant to persue bariatric referral as many of his fx members have had bariatric surgery & "haven't been right since". Follows with endocrinology Vitamin B deficiency-continue with B12 injections Labs completed through [facility]; WBC 7.5, H&H 14.7-46.1, platelets 252, urine albumin 481.2, albumin/creatinine ratio 581, hemoglobin A1c 7.9% TSH 2.320, free T4 1.19. essential tremors-stable on propanolol previously saw neurology. Propranolol helps with tremors Hypergonadism/BPH/Chronic ED: follows with urology CRC screening: Colonoscopy 2019 showed multiple small mouth diverticula in the sigmoid and descending colon. Biopsies showed focal acute colitis. Repeat colonoscopy in 5 years. Referral placed Neurology follows for weakness in legs, no umbness or tingling in legs - taking a supplement Dyslipidemia-follows with cardiology encouraged to start Repatha injections. Statin induced myopathy and Zetia caused fatigue Will need a tetanus shot, we will administer with his next B12 injection Review of Systems Constitutional: No weight change Cardiovascular: Negative for chest pain and palpitations. Gastrointestinal: Negative for abdominal pain and blood in stool. Occasional diarrhea Neurological: Positive for tremors and weakness. Negative for dizziness, numbness and headaches. Lower legs Objective BP 140/78 Pulse 59 Ht 1.854 m (6' 1") Wt (!) 188 kg (414 lb 14.4 oz) SpO2 98% BMI 54.74 kg/m Physical Exam Vitals and nursing note reviewed. Constitutional: Appearance: Normal appearance. HENT: Head: Normocephalic. Neck: Thyroid: No thyromegaly or thyroid tenderness. Cardiovascular: Rate and Rhythm: Normal rate and regular rhythm. Heart sounds: Normal heart sounds. No murmur heard. Pulmonary: Effort: Pulmonary effort is normal. Breath sounds: Normal breath sounds. Skin: General: Skin is warm and dry. Neurological: General: No focal deficit present. Mental Status: He is alert and oriented to person, place, and time. Psychiatric: Mood and Affect: Mood normal. Thought Content: Thought content normal. Assessment/Plan Problem List Items Addressed This Visit ICD-10-CM Diabetes (Multi) E11.9 A1c 7.9% Follows with endocrinology No weight loss since last office visit Discussed dietary and lifestyle modifications for weight loss Relevant Medications pioglitazone (Actos) 30 mg tablet Other Relevant Orders Follow Up In Primary Care - Established Gout M10.9 Relevant Orders Follow Up In Primary Care - Established Hypertension - Primary I10 Blood pressure mildly elevated in office; continue to monitor. No chest pain dizziness or headache Relevant Orders Follow Up In Primary Care - Established B12 deficiency E53.8 Continue B12 injections and we will check a B12 level with next blood draw Relevant Medications cyanocobalamin (Vitamin B-12) injection 1,000 mcg Family history of colon cancer Z80.0 Relevant Orders Colonoscopy Screening; High Risk Patient Essential tremor G25.0 Relevant Orders Lead, Venous Anxiety F41.9 Relevant Medications hydrOXYzine HCL (Atarax) 25 mg tablet documented in this encounter [facility] Work Phone: 10-25-2023 Instructions KALEB Talbot - 10/25/2023 8:40 AM EDT We will refer you for a colonoscopy Office visit in 6 months Labs are in the computer for you to complete Please start your Repatha as we discussed in the office We will administer your next tetanus shot with B12 documented in this encounter [facility] Work Phone: 10-05-2023 History of Present illness Narrative Chief Complaint Patient presents with 3 month f/u Echo/CT f/u HPI: I was requested by Dr. Wall to evaluate this patient in consultation for cardiac assessment. Mr. Mary Leblanc is a 68 y.o. year old non-smoker obese diabetic male patient with past medical history significant for hypertension, diabetes, hyperlipidemia (intolerance to Statins), morbid obesity, MANJIT on CPAP, osteoarthritis, coming for assessment of hyperlipidemia. Patient is currently asymptomatic. He denies chest pain, shortness of breath, palpitations, leg edema, lightheadedness, headaches, fever, chills, orthopnea, paroxysmal nocturnal dyspnea or syncope. He endorses that he has high bad cholesterol and low good cholesterol, but he is intolerant to statins (cough). He is willing to take Repatha. 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 Stress test (2018) negative for ischemia Prior US carotids showing mild atherosclerotic disease Patient is feeling fine. He felt tired with Ezetimibe and stopped it after 3 days. He also has not started taking Repatha due to lack of instructions on how to administer the shots. Past Medical History Past Medical History: Diagnosis Date Cough in adult 07/20/2022 Dizziness 07/20/2022 Past Surgical History Past Surgical History: Procedure Laterality Date OTHER SURGICAL HISTORY 04/04/2019 Knee replacement OTHER SURGICAL HISTORY 04/04/2019 Cholecystectomy OTHER SURGICAL HISTORY 01/16/2021 Colonoscopy Past Family History Family History Problem Relation Name Age of Onset Cancer Mother Diabetes type II Mother Hypertension Mother Other (cva) Father Dementia Father Diabetes type II Father Hypertension Father Hypothyroidism Father Throat cancer Father Colon cancer Father Other (cva) Sister Dementia Sister Diabetes type II Sister Hypertension Sister Hypothyroidism Sister Throat cancer Sister Colon cancer Sister Other (cva) Brother Dementia Brother Diabetes type II Brother Hypertension Brother Throat cancer Brother Colon cancer Brother Allergy History Allergies Allergen Reactions Penicillins Unknown and Anaphylaxis pain in joints Aspartame Unknown Empagliflozin Diarrhea Guaifenesin Unknown Hydrocodone-Acetaminophen Unknown and GI Upset Levofloxacin Unknown Lisinopril Dizziness and Other cough Other reaction(s): C/O - cough Prednisone Unknown Propoxyphene N-Acetaminophen Nausea Only Robitussin Cough Calmers Unknown Spironolactone Unknown Oxycodone-Acetaminophen Anxiety Simvastatin Anxiety Past Social History Social History Socioeconomic History Marital status: Spouse name: None Number of children: None Years of education: None Highest education level: None Occupational History None Tobacco Use Smoking status: Never Smokeless tobacco: Never Substance and Sexual Activity Alcohol use: Not Currently Drug use: Never Sexual activity: None Other Topics Concern None Social History Narrative None Social Determinants of Health Financial Resource Strain: Not on file Food Insecurity: Not on file Transportation Needs: Not on file Physical Activity: Not on file Stress: Not on file Social Connections: Not on file Intimate Partner Violence: Not on file Housing Stability: Not on file Social History Tobacco Use Smoking Status Never Smokeless Tobacco Never Objective Data: Last Recorded Vitals: Vitals: 10/05/23 0958 BP: 140/72 Pulse: 54 SpO2: 97% Weight: (!) 187 kg (411 lb 14.4 oz) Height: 1.854 m (6' 1") Last Labs: CBC - No results in last year. _ _ _ _ CMP - No results in last year. _ _ _ --- _ _ _ _ _ PTT - No results in last year. _ _ _ BNP Date/Time Value Ref Range Status 03/17/2021 02:53 PM 35 0 - 99 pg/mL Final Comment: . <100 pg/mL - Heart failure unlikely 100-299 pg/mL - Intermediate probability of acute heart . failure exacerbation. Correlate with clinical . context and patient history. >=300 pg/mL - Heart Failure likely. Correlate with clinical . context and patient history. BNP testing is performed using different testing methodology at [facility] than at other [facility]. Direct result comparisons should only be made within the same method. HGBA1C Date/Time Value Ref Range Status 11/10/2022 12:00 AM 7.8 % Final Comment: [facility] Patient Medications: Outpatient Encounter Medications as of 10/05/2023 Medication Sig Dispense Refill allopurinol (Zyloprim) 100 mg tablet Take 1 tablet (100 mg) by mouth 2 times a day. 180 tablet 3 ascorbic acid (Vitamin C) 500 mg tablet 500 mg = 1 tab(s), Oral, Daily aspirin 81 mg EC tablet Take 1 tablet (81 mg) by mouth once daily. blood sugar diagnostic (Blood Glucose Test) strip USE DIRECTED TO TEST GLUCOSE 1-2 TIMES DAILY 70 each 11 glyBURIDE (Diabeta) 5 mg tablet Take 2 tablets (10 mg) by mouth 2 times a day. 360 tablet 3 hydroCHLOROthiazide (HYDRODiuril) 25 mg tablet Take 1 tablet (25 mg) by mouth once daily. 90 tablet 3 hydrOXYzine HCL (Atarax) 25 mg tablet Take 1 tablet (25 mg) by mouth once daily. lancets [facility] USE DIRECTED TO TEST GLUCOSE 1-2 TIMES DAILY 100 each 3 losartan (Cozaar) 100 mg tablet Take 1 tablet (100 mg) by mouth once daily. 90 tablet 3 meclizine (Antivert) 25 mg tablet Take 1 tablet (25 mg) by mouth 3 times a day as needed. metFORMIN (Glucophage) 1,000 mg tablet Take 1 tablet (1,000 mg) by mouth 2 times a day. 180 tablet 3 NON FORMULARY Take 1 each by mouth 2 times a day. Ivana-pro for neuropathy pioglitazone (Actos) 30 mg tablet TAKE 1 TABLET BY MOUTH EVERY DAY 90 tablet 3 potassium chloride CR 10 mEq ER tablet Take 1 tablet (10 mEq) by mouth once daily. 90 tablet 3 propranolol (Inderal) 60 mg tablet Take 1 tablet (60 mg) by mouth once daily. 90 tablet 3 sildenafil (Revatio) 20 mg tablet Take 5 tablets (100 mg) by mouth once daily. TAKE 5 TABLETS DAILY PRN 30 tablet 11 testosterone (Axiron) 30 mg/actuation (1.5 mL) topical solution Place 3 Pump on the skin once daily. 2 each 5 trospium (Sanctura) 20 mg tablet Take 1 tablet (20 mg) by mouth 2 times a day. trospium (Sanctura) 20 mg tablet Take 1 tablet (20 mg) by mouth 2 times a day. 60 tablet 11 evolocumab (Repatha SureClick) 140 mg/mL injection Inject 1 mL (140 mg) under the skin every 14 (fourteen) days. Do not start before August 04, 2023. (Patient not taking: Reported on 10/05/2023) 2 mL 1 ezetimibe (Zetia) 10 mg tablet Take 1 tablet (10 mg) by mouth once daily. (Patient not taking: Reported on 10/05/2023) 30 tablet 11 [DISCONTINUED] albuterol 90 mcg/actuation inhaler INHALE 2 PUFFS FOUR TIMES DAILY NEEDED SHORTNESS OF BREATH WITH ACTIVITY (Patient not taking: Reported on 07/06/2023) 18 g 11 No facility-administered encounter medications on file as of 10/05/2023. Physical Exam: General: alert, oriented and in no acute distress. Morbid obesity HEENT: NC/AT; EOMI; PERRLA, external ear is normal Neck: supple; trachea midline; no masses; no JVD Chest: clear breath sounds bilaterally; no wheezing Cardio: regular rhythm, S1S2 normal, no murmurs Abdomen: Hard to address due to obesity Extremities: Chronic edema LE Neuro: Grossly intact Psychiatric: Normal mood and affect Past Cardiology Results (Last 3 Years): EKG: ECG 12 lead (Clinic Performed) 07/06/2023 Echo: Echo Results: Transthoracic Echo (TTE) Complete 09/27/2023 [place] [id number], TRANSTHORACIC ECHOCARDIOGRAM REPORT Patient Name: MARY Benz KETAN Reading Physician: [id number] Bairon Camp MD Study Date: 09/27/2023 Ordering Provider: [id number] ROSENDO KINGSTON MRN/PID: [id number] Fellow: Nurse: Katherine Wu RN Date of /Age: 3 1955 / 68 years Biopsychologist: Pro Whyte CHACORTA Gender: M Additional Staff: Height: 182.88 cm Admit Date: Weight: 186.88 kg Admission Status: Outpatient BSA / BMI: 2.90 m2 / 55.88 Department Location: [facility] Echo Lab kg/m2 Blood Pressure: 223 /118 mmHg Study Type: TRANSTHORACIC ECHO (TTE) COMPLETE Diagnosis/ICD: Atherosclerotic heart disease of [place] coronary artery without angina pectoris-I25.10 CPT Codes: Echo Complete w Full Doppler-[id number] Patient History: Pertinent History: Second BP was 204/82. patient does not feel symptomatic. Study Detail: The following Echo studies were performed: 2D, Doppler, M-Mode and color flow. Definity used as a contrast agent for endocardial border definition. Total contrast used for this procedure was 2.00cc mL via IV push. PHYSICIAN INTERPRETATION: Left Ventricle: Left ventricular systolic function is normal, with an estimated ejection fraction of 60%. There are no regional wall motion abnormalities. The left ventricular cavity size is normal. Left ventricular diastolic filling was indeterminate. Left Atrium: The left atrium was not well visualized. Right Ventricle: The right ventricle was not well visualized. Unable to determine right ventricular systolic function. Right Atrium: The right atrium was not well visualized. Aortic Valve: The aortic valve was not well visualized. There is no evidence of aortic valve regurgitation. The peak instantaneous gradient of the aortic valve is 14.6 mmHg. The mean gradient of the aortic valve is 7.0 mmHg. Mitral Valve: The mitral valve is normal in structure. There is no evidence of mitral valve regurgitation. Tricuspid Valve: The tricuspid valve is structurally normal. No evidence of tricuspid regurgitation. Pulmonic Valve: The pulmonic valve is not well visualized. There is no indication of pulmonic valve regurgitation. Pericardium: There is no pericardial effusion noted. Aorta: The aortic root is normal. Systemic Veins: The inferior vena cava appears dilated. CONCLUSIONS: 1. Left ventricular systolic function is normal with a 60% estimated ejection fraction. 2. Poorly visualized anatomical structures due to suboptimal image quality. QUANTITATIVE DATA SUMMARY: 2D MEASUREMENTS: Normal Ranges: Ao Root d: 3.60 cm (2.0-3.7cm) LAs: 3.90 cm (2.7-4.0cm) IVSd: 1.48 cm (0.6-1.1cm) LVPWd: 1.52 cm (0.6-1.1cm) LVIDd: 5.08 cm (3.9-5.9cm) LVIDs: 3.83 cm LV Mass Index: 114.1 g/m2 LV % FS 24.6 % LA VOLUME: Normal Ranges: LA Vol A4C: 57.1 ml (22+/-6mL/m2) LA Vol A2C: 47.3 ml LA Vol BP: 53.7 ml LA Vol Index A4C: 19.7ml/m2 LA Vol Index A2C: 16.3 ml/m2 LA Vol Index BP: 18.5 ml/m2 LA Area A4C: 19.4 cm2 LA Area A2C: 17.1 cm2 LA Major [place] A4C: 5.6 cm LA Major [place] A2C: 5.2 cm LA Volume Index: 18.8 ml/m2 LA Vol A4C: 54.4 ml LA Vol A2C: 45.6 ml LV SYSTOLIC FUNCTION BY 2D PLANIMETRY (MOD): Normal Ranges: EF-A4C View: 64.9 % (>=55%) EF-A2C View: 65.6 % EF-Biplane: 64.7 % LV DIASTOLIC FUNCTION: Normal Ranges: MV Peak E: 0.96 m/s (0.7-1.2 m/s) MV Peak A: 1.03 m/s (0.42-0.7 m/s) E/A Ratio: 0.94 (1.0-2.2) MV lateral e' 0.08 m/s MV medial e' 0.08 m/s MITRAL VALVE: Normal Ranges: MV DT: 254 msec (150-240msec) AORTIC VALVE: Normal Ranges: AoV Vmax: 1.91 m/s (<=1.7m/s) AoV Peak P.6 mmHg (<20mmHg) AoV Mean P.0 mmHg (1.7-11.5mmHg) LVOT [place]: 1.18 m/s (<=1.1m/s) AoV VTI: 44.80 cm (18-25cm) LVOT VTI: 26.90 cm LVOT Diameter: 2.00 cm (1.8-2.4cm) AoV Area, VTI: 1.89 cm2 (2.5-5.5cm2) AoV Area,Vmax: 1.94 cm2 (2.5-4.5cm2) AoV Dimensionless Index: 0.60 RIGHT VENTRICLE: RV Basal 4.36 cm RV Mid 3.87 cm RV Major 9.2 cm TAPSE: 22.0 mm RV s' 0.10 m/s [id number] Bairon Camp MD Electronically signed on 09/27/2023 at 1:03:36 PM Final Cath: No results found for this or any previous visit from the past 1095 days. CV NCDR CATHPCI V5 COLLECTION FORM Stress Test: No results found for this or any previous visit from the past 1095 days. Cardiac Imaging: No results found for this or any previous visit from the past 1095 days. Assessment/Plan Mr. Mary Leblanc is a 68 y.o. year old non-smoker obese diabetic male patient with past medical history significant for hypertension, diabetes, hyperlipidemia (intolerance to Statins), morbid obesity, MANJIT on CPAP, osteoarthritis, coming for assessment of hyperlipidemia. Patient is currently asymptomatic. He denies chest pain, shortness of breath, palpitations, leg edema, lightheadedness, headaches, fever, chills, orthopnea, paroxysmal nocturnal dyspnea or syncope. He endorses that he has high bad cholesterol and low good cholesterol, but he is intolerant to statins (cough). He is willing to take Repatha. Assessment # Hyperlipidemia - CT calcium scoring is 200. - Benita tot 199, LDL 118, HDL 35, Tri 264 - Patient intolerant to statins (cough) and many other medications. - Counseled on healthy diet and regular exercise. - Keep ASA 81mg daily, Losartan 100mg daily, hydrochlorothiazide 25mg daily - Patient is feeling fine. He felt tired with Ezetimibe and stopped it after 3 days. He also has not started taking Repatha due to lack of instructions on how to administer the shots. - Stop Ezetimibe 10mg daily - Start Repatha 140mg q2w - our pharmacist will teach him how to use it. - Should get new lipid panel in 3 months - PCP assessment. - Follow up in 6 months. 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 - Stress test (2019) negative for ischemia - The echocardiogram showed normal LVEF 60% with no wall motion abnormalities. - Prior US carotids showing mild atherosclerotic disease - Will have a new USG carotids - CT calcium scoring is Repatha # Hypertension - Controlled blood pressure. - Keep current medications with Losartan 100mg daily, Propranolol 60mg daily. - Patient counseled to keep a healthy lifestyle including regular exercise and low-sodium diet. - Recommended home blood pressure monitoring. - Goal of BP < 130/80mmHg. # Diabetes - Controlled by PCP. - Counseled on healthy diet and regular exercises. - Discussed need for weight loss and the benefits. - Keep current medications with Metformin, Pioglitazone. This note was transcribed using the [employer] Dictation system. There may be grammatical, punctuation, or verbiage errors that occur with voice recognition programs. Counseling greater than 50% of visit regarding all cardiac issues. Thank you, Dr. Wall, for allowing me to participate in the care of this patient. Please do not hesitate to contact me with any further questions or concerns. Rosendo Kingston MD Cardiology documented in this encounter [facility] Work Phone: 07-30-2023 History of Present illness Narrative Images from the original note were not included. Patient ID: Mary Leblanc is a 67 y.o. male 1955 Subjective: Mary Leblanc presents for follow-up of Type 2 diabetes Patient has had diabetes for 24 years. Diagnosed in 1999 Patient has never taken Insulin. Currently on pioglitazone, glyburide and metformin. Took Jardiance, developed frequency of urination with overactive bladder. Reports over April-June was eating poorly, gained 20 lbs. Has lost 25 lbs in the last 3 weeks. Reports last A1c was elevated to 8.6%, previously 6-7%. Outpatient Medications Marked as Taking for the 07/30/23 encounter (Office Visit) with Hernandez Almanza CNP: allopurinol (ZYLOPRIM) 100 MG tablet, TAKE ONE TABLET BY MOUTH TWICE A DAY ascorbic acid, vitamin C, (VITAMIN C) 500 MG tablet, 500 mg = 1 tab(s), Oral, Daily aspirin 81 MG EC tablet, Take 1 (one) tablet (81 mg total) by mouth daily . blood sugar diagnostic (glucose blood) strips, USE DIRECTED TO TEST GLUCOSE 1-2 TIMES DAILY cyanocobalamin (B-12) 1,000 mcg/mL injection, Inject 1 mL (1,000 mcg total) into the shoulder, thigh, or buttocks every 30 (thirty) days . fluticasone propionate (FLONASE) 50 mcg/actuation nasal spray, Instill 2 (two) sprays into each nostril daily . glyBURIDE (DIABETA) 5 MG tablet, Take 2 (two) tablets (10 mg total) by mouth 2 (two) times a day with meals . hydroCHLOROthiazide (HYDRODIURIL) 25 MG tablet, Take 1 (one) tablet (25 mg total) by mouth daily . loratadine (CLARITIN) 10 mg tablet, Take 1 (one) tablet (10 mg total) by mouth daily . losartan (COZAAR) 100 MG tablet, meclizine (ANTIVERT) 25 mg tablet, Take 1 (one) tablet (25 mg total) by mouth Three times daily as needed . metFORMIN (GLUCOPHAGE) 1000 MG tablet, 1,000 mg = 1 tab(s), Oral, BID, # 180 tab(s), Refills(s) 3, Pharmacy: [facility]/pharmacy #[id number] metFORMIN (GLUCOPHAGE) 1000 MG tablet, Tablet Oral metoprolol tartrate (LOPRESSOR) 25 MG tablet, Take 1 (one) tablet (25 mg total) by mouth daily . OneTouch Delica Plus Lancet 30 gauge Misc, pioglitazone (ACTOS) 15 MG tablet, Take 1 (one) tablet (15 mg total) by mouth daily . potassium chloride 10 MEQ CR tablet, Take 1 (one) tablet (10 mEq total) by mouth daily . propranoloL (INDERAL) 60 MG tablet, [START ON 08/04/2023] Repatha SureClick 140 mg/mL Pen, Inject 1 mL (140 mg total) under the skin every 14 (fourteen) days Start: 08/04/23. sildenafil, antihypertens, (REVATIO) 20 mg tablet, Take 5 (five) tablets (100 mg total) by mouth daily . testosterone 30 mg/actuation (1.5 mL) SlPm, Pt states this is a 3 pump not 2. . Review of Systems: Review of Systems Constitutional: Negative for fatigue and unexpected weight change. HENT: Negative for trouble swallowing. Eyes: Negative for visual disturbance. Respiratory: Negative for cough and shortness of breath. Cardiovascular: Negative for chest pain and leg swelling. Gastrointestinal: Negative for abdominal pain, constipation, diarrhea, nausea and vomiting. Endocrine: Negative for polydipsia, polyphagia and polyuria. Genitourinary: Negative for frequency and urgency. Skin: Negative for wound. Neurological: Negative for numbness and headaches. Psychiatric/Behavioral: Negative for agitation and sleep disturbance. The patient is not nervous/anxious. The following portions of the patient's history were reviewed and updated as appropriate: allergies, current medications, past family history, past medical history, past social history, past surgical history and problem list. Objective: BP (!) 141/82 Pulse (!) 59 Wt (!) 185.5 kg (409 lb) BMI 53.96 kg/m Wt Readings from Last 3 Encounters: 07/30/23 (!) 185.5 kg (409 lb) 08/15/21 (!) 186.4 kg (411 lb) 06/05/21 (!) 181.4 kg (400 lb) Physical Exam: Physical Exam General: alert, appears stated age and cooperative Eyes: conjunctivae/corneas clear. PERRL, EOM's intact. Neck: no adenopathy, supple, symmetrical, trachea midline. Thyroid: No thyromegaly appreciated Lung: clear to auscultation bilaterally Heart: regular rate and rhythm, S1, S2 normal, no murmur, click, rub or gallop Extremities: extremities normal, atraumatic, no cyanosis or edema Feet: Dry skin, Patient Refused. Monofilament exam not assessed, bilateral lower extremities. Neuro: normal without focal findings, mental status, speech normal, alert and oriented x3 and VIKKI Laboratory Review: BP (!) 141/82 Pulse (!) 59 Wt (!) 185.5 kg (409 lb) BMI 53.96 kg/m No results found for: "HGBA1C" No results found for: "GLUCOSE", CREATININE No results found for: "CHOL", "TRIG", "HDL", "LDLCALC", "LDL" No results found for: "TSH" No results found for: "WBC", "HGB", "HCT", "MCV", "PLT" Date: 06/21/23 Hgb A1c: 8.6% Creat: 1.19; eGFR: 68 AST: 17; ALT: 14 K: 5.2 CBC: WBC: 6.8; Hgb: 15.4; Hct: 46.6; Plt: 180. Tchol: 199; Tri ; HDL: 35 ; LDL: 118 Assessment/Plan: Dx: 1. Inadequately controlled diabetes mellitus (HCC) Ambulatory referral to Endocrinology Type 2 diabetes, under fair control Currently taking: Metformin 1000 mg twice daily Glyburide 10 mg twice daily Actos 30 mg once daily Current Hemoglobin A1C= No results found for: "HGBA1C" Weight trend: has decreased 25 lbs. Current diet: avoiding concentrated sugars Current exercise: none Current monitoring regimen: home blood tests - daily Home blood sugar records: Fasting B Any episodes of hypoglycemia? 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 Is patient on ZULLY inhibitor or angiotensin II receptor roya? yes Losartan Peripheral Neuropathy: Positive Reports bilateral numbness and tingling in feet, Reports improvement with medications OTC supplement (VitaPro) Autonomic Neuropathy: Negative Hypoglycemia unawareness. Senses low BG at <120 mg/dl. Other: Hyperlipidemia: Positive Currently taking: Unable to tolerate statins. LFT's WNL. Statins led to Leg pain. Muscle pain. Will possibly be starting Repatha. No results found for: "AST", ALT No results found for: "EXTCHOL", "EXTTRIG", "EXTHDL", "EXTLDLCALC", "EXTLDL" Hypertension: Positive. Currently taking: hydrochlorothiazide (HCTZ) and losartan (Cozaar) BP: (!) 141/82 Cardiac: Negative Experiencing chest pain No . Experiencing shortness of breath No History of No history of CAD Vascular: Negative History of None Feet: Last foot exam: 07/30/23 Follows with Podiatry: Yes Recreation Aide: History of foot ulceration: No History of amputation: No Thyroid: No results found for: "TSH", "T6KGAMG", "K8NWWMP", THYROIDAB Negative Other: No history of MTC or pancreatitis. Plan: 1. Rx changes: Continue current regimen Metformin 1000 mg twice daily Glyburide 10 mg twice daily Actos 30 mg once daily Continue dietary modifications. Begin walking when gout resolves. Consider ozempic if weight loss stagnates or no improvement in A1c. 2. Education: Reviewed ABCs of diabetes management (respective goals in parentheses): A1C (7.0-8.0), blood pressure (<130/80), and cholesterol (LDL <100). 3. Compliance at present is estimated to be fair. Efforts to improve compliance (if necessary) will be directed at increased exercise. Also, will be directed at dietary modifications: Limit starches, carbohydrates and concentrated sugar sources 4. Follow up: 4 months 5. Record blood sugar readings as instructed. Call if BG consistently <70 or >250. [phone] Patient has been checking blood glucoses 1 times daily for the past 90 days. Patient needs to continue checking blood glucoses 1 times daily. Blood glucose readings are used to adjust medication or insulin doses for meals, monitor dietary compliance, and adjust for high or low blood glucoses by patient on a daily basis. Blood glucose readings are reviewed at office visits for adjustment in medication regimen and assistance with dietary management, and other self-management issues including exercise, etc. Prognosis: Good. Duration of need for diabetes testing equipment: Permanent #100 strips/month prescribed. 6. Bring blood sugar meter to follow up appointment. Orders Placed This Encounter Procedures CBC and Differential Comprehensive Metabolic Panel Hemoglobin A1c Lipid Panel Microalbumin/Creatinine Ratio, UR Random T4, Free TSH Electronically Signed by: Hernandez Almanza CNP documented in this encounter [facility] 07-28-2023 History of Present illness Narrative Subjective Mary Leblanc is a right handed 67 y.o. year old male who presents with Tremors. Visit type: follow up visit HPI Interval HX: Tremor is controlled with Propranolol 20 mg daily. He has some situational anxiety and tremor gets worse in theses situations such as public speaking. Prior HX: This is a 67-year-old man with a history of childhood onset tremor mostly on both upper extremities but there was some asymmetry at the onset. It was fine high-frequency tremor consistent with enhanced physiological tremor when we saw him last time in the clinic. He said at that time that tremor is there it gets better when he uses heavy utensils or heavy equipments but it is present if he does not use one of those Occupational Therapy measures. He says that it is there which does not bother him significantly and he thinks that he could keep up with using physical therapy or occupational therapy measures. He was not interested in any pharmacotherapy at this time. Therefore we sent him home with occupational therapy and follow-up in 6 months virtually. This visit is for the same. He says that his tremor remains the same since last visit if not somewhat better. He says that his anxiety comes and goes which is his baseline and his tremor correlates with anxiety but it does not significantly affect his quality of life that warrants any kind of pharmacotherapy. Does not have any fall or any new neurological issues. Overall he remained stable and happy. Review of Systems per HPI Active Problems Problems Anxiety (300.00) (F41.9) Benign prostatic hyperplasia with lower urinary tract symptoms (600.01) (N40.1) BMI 50.0-59.9, adult (V85.43) (Z68.43) Class 3 severe obesity due to excess calories with serious comorbidity and body mass index (BMI) of 50.0 to 59.9 in adult (278.01,V85.43) (E66.01,Z68.43) Class 3 severe obesity due to excess calories with serious comorbidity and body mass index (BMI) of 50.0 to 59.9 in adult (278.01,V85.43) (E66.01,Z68.43) Coarse tremors (781.0) (G25.2) Cough in adult (786.2) (R05.9) COVID-19 (079.89) (U07.1) Diabetes (250.00) (E11.9) Dizziness (780.4) (R42) Dyslipidemia (272.4) (E78.5) Encounter for immunization (V03.89) (Z23) Exertional chest pain (786.50) (R07.9) Extreme obesity (278.00) (E66.8) Gout (274.9) (M10.9) History of kidney stones (V13.01) (Z87.442) Hypertension (401.9) (I10) Hypogonadism in male (257.2) (E29.1) Inguinal hernia (550.90) (K40.90) Male erectile disorder (607.84) (N52.9) Morbid obesity with BMI of 50.0-59.9, adult (278.01,V85.43) (E66.01,Z68.43) Nocturia (788.43) (R35.1) Numbness of feet (782.0) (R20.0) Obstructive sleep apnea syndrome (327.23) (G47.33) Osteoarthritis (715.90) (M19.90) Pneumonia (486) (J18.9) Right lower quadrant abdominal pain (789.03) (R10.31) SOB (shortness of breath) on exertion (786.05) (R06.02) Tremor (781.0) (R25.1) Urinary frequency (788.41) (R35.0) Surgical History Problems History of Cholecystectomy History of Colonoscopy History of Knee replacement BILATERAL Family History Mother Family history of Cancer of unknown origin Family history of diabetes mellitus (V18.0) (Z83.3) Family history of hypertension (V17.49) (Z82.49) Father Family history of cerebrovascular accident (CVA) (V17.1) (Z82.3) Family history of dementia (V17.2) (Z81.8) Family history of diabetes mellitus (V18.0) (Z83.3) Family history of hypertension (V17.49) (Z82.49) Family history of hypothyroidism (V18.19) (Z83.49) Family history of throat cancer (V16.0) (Z80.0) Family history of No significant medical problems Family history of Primary malignant neoplasm of colon Sister Family history of cerebrovascular accident (CVA) (V17.1) (Z82.3) Family history of dementia (V17.2) (Z81.8) Family history of diabetes mellitus (V18.0) (Z83.3) Family history of hypertension (V17.49) (Z82.49) Family history of hypothyroidism (V18.19) (Z83.49) Family history of throat cancer (V16.0) (Z80.0) Family history of Primary malignant neoplasm of colon Brother Family history of cerebrovascular accident (CVA) (V17.1) (Z82.3) Family history of dementia (V17.2) (Z81.8) Family history of diabetes mellitus (V18.0) (Z83.3) Family history of hypertension (V17.49) (Z82.49) Family history of throat cancer (V16.0) (Z80.0) Family history of Primary malignant neoplasm of colon Social History Problems Never chewed tobacco (V49.89) (Z78.9) Never smoked tobacco (V49.89) (Z78.9) No advance directives (V49.89) (Z78.9) No alcohol use Allergies Medication acetaminophen-oxycodone Allergy; Anxiety; Updated By: María Magana; 06/07/2019 11:39:22 AM Darvocet-N 100 TABS Allergy; Nausea; Updated By: María Magana; 06/07/2019 11:39:22 AM Jardiance TABS Diarrhea; Recorded By: Karina Moody; 04/24/2021 9:39:04 AM lisinopril Allergy; Updated By: María Magana; 06/07/2019 11:39:22 AM Lisinopril TABS Dizziness; Recorded By: Karina Moody; 04/24/2021 9:39:04 AM Losartan Potassium TABS Nausea; Recorded By: Karina Moody; 04/24/2021 9:39:04 AM Penicillins Allergy; Updated By: María Magana; 06/07/2019 11:39:22 AM Percocet TABS Allergy; Anxiety; Updated By: María Magana; 06/07/2019 11:39:22 AM simvastatin Allergy; Anxiety; Updated By: María Magana; 06/07/2019 11:39:22 AM Aldactone Recorded By: Karina Moody; 04/24/2021 9:39:04 AM NIGHTMARES Aspartame and Phenylalanine Allergy; Updated By: María Magana; 06/07/2019 11:39:22 AM Additional reactions - Flu-like symptoms; C/O - vomiting guaifenesin Allergy; Updated By: María Magana; 06/07/2019 11:39:22 AM Additional reactions - Mood Alteration levoFLOXacin TABS Recorded By: Karina Moody; 08/18/2021 1:15:10 PM lisinopril Allergy; Updated By: María Magana; 06/07/2019 11:39:22 AM Additional reactions - C/O - cough Nutrasweet Aspartame POWD Recorded By: María Magana; 06/07/2019 11:39:22 AM predniSONE Allergy; Updated By: María Magana; 06/07/2019 11:39:22 AM Additional reactions - Dizziness - light-headed Robitussin-AC Allergy; Updated By: María Magana; 06/07/2019 11:39:22 AM Additional reactions - Anxiety attack 10-JUN-2015 17:45:25<$> Vicodin TABS Allergy; Updated By: María Magana; 06/07/2019 11:39:22 AM Additional reactions - Nausea present Review of Systems All other system have been reviewed and are negative for complaint. Objective Neurological Exam Physical Exam Postural and action tremor +1 in the Rt side 0 in Lt side No rest tremor No bradykinesia No rigidity Walking is normal Assessment/Plan This is a 67-year-old man with a history of enhanced physiological tremor since childhood. It is stable and his response to Propanolol 20 mg daily. He has some situational anxiety and tremor gets worse in theses situations such as public speaking.We recommended that he can take half or one extra tablet before these situations. Associated attestation - Rodrick Basilio MD PhD - 08/09/2023 10:33 PM EDT Seen with the trainee. Participated in barcenas part of history and examination. Agree with note above. documented in this encounter [facility] Work Phone: 07-06-2023 History of Present illness Narrative No chief complaint on file. HPI: I was requested by Dr. Wall to evaluate this patient in consultation for cardiac assessment. Mr. Mary Leblanc is a 67 y.o. year old non-smoker obese diabetic male patient with past medical history significant for hypertension, diabetes, hyperlipidemia (intolerance to Statins), morbid obesity, MANJIT on CPAP, osteoarthritis, coming for assessment of hyperlipidemia. Patient is currently asymptomatic. He denies chest pain, shortness of breath, palpitations, leg edema, lightheadedness, headaches, fever, chills, orthopnea, paroxysmal nocturnal dyspnea or syncope. He endorses that he has high bad cholesterol and low good cholesterol, but he is intolerant to statins (cough). He is willing to take Repatha. 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 Stress test (2018) negative for ischemia Prior US carotids showing mild atherosclerotic disease Past Medical History Past Medical History: Diagnosis Date Cough in adult 07/20/2022 Dizziness 07/20/2022 Past Surgical History Past Surgical History: Procedure Laterality Date OTHER SURGICAL HISTORY 04/04/2019 Knee replacement OTHER SURGICAL HISTORY 04/04/2019 Cholecystectomy OTHER SURGICAL HISTORY 01/16/2021 Colonoscopy Past Family History Family History Problem Relation Name Age of Onset Cancer Mother Diabetes type II Mother Hypertension Mother Other (cva) Father Dementia Father Diabetes type II Father Hypertension Father Hypothyroidism Father Throat cancer Father Colon cancer Father Other (cva) Sister Dementia Sister Diabetes type II Sister Hypertension Sister Hypothyroidism Sister Throat cancer Sister Colon cancer Sister Other (cva) Brother Dementia Brother Diabetes type II Brother Hypertension Brother Throat cancer Brother Colon cancer Brother Allergy History Allergies Allergen Reactions Penicillins Unknown and Anaphylaxis pain in joints Aspartame Unknown Empagliflozin Diarrhea Guaifenesin Unknown Hydrocodone-Acetaminophen Unknown and GI Upset Levofloxacin Unknown Lisinopril Dizziness and Other cough Other reaction(s): C/O - cough Prednisone Unknown Propoxyphene N-Acetaminophen Nausea Only Robitussin Cough Calmers Unknown Spironolactone Unknown Oxycodone-Acetaminophen Anxiety Simvastatin Anxiety Past Social History Social History Socioeconomic History Marital status: Spouse name: None Number of children: None Years of education: None Highest education level: None Occupational History None Tobacco Use Smoking status: Never Smokeless tobacco: Never Substance and Sexual Activity Alcohol use: Not Currently Drug use: Never Sexual activity: None Other Topics Concern None Social History Narrative None Social Determinants of Health Financial Resource Strain: Not on file Food Insecurity: Not on file Transportation Needs: Not on file Physical Activity: Not on file Stress: Not on file Social Connections: Not on file Intimate Partner Violence: Not on file Housing Stability: Not on file Social History Tobacco Use Smoking Status Never Smokeless Tobacco Never Review of Systems: A total of 12 systems have been reviewed and are negative except for the aforementioned findings described in HPI. Objective Data: Last Recorded Vitals: There were no vitals filed for this visit. Last Labs: CBC - No results in last year. _ _ _ _ CMP - No results in last year. _ _ _ --- _ _ _ _ _ PTT - No results in last year. _ _ _ BNP Date/Time Value Ref Range Status 03/17/2021 02:53 PM 35 0 - 99 pg/mL Final Comment: . <100 pg/mL - Heart failure unlikely 100-299 pg/mL - Intermediate probability of acute heart . failure exacerbation. Correlate with clinical . context and patient history. >=300 pg/mL - Heart Failure likely. Correlate with clinical . context and patient history. BNP testing is performed using different testing methodology at [facility] than at other [facility]. Direct result comparisons should only be made within the same method. HGBA1C Date/Time Value Ref Range Status 11/10/2022 12:00 AM 7.8 % Final Comment: [facility] Patient Medications: Outpatient Encounter Medications as of 07/06/2023 Medication Sig Dispense Refill allopurinol (Zyloprim) 100 mg tablet Take 1 tablet (100 mg) by mouth 2 times a day. ascorbic acid (Vitamin C) 500 mg tablet 500 mg = 1 tab(s), Oral, Daily aspirin 81 mg EC tablet Take 1 tablet (81 mg) by mouth once daily. blood sugar diagnostic (Blood Glucose Test) strip USE DIRECTED TO TEST GLUCOSE 1-2 TIMES DAILY 70 each 11 glyBURIDE (Diabeta) 5 mg tablet Take 2 tablets (10 mg) by mouth 2 times a day. 360 tablet 3 hydroCHLOROthiazide (HYDRODiuril) 25 mg tablet Take 1 tablet (25 mg) by mouth once daily. 90 tablet 3 hydrOXYzine HCL (Atarax) 25 mg tablet Take 1 tablet (25 mg) by mouth once daily. lancets 30 gauge misc USE DIRECTED TO TEST GLUCOSE 1-2 TIMES DAILY 100 each 3 losartan (Cozaar) 100 mg tablet Take 1 tablet (100 mg) by mouth once daily. 90 tablet 3 metFORMIN (Glucophage) 1,000 mg tablet Take 1 tablet (1,000 mg) by mouth 2 times a day. 180 tablet 3 pioglitazone (Actos) 30 mg tablet Take 1 tablet (30 mg) by mouth once daily. 90 tablet 3 potassium chloride CR 10 mEq ER tablet Take 1 tablet (10 mEq) by mouth once daily. 90 tablet 3 propranolol (Inderal) 60 mg tablet Take 1 tablet (60 mg) by mouth once daily. 90 tablet 3 testosterone (Axiron) 30 mg/actuation (1.5 mL) topical solution Place 3 Pump on the skin once daily. 2 each 5 trospium (Sanctura) 20 mg tablet Take 1 tablet (20 mg) by mouth 2 times a day. 60 tablet 11 albuterol 90 mcg/actuation inhaler INHALE 2 PUFFS FOUR TIMES DAILY NEEDED SHORTNESS OF BREATH WITH ACTIVITY (Patient not taking: Reported on 07/06/2023) 18 g 11 meclizine (Antivert) 25 mg tablet Take 1 tablet (25 mg) by mouth 3 times a day as needed. sildenafil (Revatio) 20 mg tablet Take 5 tablets (100 mg) by mouth once daily. TAKE 5 TABLETS DAILY PRN 30 tablet 11 trospium (Sanctura) 20 mg tablet Take 1 tablet (20 mg) by mouth 2 times a day. No facility-administered encounter medications on file as of 07/06/2023. Physical Exam: General: alert, oriented and in no acute distress. Morbid obesity HEENT: NC/AT; EOMI; PERRLA, external ear is normal Neck: supple; trachea midline; no masses; no JVD Chest: clear breath sounds bilaterally; no wheezing Cardio: regular rhythm, S1S2 normal, no murmurs Abdomen: Hard to address due to obesity Extremities: Chronic edema LE Neuro: Grossly intact Psychiatric: Normal mood and affect Past Cardiology Results (Last 3 Years): EKG: No results found for this or any previous visit from the past 1095 days. Echo: Echo Results: No results found for this or any previous visit from the past 365 days. Cath: No results found for this or any previous visit from the past 1095 days. CV NCDR CATHPCI V5 COLLECTION FORM Stress Test: No results found for this or any previous visit from the past 1095 days. Cardiac Imaging: No results found for this or any previous visit from the past 1095 days. Assessment/Plan Mr. Mary Leblanc is a 67 y.o. year old non-smoker obese diabetic male patient with past medical history significant for hypertension, diabetes, hyperlipidemia (intolerance to Statins), morbid obesity, MANJIT on CPAP, osteoarthritis, coming for assessment of hyperlipidemia. Patient is currently asymptomatic. He denies chest pain, shortness of breath, palpitations, leg edema, lightheadedness, headaches, fever, chills, orthopnea, paroxysmal nocturnal dyspnea or syncope. He endorses that he has high bad cholesterol and low good cholesterol, but he is intolerant to statins (cough). He is willing to take Repatha. Assessment # Hyperlipidemia - Benita tot 199, LDL 118, HDL 35, Tri 264 - Patient intolerant to statins (cough) and many other medications. - Counseled on healthy diet and regular exercise. - Keep ASA 81mg daily, Losartan 100mg daily, hydrochlorothiazide 25mg daily - Will prescribe Ezetimibe 10mg daily - Will prescribe Repatha 140mg q2w - Follow up in 3 months with echo and lipid panel. 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 - Stress test (2018) negative for ischemia - Prior US carotids showing mild atherosclerotic disease - Will have a new USG carotids - Follow up in 3 months with echocardiogram # Hypertension - Controlled blood pressure. - Keep current medications with Losartan 100mg daily, Propranolol 60mg daily. - Patient counseled to keep a healthy lifestyle including regular exercise and low-sodium diet. - Recommended home blood pressure monitoring. - Goal of BP < 130/80mmHg. # Diabetes - Controlled by PCP. - Counseled on healthy diet and regular exercises. - Discussed need for weight loss and the benefits. - Keep current medications with Metformin, Pioglitazone. This note was transcribed using the [employer] Dictation system. There may be grammatical, punctuation, or verbiage errors that occur with voice recognition programs. Counseling greater than 50% of visit regarding all cardiac issues. Thank you, Dr. Wall, for allowing me to participate in the care of this patient. Please do not hesitate to contact me with any further questions or concerns. Rosendo Kingston MD Cardiology documented in this encounter [facility] Work Phone: 04-19-2023 History of Present illness Narrative Subjective Patient ID: Mary Leblanc is a 67 y.o. male. HPI Patient is here for 1 week follow with labs. Patient has chronic Hx of Hypogonadism. Patient is currently using axiron 3 pumps daily.. Most recent Labs were done on 05/08. T Level was 588, Hematocrit was 48.0, Hgb was 15.6, and PSA was 0.4. Prior Labs were done on 11/06. T level was 1117, Hct was 46.9, Hgb was 15.8, and PSA was 0.2. Chronic LUT'S sx are mild and stable. Denies urgency and frequency. Denies dysuria. Denies hematuria. Nocturia x1. He is taking Trospium. Has failed Gemtesa due to cost. Hx of kidney stones..No recent sx.. . KUB from 11/01 showed no stones. ED is chronic. Sildenafil PRN. Review of Systems Constitutional: Negative for chills and fever. HENT: Negative. Eyes: Negative. Respiratory: Negative for cough and shortness of breath. Cardiovascular: Negative for chest pain and leg swelling. Gastrointestinal: Negative for nausea. Endocrine: Negative. Genitourinary: Negative for difficulty urinating. Negative except for documented in HPI Allergic/Immunologic: Negative. Neurological: Alert & oriented X 3 Hematological: Denies blood thinners Psychiatric/Behavioral: Negative. Objective Physical Exam No PE done given the virtual nature of visit. Assessment/Plan Diagnoses and all orders for this visit: Benign prostatic hyperplasia with lower urinary tract symptoms, symptom details unspecified Hypogonadism in male Nocturia Male erectile disorder All available PSA values reviewed, Options discussed. Questions answered. Diet changes for prostate health discussed and educational information given. Pros/Cons of prostate health supplements discussed. Treatment options for LUTS reviewed Discussed timed voiding. Discussed fluid and caffeine intake Treatment options for ED reviewed. Lifestyle change to help prevent UTIs discussed. Encouraged fluid intake. pros/cons of Testosterone replacement reviewed. Replacement options discussed. Questions answered. Available levels reviewed. F/U with labs 6 months documented in this encounter [facility] Work Phone: 11-23-2022 History of Present illness Narrative Subjective Patient ID: Mary Leblanc is a 67 y.o. male who presents for Annual Exam (Wellness,med check). Mary comes to the office for diabetes/hypertension OV Hypertension-community blood pressures: 150/80's; No MALDONADO's. Chronic SOB. + bilateral cataract extraction over the spring, wears glasses. Saw retinal specialist- surgery on hold @ this time, feels like a light shining in his eyes" DM: Most recent hemoglobin A1c 7.8%, blood sugar checks: every day: averages 130's Last eye exam: <1Y ago. 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 Is taking B12 by mouth Reviewed labs with patient today; labs from [facility] 11/09/2022: WBC 5.8 H&H 15.4-46.9 platelets 221, glucose 120, BUN 22, creatinine 1.18, alk phos 79, AST 23, ALT 16, TSH 3.26. essential tremors-stable on propanolol previously saw neurology. Propranolol helps with tremors Hypergonadism/BPH/Chronic ED: follows with urology Poison anna chest/back/arms/face (chin); intolerant to prednisone; will send triamcinolone cream Hypertension This is a recurrent problem. The current episode started more than 1 year ago. The problem has been waxing and waning since onset. The problem is resistant. Associated symptoms include shortness of breath. Pertinent negatives include no chest pain or headaches. There are no associated agents to hypertension. Risk factors for coronary artery disease include diabetes mellitus, dyslipidemia, family history and obesity. Compliance problems include diet and exercise. Review of Systems Constitutional: Positive for fatigue. Negative for appetite change, diaphoresis and fever. Respiratory: Positive for shortness of breath. Negative for cough and wheezing. Cardiovascular: Positive for leg swelling. Negative for chest pain. Neurological: Positive for tremors and numbness. Negative for dizziness, light-headedness and headaches. Bilateral feet Objective BP 132/80 Pulse 61 Ht 1.854 m (6' 1") Wt (!) 187 kg (412 lb 9.6 oz) SpO2 92% BMI 54.44 kg/m Physical Exam Vitals and nursing note reviewed. Constitutional: Appearance: Normal appearance. Cardiovascular: Rate and Rhythm: Normal rate and regular rhythm. Heart sounds: Normal heart sounds. Pulmonary: Effort: Pulmonary effort is normal. Breath sounds: Normal breath sounds. Skin: General: Skin is warm and dry. Neurological: General: No focal deficit present. Mental Status: He is alert and oriented to person, place, and time. Psychiatric: Mood and Affect: Mood normal. Thought Content: Thought content normal. Assessment/Plan Problem List Items Addressed This Visit Allergies and Adverse Reactions Poison anna Relevant Medications triamcinolone (Kenalog) 0.1 % cream Cardiac and Vasculature Dyslipidemia Relevant Orders Follow Up In Primary Care - Established Hypertension - Primary Relevant Orders Follow Up In Primary Care - Established Endocrine/Metabolic Diabetes (CMS/HCC) Relevant Orders Comprehensive Metabolic Panel Hemoglobin A1C CBC Lipid Panel Albumin , Urine Random Follow Up In Primary Care - Established B12 deficiency Other Visit Diagnoses Vitamin B12 deficiency Relevant Orders Vitamin B12 documented in this encounter [facility] Work Phone: 11-23-2022 Instructions KALEB Talbot - 11/23/2022 9:00 AM EDT Triamcinolone cream twice daily to affected areas of poison anna x7 days Start B12 injections weekly x4 weeks then monthly Office visit in 6 months with blood work prior Continue to work on physical activity and trying to lose weight documented in this encounter [facility] Work Phone: 11-06-2022 History of Present illness Narrative Patient has a chronic Hx of Hypogonadism. Patient is currently using axiron 3 pumps daily.. Most recent Labs were done on 11/06. T level was 1117, Hct was 46.9, Hgb was 15.8, and PSA was 0.2. Prior Labs were done on 10/05. T level was 613, Hct was 45.6, Hgb was 15.3, and PSA was 0.2. . Prior Labs were done on 05/06 Testosterone level 611, PSA 0.2, H&H 15.4 and 46.4 . BPH sx are chronic and mild.. some frequency and urgency...No dysuria and hematuria. nocturia 1x... Caffeine does worsen LUT's.. Pt on Sanctura for LUTS....Patient also has a hx of kidney stones..No recent sx.. . KUB from 11/01 showed no stones. ED is chronic. Sildenafil PRN. [facility] Work Phone: 11-06-2022 History of Present illness Narrative Patient is here for 1 month medication check. He was D/C'd from Trospium and started on Gemtesa. He states this was helpful. . chronic Hx of Hypogonadism. Patient is currently using axiron 3 pumps daily.. Most recent Labs were done on 11/06. T level was 1117, Hct was 46.9, Hgb was 15.8, and PSA was 0.2. Prior Labs were done on 10/05. T level was 613, Hct was 45.6, Hgb was 15.3, and PSA was 0.2. . Hx of kidney stones..No recent sx.. . KUB from 11/01 showed no stones. ED is chronic. Sildenafil PRN. [facility] Work Phone: 11-06-2022 History of Present illness Narrative Patient is here for 1 month medication check. He was D/C'd from Trospium and started on Gemtesa. He states this was helpful. . chronic Hx of Hypogonadism. Patient is currently using axiron 3 pumps daily.. Most recent Labs were done on 11/06. T level was 1117, Hct was 46.9, Hgb was 15.8, and PSA was 0.2. Prior Labs were done on 10/05. T level was 613, Hct was 45.6, Hgb was 15.3, and PSA was 0.2. . Hx of kidney stones..No recent sx.. . KUB from 11/01 showed no stones. ED is chronic. Sildenafil PRN. [facility] Work Phone: 06-24-2022 History of Present illness Narrative Mary comes to office for 3 MO DM/HTN visit. Labs reviewed w/ pt today.DM- most recent Aic 7.7%. Unable to tolerate Farxiga due to increased urination. CK's BS: EOD @ random times. Range: 120-130's in AM, 140-170's postprandial. Skips meals @ times & feels shaky (BS usually around 130's)BPH/chronic hypogonadism: follows w/ urology. most recent PSA 0.2saw Dr. Cutler, pulmonology for chronic SOB. CPAP compliant.CRC screening: Colonoscopy in 2018 + diverticulosis. + fxhx CRC CA. Repeat in 5YGout- last flare 1.5Y ago. Uric acid level: normal.c/o weakness & shaking in legs (w/ activity) since COVID 2Y ago. + tremor RH, initially improved w/ Propranolol. + chronic lower back pain. No falls. No N/T to lower extremities. h/o Parkinson's disease father dx @ age 70's. Legs feel weak all the time. No knee buckling/giving away.R lateral neck pain after sleeping in a bad position the night prior in December. Better after chiropractor & massage therapy. [facility] Work Phone: 04-06-2022 History of Present illness Narrative Mary comes to office for 3 MO DM/HTN visit. Labs reviewed w/ pt today.DM- most recent Aic 7.7%. Unable to tolerate Farxiga due to increased urination. CK's BS: EOD @ random times. Range: 120-130's in AM, 140-170's postprandial. Skips meals @ times & feels shaky (BS usually around 130's)BPH/chronic hypogonadism: follows w/ urology. most recent PSA 0.2saw Dr. Cutler, pulmonology for chronic SOB. CPAP compliant.CRC screening: Colonoscopy in 2018 + diverticulosis. + fxhx CRC CA. Repeat in out- last flare 1.5Y ago. Uric acid level: normal.c/o weakness & shaking in legs (w/ activity) since COVID 2Y ago. + tremor RH, initially improved w/ Propranolol. + chronic lower back pain. No falls. No N/T to lower extremities. h/o Parkinson's disease father dx @ age 70's. Legs feel weak all the time. No knee buckling/giving away.R lateral neck pain after sleeping in a bad position the night prior in December. Better after chiropractor & massage therapy. [facility] Work Phone: 12-31-2021 Chief complaint Narrative - Reported An interactive audio and video telecommunication system which permits real time communications between the patient (at the originating site) and provider (at the distant site) was utilized to provide this telehealth service.Verbal consent was requested and obtained from MARY LEBLANC on this date, 12/31/2021 10:30 AM , for a telehealth visit.6 mo f/u [facility] Work Phone: 10-05-2021 History of Present illness Narrative Patient has a chronic Hx of Hypogonadism. Patient is currently using axiron 3 pumps daily.. Most recent Labs were done on 10/05. T level was 613, Hct was 45.6, Hgb was 15.3, and PSA was 0.2. . Prior Labs were done on 05/06 Testosterone level 611, PSA 0.2, H&H 15.4 and 46.4 . BPH sx are chronic and mild.. some frequency and urgency...No dysuria and hematuria. nocturia 1x... Caffeine does worsen LUT's.. Pt on Sanctura for LUTS....Patient also has a hx of kidney stones..No recent sx.. . KUB from 11/01 showed no stones. ED is chronic. Sildenafil PRN.Controlled Medication Signed on 07/23/21 [facility] Work Phone: 08-15-2021 Instructions Karon Fonseca CNP - 08/15/2021 5:56 PM EDT Thank you for choosing [facility] for your healthcare needs today. I am treating you for pneumonia with a strong antibiotic. Discontinue for calf tenderness. Schedule follow up with your doctor COURT and go to the ER as discussed for persistent/worsening of symptoms. Follow up PCP elevated blood pressure reading. The following attachments cannot be sent through Care Everywhere.Pneumonia (Kinyarwanda)documented in this encounter [facility] 08-15-2021 History of Present illness Narrative Images from the original note were not included. Patient Name: [facility] Location: [address] [id number] Date Of : Date Of Visit: 1955 08/15/2021 MRN# Provider: [id number] Karon Fonseca CNP Chief Complaint Patient presents with Cough Cough with head/chest congestion that started 4 weeks ago. Assessment & Plan 1. Pneumonia due to infectious organism, unspecified laterality, unspecified part of lung levoFLOXacin (LEVAQUIN) 750 MG tablet 2. Cough XR Chest AP/PA and LAT benzonatate (Tessalon Perles) 100 MG capsule 3. Shortness of breath XR Chest AP/PA and LAT 4. Elevated blood pressure reading 5. Nasal congestion fluticasone propionate (FLONASE) 50 mcg/actuation nasal spray No follow-ups on file. Medical Decision Making Client is non-toxic in NAD with report of head and chest congestion for 4 1/2 weeks. Cough with SOB and wheezing. Purulent nasal drainage and sputum. No concern for COVID-19. Client was to travel to [place] Wednesday but cancelled due to symptoms. Client has purulent drainage in the right nares with drainage in the posterior throat. He has scattered wheezing throughout. Agreeable to chest film. 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 He reports 4 x negative stress tests. States he has no heart condition. His cough is productive of purulent sputum and symptoms have worsened in the past few days. I reviewed the radiology report and encouraged close follow up in ER persistent/worsening of symptoms. He should improve if this is a bacterial infection. Client to schedule follow up with his doctor for recheck and for elevated blood pressure in the clinic. I treated with Levaquin with allergy to PCN I could not prescribe Augmentin with either Doxy or Zithromax. Client has an inhaler for use. Additional Clinical Comments X-ray Documentation: I have personally reviewed the images. My impression is increased interstitial markings. Radiology over-read pending. Subjective 66 y.o. male presents with Cough (Cough with head/chest congestion that started 4 weeks ago.) Client with report of cough and congestion for 4 weeks. Nasal congestion and purulent nasal drainage. He has cough with SOB with exertion and cold air. Improves at night with C-Pap use. He has diabetes. He has an inhaler that he used once but does not feel that it is helpful. No concern for COVID-19. URI This is a new problem. The current episode started more than 1 month ago. The problem has been waxing and waning. There has been no fever. Associated symptoms include chest pain, congestion, coughing, diarrhea, ear pain, headaches, rhinorrhea, sinus pain, a sore throat and wheezing. Pertinent negatives include no nausea, plugged ear sensation or vomiting. He has tried inhaler use for the symptoms. The treatment provided no relief. Review Of Systems Review of Systems Constitutional: Positive for fatigue. Negative for chills and fever. HENT: Positive for congestion, ear pain, rhinorrhea, sinus pressure, sinus pain and sore throat. No new loss of taste or smell. Respiratory: Positive for cough, shortness of breath and wheezing. Cardiovascular: Positive for chest pain. Chest pain wit cough only. Gastrointestinal: Positive for diarrhea. Negative for nausea and vomiting. Intermittent diarrhea. Musculoskeletal: Positive for myalgias. Neurological: Positive for headaches. Medical History Past Medical History: Diagnosis Date DDD (degenerative disc disease), thoracic Diabetes mellitus (HCC) Hyperlipidemia Hypertension Past Surgical History: Procedure Laterality Date GALLBLADDER TOTAL KNEE ARTHROPLASTY Bilateral 2007,2008 Patient Active Problem List Diagnosis Pain in finger of left hand MANJIT (obstructive sleep apnea) Diabetes mellitus (HCC) Hypertension Exertional chest pain Morbid obesity (HCC) Social History Social History Tobacco Use Smoking status: Never Smoker Smokeless tobacco: Never Used Vaping Use Vaping Use: Never used Substance Use Topics Alcohol use: Not Currently Drug use: Never Family History Family History Problem Relation Age of Onset Heart attack Mother Heart disease Mother Stroke Mother Hyperlipidemia Mother Hypertension Mother Heart failure Father Heart attack Brother Stroke Brother Stroke Brother Objective Physical Exam BP (!) 150/83 (BP Location: Right arm, Patient Position: Sitting, BP Cuff Size: Adult) Comment: bp recheck / kse Pulse 81 Temp 97.5 F (36.4 C) (Infrared) Resp 18 Ht 6' 1" Wt (!) 186.4 kg (411 lb) SpO2 97% BMI 54.22 kg/m Vision/Hearing Exam:No exam data present Physical Exam Vitals and nursing note reviewed. Constitutional: General: He is not in acute distress. Appearance: Normal appearance. He is not ill-appearing, toxic-appearing or diaphoretic. HENT: Head: Normocephalic and atraumatic. Right Ear: Tympanic membrane, ear canal and external ear normal. Left Ear: Tympanic membrane, ear canal and external ear normal. Nose: Mucosal edema and congestion present. Comments: Drainage in the right nares. Mouth/Throat: Lips: [place]. Mouth: Mucous membranes are moist. Pharynx: Oropharynx is clear. Uvula midline. No pharyngeal swelling, oropharyngeal exudate, posterior oropharyngeal erythema or uvula swelling. Comments: Drainage. Cardiovascular: Rate and Rhythm: Normal rate and regular rhythm. Heart sounds: Normal heart sounds. Pulmonary: Effort: Pulmonary effort is normal. No respiratory distress. Breath sounds: Wheezing present. No rales. Skin: General: Skin is warm and dry. Neurological: Mental Status: He is alert and oriented to person, place, and time. GCS: GCS eye subscore is 4. GCS verbal subscore is 5. GCS motor subscore is 6. Psychiatric: Mood and Affect: Mood normal. Behavior: Behavior normal. Procedure Notes Procedures Results No results found for this or any previous visit (from the past 168 hour(s)). XR Chest AP/PA and LAT Final Result Diffuse coarsening of the interstitial markings, which could represent interstitial pneumonia or pulmonary congestion. SELVIN/terese Workstation ID: [id number] Orders Placed This Visit Orders Placed This Encounter Procedures XR Chest AP/PA and LAT Medication List At End Of Visit Current Outpatient Medications Medication Sig Dispense Refill aspirin 81 MG EC tablet Take 81 mg by mouth daily . glyBURIDE (DIABETA) 5 MG tablet Take 10 mg by mouth 2 (two) times a day with meals . hydroCHLOROthiazide (HYDRODIURIL) 25 MG tablet Take 25 mg by mouth daily . 3 hydrOXYzine (ATARAX) 25 MG tablet Take 25 mg by mouth daily . loratadine (CLARITIN) 10 mg tablet Take 10 mg by mouth daily . losartan (COZAAR) 100 MG tablet metFORMIN (GLUCOPHAGE) 1000 MG tablet 1,000 mg = 1 tab(s), Oral, BID, # 180 tab(s), Refills(s) 3, Pharmacy: [facility]/pharmacy #[id number] metoprolol tartrate (LOPRESSOR) 25 MG tablet Take 25 mg by mouth daily . 11 pioglitazone (ACTOS) 15 MG tablet Take 15 mg by mouth daily . 11 potassium chloride 10 MEQ CR tablet Take 10 mEq by mouth daily . propranoloL (INDERAL) 60 MG tablet testosterone 30 mg/actuation (1.5 mL) SlPm Pt states this is a 3 pump not 2. . albuterol (VENTOLIN HFA) 90 mcg/actuation inhaler 1-2 inhalations every 4-6 hours as needed for wheezing. Dispense spacer as needed. allopurinol (ZYLOPRIM) 100 MG tablet TAKE ONE TABLET BY MOUTH TWICE A DAY ascorbic acid, vitamin C, (VITAMIN C) 500 MG tablet 500 mg = 1 tab(s), Oral, Daily benzonatate (Tessalon Perles) 100 MG capsule Take one or two capsules every 8 hours as needed for cough. Do not chew. . 60 capsule 1 fluticasone propionate (FLONASE) 50 mcg/actuation nasal spray Instill 2 (two) sprays into each nostril daily . 16 g 0 levoFLOXacin (LEVAQUIN) 750 MG tablet Take 1 (one) tablet (750 mg total) by mouth daily for 5 days . 5 tablet 0 metFORMIN (GLUCOPHAGE) 1000 MG tablet Tablet Oral pediatric cvbkvmje-uiai-stm Chew 1 tab(s), Oral, Daily, 30 tab(s), Refill(s) 0 sildenafil, antihypertens, (REVATIO) 20 mg tablet Take 100 mg by mouth daily . No current facility-administered medications for this visit. Patient Instructions Thank you for choosing [facility] for your healthcare needs today. I am treating you for pneumonia with a strong antibiotic. Discontinue for calf tenderness. Schedule follow up with your doctor COURT and go to the ER as discussed for persistent/worsening of symptoms. Follow up PCP elevated blood pressure reading. documented in this encounter [facility] 06-05-2021 Instructions Delbert Borjas, - 06/05/2021 1:43 PM EST Images from the original note were not included. Uvulitis: Care Instructions Your Care Instructions Uvulitis (say "pye-hczl-KO-tus") is an inflammation of the uvula (say "ILN-yskd-qfa"). This is the small piece of finger-shaped tissue that hangs down in the back of the throat. Uvulitis is most often caused by an infection. It can also be a reaction to an allergy or injury. Often the cause is not known. Your uvula may be red and swollen. You may feel like something is stuck at the back of your throat. Sometimes you may have a hard time swallowing. You may have a sore throat or a fever. Home treatment for a sore throat may be all that is needed to relieve uvulitis. If it is caused by an infection, your doctor may give you an antibiotic. Your doctor may prescribe an antihistamine or a steroid medicine if uvulitis is caused by an allergy. It may also go away without treatment. Follow-up care is a barcenas part of your treatment and safety. Be sure to make and go to all appointments, and call your doctor if you are having problems. It's also a good idea to know your test results and keep a list of the medicines you take. How can you care for yourself at home? Be safe with medicines. Take your medicines exactly as prescribed. Call your doctor if you think you are having a problem with your medicine. You will get more details on the specific medicines your doctor prescribes. Gargle with warm salt water once an hour to help reduce swelling and relieve pain. Use 1 teaspoon of salt mixed in 1 cup of warm water. Try an iorq-nmh-pyatsow throat spray to relieve throat pain. Ask your doctor if you can take an ooko-rva-usvxdtx pain medicine, such as acetaminophen (Tylenol), ibuprofen (Advil, Motrin), or naproxen (Aleve). Read and follow all instructions on the label. Drink plenty of fluids. Fluids may help soothe your throat. If you have kidney, heart, or liver disease and have to limit fluids, talk with your doctor before you increase the amount of fluids you drink. Do not smoke or allow others to smoke around you. Smoking can make your throat problem worse. If you need help quitting, talk to your doctor about stop-smoking programs and medicines. These can increase your chances of quitting for good. When should you call for help? Call your doctor now or seek immediate medical care if: You have new or worse symptoms of infection, such as: ? Increased pain, swelling, warmth, or redness. ? Red streaks leading from the area. ? Pus draining from the area. ? A fever. You have new pain, or your pain gets worse. You have new or worse trouble swallowing. You seem to be getting sicker. You have shortness of breath. Watch closely for changes in your health, and be sure to contact your doctor if: You do not get better as expected. Where can you learn more? Log into your personal health record on [email or web address]://[email or web address] Factory[employer][email or web address] and enter Z464 in the "Education" box to learn more about Uvulitis: Care Instructions. Current as of: February 19, 2021 Content Version: 13.1 [employer]. Care instructions adapted under license by your healthcare professional. If you have questions about a medical condition or this instruction, always ask your healthcare professional. [employer] disclaims any warranty or liability for your use of this information. documented in this encounter [facility] 06-05-2021 History of Present illness Narrative PATIENT NAME: Mary Benz [facility] URGENT CARE: [address] [facility] [facility] [id number] DATE OF VISIT: 06/05/2021 DATE OF : 1955 SS: [id number] PROVIDER: Delbert Borjas, SUBJECTIVE 65 y.o. male to the clinic for complaint of Chief Complaint Patient presents with Covid-19 Screening Denies known covid exposure. Vaccinated. C/O sore throat x Wednesday night. Pt reports having weakness in legs and fatigue x 4 weeks, states this started after booster vaccine. HPI: Patient presents with swollen uvula that is mildly sore but not particularly painful. He was triaged as "COVID screening and sore throat." Symptoms have been present for 2 days. The enlarged uvula is an annoyance. The swelling has decreased significantly over the past day. No upper respiratory symptoms. No change in chronic allergic rhinitis with postnasal drainage and occasional minor cough. No perceived fever, measured fever, febrile symptoms. No known exposure to COVID-19 infected individuals in the last 2 weeks. Vaccinated. He states he had a similar episode of uvula swelling years ago that was thought to be related to allergic reaction from eating pineapple. His doctor told him to take doses of antacids and his problem resolved. He denies any recent consumption of pineapple. ROS: Constitutional: Denies measured fever or febrile symptoms. Head/Ear/Nose/Throat: Denies ear pain. Respiratory: Denies shortness of breath. Musculoskeletal: Denies arthralgia, myalgia. Skin: Denies rash. Neurological: Denies headache. Denies focal neuro symptoms. Social History Socioeconomic History Marital status: Tobacco Use Smoking status: Never Smoker Smokeless tobacco: Never Used Vaping Use Vaping Use: Never used Substance and Sexual Activity Alcohol use: Not Currently Drug use: Never Past Medical History: Diagnosis Date DDD (degenerative disc disease), thoracic Diabetes mellitus (HCC) Hyperlipidemia Hypertension Family History Problem Relation Age of Onset Heart attack Mother Heart disease Mother Stroke Mother Hyperlipidemia Mother Hypertension Mother Heart failure Father Heart attack Brother Stroke Brother Stroke Brother Current Outpatient Medications on File Prior to Visit Medication Sig Dispense Refill allopurinol (ZYLOPRIM) 100 MG tablet TAKE ONE TABLET BY MOUTH TWICE A DAY aspirin 81 MG EC tablet Take 81 mg by mouth daily . glyBURIDE (DIABETA) 5 MG tablet Take 10 mg by mouth 2 (two) times a day with meals . hydroCHLOROthiazide (HYDRODIURIL) 25 MG tablet Take 25 mg by mouth daily . 3 hydrOXYzine (ATARAX) 25 MG tablet Take 25 mg by mouth daily . loratadine (CLARITIN) 10 mg tablet Take 10 mg by mouth daily . losartan (COZAAR) 100 MG tablet metFORMIN (GLUCOPHAGE) 1000 MG tablet 1,000 mg = 1 tab(s), Oral, BID, # 180 tab(s), Refills(s) 3, Pharmacy: [facility]/pharmacy #[id number] metFORMIN (GLUCOPHAGE) 1000 MG tablet Tablet Oral metoprolol tartrate (LOPRESSOR) 25 MG tablet Take 25 mg by mouth daily . 11 pioglitazone (ACTOS) 15 MG tablet Take 15 mg by mouth daily . 11 potassium chloride (KLOR-CON 10) 10 MEQ CR tablet Take 10 mEq by mouth daily . propranoloL (INDERAL) 60 MG tablet sildenafil, antihypertens, (REVATIO) 20 mg tablet Take 100 mg by mouth daily . testosterone 30 mg/actuation (1.5 mL) SlPm Pt states this is a 3 pump not 2. . albuterol (VENTOLIN HFA) 90 mcg/actuation inhaler 1-2 inhalations every 4-6 hours as needed for wheezing. Dispense spacer as needed. ascorbic acid, vitamin C, (ascorbic acid with hailey hips) 500 MG tablet 500 mg = 1 tab(s), Oral, Daily pediatric aaefjzoc-yunc-wiy Chew 1 tab(s), Oral, Daily, 30 tab(s), Refill(s) 0 No current facility-administered medications on file prior to visit. Allergies Allergen Reactions Penicillins Anaphylaxis Aspartame GI Intolerance Hydrocodone-Acetaminophen GI Intolerance Lisinopril Other reaction(s): C/O - cough Other Propoxyphene N-Acetaminophen GI Intolerance Silk Tape Codeine-Guaifenesin Anxiety Simvastatin Anxiety EXAM: BP (!) 194/94 (BP Location: Left arm, Patient Position: Sitting, BP Cuff Size: Adult) Pulse 73 Temp 98 F (36.7 C) (Temporal) Resp 16 Ht 6' 1" Wt (!) 181.4 kg (400 lb) SpO2 97% BMI 52.77 kg/m Constitutional: Vital signs reviewed. Well-appearing. No distress. Psychiatric: Mental status is appropriate. Normal affect. Skin: Warm and dry. No rash noted. Eyes: Conjunctiva clear. No photophobia. HENT: No hoarseness, drooling, trismus or stridor. No tonsil enlargement or exudate. No abscess. Uvula is elongated to the point where it almost makes contact with the base of the tongue. It is moderately injected but not uniformly erythematous. Thorax/ Respiratory: Respiratory effort non-labored. Speaks in full sentences without dyspnea. Lungs are clear to auscultation. Cardiovascular: Good peripheral circulation. H RRR with no murmurs or ectopy. Musculoskeletal: No gross abnormalities. Neck has normal ROM without hesitation or pain response. Neurologic: Alert and appropriately conversant. No ataxia. No dysarthria. No gross facial motor asymmetry. PROCEDURE Procedures RESULTS No results found for this or any previous visit (from the past 168 hour(s)). Diagnosis: The encounter diagnosis was Suspected COVID-19 virus infection. Plan: 1. Suspected COVID-19 virus infection COVID-19, Molecular No follow-ups on file. ADDITIONAL CLINICAL COMMENTS / MEDICAL DECISION MAKING / PLAN: Clinical staff performed nasopharyngeal swab for COVID-19 test. Test result was negative. Differential diagnosis includes bacterial, viral or allergic cause of uvulitis. He is showing no evidence of life-threatening swelling by any cause. The appearance is not consistent with bacterial infection and he is improving spontaneously. I prescribed a brief course of prednisone for anti-inflammatory effect. ORDERS PLACED THIS VISIT Orders Placed This Encounter Procedures COVID-19, Molecular MEDICATION LIST AT END OF VISIT Current Outpatient Medications Medication Sig Dispense Refill allopurinol (ZYLOPRIM) 100 MG tablet TAKE ONE TABLET BY MOUTH TWICE A DAY aspirin 81 MG EC tablet Take 81 mg by mouth daily . glyBURIDE (DIABETA) 5 MG tablet Take 10 mg by mouth 2 (two) times a day with meals . hydroCHLOROthiazide (HYDRODIURIL) 25 MG tablet Take 25 mg by mouth daily . 3 hydrOXYzine (ATARAX) 25 MG tablet Take 25 mg by mouth daily . loratadine (CLARITIN) 10 mg tablet Take 10 mg by mouth daily . losartan (COZAAR) 100 MG tablet metFORMIN (GLUCOPHAGE) 1000 MG tablet 1,000 mg = 1 tab(s), Oral, BID, # 180 tab(s), Refills(s) 3, Pharmacy: [facility]/pharmacy #[id number] metFORMIN (GLUCOPHAGE) 1000 MG tablet Tablet Oral metoprolol tartrate (LOPRESSOR) 25 MG tablet Take 25 mg by mouth daily . 11 pioglitazone (ACTOS) 15 MG tablet Take 15 mg by mouth daily . 11 potassium chloride (KLOR-CON 10) 10 MEQ CR tablet Take 10 mEq by mouth daily . propranoloL (INDERAL) 60 MG tablet sildenafil, antihypertens, (REVATIO) 20 mg tablet Take 100 mg by mouth daily . testosterone 30 mg/actuation (1.5 mL) SlPm Pt states this is a 3 pump not 2. . albuterol (VENTOLIN HFA) 90 mcg/actuation inhaler 1-2 inhalations every 4-6 hours as needed for wheezing. Dispense spacer as needed. ascorbic acid, vitamin C, (ascorbic acid with hailey hips) 500 MG tablet 500 mg = 1 tab(s), Oral, Daily pediatric ewjabnxt-iqdl-ryo Chew 1 tab(s), Oral, Daily, 30 tab(s), Refill(s) 0 No current facility-administered medications for this visit. Delbert Borjas documented in this encounter [facility] 05-06-2021 History of Present illness Narrative Patient has a chronic Hx of Hypogonadism. Patient is currently using axiron 3 pumps daily.. Most recent labs were done on 05/06 Testosterone level 611, PSA 0.2, H&H 15.4 and 46.4 Previous labs done 12/04 t-level was 570..PSA was 0.2..Hgb was 15.7 ..Hct was 46.2..Prior labs were done on 06/06 and Testosterone was 829, Hgb was 15.8, Hct was 46.3, and PSA was 0.2.... BPH sx are chronic and mild.. some frequency and urgency...No dysuria and hematuria. nocturia 1x... Caffeine does worsen LUT's.. Pt on [place] for LUTS....Patient also has a hx of kidney stones..No recent sx.. . KUB from 11/01 showed no stones. ED is chronic. Sildenafil PRN.Controlled Medication Signed on 06/10/2020 [facility] Work Phone: 04-16-2021 History of Present illness Narrative Mary comes to the office for c/o cough & exertional SOB that he has noticed in the last 2W. Notes in April he carried some boxes up the steps and became short of breath with exertion. Diagnosed with CAP earlier this month and treated with a course of azithromycin. Previously had been on Levaquin and was intolerant as it caused severe myalgias. Saw a supervisor carpenters last week and is disappointed. Was prescribed an inhaler, which she indicates he has had previously, that does not help the cough may be even perhaps worsens his cough. Cough is worse in the morning, productive in nature light yellow and worse in the evenings. Took NyQuil last evening. No ill exposures. ENT diagnosed him with allergies as he realized his symptoms have gotten worse since getting a dog approximately 1 year ago. Was started on Singulair and unable to tolerate that medication as it caused pain in his feet and worsened his anxiety. Afebrile. -chills. + wheezing w/ cough. Nonsmoker. Takes Claritin nightly. Flonase uses a few days in a row and then he quits as it causes nosebleeds. Unable to tolerate prednisone. Has had a 5 pound weight gain since last office visit.c/o abd fullness & generalized pain w/ bloating for several years. Has a known R inguinal hernia that he has had for several yrs and bothers him from time to time. Prev. saw [facility] & was told she would operate on hernia once he was able to lose a given amt of wt. No epigastric pain. No food triggers. + h/o diverticulosis. [facility] Work Phone: 04-03-2021 History of Present illness Narrative Patient presents to the office today for a F/U w/Labs.Patient has a Chronic Hx of Hypgonadism.. Patient is currently using axiron 3 pumps daily.. Most recent labs were done on 06/06 and Testosterone was 829, Hgb was 15.8, Hct was 46.3, and PSA was 0.2, prior labs were on 10/02 and T was 580..Hgb was 15.0 and Hct 44.4...prior T was done 04/03 was 543.. PSA was 0.2.. HGb was 15.1 and hct was 44.8.. prior labs were done 10/01.. T level was 168.. PSA was 0.2.. BPH sx are chronic and mild.. some frequency and urgency...No dysuria and hematuria. nocturia 1x... Caffiene does worsen LUT's.. No medications for LUT's.. .ED is chronic. Patient is on testosterone .. Patient also has a hx of kidney stones. Passed a kidney stone in 11/01.. KUB from 11/01 showed no stones.Controlled Medication Signed on 06/10/2020 [facility] Work Phone: 01-16-2021 History of Present illness Narrative Mary comes to the office for a 3-month recheck on diabetes and hypertension. Has been able to lose 19 pounds since May through portion control. Most recent hemoglobin A1c 7.6% which is down from 7.8%. Has been reducing food consumption through portion control. Encouraged patient to continue with lifestyle and dietary modifications.Recommended yearly influenza vaccination. Eye exam within the last year. Follows with podiatry yearly.HYpertension- Checking BP @ home \\{ + \\} - SBP ranges: 130s DBP Ranges: 80sTaking medication as prescribed: \\{ + \\}, omitted doses \\{ - \\};Essential tremors- Changed to propranolol 60 mg daily for tremors and tremors are much better.Review labs with patient today [facility] Work Phone: 12-04-2020 History of Present illness Narrative Patient presents to the office today for a F/U w/Labs...Patient has a Chronic Hx of Hypogonadism..Patient is on testosterone. Patient is currently using axiron 3 pumps daily.. Most recent labs were done on 12/04..Most recent t-level was 570..PSA was 0.2..Hgb was 15.7 ..Hct was 46.2..Prior labs were done on 06/06 and Testosterone was 829, Hgb was 15.8, Hct was 46.3, and PSA was 0.2.... BPH sx are chronic and mild.. some frequency and urgency...No dysuria and hematuria. nocturia 1x... Caffiene does worsen LUT's.. Pt on [place] for LUTS...ED is chronic. Pt has Sildenafil PRN..Patient also has a hx of kidney stones..No recent sx.. Passed a kidney stone in 11/01.. KUB from 11/01 showed no stones.Controlled Medication Signed on 06/10/2020 [facility] Work Phone: Evaluation note Diagnosis Uvulitis- Primary Cellulitis and abscess of oral soft tissues Suspected COVID-19 virus infection Exposure to SARS-associated coronavirus [facility] Diagnosis Pneumonia due to infectious organism, unspecified laterality, unspecified part of lung- Primary Cough Shortness of breath Elevated blood pressure reading Elevated blood pressure reading without diagnosis of hypertension Nasal congestion Other diseases of nasal cavity and sinuses [facility] Diagnosis Primary hypertension- Primary Unspecified essential hypertension Type 2 diabetes mellitus without complication, without long-term current use of insulin ([facility]) Dyslipidemia Other and unspecified hyperlipidemia B12 deficiency Poison anna Contact dermatitis and other eczema due to plants (except food) Vitamin B12 deficiency Other B-complex deficiencies documented in this encounter [facility] Work Phone: Evaluation note* Diagnosis Benign prostatic hyperplasia with lower urinary tract symptoms, symptom details unspecified Hypogonadism in male Nocturia Male erectile disorder Impotence of organic origin documented in this encounter [facility] Work Phone: Evaluation note* Diagnosis Atherosclerosis- Primary Dyslipidemia Other and unspecified hyperlipidemia documented in this encounter [facility] Work Phone: Evaluation note* Diagnosis Inadequately controlled diabetes mellitus (HCC)- Primary Type II or unspecified type diabetes mellitus without mention of complication, not stated as uncontrolled [facility] Diagnosis Inadequately controlled diabetes mellitus (HCC) Type II or unspecified type diabetes mellitus without mention of complication, not stated as uncontrolled [facility] Diagnosis Tremor- Primary Abnormal involuntary movements documented in this encounter [facility] Work Phone: Evaluation note* Diagnosis Dyslipidemia Other and unspecified hyperlipidemia documented in this encounter [facility] Work Phone: Evaluation note* Diagnosis Atherosclerosis Atherosclerotic heart disease of [place] coronary artery without angina pectoris documented in this encounter [facility] Work Phone: [phone] note* Diagnosis Atherosclerosis- Primary documented in this encounter [facility] Work Phone: Evaluation note* Diagnosis Primary hypertension- Primary Unspecified essential hypertension B12 deficiency Type 2 diabetes mellitus without complication, without long-term current use of insulin (Multi) Chronic gout without tophus, unspecified cause, unspecified site Essential tremor Anxiety Anxiety state, unspecified Family history of colon cancer Family history of malignant neoplasm of gastrointestinal tract documented in this encounter [facility] Work Phone: Evaluation note* Diagnosis Benign prostatic hyperplasia with lower urinary tract symptoms, symptom details unspecified Hypogonadism in male Nocturia Male erectile disorder Impotence of organic origin documented in this encounter [facility] Work Phone: Evaluation note* Diagnosis Inadequately controlled diabetes mellitus (HCC)- Primary Type II or unspecified type diabetes mellitus without mention of complication, not stated as uncontrolled Type 2 diabetes mellitus without complication, without long-term current use of insulin (HCC) Hypertension, unspecified type [facility] Primary hypertension- Primary Unspecified essential hypertension B12 deficiency Type 2 diabetes mellitus without complication, without long-term current use of insulin (Multi) Chronic gout without tophus, unspecified cause, unspecified site Essential tremor Anxiety Anxiety state, unspecified Family history of colon cancer Family history of malignant neoplasm of gastrointestinal tract Family history of colon cancer Family history of malignant neoplasm of gastrointestinal tract documented in this encounter [facility] Work Phone: Evaluation note* Diagnosis Primary hypertension- Primary Unspecified essential hypertension B12 deficiency Type 2 diabetes mellitus without complication, without long-term current use of insulin (Multi) Chronic gout without tophus, unspecified cause, unspecified site Essential tremor Anxiety Anxiety state, unspecified Family history of colon cancer Family history of malignant neoplasm of gastrointestinal tract Atherosclerosis- Primary Dyslipidemia Other and unspecified hyperlipidemia Type 2 diabetes mellitus with other specified complication, unspecified whether intermediate insulin use (Multi) documented in this encounter [facility] Work Phone: Evaluation note* Diagnosis Primary hypertension- Primary Unspecified essential hypertension B12 deficiency Type 2 diabetes mellitus without complication, without long-term current use of insulin (Multi) Chronic gout without tophus, unspecified cause, unspecified site Essential tremor Anxiety Anxiety state, unspecified Family history of colon cancer Family history of malignant neoplasm of gastrointestinal tract Type 2 diabetes mellitus without complication, without long-term current use of insulin (Multi)- Primary Primary hypertension Unspecified essential hypertension Chronic gout without tophus, unspecified cause, unspecified site Dyslipidemia Other and unspecified hyperlipidemia Benign prostatic hyperplasia with lower urinary tract symptoms, symptom details unspecified Family history of colon cancer Family history of malignant neoplasm of gastrointestinal tract documented in this encounter [facility] Work Phone: Evaluation note* Diagnosis Exertional chest pain Unspecified chest pain MANJIT (obstructive sleep apnea) Obstructive sleep apnea (adult) (pediatric) Type 2 diabetes mellitus without complication, without long-term current use of insulin (HCC) Hypertension, unspecified type Morbid obesity (HCC) Morbid obesity Type 2 diabetes mellitus without complication, without long-term current use of insulin (HCC)- Primary Hypertension, unspecified type [facility] Diagnosis Primary hypertension- Primary Unspecified essential hypertension B12 deficiency Type 2 diabetes mellitus without complication, without long-term current use of insulin (Multi) Chronic gout without tophus, unspecified cause, unspecified site Essential tremor Anxiety Anxiety state, unspecified Family history of colon cancer Family history of malignant neoplasm of gastrointestinal tract Type 2 diabetes mellitus without complication, without long-term current use of insulin (Multi)- Primary Primary hypertension Unspecified essential hypertension Chronic gout without tophus, unspecified cause, unspecified site Dyslipidemia Other and unspecified hyperlipidemia Benign prostatic hyperplasia with lower urinary tract symptoms, symptom details unspecified Family history of colon cancer Family history of malignant neoplasm of gastrointestinal tract Tremor- Primary Abnormal involuntary movements Neuropathy Mononeuritis of unspecified site documented in this encounter [facility] Work Phone: Evaluation note* Diagnosis Primary hypertension- Primary Unspecified essential hypertension B12 deficiency Type 2 diabetes mellitus without complication, without long-term current use of insulin Chronic gout without tophus, unspecified cause, unspecified site Essential tremor Anxiety Anxiety state, unspecified Family history of colon cancer Family history of malignant neoplasm of gastrointestinal tract Type 2 diabetes mellitus without complication, without long-term current use of insulin- Primary Primary hypertension Unspecified essential hypertension Chronic gout without tophus, unspecified cause, unspecified site Dyslipidemia Other and unspecified hyperlipidemia Benign prostatic hyperplasia with lower urinary tract symptoms, symptom details unspecified Family history of colon cancer Family history of malignant neoplasm of gastrointestinal tract Benign prostatic hyperplasia with lower urinary tract symptoms, symptom details unspecified Hypogonadism in male Nocturia Male erectile disorder Impotence of organic origin documented in this encounter [facility] Work Phone: Evaluation note* Diagnosis Primary hypertension- Primary Unspecified essential hypertension B12 deficiency Type 2 diabetes mellitus without complication, without long-term current use of insulin Chronic gout without tophus, unspecified cause, unspecified site Essential tremor Anxiety Anxiety state, unspecified Family history of colon cancer Family history of malignant neoplasm of gastrointestinal tract Type 2 diabetes mellitus without complication, without long-term current use of insulin- Primary Primary hypertension Unspecified essential hypertension Chronic gout without tophus, unspecified cause, unspecified site Dyslipidemia Other and unspecified hyperlipidemia Benign prostatic hyperplasia with lower urinary tract symptoms, symptom details unspecified Family history of colon cancer Family history of malignant neoplasm of gastrointestinal tract Atherosclerosis of [place] coronary artery of [place] heart without angina pectoris documented in this encounter [facility] Work Phone: Evaluation note* Diagnosis Exertional chest pain Unspecified chest pain MANJIT (obstructive sleep apnea) Obstructive sleep apnea (adult) (pediatric) Type 2 diabetes mellitus without complication, without long-term current use of insulin (HCC) Hypertension, unspecified type Morbid obesity (HCC) Morbid obesity Type 2 diabetes mellitus without complication, without long-term current use of insulin (HCC)- Primary [facility] Primary hypertension- Primary Unspecified essential hypertension B12 deficiency Type 2 diabetes mellitus without complication, without long-term current use of insulin Chronic gout without tophus, unspecified cause, unspecified site Essential tremor Anxiety Anxiety state, unspecified Family history of colon cancer Family history of malignant neoplasm of gastrointestinal tract Type 2 diabetes mellitus without complication, without long-term current use of insulin- Primary Primary hypertension Unspecified essential hypertension Chronic gout without tophus, unspecified cause, unspecified site Dyslipidemia Other and unspecified hyperlipidemia Benign prostatic hyperplasia with lower urinary tract symptoms, symptom details unspecified Family history of colon cancer Family history of malignant neoplasm of gastrointestinal tract Dyslipidemia- Primary Other and unspecified hyperlipidemia Type 2 diabetes mellitus without complication, without long-term current use of insulin Primary hypertension Unspecified essential hypertension Chronic gout without tophus, unspecified cause, unspecified site Type 2 diabetes mellitus with other specified complication, unspecified whether intermediate insulin use (Multi) Type 2 diabetes mellitus with hyperglycemia, without long-term current use of insulin documented in this encounter [facility] Work Phone: Evaluation note* Diagnosis Primary hypertension- Primary Unspecified essential hypertension B12 deficiency Type 2 diabetes mellitus without complication, without long-term current use of insulin (Multi) Chronic gout without tophus, unspecified cause, unspecified site Essential tremor Anxiety Anxiety state, unspecified Family history of colon cancer Family history of malignant neoplasm of gastrointestinal tract Family history of colon cancer Family history of malignant neoplasm of gastrointestinal tract Type 2 diabetes mellitus without complication, without long-term current use of insulin (Multi)- Primary Primary hypertension Unspecified essential hypertension Chronic gout without tophus, unspecified cause, unspecified site Dyslipidemia Other and unspecified hyperlipidemia Benign prostatic hyperplasia with lower urinary tract symptoms, symptom details unspecified Family history of colon cancer Family history of malignant neoplasm of gastrointestinal tract Dyslipidemia- Primary Other and unspecified hyperlipidemia Type 2 diabetes mellitus without complication, without long-term current use of insulin (Multi) Primary hypertension Unspecified essential hypertension Chronic gout without tophus, unspecified cause, unspecified site Type 2 diabetes mellitus with other specified complication, unspecified whether 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 (Multi) Type 2 diabetes mellitus with hyperglycemia, without long-term current use of insulin (Multi) documented in this encounter [facility] Work Phone: Evaluation note* Diagnosis Primary hypertension- Primary Unspecified essential hypertension B12 deficiency Type 2 diabetes mellitus without complication, without long-term current use of insulin (Multi) Chronic gout without tophus, unspecified cause, unspecified site Essential tremor Anxiety Anxiety state, unspecified Family history of colon cancer Family history of malignant neoplasm of gastrointestinal tract Type 2 diabetes mellitus without complication, without long-term current use of insulin (Multi)- Primary Primary hypertension Unspecified essential hypertension Chronic gout without tophus, unspecified cause, unspecified site Dyslipidemia Other and unspecified hyperlipidemia Benign prostatic hyperplasia with lower urinary tract symptoms, symptom details unspecified Family history of colon cancer Family history of malignant neoplasm of gastrointestinal tract Dyslipidemia- Primary Other and unspecified hyperlipidemia Type 2 diabetes mellitus without complication, without long-term current use of insulin (Multi) Primary hypertension Unspecified essential hypertension Chronic gout without tophus, unspecified cause, unspecified site Type 2 diabetes mellitus with other specified complication, unspecified whether intermediate insulin use (Multi) Type 2 diabetes mellitus with hyperglycemia, without long-term current use of insulin (Multi) Acute bronchitis, unspecified organism- Primary Cellulitis of foot without toes, left documented in this encounter [facility] Work Phone: Evaluation note* Diagnosis Exertional chest pain Unspecified chest pain MANJIT (obstructive sleep apnea) Obstructive sleep apnea (adult) (pediatric) Type 2 diabetes mellitus without complication, without long-term current use of insulin (HCC) Hypertension, unspecified type Morbid obesity (HCC) Morbid obesity Skin ulcer of left foot with fat layer exposed (HCC)- Primary Diabetic peripheral neuropathy (HCC) Type II or unspecified type diabetes mellitus with neurological manifestations, not stated as uncontrolled [facility] Diagnosis Exertional chest pain Unspecified chest pain MANJIT (obstructive sleep apnea) Obstructive sleep apnea (adult) (pediatric) Type 2 diabetes mellitus without complication, without long-term current use of insulin (HCC) Hypertension, unspecified type Morbid obesity (HCC) Morbid obesity Other osteomyelitis of left foot (HCC)- Primary Skin ulcer of left foot with fat layer exposed (HCC) [facility] Diagnosis Exertional chest pain Unspecified chest pain MANJIT (obstructive sleep apnea) Obstructive sleep apnea (adult) (pediatric) Type 2 diabetes mellitus without complication, without long-term current use of insulin (HCC) Hypertension, unspecified type Morbid obesity (HCC) Morbid obesity Skin ulcer of left foot with fat layer exposed (HCC)- Primary Other osteomyelitis of left foot (HCC) Diabetic peripheral neuropathy (HCC) Type II or unspecified type diabetes mellitus with neurological manifestations, not stated as uncontrolled [facility] NarrativeMr. Leblanc is a 66-year-old male seen at the request of Adalberto Wall for evaluation of right-sided abdominal pain. He has a history of laparoscopic cholecystectomy [place] [address] Garay. Shortly after that surgery, he recalls an episode where he leaned forward to pick something up and had acute onset of sharp abdominal pain. He rubbed his abdominal wall and maneuvered until he felt something "release" and his sharp pain resolved. However, for about a year, he still had some persistent pain in that right abdominal wall. He denies any nausea or vomiting associated with that. A few years later, he had recurrent right sided abdominal pain similar in nature to the previous episode when he was carrying a box. He continues to have this intermittent pain, particularly when carrying something. He has shortness of breath associated with this. He has been evaluated by a supervisor carpenters and startedon an inhaler for the shortness of breath. His BMI is currently 55. He reports losing 60 pounds, but gaining inches in his abdomen. He has additional obesity related health complications including the shortness of breath on exertion, sleep apnea, and diabetes. He also has a known right inguinal hernia, but understands that this will not be repaired prior to significant weight loss, and that hernia is minimally bothersome to him.[facility] [place] Work Phone: History of Present illness Narrative* Mary comes to office for 3 MO DM/HTN visit. Labs reviewed w/ pt today. * DM- most recent Aic 7.7%. Unable to tolerate Farxiga due to increased urination. CK's BS: EOD @ random times. Range: 120-130's in AM, 140-170's postprandial. Skips meals @ times & feels shaky (BSusually around 130's) * BPH/chronic hypogonadism: follows w/ urology. most recent PSA 0.2 * saw Dr. Cutler, pulmonology for chronic SOB. CPAP compliant. * CRC screening: Colonoscopy in 2019 + diverticulosis. + fxhx CRC CA. Repeat in 5Y * Gout- last flare 1.5Y ago. Uric acid level: normal. * c/o weakness & shaking in legs (w/ activity) since COVID 2Y ago. + tremor RH, initially improved w/ Propranolol. + chronic lower back pain. No falls. No N/T to lower extremities. h/o Parkinson's disease father dx @ age 70's. Legs feel weak all the time. No knee buckling/giving away. * R lateral neck pain after sleeping in a bad position the night prior in December. Better after chiropractor & massage therapy. [facility] Work Phone: reason for referral (narrative)* Consultation (Routine) - Authorized Specialty Diagnoses / Procedures Referred By Ibeth borden Referred To Contact Primary Care Diagnoses Type 2 diabetes mellitus without complication, without long-term current use of insulin ([facility]) Primary hypertension Dyslipidemia Procedures Follow Up In Primary Care - Established Adalberto Wall, AIR TRAFFIC COORDINATOR-PIEROGI MAKER [address] [phone] Referral ID Status Reason Start Date Expiration Date V isits Requested Visits Authorized [id number] Authorized 11/23/2022 05/22/2023 1 1 [facility] Work Phone: reason for visit Narrative* Consultation (Routine) - Authorized Specialty Diagnoses / Procedures Referred By Ibeth borden Referred To Contact Cardiology Diagnoses Dyslipidemia Adalberto Wall, AIR TRAFFIC COORDINATOR-PIEROGI MAKER [address] [phone] Rosendo Longo MD [address] [place] [address] [address] [address] Referral ID Status Reason Start Date Expiration Date Visits Requested Visits Authorized [id number] Authorized Specialty Services Required 06/23/2023 06/22/2024 1 1 [facility] Work Phone: [place] for visit Narrative* Endoscopy (Routine) - Authorized Specialty Diagnoses / Procedures Referred By Ibeth borden Referred To Contact Gastroenterology Diagnoses Family history of colon cancer Procedures Colonoscopy Screening; Average Risk Patient NE COLONOSCOPY FLX DX W/COLLJ SPEC WHEN PFRMD NE COLON CA SCRN NOT HI RSK IND NE COLORECTAL SCRN; HI RISK IND NE COLONOSCOPY W/BIOPSY SINGLE/MULTIPLE NE COLSC FLX W/RMVL OF TUMOR POLYP LESION SNARE TQ NE COLSC FLX W/REMOVAL LESION BY HOT BX FORCEPS Rakel Dickey, DO [address] [facility], [facility] [address] [place] [address] Phone: tel: fax: Referral ID Status Reason Start Date Expiration Date V isits Requested Visits Authorized [id number] Authorized 10/25/2023 10/24/2024 1 1 [facility] Work Phone: Reason for visit Narrative* Endoscopy (Routine) - Authorized Specialty Diagnoses / Procedures Referred By Ibeth borden Referred To Contact Gastroenterology Diagnoses Family history of colon cancer Procedures Colonoscopy Screening; Average Risk Patient NE COLONOSCOPY FLX DX W/COLLJ SPEC WHEN PFRMD NE COLON CA SCRN NOT HI RSK IND NE COLORECTAL SCRN; HI RISK IND NE COLONOSCOPY W/BIOPSY SINGLE/MULTIPLE NE COLSC FLX W/RMVL OF TUMOR POLYP LESION SNARE TQ NE COLSC FLX W/REMOVAL LESION BY HOT BX FORCEPS Rakel Dickey, DO [address] [facility], [place] [address] Phone: tel: fax: Referral ID Status Reason Start Date Expiration Date V isits Requested Visits Authorized [id number] Authorized 10/25/2023 10/24/2024 1 1 [facility] Work Phone: Summary Purpose Family History Mother Name Dates Details Family history of diabetes christian moore(V18.0, Z83.3) Status:Active Family history of hypertensi on(V17.49, Z82.49) Status:Active Family history of Cancer of unknown origin(199.1, C80.1) Status:Active Father Name Dates Details Family history of diabetes m teresa(V18.0, Z83.3) Status:Active Family history of hypertensi on(V17.49, Z82.49) Status:Active Family history of No signifi cant medical problems Status:Active Family history of hypothyroi dism(V18.19, Z83.49) Status:Active Family history of cerebrovas cular accident (CVA)(V17.1, Z82.3) Status:Active Family history of throat can cer(V16.0, Z80.0) Status:Active Family history of Primary ma lignant neoplasm of colon(153.9, C18.9) Status:Active Family history of dementia(V 17.2, Z81.8) Status:Active Sister Name Dates Details Family history of diabetes m ellitus(V18.0, Z83.3) Status:Active Family history of hypertensi on(V17.49, Z82.49) Status:Active Family history of hypothyroi dism(V18.19, Z83.49) Status:Active Family history of cerebrovas cular accident (CVA)(V17.1, Z82.3) Status:Active Family history of throat can cer(V16.0, Z80.0) Status:Active Family history of Primary ma lignant neoplasm of colon(153.9, C18.9) Status:Active Family history of dementia(V 17.2, Z81.8) Status:Active Brother Name Dates Details Family history of diabetes m ellitus(V18.0, Z83.3) Status:Active Family history of hypertensi on(V17.49, Z82.49) Status:Active Family history of cerebrovas cular accident (CVA)(V17.1, Z82.3) Status:Active Family history of throat can cer(V16.0, Z80.0) Status:Active Family history of Primary ma lignant neoplasm of colon(153.9, C18.9) Status:Active Family history of dementia(V 17.2, Z81.8) Status:Active Mother Name Dates Details Family history of diabetes m ellitus(V18.0, Z83.3) Status:Active Family history of hypertensi on(V17.49, Z82.49) Status:Active Family history of Cancer of unknown origin(199.1, C80.1) Status:Active Father Name Dates Details Family history of dementia(V 17.2, Z81.8) Status:Active Family history of diabetes m ellitus(V18.0, Z83.3) Status:Active Family history of hypertensi on(V17.49, Z82.49) Status:Active Family history of No signifi cant medical problems Status:Active Family history of hypothyroi dism(V18.19, Z83.49) Status:Active Family history of cerebrovas cular accident (CVA)(V17.1, Z82.3) Status:Active Family history of throat can cer(V16.0, Z80.0) Status:Active Family history of Primary ma lignant neoplasm of colon(153.9, C18.9) Status:Active Sister Name Dates Details Family history of dementia(V 17.2, Z81.8) Status:Active Family history of diabetes m ellitus(V18.0, Z83.3) Status:Active Family history of hypertensi on(V17.49, Z82.49) Status:Active Family history of hypothyroi dism(V18.19, Z83.49) Status:Active Family history of cerebrovas cular accident (CVA)(V17.1, Z82.3) Status:Active Family history of throat can cer(V16.0, Z80.0) Status:Active Family history of Primary ma lignant neoplasm of colon(153.9, C18.9) Status:Active Brother Name Dates Details Family history of dementia(V 17.2, Z81.8) Status:Active Family history of diabetes m ellitus(V18.0, Z83.3) Status:Active Family history of hypertensi on(V17.49, Z82.49) Status:Active Family history of cerebrovas cular accident (CVA)(V17.1, Z82.3) Status:Active Family history of throat can cer(V16.0, Z80.0) Status:Active Family history of Primary ma lignant neoplasm of colon(153.9, C18.9) Status:Active Mother Name Dates Details Family history of diabetes m ellitus(V18.0, Z83.3) Status:Active Family history of hypertensi on(V17.49, Z82.49) Status:Active Family history of Cancer of unknown origin(199.1, C80.1) Status:Active Father Name Dates Details Family history of dementia(V 17.2, Z81.8) Status:Active Family history of diabetes m ellitus(V18.0, Z83.3) Status:Active Family history of hypertensi on(V17.49, Z82.49) Status:Active Family history of No signifi cant medical problems Status:Active Family history of hypothyroi dism(V18.19, Z83.49) Status:Active Family history of cerebrovas cular accident (CVA)(V17.1, Z82.3) Status:Active Family history of throat can cer(V16.0, Z80.0) Status:Active Family history of Primary ma lignant neoplasm of colon(153.9, C18.9) Status:Active Sister Name Dates Details Family history of dementia(V 17.2, Z81.8) Status:Active Family history of diabetes m ellitus(V18.0, Z83.3) Status:Active Family history of hypertensi on(V17.49, Z82.49) Status:Active Family history of hypothyroi dism(V18.19, Z83.49) Status:Active Family history of cerebrovas cular accident (CVA)(V17.1, Z82.3) Status:Active Family history of throat can cer(V16.0, Z80.0) Status:Active Family history of Primary ma lignant neoplasm of colon(153.9, C18.9) Status:Active Brother Name Dates Details Family history of dementia(V 17.2, Z81.8) Status:Active Family history of diabetes m ellitus(V18.0, Z83.3) Status:Active Family history of hypertensi on(V17.49, Z82.49) Status:Active Family history of cerebrovas cular accident (CVA)(V17.1, Z82.3) Status:Active Family history of throat can cer(V16.0, Z80.0) Status:Active Family history of Primary ma lignant neoplasm of colon(153.9, C18.9) Status:Active Mother Name Dates Details Family history of diabetes m ellitus(V18.0, Z83.3) Status:Active Family history of hypertensi on(V17.49, Z82.49) Status:Active Family history of Cancer of unknown origin(199.1, C80.1) Status:Active Father Name Dates Details Family history of diabetes m ellitus(V18.0, Z83.3) Status:Active Family history of hypertensi on(V17.49, Z82.49) Status:Active Family history of No signifi cant medical problems Status:Active Family history of hypothyroi dism(V18.19, Z83.49) Status:Active Family history of cerebrovas cular accident (CVA)(V17.1, Z82.3) Status:Active Family history of throat can cer(V16.0, Z80.0) Status:Active Family history of Primary ma lignant neoplasm of colon(153.9, C18.9) Status:Active Family history of dementia(V 17.2, Z81.8) Status:Active Sister Name Dates Details Family history of diabetes m ellitus(V18.0, Z83.3) Status:Active Family history of hypertensi on(V17.49, Z82.49) Status:Active Family history of hypothyroi dism(V18.19, Z83.49) Status:Active Family history of cerebrovas cular accident (CVA)(V17.1, Z82.3) Status:Active Family history of throat can cer(V16.0, Z80.0) Status:Active Family history of Primary ma lignant neoplasm of colon(153.9, C18.9) Status:Active Family history of dementia(V 17.2, Z81.8) Status:Active Brother Name Dates Details Family history of diabetes m ellitus(V18.0, Z83.3) Status:Active Family history of hypertensi on(V17.49, Z82.49) Status:Active Family history of cerebrovas cular accident (CVA)(V17.1, Z82.3) Status:Active Family history of throat can cer(V16.0, Z80.0) Status:Active Family history of Primary ma lignant neoplasm of colon(153.9, C18.9) Status:Active Family history of dementia(V 17.2, Z81.8) Status:Active Unknown Family Member Name Dates Details Family history of diabetes m ellitus: Mother, Father, Sister, Brother(V18.0, Z83.3) Status:Active Family history of hypertensi on: Mother, Father, Sister, Brother(V17.49, Z82.49) Status:Active 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 No significant medical probl ems: Father Status:Active Family history of hypothyroi dism: Father, Sister(V18.19, Z83.49) Status:Active Family history of cerebrovas cular accident (CVA): Father, Sister, Brother(V17.1, Z82.3) Status:Active Family history of throat can cer: Father, Sister, Brother(V16.0, Z80.0) Status:Active Primary malignant neoplasm o f colon: Father, Sister, Brother Status:Active Family history of dementia: Father, Sister, Brother(V17.2, Z81.8) Status:Active Unknown Family Member Name Dates Details Family history of diabetes m ellitus: Mother, Father, Sister, Brother(V18.0, Z83.3) Status:Active Family history of hypertensi on: Mother, Father, Sister, Brother(V17.49, Z82.49) Status:Active 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 No significant medical probl ems: Father Status:Active Family history of hypothyroi dism: Father, Sister(V18.19, Z83.49) Status:Active Family history of cerebrovas cular accident (CVA): Father, Sister, Brother(V17.1, Z82.3) Status:Active Family history of throat can cer: Father, Sister, Brother(V16.0, Z80.0) Status:Active Primary malignant neoplasm o f colon: Father, Sister, Brother Status:Active Family history of dementia: Father, Sister, Brother(V17.2, Z81.8) Status:Active Unknown Family Member Name Dates Details Family history of diabetes m ellitus: Mother, Father, Sister, Brother(V18.0, Z83.3) Status:Active Family history of hypertensi on: Mother, Father, Sister, Brother(V17.49, Z82.49) Status:Active 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 No significant medical probl ems: Father Status:Active Family history of hypothyroi dism: Father, Sister(V18.19, Z83.49) Status:Active Family history of cerebrovas cular accident (CVA): Father, Sister, Brother(V17.1, Z82.3) Status:Active Family history of throat can cer: Father, Sister, Brother(V16.0, Z80.0) Status:Active Primary malignant neoplasm o f colon: Father, Sister, Brother Status:Active Family history of dementia: Father, Sister, Brother(V17.2, Z81.8) Status:Active Unknown Family Member Name Dates Details Family history of diabetes m ellitus: Mother, Father, Sister, Brother(V18.0, Z83.3) Status:Active Family history of hypertensi on: Mother, Father, Sister, Brother(V17.49, Z82.49) Status:Active 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 No significant medical probl ems: Father Status:Active Family history of hypothyroi dism: Father, Sister(V18.19, Z83.49) Status:Active Family history of cerebrovas cular accident (CVA): Father, Sister, Brother(V17.1, Z82.3) Status:Active Family history of throat can cer: Father, Sister, Brother(V16.0, Z80.0) Status:Active Primary malignant neoplasm o f colon: Father, Sister, Brother Status:Active Family history of dementia: Father, Sister, Brother(V17.2, Z81.8) Status:Active Unknown Family Member Name Dates Details Family history of diabetes m ellitus: Mother, Father, Sister, Brother(V18.0, Z83.3) Status:Active Family history of hypertensi on: Mother, Father, Sister, Brother(V17.49, Z82.49) Status:Active 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 No significant medical probl ems: Father Status:Active Family history of hypothyroi dism: Father, Sister(V18.19, Z83.49) Status:Active Family history of cerebrovas cular accident (CVA): Father, Sister, Brother(V17.1, Z82.3) Status:Active Family history of throat can cer: Father, Sister, Brother(V16.0, Z80.0) Status:Active Primary malignant neoplasm o f colon: Father, Sister, Brother Status:Active Family history of dementia: Father, Sister, Brother(V17.2, Z81.8) Status:Active Unknown Family Member Name Dates Details Family history of diabetes m ellitus: Mother, Father, Sister, Brother(V18.0, Z83.3) Status:Active Family history of hypertensi on: Mother, Father, Sister, Brother(V17.49, Z82.49) Status:Active 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 No significant medical probl ems: Father Status:Active Family history of hypothyroi dism: Father, Sister(V18.19, Z83.49) Status:Active Family history of cerebrovas cular accident (CVA): Father, Sister, Brother(V17.1, Z82.3) Status:Active Family history of throat can cer: Father, Sister, Brother(V16.0, Z80.0) Status:Active Primary malignant neoplasm o f colon: Father, Sister, Brother Status:Active Family history of dementia: Father, Sister, Brother(V17.2, Z81.8) Status:Active Unknown Family Member Name Dates Details Family history of diabetes m ellitus: Mother, Father, Sister, Brother(V18.0, Z83.3) Status:Active Family history of hypertensi on: Mother, Father, Sister, Brother(V17.49, Z82.49) Status:Active 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 No significant medical probl ems: Father Status:Active Family history of hypothyroi dism: Father, Sister(V18.19, Z83.49) Status:Active Family history of cerebrovas cular accident (CVA): Father, Sister, Brother(V17.1, Z82.3) Status:Active Family history of throat can cer: Father, Sister, Brother(V16.0, Z80.0) Status:Active Primary malignant neoplasm o f colon: Father, Sister, Brother Status:Active Family history of dementia: Father, Sister, Brother(V17.2, Z81.8) Status:Active Unknown Family Member Name Dates Details Family history of diabetes m ellitus: Mother, Father, Sister, Brother(V18.0, Z83.3) Status:Active Family history of hypertensi on: Mother, Father, Sister, Brother(V17.49, Z82.49) Status:Active 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 No significant medical probl ems: Father Status:Active Family history of hypothyroi dism: Father, Sister(V18.19, Z83.49) Status:Active Family history of cerebrovas cular accident (CVA): Father, Sister, Brother(V17.1, Z82.3) Status:Active Family history of throat can cer: Father, Sister, Brother(V16.0, Z80.0) Status:Active Primary malignant neoplasm o f colon: Father, Sister, Brother Status:Active Family history of dementia: Father, Sister, Brother(V17.2, Z81.8) Status:Active Unknown Family Member Name Dates Details Family history of diabetes m ellitus: Mother, Father, Sister, Brother(V18.0, Z83.3) Status:Active Family history of hypertensi on: Mother, Father, Sister, Brother(V17.49, Z82.49) Status:Active 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 No significant medical probl ems: Father Status:Active Family history of hypothyroi dism: Father, Sister(V18.19, Z83.49) Status:Active Family history of cerebrovas cular accident (CVA): Father, Sister, Brother(V17.1, Z82.3) Status:Active Family history of throat can cer: Father, Sister, Brother(V16.0, Z80.0) Status:Active Primary malignant neoplasm o f colon: Father, Sister, Brother Status:Active Family history of dementia: Father, Sister, Brother(V17.2, Z81.8) Status:Active Unknown Family Member Name Dates Details Family history of diabetes m ellitus: Mother, Father, Sister, Brother(V18.0, Z83.3) Status:Active Family history of hypertensi on: Mother, Father, Sister, Brother(V17.49, Z82.49) Status:Active 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 No significant medical probl ems: Father Status:Active Family history of hypothyroi dism: Father, Sister(V18.19, Z83.49) Status:Active Family history of cerebrovas cular accident (CVA): Father, Sister, Brother(V17.1, Z82.3) Status:Active Family history of throat can cer: Father, Sister, Brother(V16.0, Z80.0) Status:Active Primary malignant neoplasm o f colon: Father, Sister, Brother Status:Active Family history of dementia: Father, Sister, Brother(V17.2, Z81.8) Status:Active Unknown Family Member Name Dates Details Family history of diabetes m ellitus: Mother, Father, Sister, Brother(V18.0, Z83.3) Status:Active Family history of hypertensi on: Mother, Father, Sister, Brother(V17.49, Z82.49) Status:Active 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 No significant medical probl ems: Father Status:Active Family history of hypothyroi dism: Father, Sister(V18.19, Z83.49) Status:Active Family history of cerebrovas cular accident (CVA): Father, Sister, Brother(V17.1, Z82.3) Status:Active Family history of throat can cer: Father, Sister, Brother(V16.0, Z80.0) Status:Active Primary malignant neoplasm o f colon: Father, Sister, Brother Status:Active Family history of dementia: Father, Sister, Brother(V17.2, Z81.8) Status:Active Unknown Family Member Name Dates Details Family history of diabetes m ellitus: Mother, Father, Sister, Brother(V18.0, Z83.3) Status:Active Family history of hypertensi on: Mother, Father, Sister, Brother(V17.49, Z82.49) Status:Active 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 No significant medical probl ems: Father Status:Active Family history of hypothyroi dism: Father, Sister(V18.19, Z83.49) Status:Active Family history of cerebrovas cular accident (CVA): Father, Sister, Brother(V17.1, Z82.3) Status:Active Family history of throat can cer: Father, Sister, Brother(V16.0, Z80.0) Status:Active Primary malignant neoplasm o f colon: Father, Sister, Brother Status:Active Family history of dementia: Father, Sister, Brother(V17.2, Z81.8) Status:Active Unknown Family Member Name Dates Details Family history of diabetes m ellitus: Mother, Father, Sister, Brother(V18.0, Z83.3) Status:Active Family history of hypertensi on: Mother, Father, Sister, Brother(V17.49, Z82.49) Status:Active 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 No significant medical probl ems: Father Status:Active Family history of hypothyroi dism: Father, Sister(V18.19, Z83.49) Status:Active Family history of cerebrovas cular accident (CVA): Father, Sister, Brother(V17.1, Z82.3) Status:Active Family history of throat can cer: Father, Sister, Brother(V16.0, Z80.0) Status:Active Primary malignant neoplasm o f colon: Father, Sister, Brother Status:Active Family history of dementia: Father, Sister, Brother(V17.2, Z81.8) Status:Active Unknown Family Member Name Dates Details Family history of diabetes m ellitus: Mother, Father, Sister, Brother(V18.0, Z83.3) Status:Active Family history of hypertensi on: Mother, Father, Sister, Brother(V17.49, Z82.49) Status:Active 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 No significant medical probl ems: Father Status:Active Family history of hypothyroi dism: Father, Sister(V18.19, Z83.49) Status:Active Family history of cerebrovas cular accident (CVA): Father, Sister, Brother(V17.1, Z82.3) Status:Active Family history of throat can cer: Father, Sister, Brother(V16.0, Z80.0) Status:Active Primary malignant neoplasm o f colon: Father, Sister, Brother Status:Active Family history of dementia: Father, Sister, Brother(V17.2, Z81.8) Status:Active Unknown Family Member Name Dates Details Family history of diabetes m ellitus: Mother, Father, Sister, Brother(V18.0, Z83.3) Status:Active Family history of hypertensi on: Mother, Father, Sister, Brother(V17.49, Z82.49) Status:Active 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 No significant medical probl ems: Father Status:Active Family history of hypothyroi dism: Father, Sister(V18.19, Z83.49) Status:Active Family history of cerebrovas cular accident (CVA): Father, Sister, Brother(V17.1, Z82.3) Status:Active Family history of throat can cer: Father, Sister, Brother(V16.0, Z80.0) Status:Active Primary malignant neoplasm o f colon: Father, Sister, Brother Status:Active Family history of dementia: Father, Sister, Brother(V17.2, Z81.8) Status:Active Unknown Family Member Name Dates Details Family history of diabetes m ellitus: Mother, Father, Sister, Brother(V18.0, Z83.3) Status:Active Family history of hypertensi on: Mother, Father, Sister, Brother(V17.49, Z82.49) Status:Active 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 No significant medical probl ems: Father Status:Active Family history of hypothyroi dism: Father, Sister(V18.19, Z83.49) Status:Active Family history of cerebrovas cular accident (CVA): Father, Sister, Brother(V17.1, Z82.3) Status:Active Family history of throat can cer: Father, Sister, Brother(V16.0, Z80.0) Status:Active Primary malignant neoplasm o f colon: Father, Sister, Brother Status:Active Family history of dementia: Father, Sister, Brother(V17.2, Z81.8) Status:Active Unknown Family Member Name Dates Details Family history of diabetes m ellitus: Mother, Father, Sister, Brother(V18.0, Z83.3) Status:Active Family history of hypertensi on: Mother, Father, Sister, Brother(V17.49, Z82.49) Status:Active 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 No significant medical probl ems: Father Status:Active Family history of hypothyroi dism: Father, Sister(V18.19, Z83.49) Status:Active Family history of cerebrovas cular accident (CVA): Father, Sister, Brother(V17.1, Z82.3) Status:Active Family history of throat can cer: Father, Sister, Brother(V16.0, Z80.0) Status:Active Primary malignant neoplasm o f colon: Father, Sister, Brother Status:Active Family history of dementia: Father, Sister, Brother(V17.2, Z81.8) Status:Active Unknown Family Member Name Dates Details Family history of diabetes m ellitus: Mother, Father, Sister, Brother(V18.0, Z83.3) Status:Active Family history of hypertensi on: Mother, Father, Sister, Brother(V17.49, Z82.49) Status:Active 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 No significant medical probl ems: Father Status:Active Family history of hypothyroi dism: Father, Sister(V18.19, Z83.49) Status:Active Family history of cerebrovas cular accident (CVA): Father, Sister, Brother(V17.1, Z82.3) Status:Active Family history of throat can cer: Father, Sister, Brother(V16.0, Z80.0) Status:Active Primary malignant neoplasm o f colon: Father, Sister, Brother Status:Active Family history of dementia: Father, Sister, Brother(V17.2, Z81.8) Status:Active Unknown Family Member Name Dates Details Family history of diabetes m ellitus: Mother, Father, Sister, Brother(V18.0, Z83.3) Status:Active Family history of hypertensi on: Mother, Father, Sister, Brother(V17.49, Z82.49) Status:Active 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 No significant medical probl ems: Father Status:Active Family history of hypothyroi dism: Father, Sister(V18.19, Z83.49) Status:Active Family history of cerebrovas cular accident (CVA): Father, Sister, Brother(V17.1, Z82.3) Status:Active Family history of throat can cer: Father, Sister, Brother(V16.0, Z80.0) Status:Active Primary malignant neoplasm o f colon: Father, Sister, Brother Status:Active Family history of dementia: Father, Sister, Brother(V17.2, Z81.8) Status:Active Unknown Family Member Name Dates Details Family history of diabetes m ellitus: Mother, Father, Sister, Brother(V18.0, Z83.3) Status:Active Family history of hypertensi on: Mother, Father, Sister, Brother(V17.49, Z82.49) Status:Active 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 No significant medical probl ems: Father Status:Active Family history of hypothyroi dism: Father, Sister(V18.19, Z83.49) Status:Active Family history of cerebrovas cular accident (CVA): Father, Sister, Brother(V17.1, Z82.3) Status:Active Family history of throat can cer: Father, Sister, Brother(V16.0, Z80.0) Status:Active Primary malignant neoplasm o f colon: Father, Sister, Brother Status:Active Family history of dementia: Father, Sister, Brother(V17.2, Z81.8) Status:Active Unknown Family Member Name Dates Details Family history of diabetes m ellitus: Mother, Father, Sister, Brother(V18.0, Z83.3) Status:Active Family history of hypertensi on: Mother, Father, Sister, Brother(V17.49, Z82.49) Status:Active 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 No significant medical probl ems: Father Status:Active Family history of hypothyroi dism: Father, Sister(V18.19, Z83.49) Status:Active Family history of cerebrovas cular accident (CVA): Father, Sister, Brother(V17.1, Z82.3) Status:Active Family history of throat can cer: Father, Sister, Brother(V16.0, Z80.0) Status:Active Primary malignant neoplasm o f colon: Father, Sister, Brother Status:Active Family history of dementia: Father, Sister, Brother(V17.2, Z81.8) Status:Active Unknown Family Member Name Dates Details Family history of diabetes m ellitus: Mother, Father, Sister, Brother(V18.0, Z83.3) Status:Active Family history of hypertensi on: Mother, Father, Sister, Brother(V17.49, Z82.49) Status:Active 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 No significant medical probl ems: Father Status:Active Family history of hypothyroi dism: Father, Sister(V18.19, Z83.49) Status:Active Family history of dementia: Father, Sister, Brother(V17.2, Z81.8) Status:Active Family history of cerebrovas cular accident (CVA): Father, Sister, Brother(V17.1, Z82.3) Status:Active Family history of throat can cer: Father, Sister, Brother(V16.0, Z80.0) Status:Active Primary malignant neoplasm o f colon: Father, Sister, Brother Status:Active Unknown Family Member Name Dates Details Family history of diabetes m ellitus: Mother, Father, Sister, Brother(V18.0, Z83.3) Status:Active Family history of hypertensi on: Mother, Father, Sister, Brother(V17.49, Z82.49) Status:Active 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 No significant medical probl ems: Father Status:Active Family history of hypothyroi dism: Father, Sister(V18.19, Z83.49) Status:Active Family history of cerebrovas cular accident (CVA): Father, Sister, Brother(V17.1, Z82.3) Status:Active Family history of throat can cer: Father, Sister, Brother(V16.0, Z80.0) Status:Active Primary malignant neoplasm o f colon: Father, Sister, Brother Status:Active Family history of dementia: Father, Sister, Brother(V17.2, Z81.8) Status:Active Unknown Family Member Name Dates Details Family history of diabetes m ellitus: Mother, Father, Sister, Brother(V18.0, Z83.3) Status:Active Family history of hypertensi on: Mother, Father, Sister, Brother(V17.49, Z82.49) Status:Active 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 No significant medical probl ems: Father Status:Active Family history of hypothyroi dism: Father, Sister(V18.19, Z83.49) Status:Active Family history of cerebrovas cular accident (CVA): Father, Sister, Brother(V17.1, Z82.3) Status:Active Family history of throat can cer: Father, Sister, Brother(V16.0, Z80.0) Status:Active Primary malignant neoplasm o f colon: Father, Sister, Brother Status:Active Family history of dementia: Father, Sister, Brother(V17.2, Z81.8) Status:Active Unknown Family Member Name Dates Details Family history of diabetes m ellitus: Mother, Father, Sister, Brother(V18.0, Z83.3) Status:Active Family history of hypertensi on: Mother, Father, Sister, Brother(V17.49, Z82.49) Status:Active 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 No significant medical probl ems: Father Status:Active Family history of hypothyroi dism: Father, Sister(V18.19, Z83.49) Status:Active Family history of cerebrovas cular accident (CVA): Father, Sister, Brother(V17.1, Z82.3) Status:Active Family history of throat can cer: Father, Sister, Brother(V16.0, Z80.0) Status:Active Primary malignant neoplasm o f colon: Father, Sister, Brother Status:Active Family history of dementia: Father, Sister, Brother(V17.2, Z81.8) Status:Active Unknown Family Member Name Dates Details Family history of diabetes m ellitus: Mother, Father, Sister, Brother(V18.0, Z83.3) Status:Active Family history of hypertensi on: Mother, Father, Sister, Brother(V17.49, Z82.49) Status:Active 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 No significant medical probl ems: Father Status:Active Family history of hypothyroi dism: Father, Sister(V18.19, Z83.49) Status:Active Family history of cerebrovas cular accident (CVA): Father, Sister, Brother(V17.1, Z82.3) Status:Active Family history of throat can cer: Father, Sister, Brother(V16.0, Z80.0) Status:Active Primary malignant neoplasm o f colon: Father, Sister, Brother Status:Active Family history of dementia: Father, Sister, Brother(V17.2, Z81.8) Status:Active Unknown Family Member Name Dates Details Family history of diabetes m ellitus: Mother, Father, Sister, Brother(V18.0, Z83.3) Status:Active Family history of hypertensi on: Mother, Father, Sister, Brother(V17.49, Z82.49) Status:Active 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 No significant medical probl ems: Father Status:Active Family history of hypothyroi dism: Father, Sister(V18.19, Z83.49) Status:Active Family history of dementia: Father, Sister, Brother(V17.2, Z81.8) Status:Active Family history of cerebrovas cular accident (CVA): Father, Sister, Brother(V17.1, Z82.3) Status:Active Family history of throat can cer: Father, Sister, Brother(V16.0, Z80.0) Status:Active Primary malignant neoplasm o f colon: Father, Sister, Brother Status:Active Advance Directives Documents on File Type Date 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 Advance Directives and Livin g Will 2018 9:17 AM Documents on File Type Date 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 Advance Directives and Livin g Will 2018 9:17 AM Reason for Referral Status Reason Specialty Diagnoses / Procedures Referred By Contact Referred To Contact Authorized Rehabilitation Diagnoses Pain in finger of left hand Salinas Newman MD [address] [address] Status Reason Specialty Diagnoses / Procedures Referred By Contact Referred To Contact Authorized Rehabilitation Diagnoses Pain in finger of left hand Salinas Newman MD [address] [address] [facility] [address] [place], [place] [id number] Status Reason Specialty Diagnoses / Procedures Referred By Contact Referred To Contact Authorized Radiology Diagnoses Exertional chest pain Procedures NM Myocardial Perfusion Multiple SPECT Oscar Portillo MD [address] [place] [id number] Specialty Diagnoses / Procedures Referred By Contac t Referred To Contact Diagnoses Dyslipidemia Atherosclerosis Rosendo Longo MD [address] [facility], [address] [address] Referral ID Status Reason Start Date Expiration Date V isits Requested Visits Authorized [id number] Pending Review 1 1 Referral ID Status Reason Start Date Expiration Date V isits Requested Visits Authorized [id number] Pending Review 1 1 Specialty Diagnoses / Procedures Referred By Contac t Referred To Contact Radiology Diagnoses Dyslipidemia Procedures CT cardiac scoring wo IV contrast Rosendo Longo MD [address] [facility], [address] [address] Referral ID Status Reason Start Date Expiration Date Visits Requested Visits Authorized [id number] Pending Review Perform Procedure 07/06/2023 07/05/2024 1 1 Specialty Diagnoses / Procedures Referred By Contac t Referred To Contact Cardiology Diagnoses Atherosclerosis Procedures Transthoracic Echo Complete NE ECHO TTHRC R-T 2D W/WOM-MODE COMPL SPEC&COLR D Rosendo Longo MD [address] [facility], [place] [id number] Referral ID Status Reason Start Date Expiration Date Visits Requested Visits Authorized [id number] Pending Review Perform Procedure 07/06/2023 07/05/2024 1 1 Specialty Diagnoses / Procedures Referred By Contac t Referred To Contact Diagnoses Dyslipidemia Procedures ECG 12 lead (Clinic Performed) Rosendo Longo MD [address] [facility], [place] [place] [id number] Referral ID Status Reason Start Date Expiration Date V isits Requested Visits Authorized [id number] Authorized 07/06/2023 07/05/2024 1 1 Specialty Diagnoses / Procedures Referred By Contac t Referred To Contact Endocrinology Diagnoses Inadequately controlled diabetes mellitus (HCC) Adalberto Wall, DOUGLAS [address] [place] [address] Megan Wu MD [address] [address] Referral ID Status Reason Start Date Expiration Date V isits Requested Visits Authorized [id number] Authorized 07/07/2023 07/06/2024 1 1 Referral ID Status Reason Start Date Expiration Date Visits Requested Visits Authorized [id number] Authorized Perform Procedure 07/06/2023 07/05/2024 1 1 Referral ID Status Reason Start Date Expiration Date Visits Requested Visits Authorized [id number] Authorized Perform Procedure 07/06/2023 07/05/2024 1 1 Specialty Diagnoses / Procedures Referred By Contac t Referred To Contact Gastroenterology Diagnoses Family history of colon cancer Procedures Colonoscopy Screening; High Risk Patient NE COLONOSCOPY FLX DX W/COLLJ SPEC WHEN PFRMD NE COLON CA SCRN NOT HI RSK IND NE COLORECTAL SCRN; HI RISK IND NE COLONOSCOPY W/BIOPSY SINGLE/MULTIPLE NE COLSC FLX W/RMVL OF TUMOR POLYP LESION SNARE TQ NE COLSC FLX W/REMOVAL LESION BY HOT BX FORCEPS Adalberto Wall, AIR TRAFFIC COORDINATOR-[facility] [address] [place] [phone] Referral ID Status Reason Start Date Expiration Date V isits Requested Visits Authorized [id number] Pending Review 10/25/2023 10/24/2024 1 1 Specialty Diagnoses / Procedures Referred By Contac t Referred To Contact Primary Care Diagnoses Type 2 diabetes mellitus without complications (Multi) Primary hypertension Chronic gout without tophus, unspecified cause, unspecified site Procedures Follow Up In Primary Care - Established Adalberto Wall, AIR TRAFFIC COORDINATOR-[facility] [address] [place] [address] Referral ID Status Reason Start Date Expiration Date V isits Requested Visits Authorized [id number] Authorized 10/25/2023 10/24/2024 1 1 Specialty Diagnoses / Procedures Referred By Contac t Referred To Contact Diagnoses B12 deficiency [facility] Wall[facility] [address] [place] [address] Referral ID Status Reason Start Date Expiration Date V isits Requested Visits Authorized [id number] Pending Review 10/25/2023 10/24/2024 1 1 History of Present Illness * Salinas Newman MD - 2018 12:07 PM EDT Subjective: Patient ID: Mary Leblanc is a 63 y.o. male. HPI: Patient is a 63-year-old male who hurt his left fifth finger PIP joint in the fall 2017. He sustained what he states is a dislocation of the finger which was then reduced. He states the splint was applied for 3 days and removed. Following which he reinjured his finger immediately. Since that time he has had pain and some limitation of range of motion. He is here today to discuss what his options might be. Review of Systems: Review of Systems Constitutional: Negative for activity change, appetite change, chills, fatigue and fever. HENT: Negative for congestion and trouble swallowing. Respiratory: Negative for chest tightness and shortness of breath. Cardiovascular: Negative for chest pain and palpitations. Gastrointestinal: Negative for constipation and diarrhea. Genitourinary: Negative for difficulty urinating and hematuria. Musculoskeletal: Negative for arthralgias, back pain, gait problem, joint swelling, myalgias, neck pain and neck stiffness. Neurological: Negative for light-headedness and headaches. Hematological: Negative for adenopathy. Does not bruise/bleed easily. Patient Active Problem List Diagnosis SNOMED CT(R) Pain in finger of left hand PAIN IN FINGER OF LEFT HAND Objective: Physical Exam Patient is a 63-year-old male, moderately obese. I reviewed meds, allergies, and history. I reviewed his previous record and x-rays. I reviewed his OARRS and NARxCHECK report. PHYSICAL EXAMINATION Gait: He walks without the use of ambulatory aids, braces, crutches, or canes. Psychiatric: Patient's mood, affect, and behavior are appropriate for age diagnosis and office visit. Head: Normocephalic. Neck: Supple. Good range of motion. Eyes: Extraocular exam within normal limits. Skin: Warm, clear, and dry without trophic changes noted. Vascular: Pulses 2+ symmetrical both upper extremities. Neurologic: Patient has normal sensation to light touch and pressure in both upper extremities. Extremities: Patient has a fixed flexion contracture of about 25 to 35 degrees of the PIP joint of his left 5th finger. He has flexion to -10 to 15 at full flexion that is stable. IMAGING His x-ray showed joint space narrowing. Overall, at this point, he has a very stiff joint with pain. Discussed this with him at some length. He is willing to try some hand therapy to see if we can improve his range of motion and decrease his pain. We discussed other surgical options, which include fusion or PIP arthroplasty, and he is not interested in either of these 2 at this point. We will see him back at the conclusion of his therapy. Imaging Studies: No results found. Assessment: SNOMED CT(R) 1. Pain in finger of left hand PAIN IN FINGER OF LEFT HAND Plan: 1. Orders Placed This Encounter Procedures Ambulatory ref to Therapy (PT/OT/ST) No follow-ups on file. in this encounter* Courtney Snowden, OT - 08/26/2018 2:45 PM EDT [facility] Evaluation Today's Date 08/26/2018 Patient Name: Mary Leblanc Date of : 1955 Case Name: Finger pain Functional Diagnosis: SNOMED CT(R) 1. Pain in finger of left hand PAIN IN FINGER OF LEFT HAND Clinical Information: Subjective Referring Diagnosis: Pain in L 5th digit History of Present Illness Date of Onset: January 2018. Chief Complaint/ Mechanism of Injury: L 5th digit fracture d/t a fall in January. Instructed to wear a splint x 3 days. He reports removing it after 2 days, and re-injured it after hitting it accidentally against a wall. He reports that initially it was "straight", but has had worsening pain and flexion the past few months. Constant pain in L 5th digit PIP, unable to fully extend PIP Ulnar wrist pain Status: worsening Hand dominance: left Pain Scale: Average Pain: 4/10 Pain at highest: 7/10 Easing factors: Flexes 5th digit at MCP with remaining digits extended Personal Goals: Straighten out 5th digit Wrist/Hand Right Wrist/Hand Right Wrist/Hand WFL Hand Regional Recruiter Fabric Coating Supervisor Average: 72.67 #1: 73 #2: 74 #3: 71 Left Wrist/Hand Range of Motion: Hand AROM MCP PIP DIP IVEY Thumb WFL WFL Index WFL WFL WFL Middle WFL WFL WFL Ring WFL WFL WFL Small 96 90flex; -45ext 70 Hand PROM MCP PIP DIP IVEY Thumb WFL WFL Index WFL WFL WFL Middle WFL WFL WFL Ring WFL WFL WFL Small WFL -20 ext WFL Thumb ROM: Opposition AROM SF: WFL Hand Regional Recruiter Fabric Coating Supervisor Average: 93 #1: 87 #2: 92 #3: 100 Treatments: Occupational Therapy Exercise Log - 08/26/18 1618 Therapeutic Exercise (12648) Intervention Passive left 5th digit PIP extension stretch Parameters 1x5 reps Functional Activity (75460) Intervention Explored spring extension splint with 5th digit, but unable to adjust to proper fit and alignment. Recommend custom 5th digit extension splint fabrication which patient is in agreement. Modalities Modalities Paraffin Bath Parameters L 5th digit; 7 layers x 12 minutes OT Treatment Times Therex Total Time 10 Modalities Total Time 13 Direct Treatment Time 23 Total Treatment Time 23 Treatment Plan: Frequency of Visits: 3 times per week Duration: 6 weeks Interventions: Therapeutic Exercise, Manual Therapy, Therapeutic/ Functional Activities, Self Care,Hot/Cold Pack, Ultrasound, Paraffin Bath and Orthotic training Rehab Potential: good Goals: Occupational Therapy Ortho goals: Patient will: 1) IMPAIRMENT: Improve L 5th digit pain from 4/10 to 1/10 on average in 6 weeks 2) IMPAIRMENT: Improve PROM of Left 5th digit PIP from -20 degrees to -10 degrees for improved use with ADLs/IADLs in 6 weeks. 3) IMPAIRMENT: Improve AROM of Left 5th digit DIP from -45 degrees to -20 degrees for improved use with ADLs/IADLs in 6 weeks. 4) OTHER: Patient will increase FOTO score from 69 to at least 80 to show improved functional outcome in 4 weeks. 5) OTHER: Patient will be able to properly demonstrate independence with HEP in 4 weeks. 6) Patient will I'ly demonstrate understanding of recommended splint wear/care and schedule for improved L 5th digit positioning in 2 weeks. Patient Education provided: Importance of L 5th digit positioning w/o MCP or DIP hyperextension, splinting recommendations. Clinical Impression: Patient presents w/ worsening L 5th digit pain and ROM limitations. Recommend OT to address limitations with splinting, modalities and therapeutic exercise. CONNOR Agarwal/Ha State License, [id number] in this encounter* Maisha Delgado OTR/Ha, T - 08/30/2018 1:45 PM EDT [facility] DAILY TREATMENT NOTE Today's Date 09/01/2018 Patient Name: Mary Leblanc Date of : 1955 Current Visit #: 2 Authorized Visits: 30 Case Name: Finger pain History: Pre-Treatment Pain Scale: 1 Symptoms: gradually worsened Functional Diagnosis: No diagnosis found. Clinical Information: Subjective: Complains of left SF PIP and hand and wrist pain especially with activity. Progressively getting worse over past 3 months with slowly fabricio L PIP. Objective: Issued LMB L SF PIPj extension. Fabric Coating Supervisor strength: Right 75, Left 100. Right alumni coordinator on rung 3: 80. Client with signs and symptoms of mild cubital tunnel syndrome, provided client with written dx ed,+tinel's left medial elbow and ulnar sided hand pain 8/10. Client educated in positioning to relieve tension and pressure at left medial elbow during prolonged driving activities. Treatments: Occupational Therapy Exercise Log - 08/30/18 4515 OTHER Notes fitted with left SF PIP extension LMB orthoses Therapeutic Exercise (45180) Intervention Passive left 5th digit PIP extension stretch Parameters 1x5 reps Functional Activity (62843) Intervention -- Modalities Modalities Fluidotherapy Parameters 12 minutes Goals: Occupational Therapy Ortho goals: Patient will: 1) IMPAIRMENT: Improve L 5th digit pain from 4/10 to 1/10 on average in 6 weeks 2) IMPAIRMENT: Improve PROM of Left 5th digit PIP from -20 degrees to -10 degrees for improved use with ADLs/IADLs in 6 weeks. 3) IMPAIRMENT: Improve AROM of Left 5th digit DIP from -45 degrees to -20 degrees for improved use with ADLs/IADLs in 6 weeks. 4) OTHER: Patient will increase FOTO score from 69 to at least 80 to show improved functional outcome in 4 weeks. 5) OTHER: Patient will be able to properly demonstrate independence with HEP in 4 weeks. 6) Patient will I'ly demonstrate understanding of recommended splint wear/care and schedule for improved L 5th digit positioning in 2 weeks. Issued LMB L SF PIPj extension. Fabric Coating Supervisor strength: Right 75, Left 100. Right alumni coordinator on rung 3: 80. Client with signs and symptoms of mild cubital tunnel syndrome, provided client with written dx ed,+tinel's left medial elbow and ulnar sided hand pain 8/10. Client educated in positioning to relieve tension and pressure at left medial elbow during prolonged driving activities. Patient Education: Quality of movement, Written HEP, Diagnosis and recovery specific education and Pain Management with patient demonstrated understanding. Post-Treatment Pain Scale: 3 Assessment: Patient had an expected response to treatment. Skilled Intervention demonstrated by modifications of treatment per exercise log including plane progressions and safety interventions per exercise log. Progress towards goals as expected. Plan for Next Visit: Treatment Visit with focus on relieving ulnar nerve symptoms and ulnar sided hand pain and activity modifications, SF orthoses wear, dx education TRUMAN Souza CHT State License, [id number] documented in this encounter* Ivanna Greenberg COTA/L - 09/05/2018 2:30 PM EDT [facility] DAILY TREATMENT NOTE Today's Date 09/05/2018 Patient Name: Mary Leblanc Date of : 1955 Current Visit #: 4 Authorized Visits: 30 Case Name: Finger pain History: Pre-Treatment Pain Scale: 1 Symptoms: gradually improved Functional Diagnosis: SNOMED CT(R) 1. Pain in finger of left hand PAIN IN FINGER OF LEFT HAND Clinical Information: Subjective: Pt reports he feels that things are improving, pt states LMB is helping and trying to wear at least 6 hours a day. Objective The client completed exercises as listed in tx log. Treatments: Occupational Therapy Exercise Log - 09/05/18 1432 OTHER Notes 2:30-3:10 Therapeutic Exercise (67971) Intervention Passive left 5th digit PIP extension stretch Parameters 8 minutes Intervention ulnar nerve gliding and positioning and modifications Intervention theraputty SF extension yellow Parameters 5 minutes Functional Activity (53461) Intervention LMB size B Modalities Modalities Fluidotherapy Parameters 10 minutes OT Treatment Times Therex Total Time 22 Modalities Total Time 10 Ultrasound Total Time 8 Direct Treatment Time 40 Total Treatment Time 40 Goals: Occupational Therapy Ortho goals: Patient will: 3 wk for 6 weeks to meet following goals: 1) IMPAIRMENT: Improve L 5th digit pain from 4/10 to 1/10 on average in 6 weeks 2) IMPAIRMENT: Improve PROM of Left 5th digit PIP from -20 degrees to -10 degrees for improved use with ADLs/IADLs in 6 weeks. 3) IMPAIRMENT: Improve AROM of Left 5th digit DIP from -45 degrees to -20 degrees for improved use with ADLs/IADLs in 6 weeks. 4) OTHER: Patient will increase FOTO score from 69 to at least 80 to show improved functional outcome in 4 weeks. 5) OTHER: Patient will be able to properly demonstrate independence with HEP in 4 weeks. 6) Patient will I'ly demonstrate understanding of recommended splint wear/care and schedule for improved L 5th digit positioning in 2 weeks. Issued LMB L SF PIPj extension. Fabric Coating Supervisor strength: Right 75, Left 100. Right alumni coordinator on rung 3: 80 (-01 Sep 2018) Client with signs and symptoms of mild cubital tunnel syndrome, provided client with written dx ed,+tinel's left medial elbow and ulnar sided hand pain 12/24. Client educated in positioning to relieve tension and pressure at left medial elbow during prolonged driving activities. Patient Education: Quality of movement, Written HEP and orthotic use with patient demonstrated understanding. Post-Treatment Pain Scale: 0 Assessment: Patient had an expected response to treatment. Skilled Intervention demonstrated by modifications of treatment per exercise log including increased mobility, assessment of patient's response and modalities as indicated and safety interventions per exercise log. Progress towards goals as expected. Plan for Next Visit: Treatment Visit with focus on improving use of left SF for all daily tasks andfor fine motor coordination. RYAN Christiansen STATE LICENSE, [id number] documented in this encounter* Ivanna Greenberg COTA/L - 09/09/2018 4:00 PM EDT [facility] DAILY TREATMENT NOTE Today's Date 09/09/2018 Patient Name: Mary Leblanc Date of : 1955 Current Visit #: 4 Authorized Visits: 30 Case Name: Finger pain History: Pre-Treatment Pain Scale: 0 Symptoms: gradually improved Functional Diagnosis: No diagnosis found. Clinical Information: Subjective: Pt reports able to tolerate wearing LMB 6-7 hours a day. Pt reports pain is improving with use and at rest. Objective The client completed exercises and modalities as listed in tx log. AROM of Left SF PIP Treatments: Occupational Therapy Exercise Log - 09/09/18 1581 OTHER Notes 3:50-4:28 Therapeutic Exercise (86701) Intervention Passive left 5th digit PIP extension stretch Parameters HEP wearing LMB 6-7 hours a day Intervention theraputty SF extension yellow Parameters 5 minutes Intervention Edema management Parameters Coban wrap and instruction for HEP Functional Activity (32904) Intervention LMB size B Modalities Modalities Fluidotherapy Parameters 10 minutes OT Treatment Times Therex Total Time 20 Modalities Total Time 10 Ultrasound Total Time 8 Direct Treatment Time 38 Total Treatment Time 38 Goals: Occupational Therapy Ortho goals: Patient will: 3 wk for 6 weeks to meet following goals: 1) IMPAIRMENT: Improve L 5th digit pain from 4/10 to 1/10 on average in 6 weeks 2) IMPAIRMENT: Improve PROM of Left 5th digit PIP from -20 degrees to -10 degrees for improved use with ADLs/IADLs in 6 weeks. 3) IMPAIRMENT: Improve AROM of Left 5th digit DIP from -45 degrees to -20 degrees for improved use with ADLs/IADLs in 6 weeks. 4) OTHER: Patient will increase FOTO score from 69 to at least 80 to show improved functional outcome in 4 weeks. 5) OTHER: Patient will be able to properly demonstrate independence with HEP in 4 weeks. 6) Patient will I'ly demonstrate understanding of recommended splint wear/care and schedule for improved L 5th digit positioning in 2 weeks. Issued LMB L SF PIPj extension. Fabric Coating Supervisor strength: Right 75, Left 100. Right alumni coordinator on rung 3: 80 (-01 Sep 2018) Client with signs and symptoms of mild cubital tunnel syndrome, provided client with written dx ed,+tinel's left medial elbow and ulnar sided hand pain 8/10. Client educated in positioning to relieve tension and pressure at left medial elbow during prolonged driving activities. Patient Education: Quality of movement, Written HEP and Verbal HEP with patient demonstrated understanding. Post-Treatment Pain Scale: 0 Assessment: Patient had an expected response to treatment. Pt SF PIP AROM improved by 30 degrees since IE. Skilled Intervention demonstrated by modifications of treatment per exercise log including plane progressions, assessment of patient's response and modalities as indicated and safety interventions per exercise log. Progress towards goals as expected. Plan for Next Visit: Treatment Visit with focus on improving AROM of SF and improving pain with activity. RYAN Christiansen STATE LICENSE, [id number] documented in this encounter* Ivanna Greenberg COTA/L - 09/15/2018 11:30 AM EDT [facility] DAILY TREATMENT NOTE Today's Date 09/15/2018 Patient Name: Mary Leblanc Date of : 1955 Current Visit #: 7 Authorized Visits: 30 Case Name: Finger pain History: Pre-Treatment Pain Scale: 1 Symptoms: gradually improved Functional Diagnosis: No diagnosis found. Clinical Information: Subjective: Pt states no pain this date, "only with bending." Pt states pain is also improving withprolonged driving. Objective The client completed exercises as listed in tx log. - left SF PIP joint. Treatments: Occupational Therapy Exercise Log - 09/15/18 1205 OTHER Notes 11:45-12:15 Therapeutic Exercise (80183) Parameters HEP wearing LMB 6-7 hours a day Intervention Edema management Parameters Coban wrap end of session Functional Activity (04977) Intervention LMB size B Modalities Modalities Fluidotherapy Parameters 10 minutes Add more modalities? Yes Ultrasound Intervention left SF PIP joint Parameter 100%, 3MhZ, .3 OT Treatment Times Therex Total Time 5 Modalities Total Time 10 Ultrasound Total Time 10 Direct Treatment Time 25 Total Treatment Time 30 Goals: Occupational Therapy Ortho goals: Patient will: 3 wk for 6 weeks to meet following goals: 1) IMPAIRMENT: Improve L 5th digit pain from 4/10 to 1/10 on average in 6 weeks 2) IMPAIRMENT: Improve PROM of Left 5th digit PIP from -20 degrees to -10 degrees for improved use with ADLs/IADLs in 6 weeks. 3) IMPAIRMENT: Improve AROM of Left 5th digit DIP from -45 degrees to -20 degrees for improved use with ADLs/IADLs in 6 weeks. 4) OTHER: Patient will increase FOTO score from 69 to at least 80 to show improved functional outcome in 4 weeks. 5) OTHER: Patient will be able to properly demonstrate independence with HEP in 4 weeks. 6) Patient will I'ly demonstrate understanding of recommended splint wear/care and schedule for improved L 5th digit positioning in 2 weeks. Issued LMB L SF PIPj extension. Fabric Coating Supervisor strength: Right 75, Left 100. Right alumni coordinator on rung 3: 80 (-01 Sep 2018) Client with signs and symptoms of mild cubital tunnel syndrome, provided client with written dx ed,+tinel's left medial elbow and ulnar sided hand pain 8/10. Client educated in positioning to relieve tension and pressure at left medial elbow during prolonged driving activities. Patient Education: Quality of movement, Written HEP and Verbal HEP with patient demonstrated understanding. Post-Treatment Pain Scale: 0 Assessment: Patient had an expected response to treatment. Pt reporting no pain at end of session and less stiffness in joint. Skilled Intervention demonstrated by modifications of treatment per exercise log including plane progressions, assessment of patient's response and modalities as indicated and safety interventions per exercise log. Progress towards goals as expected. Plan for Next Visit: Treatment Visit with focus on improving pain with activity and improving strength needed for all daily tasks. RYAN Christiansen STATE LICENSE, [id number] documented in this encounter* Ivanna Greenberg COTA/L - 09/21/2018 11:30 AM EDT [facility] DAILY TREATMENT NOTE Today's Date 09/21/2018 Patient Name: Mary Leblanc Date of : 1955 Current Visit #: 8 Authorized Visits: 30 Case Name: Finger pain History: Pre-Treatment Pain Scale: 0 Symptoms: gradually worsened Functional Diagnosis: No diagnosis found. Clinical Information: Subjective: Pt reports his LMB orthotic broke (pt has been issued 2 splints) "on Wednesday and haven'tbeen able to wear it since." Pt states pain has increased since last session and has not gone back down. Pt states pain about a 5/10 most of the time "really aching and not sure what's been going on." Pt reports carrying boxes and using chainsaw. Pt states however pain today is back down to 0/10. Pt reports using theraputty at home, not using heat for pain. Objective The client completed modalities as listed per treatment log for pain relief. Treatments: Occupational Therapy Exercise Log - 09/21/18 1140 OTHER Notes 11:45-12:15 Therapeutic Exercise (86339) Parameters HEP wearing LMB 6-7 hours a day Intervention Edema management Parameters Coban wrap end of session Functional Activity (39049) Intervention LMB size B Modalities Modalities Fluidotherapy Parameters 10 minutes Add more modalities? Yes Ultrasound Intervention left SF PIP joint Parameter 100%, 3MhZ, .3 Goals: Occupational Therapy Ortho goals: Patient will: 3 wk for 6 weeks to meet following goals: 1) IMPAIRMENT: Improve L 5th digit pain from 4/10 to 1/10 on average in 6 weeks 2) IMPAIRMENT: Improve PROM of Left 5th digit PIP from -20 degrees to -10 degrees for improved use with ADLs/IADLs in 6 weeks. 3) IMPAIRMENT: Improve AROM of Left 5th digit DIP from -45 degrees to -20 degrees for improved use with ADLs/IADLs in 6 weeks. 4) OTHER: Patient will increase FOTO score from 69 to at least 80 to show improved functional outcome in 4 weeks. 5) OTHER: Patient will be able to properly demonstrate independence with HEP in 4 weeks. 6) Patient will I'ly demonstrate understanding of recommended splint wear/care and schedule for improved L 5th digit positioning in 2 weeks. Issued LMB L SF PIPj extension. Fabric Coating Supervisor strength: Right 75, Left 100. Right alumni coordinator on rung 3: 80 (-01 Sep 2018) Client with signs and symptoms of mild cubital tunnel syndrome, provided client with written dx ed,+tinel's left medial elbow and ulnar sided hand pain 8/10. Client educated in positioning to relieve tension and pressure at left medial elbow during prolonged driving activities. Patient Education: Quality of movement, Verbal HEP, HEP Adherence and Pain Management with patient demonstrated understanding. Post-Treatment Pain Scale: 0 Assessment: Patient had an expected response to treatment. Skilled Intervention demonstrated by modifications of treatment per exercise log including plane progressions, assessment of patient's response and modalities as indicated and safety interventions per exercise log. Progress towards goals as expected. Plan for Next Visit: Treatment Visit with focus on improving use of left finger for all daily tasks RYAN Christiansen STATE LICENSE, [id number] documented in this encounter* Ivanna Greenberg COTA/L - 09/23/2018 11:30 AM EDT [facility] OUT[facility]HABIL[facility] DAILY TREATMENT NOTE Today's Date 09/23/2018 Patient Name: Mary Leblanc Date of : 1955 Current Visit #: 9 Authorized Visits: 30 Case Name: Finger pain History: Pre-Treatment Pain Scale: 3 Symptoms: gradually improved Functional Diagnosis: No diagnosis found. Clinical Information: Subjective: Pt states some improvement since last tx session with less pain at rest. Pt reports wearing orthotic ~ 6 hours a day. Objective The client completed modalities as listed per treatment log for pain relief. Treatments: Occupational Therapy Exercise Log - 09/23/18 1157 OTHER Notes 11:30-11:55 Modalities Modalities Fluidotherapy Parameters 10 minutes Ultrasound Intervention left SF PIP joint Parameter 100%, 3MhZ, .3 OT Treatment Times Modalities Total Time 15 Ultrasound Total Time 10 Direct Treatment Time 25 Total Treatment Time 25 Goals: Occupational Therapy Ortho goals: Patient will: 3 wk for 6 weeks to meet following goals: 1) IMPAIRMENT: Improve L 5th digit pain from 4/10 to 1/10 on average in 6 weeks 2) IMPAIRMENT: Improve PROM of Left 5th digit PIP from -20 degrees to -10 degrees for improved use with ADLs/IADLs in 6 weeks. 3) IMPAIRMENT: Improve AROM of Left 5th digit DIP from -45 degrees to -20 degrees for improved use with ADLs/IADLs in 6 weeks. 4) OTHER: Patient will increase FOTO score from 69 to at least 80 to show improved functional outcome in 4 weeks. 5) OTHER: Patient will be able to properly demonstrate independence with HEP in 4 weeks. 6) Patient will I'ly demonstrate understanding of recommended splint wear/care and schedule for improved L 5th digit positioning in 2 weeks. Issued LMB L SF PIPj extension. Fabric Coating Supervisor strength: Right 75, Left 100. Right alumni coordinator on rung 3: 80 (-01 Sep 2018) Client with signs and symptoms of mild cubital tunnel syndrome, provided client with written dx ed,+tinel's left medial elbow and ulnar sided hand pain 8/10. Client educated in positioning to relieve tension and pressure at left medial elbow during prolonged driving activities. Patient Education: Quality of movement and Verbal HEP with patient demonstrated understanding. Post-Treatment Pain Scale: 0 Assessment: Patient had an expected response to treatment. Pt AROM of SF PIP - 10/90 this date Skilled Intervention demonstrated by modifications of treatment per exercise log including increased mobility, assessment of patient's response and modalities as indicated and safety interventions per exercise log. Progress towards goals as expected. Plan for Next Visit: Treatment Visit with focus on decreasing pain of SF and improving mobility. RYAN Christiansen STATE LICENSE, [id number] documented in this encounter* Ivanna GreenbergHEYDI/Ha - 10/07/2018 11:30 AM EDT [facility] OUTPATIENT REHABIL[facility]ATION DAILY TREATMENT NOTE Today's Date 10/07/2018 Patient Name: Mary Leblanc Date of : 1955 Current Visit #: 13 Authorized Visits: 30 Case Name: Finger pain History: Pre-Treatment Pain Scale: 1 Symptoms: gradually improved Functional Diagnosis: No diagnosis found. Clinical Information: Subjective: Pt reports Objective The client completed modalities as listed per treatment log for pain relief. Treatments: Occupational Therapy Exercise Log - 10/07/18 1200 OTHER Notes 10:50-11:30 Therapeutic Exercise (22196) Intervention theraputty SF extension Parameters Increased to green for HEP Modalities Modalities Fluidotherapy Parameters 10 minutes Ultrasound Intervention left SF PIP joint Parameter 100%, 3MhZ, .3 OT Treatment Times Modalities Total Time 15 Ultrasound Total Time 10 Direct Treatment Time 25 Total Treatment Time 25 Goals: Occupational Therapy Ortho goals: Patient will: 3 wk for 6 weeks to meet following goals: L SF PIP extension: AROM -45 AROM -15 (03 Oct 2018) PROM -20 PROM -15 (03 Oct 2018) 1) IMPAIRMENT: Improve L 5th digit pain from 4/10 to 1/10 on average in 6 weeks 2) IMPAIRMENT: Improve PROM of Left 5th digit PIP from -20 degrees to -10 degrees for improved use with ADLs/IADLs in 6 weeks. 3) IMPAIRMENT: Improve AROM of Left 5th digit DIP from -45 degrees to -20 degrees for improved use with ADLs/IADLs in 6 weeks. 4) OTHER: Patient will increase FOTO score from 69 to at least 80 to show improved functional outcome in 4 weeks. 5) OTHER: Patient will be able to properly demonstrate independence with HEP in 4 weeks. 6) Patient will I'ly demonstrate understanding of recommended splint wear/care and schedule for improved L 5th digit positioning in 2 weeks. Issued LMB L SF PIPj extension. Fabric Coating Supervisor strength: Right 75, Left 100. Right alumni coordinator on rung 3: 80 (01 Sep 2018) Client with signs and symptoms of mild cubital tunnel syndrome, provided client with written dx ed,+tinel's left medial elbow and ulnar sided hand pain 8/10. Client educated in positioning to relieve tension and pressure at left medial elbow during prolonged driving activities. Tolerating LMB SF PIP ext orthotic during day and coban SF at night. Follow-up with Dr. Newman on October 31, 2018. Patient Education: Quality of movement, Written HEP and Verbal HEP with patient demonstrated understanding. Post-Treatment Pain Scale: 0 Assessment: Patient had an expected response to treatment. Skilled Intervention demonstrated by modifications of treatment per exercise log including plane progressions, assessment of patient's response and modalities as indicated and safety interventions per exercise log. Progress towards goals as expected. Plan for Next Visit: Treatment Visit with focus on improving extension of SF and strength needed for prehension. RYAN Christiansen STATE LICENSE, [id number] documented in this encounter* Maisha Delgado OTR/Ha, CHT - 09/27/2018 10:45 AM EDT [facility] OUTPATIENT REHABILITATION DAILY TREATMENT NOTE Today's Date 09/27/2018 Patient Name: Mary Leblanc Date of : 1955 Current Visit #: 10 Authorized Visits: 30 Case Name: Finger pain History: Pre-Treatment Pain Scale: 0 Symptoms: gradually improved Functional Diagnosis: No diagnosis found. Clinical Information: Subjective: Wearing LMB reverse knuckle ~6-7 hours per day, removes with typing and activities. Doing theraputty HEP. Wrapping with coban at night. Follow-up'd with Dr. Newman yesterday, 26 Sep 2018,and states 3-4 weeks of therapy then f/u with . Objective Treatments: Occupational Therapy Exercise Log - 09/23/18 1157 OTHER Notes 11:30-11:55 Modalities Modalities Fluidotherapy Parameters 10 minutes Ultrasound Intervention left SF PIP joint Parameter 100%, 3MhZ, .3 OT Treatment Times Modalities Total Time 15 Ultrasound Total Time 10 Direct Treatment Time 25 Total Treatment Time 25 Goals: Occupational Therapy Ortho goals: Patient will: 3 wk for 6 weeks to meet following goals: 1) IMPAIRMENT: Improve L 5th digit pain from 4/10 to 1/10 on average in 6 weeks 2) IMPAIRMENT: Improve PROM of Left 5th digit PIP from -20 degrees to -10 degrees for improved use with ADLs/IADLs in 6 weeks. 3) IMPAIRMENT: Improve AROM of Left 5th digit DIP from -45 degrees to -20 degrees for improved use with ADLs/IADLs in 6 weeks. 4) OTHER: Patient will increase FOTO score from 69 to at least 80 to show improved functional outcome in 4 weeks. 5) OTHER: Patient will be able to properly demonstrate independence with HEP in 4 weeks. 6) Patient will I'ly demonstrate understanding of recommended splint wear/care and schedule for improved L 5th digit positioning in 2 weeks. Issued LMB L SF PIPj extension. Fabric Coating Supervisor strength: Right 75, Left 100. Right alumni coordinator on rung 3: 80 (01 Sep 2018) Client with signs and symptoms of mild cubital tunnel syndrome, provided client with written dx ed,+tinel's left medial elbow and ulnar sided hand pain 12/24. Client educated in positioning to relieve tension and pressure at left medial elbow during prolonged driving activities. Patient Education: Quality of movement, Verbal HEP, Diagnosis and recovery specific education and Pain Management with patient demonstrated understanding and verbalized understanding. Post-Treatment Pain Scale: 1 Assessment: Patient had an expected response to treatment. Skilled Intervention demonstrated by modifications of treatment per exercise log including plane progressions and safety interventions per exercise log. Progress towards goals as expected. Plan for Next Visit: Treatment Visit with focus on pain management and SF PIP extension CONNOR Souza/TIFFANIE Bonner State License, [id number] documented in this encounter* Salinas Newman MD - 09/26/2018 10:07 AM EDT The patient is a 63-year-old male here in followup from having physical/occupational therapy at [facility]. He has had superb result. He has near full range of motion of his PIP joint and almost complete relief of his pain. I reviewed medications, allergies, and history. I reviewed his previous record and x-rays. I reviewed his OARRS and NARxCHECK report. PHYSICAL EXAMINATION General: He is well-developed, well-nourished, no acute distress, alert and oriented x3. Cranial nerves 2-12 intact. Gait: He walks without the use of ambulatory aids, braces, crutches, or canes. Head: Normocephalic. Skin: Warm, clear, and dry without trophic changes. There is no erythema, ecchymosis noted. Neurologic: Patient has normal sensation to light touch and pressure in both upper extremities. Extremities: Patient has near full range of motion of the PIP joint of the left 5th finger. He is very happy with his result. He is going to continue and complete therapy. We will see him at the conclusion of same. documented in this encounter* Maisha Delgado, CONNOR/Ha, CHT - 09/01/2018 10:45 AM EDT [facility] OUTPATIENT REHABIL[facility]ATION DAILY TREATMENT NOTE Today's Date 09/01/2018 Patient Name: Mary Leblanc Date of : 1955 Current Visit #: 3 Authorized Visits: 30 Case Name: Finger pain History: Pre-Treatment Pain Scale: 3 Symptoms: gradually improved Functional Diagnosis: No diagnosis found. Clinical Information: Subjective: client reports improving left hand pain with changing hand/elbow position with prolonged driving activities. Objective Treatments: Occupational Therapy Exercise Log - 09/01/18 1111 OTHER Notes tolerating wear of left SF PIP extension LMB orthoses Therapeutic Exercise ([id number]) Intervention Passive left 5th digit PIP extension stretch Parameters 8 minutes Intervention ulnar nerve gliding and positioning and modifications Parameters 12 min Intervention theraputty SF extension Parameters 5 min Modalities Modalities Fluidotherapy Parameters 12 minutes Goals: Occupational Therapy Ortho goals: Patient will: 1) IMPAIRMENT: Improve L 5th digit pain from 4/10 to 1/10 on average in 6 weeks 2) IMPAIRMENT: Improve PROM of Left 5th digit PIP from -20 degrees to -10 degrees for improved use with ADLs/IADLs in 6 weeks. 3) IMPAIRMENT: Improve AROM of Left 5th digit DIP from -45 degrees to -20 degrees for improved use with ADLs/IADLs in 6 weeks. 4) OTHER: Patient will increase FOTO score from 69 to at least 80 to show improved functional outcome in 4 weeks. 5) OTHER: Patient will be able to properly demonstrate independence with HEP in 4 weeks. 6) Patient will I'ly demonstrate understanding of recommended splint wear/care and schedule for improved L 5th digit positioning in 2 weeks. Issued LMB L SF PIPj extension. Fabric Coating Supervisor strength: Right 75, Left 100. Right alumni coordinator on rung 3: 80 (01 Sep 2018) Client with signs and symptoms of mild cubital tunnel syndrome, provided client with written dx ed,+tinel's left medial elbow and ulnar sided hand pain 8/10. Client educated in positioning to relieve tension and pressure at left medial elbow during prolonged driving activities. Patient Education: Quality of movement, Verbal HEP, Diagnosis and recovery specific education and Pain Management with patient demonstrated understanding and verbalized understanding. Post-Treatment Pain Scale: 1 Assessment: Patient had an expected response to treatment. Skilled Intervention demonstrated by modifications of treatment per exercise log including increased intensity and safety interventions per exercise log. Progress towards goals as expected. Plan for Next Visit: Treatment Visit with focus on pain management, left SF strengthening, and positioning modifications with prolonged activity/driving. TRUMAN Souza CHT State License, [id number] documented in this encounter* Maisha Delgado OTR/L, CHT - 10/03/2018 10:45 AM EDT [facility] OUTPAT[facility] REHABIL[facility]ATION DAILY TREATMENT NOTE Today's Date 10/03/2018 Patient Name: Mary Leblanc Date of : 1955 Current Visit #: 12 Authorized Visits: 30 Case Name: Finger pain History: Pre-Treatment Pain Scale: 0 Symptoms: gradually improved Functional Diagnosis: SNOMED CT(R) 1. Pain in finger of left hand PAIN IN FINGER OF LEFT HAND Clinical Information: Subjective: States didn't coban SF last night and awakened this morning with mild SF pain 2/10 intensity; states that he thinks he sleeps with SF in composite flexion at night if finger not wrapped. States tolerating LMB SF PIP extension orthotic throughout the day. Objective Treatments: Occupational Therapy Exercise Log - 10/03/18 1057 OTHER Notes 10:50-11:30 Therapeutic Exercise (74679) Intervention ROM of SF and measurements Parameters 10 min Modalities Modalities Fluidotherapy Parameters 10 minutes Ultrasound Intervention left SF PIP joint Parameter 100%, 3MhZ, .3 Goals: Occupational Therapy Ortho goals: Patient will: 3 wk for 6 weeks to meet following goals: L SF PIP extension: AROM -45 AROM -15 (03 Oct 2018) PROM -20 PROM -15 (03 Oct 2018) 1) IMPAIRMENT: Improve L 5th digit pain from 4/10 to 1/10 on average in 6 weeks 2) IMPAIRMENT: Improve PROM of Left 5th digit PIP from -20 degrees to -10 degrees for improved use with ADLs/IADLs in 6 weeks. 3) IMPAIRMENT: Improve AROM of Left 5th digit DIP from -45 degrees to -20 degrees for improved use with ADLs/IADLs in 6 weeks. 4) OTHER: Patient will increase FOTO score from 69 to at least 80 to show improved functional outcome in 4 weeks. 5) OTHER: Patient will be able to properly demonstrate independence with HEP in 4 weeks. 6) Patient will I'ly demonstrate understanding of recommended splint wear/care and schedule for improved L 5th digit positioning in 2 weeks. Issued LMB L SF PIPj extension. Fabric Coating Supervisor strength: Right 75, Left 100. Right alumni coordinator on rung 3: 80 (01 Sep 2018) Client with signs and symptoms of mild cubital tunnel syndrome, provided client with written dx ed,+tinel's left medial elbow and ulnar sided hand pain 8/10. Client educated in positioning to relieve tension and pressure at left medial elbow during prolonged driving activities. Tolerating LMB SF PIP ext orthotic during day and coban SF at night. Follow-up with Dr. Newman on October 31, 2018. Patient Education: Quality of movement, Verbal HEP and Pain Management with patient demonstrated understanding and verbalized understanding. Post-Treatment Pain Scale: 0 Assessment: Patient had an expected response to treatment. Skilled Intervention demonstrated by modifications of treatment per exercise log including plane progressions and safety interventions per exercise log. Progress towards goals as expected. Plan for Next Visit: Treatment Visit with focus on pain management and SF ROM TRUMAN Souza CHT State License, [id number] documented in this encounter* Ivanna Greenberg COTA/L - 09/30/2018 10:00 AM EDT [facility] OUTPAT[facility] REHABIL[facility]ATION DAILY TREATMENT NOTE Today's Date 09/30/2018 Patient Name: Mary Leblanc Date of : 1955 Current Visit #: 11 Authorized Visits: 30 Case Name: Finger pain History: Pre-Treatment Pain Scale: 0 Symptoms: gradually improved Functional Diagnosis: No diagnosis found. Clinical Information: Subjective: Pt reports no pain this date, improved mobility of left SF. Pt continues to wear LMB orthotic 6-7 hours per day. Pt will see Dr. Newman on October 31. Objective The client completed modalities as listed per treatment log to decrease scar tissue in PIP joint of SF and increase mobility. Treatments: Occupational Therapy Exercise Log - 09/30/18 1008 OTHER Notes 10:00 Modalities Modalities Fluidotherapy Parameters 10 minutes Ultrasound Intervention left SF PIP joint Parameter 100%, 3MhZ, .3 Goals: Occupational Therapy Ortho goals: Patient will: 3 wk for 6 weeks to meet following goals: 1) IMPAIRMENT: Improve L 5th digit pain from 4/10 to 1/10 on average in 6 weeks 2) IMPAIRMENT: Improve PROM of Left 5th digit PIP from -20 degrees to -10 degrees for improved use with ADLs/IADLs in 6 weeks. 3) IMPAIRMENT: Improve AROM of Left 5th digit DIP from -45 degrees to -20 degrees for improved use with ADLs/IADLs in 6 weeks. 4) OTHER: Patient will increase FOTO score from 69 to at least 80 to show improved functional outcome in 4 weeks. 5) OTHER: Patient will be able to properly demonstrate independence with HEP in 4 weeks. 6) Patient will I'ly demonstrate understanding of recommended splint wear/care and schedule for improved L 5th digit positioning in 2 weeks. Issued LMB L SF PIPj extension. Fabric Coating Supervisor strength: Right 75, Left 100. Right alumni coordinator on rung 3: 80 (01 Sep 2018) Client with signs and symptoms of mild cubital tunnel syndrome, provided client with written dx ed,+tinel's left medial elbow and ulnar sided hand pain 8/10. Client educated in positioning to relieve tension and pressure at left medial elbow during prolonged driving activities. October 31 Dr. Newman Patient Education: Verbal HEP with patient demonstrated understanding. Post-Treatment Pain Scale: 0 Assessment: Patient had an expected response to treatment. Skilled Intervention demonstrated by modifications of treatment per exercise log including assessment of patient's response and modalities as indicated and safety interventions per exercise log. Progress towards goals as expected. Plan for Next Visit: Treatment Visit with focus on improving use of hand for daily tasks. HEYDI Christiansen/Ha STATE LICENSE, [id number] documented in this encounter* Oscar Portillo MD - 04/14/2019 8:47 AM EST OFFICE CONSULTATION NOTE [facility] [address] [facility] [address] [facility] [id number] Physicians: Delbert Franklin MD (Family); Adalberto Wall* (Referring) Subjective: Mary Leblanc is a 63 y.o. male seen in the office today for Establish Care (c/o exertional chest pain. ) . HPI: The patient is a pleasant 63-year-old morbidly obese gentleman with a past medical history significant for diabetes mellitus, hypertension, and obstructive sleep apnea. There is some question of hyperlipidemia although I cannot find any recent labs. He presents with a 15-year history of exertional chest discomfort. He notes central chest burning that occasionally radiates down his left arm. It isrelieved with rest. It is worse in cold weather. He denies any orthopnea, paroxysmal nocturnal dyspnea, syncope, or near syncope. He does have a history of anxiety disorder. He does not exercise regularly. He had a SPECT at [facility] on 12/17/2017 that was negative for ischemia. LV dilatation was noted. Normal LV systolic function was also noted. Assessment & Plan: Morbid obesity (HCC) The importance of diet and exercise was stressed. He does not follow a diabetic diet. He was instructed to do so. Hypertension His blood pressure is mildly elevated given his diabetes. I would consider advancing his antihypertensive regimen. He apparently is intolerant to ZULLY inhibitor or ARB. I would consider the addition of amlodipine 5 mg daily but I will leave that to primary care. Diabetes mellitus (HCC) Glucose is followed through primary care. Consider dietary consult. MANJIT (obstructive sleep apnea) He is compliant with CPAP therapy. Exertional chest pain The patient has chest discomfort which she has had for the past 15 years. He does have multiple risk factors for coronary disease including morbid obesity, gender, diabetes, hypertension, hypertriglyceridemia. I have ordered repeat Lexiscan SPECT because I would like to see objective evidence of ischemia before I commit him to invasive assessment. I discussed the risks and benefits of this procedure with the patient and he verbalizes understanding and wishes to proceed. If his SPECT does not demonstrate ischemia, I would recommend continued aggressive risk modification. Follow Up Ordered: Return if symptoms worsen or fail to improve. Histories: Past Medical History: Diagnosis Date DDD (degenerative disc disease), thoracic Diabetes mellitus (HCC) Hypertension Past Surgical History: Procedure Laterality Date GALLBLADDER TOTAL KNEE ARTHROPLASTY Bilateral 2007,2008 Family History Problem Relation Age of Onset Heart attack Mother Heart disease Mother Stroke Mother Hyperlipidemia Mother Hypertension Mother Heart failure Father Social History Tobacco Use Smoking status: Never Smoker Smokeless tobacco: Never Used Substance Use Topics Alcohol use: Not Currently Drug use: Never Current Outpatient Medications Medication Sig Dispense Refill allopurinol (ZYLOPRIM) 100 MG tablet TAKE ONE TABLET BY MOUTH TWICE A DAY ascorbic acid, vitamin C, (ascorbic acid with hailey hips) 500 MG tablet 500 mg = 1 tab(s), Oral, Daily aspirin 81 MG EC tablet Take 81 mg by mouth daily . glyBURIDE (DIABETA) 5 MG tablet Take 10 mg by mouth 2 (two) times a day with meals . hydroCHLOROthiazide (HYDRODIURIL) 25 MG tablet Take 25 mg by mouth daily . 3 hydrOXYzine (ATARAX) 25 MG tablet Take 25 mg by mouth daily . metFORMIN (GLUCOPHAGE) 1000 MG tablet 1,000 mg = 1 tab(s), Oral, BID, # 180 tab(s), Refills(s) 3, Pharmacy: [facility]/pharmacy #[id number] metoprolol tartrate (LOPRESSOR) 25 MG tablet Take 25 mg by mouth 2 (two) times a day . 11 pediatric qoxnshyf-biju-uwd Chew 1 tab(s), Oral, Daily, 30 tab(s), Refill(s) 0 pioglitazone (ACTOS) 15 MG tablet Take 15 mg by mouth daily . 11 potassium chloride (KLOR-CON 10) 10 MEQ CR tablet Take 10 mEq by mouth daily . sildenafil, antihypertens, (REVATIO) 20 mg tablet Take 100 mg by mouth daily . testosterone 30 mg/actuation (1.5 mL) SlPm 2 pump, TransDermal, Daily, 110 mL, Refill(s) 1, [facility]/pharmacy #[id number] albuterol (VENTOLIN HFA) 90 mcg/actuation inhaler 1-2 inhalations every 4-6 hours as needed for wheezing. Dispense spacer as needed. No current facility-administered medications for this visit. Allergies Allergen Reactions Penicillins Anaphylaxis Aspartame GI Intolerance Hydrocodone-Acetaminophen GI Intolerance Lisinopril Other reaction(s): C/O - cough Other Propoxyphene N-Acetaminophen GI Intolerance Silk Tape Codeine-Guaifenesin Anxiety Simvastatin Anxiety Review of Systems Constitution: Negative for diaphoresis, malaise/fatigue, weight gain and weight loss. HENT: Negative for hearing loss, nosebleeds and tinnitus. Eyes: Negative for blurred vision and visual disturbance. Cardiovascular: Positive for chest pain, dyspnea on exertion and leg swelling. Negative for claudication, cyanosis, irregular heartbeat, near-syncope, orthopnea, palpitations, paroxysmal nocturnal dyspnea and syncope. Respiratory: Positive for shortness of breath. Negative for hemoptysis and snoring. Endocrine: Negative for cold intolerance and heat intolerance. Hematologic/Lymphatic: Does not bruise/bleed easily. Skin: Negative for flushing, poor wound healing and rash. Musculoskeletal: Positive for joint pain. Negative for back pain, muscle weakness and myalgias. Gastrointestinal: Negative for abdominal pain, change in bowel habit, melena, nausea and vomiting. Genitourinary: Negative for decreased libido and hematuria. Neurological: Negative for loss of balance and numbness. Psychiatric/Behavioral: Negative for memory loss. Overview of Problems Addressed: Problem Manjit (Obstructive Sleep Apnea) Exertional Chest Pain Diabetes Mellitus (Hcc) Hypertension Morbid Obesity (Hcc) Objective: Physical Exam Constitutional: He is oriented to person, place, and time. He appears well- developed and well-nourished. HENT: Head: Normocephalic. Eyes: Pupils are equal, round, and reactive to light. Conjunctivae and EOM are normal. No scleral icterus. Neck: Normal range of motion. Neck supple. No tracheal deviation present. No thyromegaly present. Cannot assess JVD secondary to obesity. Cardiovascular: Normal rate, regular rhythm, S1 normal, S2 normal, normal heart sounds and intact distal pulses. Exam reveals no friction rub. No murmur heard. Pulmonary/Chest: Breath sounds normal. No respiratory distress. He has no wheezes. He has no rales. Abdominal: Soft. Bowel sounds are normal. He exhibits no distension and no mass. There is no hepatosplenomegaly. There is no abdominal tenderness. Morbid obesity. Musculoskeletal: Normal range of motion. General: Edema present. Comments: 1-2+ bilateral lower extremity edema which she states is chronic. He is wearing support stockings. Lymphadenopathy: He has no cervical adenopathy. Neurological: He is alert and oriented to person, place, and time. Skin: Skin is warm and dry. Psychiatric: He has a normal mood and affect. His behavior is normal. Vitals: Vitals: 04/14/19 0808 BP: 135/78 BP Location: Left arm Patient Position: Sitting Pulse: 63 SpO2: 95% Weight: (!) 188.7 kg (415 lb 14.4 oz) Height: 6' 1" Orders Placed This Encounter NM Myocardial Perfusion Multiple SPECT ECG 12 Lead sildenafil, antihypertens, (REVATIO) 20 mg tablet hydrOXYzine (ATARAX) 25 MG tablet hydroCHLOROthiazide (HYDRODIURIL) 25 MG tablet metoprolol tartrate (LOPRESSOR) 25 MG tablet pioglitazone (ACTOS) 15 MG tablet Thank you for allowing me to assist you in the cardiovascular care of this patient. Please don't hesitate to contact me if you have any questions regarding these thoughts. Oscar Portillo MD documented in this encounter* Ivanna Greenberg COTA/Ha - 09/14/2018 11:30 AM EDT [facility] DAILY TREATMENT NOTE Today's Date 09/14/2018 Patient Name: Mary Leblanc Date of : 1955 Current Visit #: 6 Authorized Visits: 30 Case Name: Finger pain History: Pre-Treatment Pain Scale: 1 Symptoms: gradually improved Functional Diagnosis: SNOMED CT(R) 1. Pain in finger of left hand PAIN IN FINGER OF LEFT HAND Clinical Information: Subjective: Pt states improvement in pain level "almost none, only a little with driving." Pt reports compliance with orthotic wear and HEP. Pt feels that coban wrap for swelling is also helping. Objective -10 Treatments: Occupational Therapy Exercise Log - 09/14/18 1132 OTHER Notes 11:30-12:00 Therapeutic Exercise (70487) Intervention Passive left 5th digit PIP extension stretch Parameters HEP wearing LMB 6-7 hours a day Intervention Edema management Parameters Coban wrap end of session Modalities Modalities Fluidotherapy Parameters 10 minutes OT Treatment Times Therex Total Time 10 Modalities Total Time 10 Ultrasound Total Time 8 Direct Treatment Time 28 Total Treatment Time 30 Goals: Occupational Therapy Ortho goals: Patient will: 3 wk for 6 weeks to meet following goals: 1) IMPAIRMENT: Improve L 5th digit pain from 4/10 to 1/10 on average in 6 weeks 2) IMPAIRMENT: Improve PROM of Left 5th digit PIP from -20 degrees to -10 degrees for improved use with ADLs/IADLs in 6 weeks. 3) IMPAIRMENT: Improve AROM of Left 5th digit DIP from -45 degrees to -20 degrees for improved use with ADLs/IADLs in 6 weeks. 4) OTHER: Patient will increase FOTO score from 69 to at least 80 to show improved functional outcome in 4 weeks. 5) OTHER: Patient will be able to properly demonstrate independence with HEP in 4 weeks. 6) Patient will I'ly demonstrate understanding of recommended splint wear/care and schedule for improved L 5th digit positioning in 2 weeks. Issued LMB L SF PIPj extension. Fabric Coating Supervisor strength: Right 75, Left 100. Right alumni coordinator on rung 3: 80 (01 Sep 2018) Client with signs and symptoms of mild cubital tunnel syndrome, provided client with written dx ed,+tinel's left medial elbow and ulnar sided hand pain 8/10. Client educated in positioning to relieve tension and pressure at left medial elbow during prolonged driving activities. Patient Education: Quality of movement and Written HEP with patient demonstrated understanding. Post-Treatment Pain Scale: 0 Assessment: Patient had an expected response to treatment. Pt states pain no more than 4/10 with driving and only on ulnar side of hand, no longer through the elbow. Skilled Intervention demonstrated by modifications of treatment per exercise log including plane progressions, assessment of patient's response and modalities as indicated and safety interventions per exercise log. Progress towards goals as expected. Plan for Next Visit: Treatment Visit with focus on improving use of SF needed for all daily tasks and full composite fist. Will discuss with CHT at next treatment session malrotation of DIP of SF. RYAN Christiansen STATE LICENSE, [id number] documented in this encounter Assessments Diagnosis Pain in finger of left hand- Primary Pain in soft tissues of limb Diagnosis Pain Generalized pain Diagnosis Pain in finger of left hand Pain in soft tissues of limb Diagnosis Pain in finger of left hand Pain in soft tissues of limb Diagnosis Pain in finger of left hand Pain in soft tissues of limb Diagnosis Pain in finger of left hand Pain in soft tissues of limb Diagnosis Pain in finger of left hand Pain in soft tissues of limb Diagnosis Pain in finger of left hand Pain in soft tissues of limb Diagnosis Exertional chest pain Unspecified chest pain Diagnosis Pain in finger of left hand Pain in soft tissues of limb Diagnosis Pain in finger of left hand- Primary Pain in soft tissues of limb Diagnosis Exertional chest pain Unspecified chest pain MANJIT (obstructive sleep apnea) Obstructive sleep apnea (adult) (pediatric) Type 2 diabetes mellitus without complication, without long-term current use of insulin (HCC) Hypertension, unspecified type Morbid obesity (HCC) Morbid obesity Instructions * Patient Instructions* Roxi Almaguer RN - 04/14/2019 8:46 AM EST .How to contact your Care Team: Provider: Oscar Portillo MD [facility] Nurse: Roxi Almaguer RN In case of an emergency please call 911. REFILLS: When in need for refills please call your care team or the office at [phone]. Please include medication name, pharmacy name, and specify 30-day or 90-day supply. Please check with your pharmacy within 24 hours of request for your refill. You must follow up as directed to continue current refills. Thank you! NUCLEAR MEDICINE CARDIAC STRESS TEST THIS IS A 3-4 HOUR TEST Instructions: Appointment Time: , ____/____/____ at ____:____ Prep: DO NOT Take your morning medications. Please bring your morning medications with you. NO CAFFEINE FOR 24 HOURS prior to your test. This includes drinks labeled decaffeinated. Nothing to eat 4 hours prior to your test. A small snack will be provided (crackers, granola bar, juice), or you may bring your own snack for after your stress test. You may drink fluids leading up to your test as long as they are caffeine-free. Decaffeinated drinks still contain some caffeine, please do not drink anything containing caffeine for 24 hours. NO SMOKING the day of your test. Wear comfortable shoes and clothing for exercising. No metal buttons or snaps please. Procedure: Check-in/Registration. Please bring photo ID, insurance cards, and any physician orders. Test explained in detail and IV started. Stress test performed, nuclear medicine will be injected through your IV during the stress test. Stress test recovery period. Heart scan performed. The doctor will review the pictures of your heart and decide if more pictures are needed before youleave. If more are needed you will get another injection of nuclear medicine and this will take an additional hour. The total time for this test is 3-4 hours. There are medications that interfere with this test. You may be instructed to hold medications. If so that will be listed here: If you have any further questions please contact your care team or [phone]. documented in this encounter Chief Complaint LabsLabs3 mo bph tremors dm obesity manjit htn ck rev labsLabs6 month follow up with labsSOB, COUGH X 3 MORight-sided abdominal pain3 MO FU3 MO FU3 MO FUYearly w/ labsYearly w/ labs1 month medication check1 month medication check1 month medication check Additional Source Comments (unrecognized sect ion and content) No Status Records FoundNo Status Records FoundNo Status Records FoundNo Status Records FoundNo Status Records FoundNo Status Records FoundNo Status Records FoundNo Status Records FoundNo Status Records FoundNo Status Records FoundNo Status Records FoundNo Status Records FoundNo Status Records FoundNo Status Records Found INFORMATION SOURCE (unrecogn ized section and content) DATE CREATED AUTHOR 11/09/2017 [facility] DATE CREATED AUTHOR AUTHOR'S ORGANIZ ATION 01/04/2018 [facility] DATE CREATED AUTHOR AUTHOR'S ORGANIZ ATION 03/14/[address] [facility] DATE CREATED AUTHOR AUTHOR'S ORGANIZ ATION 08/30/2018 [facility] DATE CREATED AUTHOR AUTHOR'S ORGANIZ ATION 02/16/2019 [facility] DATE CREATED AUTHOR AUTHOR'S ORGANIZ ATION 05/09/2019 [facility] DATE CREATED AUTHOR AUTHOR'S ORGANIZ ATION 08/20/2021 [facility] DATE CREATED AUTHOR AUTHOR'S ORGANIZ ATION 06/26/2022 [facility] DATE CREATED AUTHOR AUTHOR'S ORGANIZ ATION 12/19/2022 [facility] DATE CREATED AUTHOR AUTHOR'S ORGANIZ ATION 12/22/2022 [facility] DATE CREATED AUTHOR AUTHOR'S ORGANIZ ATION 03/04/2025 [facility] DATE CREATED AUTHOR AUTHOR'S ORGANIZ ATION 03/08/2025 [facility] DATE CREATED AUTHOR AUTHOR'S ORGANIZ ATION 03/23/2025 [facility] DATE CREATED AUTHOR AUTHOR'S ORGANIZ ATION 03/26/2025 [facility] Reason for Visit (unrecogniz ed section and content) Reason Comments Pain Injury Reason Comments Occupational Therapy Status Reason Specialty Diagnoses / Procedures Referred By Contact Referred To Contact Authorized Rehabilitation Diagnoses Pain in finger of left hand Salinas Newman MD [address] [facility] [address] [place] [address] [facility] [address] [place] [address] Status Reason Specialty Diagnoses / Procedures Referred By Contact Referred To Contact Authorized Radiology Diagnoses Exertional chest pain Procedures NM Myocardial Perfusion Study Single - Stress Only NM Myocardial Perfusion Multiple SPECT Oscar Portillo MD [address] [place] [address] Reason Comments Follow-up Pain Reason Comments Establish Care c/o exertional chest pain. Status Reason Specialty Diagnoses / Procedures Referred By Contact Referred To Contact Closed Specialty Services Required/Patient 's Best Interest Cardiology Diagnoses Exertional chest pain Adalberto Wall CNP [address] [place] [address] [facility] [address] [facility] [place] [address] Reason Comments Covid-19 Screening Denies known covid e xposure. Vaccinated. C/O sore throat x Wednesday night. Pt reports having weakness in legs and fatigue x 4 weeks, states this started after booster vaccine. Reason Comments Cough Cough with head/ches t congestion that started 4 weeks ago. Reason Comments Annual Exam Wellness,med check Reason Comments lab results Reason Comments Diabetes Mellitus Gap Closure (Health Maintenance) Diabeti c Foot Exam Never doneDiabetic Eye Exam Never doneUrine Microalbumin Never [id number] due on 02/10/2023 Specialty Diagnoses / Procedures Referred By Contac t Referred To Contact Endocrinology Diagnoses Inadequately controlled diabetes mellitus (HCC) Adalberto Wall CNP [address] [place] [address] Megan Wu MD [address] [address] Referral ID Status Reason Start Date Expiration Date Visits Re quested Visits Authorized [id number] Closed 07/07/2023 07/06/2024 1 1 Reason Comments Tremors Specialty Diagnoses / Procedures Referred By Contac t Referred To Contact Radiology Diagnoses Dyslipidemia Procedures CT cardiac scoring wo IV contrast Rosendo Longo MD [address] [place] [place] [place] [address] Referral ID Status Reason Start Date Expiration Date Visits Requested Visits Authorized [id number] Authorized Perform Procedure 07/06/2023 07/05/2024 1 1 Specialty Diagnoses / Procedures Referred By Contac t Referred To Contact Cardiology Diagnoses Atherosclerosis Procedures Transthoracic Echo Complete NE ECHO TTHRC R-T 2D W/WOM-MODE COMPL SPEC&COLR D Rosendo Longo MD [address] [facility], [place] [address] Referral ID Status Reason Start Date Expiration Date Visits Requested Visits Authorized [id number] Authorized Perform Procedure 07/06/2023 07/05/2024 1 1 Reason Comments 3 month f/u Echo/CT f/u Reason Comments Follow-up 3 mo fu , B12 inject ion Reason Comments 6 month with labs Reason Comments Diabetes Mellitus Gap Closure (Health Maintenance) Diabeti c Eye Exam Never done Reason Comments Follow-up 6 month Reason Comments 6 MO LABS Specialty Diagnoses / Procedures Referred By Contac t Referred To Contact Primary Care Diagnoses Type 2 diabetes mellitus without complications (Multi) Primary hypertension Chronic gout without tophus, unspecified cause, unspecified site Procedures Follow Up In Primary Care - Established Adalberto Wall, AIR TRAFFIC COORDINATOR-PIEROGI MAKER Phone: tel: fax: Referral ID Status Reason Start Date Expiration Date V isits Requested Visits Authorized [id number] Authorized 10/25/2023 10/24/2024 1 1 Reason Comments Diabetes Mellitus Diabetic Eye Exam Ne mahsa [id number] due on 01/05/2024 Reason Comments Tremors Reason Comments Follow-up 6 Mon F/U. EKG done in the office. Specialty Diagnoses / Procedures Referred By Contac t Referred To Contact Diagnoses Atherosclerosis of [place] coronary artery of [place] heart without angina pectoris Procedures ECG 12 lead (Clinic Performed) Rosendo Longo MD [address] [place], [place] [id number] Phone: tel: fax: Referral ID Status Reason Start Date Expiration Date V isits Requested Visits Authorized [id number] Authorized 10/13/2024 10/13/2025 1 1 Reason Comments Diabetes Mellitus Diabetic Eye Exam Ne mahsa [id number] due on 07/24/2024 Reason Comments Follow-up 6 mo fu Specialty Diagnoses / Procedures Referred By Ibeth borden Referred To Contact Primary Care Diagnoses Type 2 diabetes mellitus without complication, without long-term current use of insulin Procedures Follow Up In Primary Care - Established Adalberto Wall, AIR TRAFFIC COORDINATOR-PIEROGI MAKER [address] [facility] [address] [place] [address] Phone: tel: fax: Referral ID Status Reason Start Date Expiration Date V isits Requested Visits Authorized [id number] Authorized 04/26/2024 04/26/2025 1 1 Reason Comments Cough Cough and chest tom estion X 1 week Reason Comments Foot Problem L foot ulcer 2 wks - pt states he was having pain in the foot and his discovered he had a wound on the bottom of foot - pt saw PCP for bronchitis and had the foot looked at and was placed on doxycycline Reason Comments Wound Check 1 wk f/u Skin ulcer of left Foot Pain Pt Presents for rt d orsal lateral foot pain x 10 yrs. Reason Comments Follow-up L foot ulcer - pt st ates that the foot is swollen and red Annita Osborne RN - 05/08/2019 10:00 AM EST Nursing Notes (unrecognized section and content) Resting EKG NSR. Patient tolerated Lexiscan well. No c/o CP or SOB. documented in this encounter Assessment & Plan Note - Oscar Portillo MD - 04/14/2019 8:51 AM ESTAssessment & Plan Note - Oscar Portillo MD - 04/14/2019 8:51 AM EST Miscellaneous Notes (unrecog nized section and content) Associated Problem(s): Exertional chest pain The patient has chest discomfort which she has had for the past 15 years. He does have multiple risk factors for coronary disease including morbid obesity, gender, diabetes, hypertension, hypertriglyceridemia. I have ordered repeat Lexiscan SPECT because I would like to see objective evidence of ischemia before I commit him to invasive assessment. I discussed the risks and benefits of this procedure with the patient and he verbalizes understanding and wishes to proceed. If his SPECT does not demonstrate ischemia, I would recommend continued aggressive risk modification. Associated Problem(s): MANJIT (obstructive sleep apnea) He is compliant with CPAP therapy. Associated Problem(s): Diabetes mellitus (HCC) Glucose is followed through primary care. Consider dietary consult. Associated Problem(s): Hypertension His blood pressure is mildly elevated given his diabetes. I would consider advancing his antihypertensive regimen. He apparently is intolerant to ZULLY inhibitor or ARB. I would consider the addition of amlodipine 5 mg daily but I will leave that to primary care. Associated Problem(s): Morbid obesity (HCC) The importance of diet and exercise was stressed. He does not follow a diabetic diet. He was instructed to do so. documented in this encounter <item> Privacy Markings (unrecogniz ed section and content) Section Author: Shanice Quinn PROHIBITION ON REDISCLOSURE OF CONFIDENTIAL INFORMATION This notice accompanies a disclosure of information concerning a client made to you with the consent of such client. Care Teams (unrecognized sec tion and content) Network Operations Manager Relationship Specialty Start Date End Date Delbert Franklin MD [address] [place] [address] PCP - General Family Medicine 08/01/18 Network Operations Manager Relationship Specialty Start Date End Date Delbert Franklin MD [address] [place] [address] PCP - General Family Medicine 08/01/18 Network Operations Manager Relationship Specialty Start Date End Date Delbert Franklin MD [address] [place] [address] PCP - General 01/17/19 Adalberto Wall, AIR TRAFFIC COORDINATOR-PIEROGI MAKER [address] [place] [address] PCP - [place] [facility] PCP 05/17/21 Network Operations Manager Relationship Specialty Start Date End Date Delbert Franklin MD [address] [place] [address] PCP - General 01/17/19 Adalberto Wall, AIR TRAFFIC COORDINATOR-PIEROGI MAKER [address] [place] [address] PCP - [place] [facility] PCP 05/17/21 Network Operations Manager Relationship Specialty Start Date End Date Adalberto Wall, AIR TRAFFIC COORDINATOR-PIEROGI MAKER [address] [place] [address] PCP - [place] [facility] PCP 05/17/21 Adalberto Wall, AIR TRAFFIC COORDINATOR-PIEROGI MAKER [address] [place] [address] PCP - General Family Medicine 04/30/23 Network Operations Manager Relationship Specialty Start Date End Date Delbert Franklin MD [address] [place] [address] PCP - General Family Medicine 08/01/18 Network Operations Manager Relationship Specialty Start Date End Date Delbert Franklin MD [address] [place] [address] PCP - General Family Medicine 08/01/18 Network Operations Manager Relationship Specialty Start Date End Date Mae Adalberto Bonner, AIR TRAFFIC COORDINATOR-PIEROGI MAKER [address] [place] [address] PCP - [place] [facility] PCP 05/17/21 Adalberto Wall, AIR TRAFFIC COORDINATOR-PIEROGI MAKER [address] [place] [address] PCP - General Family Medicine 04/30/23 Network Operations Manager Relationship Specialty Start Date End Date Adalberto Wall, AIR TRAFFIC COORDINATOR-PIEROGI MAKER [address] [place] [address] PCP - [place] [facility] PCP 05/17/21 Adalberto Wall, AIR TRAFFIC COORDINATOR-PIEROGI MAKER [address] [place] [address] PCP - General Family Medicine 04/30/23 Network Operations Manager Relationship Specialty Start Date End Date Adalberto Wall, AIR TRAFFIC COORDINATOR-PIEROGI MAKER [address] [place] [address] PCP - [place] [facility]CO PCP 05/17/21 Adalberto Wall, AIR TRAFFIC COORDINATOR-PIEROGI MAKER [address] [place] [address] PCP - General Family Medicine 04/30/23 Network Operations Manager Relationship Specialty Start Date End Date Adalberto Wall, AIR TRAFFIC COORDINATOR-PIEROGI MAKER [address] [place] [address] PCP - [place] [facility] PCP 05/17/21 Adalberto Wall, AIR TRAFFIC COORDINATOR-PIEROGI MAKER [address] [place] [address] PCP - General Family Medicine 04/30/23 Network Operations Manager Relationship Specialty Start Date End Date Adalberto Wall, AIR TRAFFIC COORDINATOR-PIEROGI MAKER [address] [place] [address] PCP - [place] ACO PCP 05/17/21 Adalberto Wall, AIR TRAFFIC COORDINATOR-PIEROGI MAKER [address] [place] [address] PCP - General Family Medicine 04/30/23 Network Operations Manager Relationship Specialty Start Date End Date Adalberto Wall, AIR TRAFFIC COORDINATOR-PIEROGI MAKER [address] [place] [address] PCP - Madhuri ZARAGOZAO PCP 05/17/21 Adalberto Wall, AIR TRAFFIC COORDINATOR-PIEROGI MAKER [address] [place] [address] PCP - General Family Medicine 04/30/23 Network Operations Manager Relationship Specialty Start Date End Date Adalberto Wall, AIR TRAFFIC COORDINATOR-PIEROGI MAKER [address] [address] PCP - Madhuri ZARAGOZAO PCP 05/17/21 Adalberto Wall, AIR TRAFFIC COORDINATOR-PIEROGI MAKER [address] [address] PCP - General Family Medicine 03/28/24 Network Operations Manager Relationship Specialty Start Date End Date Adalberto Wall AIR TRAFFIC COORDINATOR-PIEROGI MAKER [address] [address] PCP - Madhuri ZARAGOZAO PCP 05/17/21 Adalberto Wall, AIR TRAFFIC COORDINATOR-PIEROGI MAKER [address] [address] PCP - General Family Medicine 03/28/24 Network Operations Manager Relationship Specialty Start Date End Date Adalberto Wall APRN-CNP [address] [address] PCP - Madhuri AMADOR PCP 05/17/21 Adalberto Wall APRN-DOUGLAS [address] [address] PCP - General Family Medicine 03/28/24 Network Operations Manager Relationship Specialty Start Date End Date Delbert Franklin MD [address] [place] [address] PCP - General Family Medicine 08/01/18 Network Operations Manager Relationship Specialty Start Date End Date Adalberto Wall APRN-CNP [address] [place] [address] PCP - Madhuri AMADOR PCP 05/17/21 Adalberto Wall APRN-DOUGLAS [address] [address] PCP - General Family Medicine 03/28/24 Network Operations Manager Relationship Specialty Start Date End Date Adalberto Wall APRN-CNP [address] [address] PCP - Madhuri AMADOR PCP 05/17/21 Adalberto Wall APRN-DOUGLAS [address] [address] PCP - General Family Medicine 03/28/24 Network Operations Manager Relationship Specialty Start Date End Date Adalberto Wall APRN-DOUGLAS [address] [address] PCP - Madhuri AMADOR PCP 05/17/21 Adalberto Wall APRN-DOUGLAS [address] [address] PCP - General Family Medicine 03/28/24 Rosendo Longo MD [facility] [address] [place] [address] Consulting Physician Cardiology 10/13/24 Network Operations Manager Relationship Specialty Start Date End Date Delbert Franklin MD [address] [place] [address] PCP - General Family Medicine 08/01/18 Network Operations Manager Relationship Specialty Start Date End Date Adalberto Wall APRN-DOUGLAS [address] [address] PCP - Madhuri AMADOR PCP 05/17/21 Adalberto Wall APRN-DOUGLAS [address] [address] PCP - General Family Medicine 03/28/24 Rosendo Longo MD [facility] [address] [place] [address] Consulting Physician Cardiology 10/13/24 Network Operations Manager Relationship Specialty Start Date End Date Adalberto Wall APRN-DOUGLAS [address] [address] PCP - Madhuri AMADOR PCP 05/17/21 Adalberto Wall APRN-DOUGLAS [address] [place] [address] PCP - General Family Medicine 03/28/24 Network Operations Manager Relationship Specialty Start Date End Date Adalberto Wall APRN-PIEROGI MAKER [address] [place] [address] PCP - Madhuri AMADOR PCP 05/17/21 Adalberto Wall APRN-PIEROGI MAKER [address] [place] [address] PCP - General Family Medicine 03/28/24 Rosendo Longo MD [address] [place] [address], [address] [address] [address] Consulting Physician Cardiology 10/13/24 Network Operations Manager Relationship Specialty Start Date End Date Delbert Franklin MD [address] [place], [place] [id number] PCP - General Family Medicine 08/01/18 Network Operations Manager Relationship Specialty Start Date End Date Delbert Franklin MD [address] [place] [id number] PCP - General Family Medicine 08/01/18 Network Operations Manager Relationship Specialty Start Date End Date Delbert Franklin MD [address] [place] [phone] PCP - General Family Medicine 08/01/18 Network Operations Manager Relationship Specialty Start Date End Date Delbert Franklin MD [address] [place] [id number] PCP - General Family Medicine 08/01/18 FOR RECORDS PERTAINING TO PATIENTS WHO ARE OR HAVE BEEN ENROLLED IN A CHEMICAL DEPENDENCY/SUBSTANCEABUSE PROGRAM, SOME INFORMATION MAY BE OMITTED. This clinical summary was aggregated from multiple sources. Caution should be exercised in using it in the provision of clinical care. This summary normalizes information from multiple sources, and as a consequence, information in this document may materially change the coding, format and clinical context of patient data. In addition, data may be omitted in some cases. CLINICAL DECISIONS SHOULD BE BASED ON THE PRIMARY CLINICAL RECORDS. [facility] provides no warranty or guarantee of the accuracy or completeness of information in this document.
[2025-04-02 20:14] LABS: Mucous, Urine 0 SEEN /hpf (<or=2+)
--- NOTE | 2025-04-02 20:15 | RAD_ITS ---
PROCEDURE: LEFT FOOT MIN 3 VIEWS 04/02/2025 REASON FOR EXAM: DIABETIC FOOT INFECTION TECHNIQUE: Procedure Code: RADFO Modality: DX Procedure: FOOT MIN 3 VIEWS Laterality: Left COMPARISON: None. FINDINGS: No acute fracture or dislocation. Preserved visualized joint spaces. No aggressive osseous erosion or destruction appreciated. Small plantar calcaneal spur. Generalized soft tissue swelling/edema about the forefoot, with small amount of soft tissue gas at the lateral aspect of the forefoot adjacent to the 5th MTP joint. No radiopaque foreign body. RAD/Foot min 3 Views IMPRESSION: Generalized soft tissue swelling/edema about the forefoot, with small amount of soft tissue gas laterally adjacent to the 5th MTP joint, related to ulceration or gas-forming soft tissue infection. No radiographic evidence for osteomyelitis. If clinical concern persists recomm end MRI. Reading Location: [id number]
[2025-04-02 20:17] LABS: Hematocrit 43.8 % (40-54); Hemoglobin 14.3 g/dL (13.0-16.5); Immature Granulocytes Count 0.030 X10^3/uL (0.0-0.0); Mean Corp Hgb Conc 32.6 g/dL (32-36); Mean Corpuscular Volume 90.3 fL (80-94); Mean Platelet Vol. 10.1 fl (6.2-12.0); NRBC Flagged by Analyzer 0 % (0-5); Platelet Count 270 K/mm3 (150-450); RBC Distribution Width CV 14.4 % (11.6-14.6); RBC Distribution Width SD 47.7 fl (35.1-43.9); Red Blood Count 4.85 M/mm3 (4.6-6.2); White Blood Count 9.0 K/mm3 (4.4-11.0)
[2025-04-02 20:21] LABS: Color, Urine Yellow (Yellow); Glucose, Dipstick 250 mg/dl (Normal); Ketone-Dipstick Negative (Negative); Leukocyte Esterase-Dipstick Negative /ul (Negative); Nitrite-Dipstick Negative (Negative); Occult Blood-Urine 50 /ul (Negative); Protein-Dipstick 100 mg/dl (Negative); Specific Gravity, Urine 1.020 (1.002-1.030); Urine Bilirubin Dipstick Negative (Negative)
[2025-04-02 20:43] LABS: AST(SGOT) 32 U/L (<=37); Alanine Aminotransfer ALT/SGPT 23 U/L (<=46); Albumin, Serum 3.5 g/dL (3.4-4.8); Alkaline Phosphatase 83 U/L (40-129); Anion Gap 10 (5-15); BUN 36 mg/dL (4-19); BUN/Creat Ratio 19.9 RATIO (10-20); Calcium,Total 8.9 mg/dL (7.6-11.0); Carbon Dioxide 23.0 mmol/L (21.0-32.0); Chloride 96 mmol/L (98-108); Estimated Creatinine Clearance 70.07 ml/min (50-250); Globulin 3.6 g/dL (2.2-4.2); Glucose 333 mg/dL (70-99); Potassium 5.2 mmol/L (3.3-5.1)
[2025-04-02 20:59] LABS: CRP 163.00 mg/L (0.0-3.0)
[2025-04-02 21:29] LABS: Squamous Epithelial Cells - UA 5-10 SEEN /hpf (0-5)
[2025-04-02 21:30] LABS: Red Blood Cells-Urine 5-10 SEEN /hpf (0-5)
[2025-04-02 21:32] LABS: Fine Granular Cast- Urine 0-5 SEEN /lpf (0-5)
== END 2025-04-02 23:51 | disposition home or self-care (01) ==
PROVIDERS: Emergency Provider Emergency Medicine; PCP Family Medicine; Visit Provider Emergency Medicine
DX: L03.116 Cellulitis of left lower limb (principal); E11.9 Type 2 diabetes mellitus without complications; Z96.653 Presence of artificial knee joint, bilateral; Z79.82 Long term (current) use of aspirin; Z79.899 Other long term (current) drug therapy; Z79.84 Long term (current) use of oral hypoglycemic drugs
CPT/HCPCS: 73630; 80053; 81001; 83605; 85025; 85652; 86140; 99284